=== PATIENT | male | born 1940 | race Caucasian/White ===

== ENCOUNTER 2022-08-30 19:27 | Inpatient (IN) | payer MEDICARE, BC, SELFPAY ==
[2022-08-30 19:42] VITALS: BP 105/59; PULSE 77; RESP 16; TEMP 36.8; O2SAT 97
--- NOTE | 2022-08-30 20:22 | NURSING ---
notified patient admit, clarified Vanco route and Ceftriaxone frequency due to not stated on discharge orders. Orders entered.
--- NOTE | 2022-08-30 20:32 | PCM.HP.STD ---
HPI - General General Date of Admission: 08/30/22 Date of Service: 08/31/22 Chief Complaint: Here for rehabilitation, intravenous antibiotics. HPI Narrative CHANA WARE, is a 82 Male who presents with followin08/21/2022 Patient is a 82 year old male with history of diabetes, hypertension, depression, hyperlipidemia, history of colonic polyps who presents to [facility] emergency department after appointment with pain management for injections for chronic back pain. Prior to this MRI was obtained and resulted with concern for L3-L4 discitis, osteomyelitis, and fluid collection concerning for possible abscess. Patient was also noted some weakness in his right lower extremity especially with extension for the last 2 days. Patient has been hemodynamically stable. Labs showed relatively unremarkable CBCD, and INR 1.4, Blood glucose 222, creatinine 1.47, Lactic acid 2.9 which trended down to 1.7, and C-reactive protein of 10.62, UA showed 1+ bacteria large leukocyte esterase but only 5-20 white blood cells. There were no epithelial cells on that. Influenza and COVID were negative. He was given Vancomycin and Cefepime. Transfer to [facility] [place], [place] under medicine with Dr. Plunkett on consult. 08/22/2022 Admit to [facility] [place], [place]. Blood cultures sent, continue Vancomycin, Cefepime IV. Anticipate need for fdc IV antibiotics, consult Infectious Disease. Consult Neurosurgery, Pain control. Zofran for nausea, gentle IV fluids. 08/22/2022 Neurosurgery saw patient, surgery recommended for lumbar epidural abscess, lumbar osteomyelitis, lumbar spinal stenosis. 08/23/2022 Neurosurgery performed L2-5 decompression and evacuation of epidural abscess. Infectious Disease recommended stopping Cefepime, and switch to IV Rocephin and Vancomycin for L3-4 verebral osteomyelitis, epidural, psoas abscess. Anticipate 6 weeks IV antibiotics, order PICC line. 08/24/2022 blood cultures no growth, OR cultures no growth, gram stain negative. TTE pending. No antibiotics for asymptomatic bacteruria. Continue Vancomycin, Ceftriaxone. 08/31/2022 Admit to TCU with debility, here for rehabilitation, strengthening, intravenous antibiotics, prior to discharge home alone. [facility] Medical History Abscess in epidural space of lumbar spine Coronary artery disease Depression Diabetes mellitus Hypertension Lumbar discitis Osteomyelitis of lumbar spine Allergy/AdvReac Type Severity Reaction Status Date / Time No Known Allergies Allergy Verified 08/30/22 20:40 Surgical History (Updated 08/30/22 @ 20:[address] Maurice Lepe MD) Status post epidural steroid injection Social History (Updated 08/30/22 @ 20:[address] Maurice Lepe MD) household members: none Smoking Status: Never smoker alcohol intake: never substance use type: does not use ROS Constitutional Constitutional: Denies chills, fever(s) or weight gain ENT HEENT: Denies headache(s), nasal congestion or nasal discharge Cardiovascular Cardiovascular: Denies chest pain or palpitations Respiratory/Chest Respiratory/Chest: Denies cough, excessive phlegm production or shortness of breath with exertion Gastrointestinal Gastrointestinal: Denies abdominal pain, nausea or vomiting Genitourinary Genitourinary: Denies dysuria Musculoskeletal Musculoskeletal: Denies joint pain or joint swelling Integumentary Integumentary: Denies rash or wounds Neurologic Neurologic: Denies focal weakness, numbness or tingling Psychiatric Psychiatric: Denies anxiety, auditory hallucinations, depression, homicidal ideation or suicidal ideation Physical Exam Const alert General Appearance: cooperative HEENT normocephalic Eyes PERRL and EOMs intact bilaterally Neck supple, no JVD and no carotid bruits Resp normal respiratory effort, normal air movement and clear to auscultation bilaterally Cardio regular rate and regular rhythm GI normal to inspection, nondistended, normoactive bowel sounds, non-tender and non-distended Extremity normal capillary refill Extremity Narrative: Left upper extremity PICC line. General Extremity: Negative for edema Skin no rashes or lesions noted General Skin Exam: no breakdown Psych affect normal Appearance: appropriate Results Lab / Micro Data Result Diagrams: 08/31/22 03:55 08/31/22 03:55 Assessment & Plan Assessment/Plan (1) Debility: (2) Lumbar discitis: (3) Osteomyelitis of lumbar spine: (4) Psoas abscess: (5) Abscess in epidural space of lumbar spine: (6) Diabetes mellitus: (7) Hypertension: (8) Coronary artery disease: (9) Depression: PLAN: Plan 82 year old male with below past medical history hospitalized for lumbar discitis, lumbar osteomyelitis, lumbar epidural abscess, psoas abscess, underwent L2-5 decompression, evacuation of epidural abscess 08/22/2022, admitted to TCU with debility, here for rehabilitation, strengthening, prior to discharge home alone. Debility - PT/OT. Pain - Tylenol 1000mg q6h prn pain (1-3), Tramadol 50mg q6h prn pain (4-5), Oxycodone 5mg q4h prn pain (6-10), Lidoderm patch 1 patch topical daily. Bowel - Miralax 17gm daily, senna/colace 2 tablets bid, Dulcolax 10mg pr x 1 prn, MOM 30ml po x 1 prn. Adult immunization - Administer pneumonia vacccine, covid19 vaccine, flu vaccine as appropriate. DVT prophylaxis - Xarelto 10mg daily x 30 days. Lumbar discitis/osteomyelitis/epidural abscess/psoas abscess status post debridment - Ceftriaxone 2gm iv q24h, Vancomycin 1500mg iv q24h, consult Dr. Meek to follow. Diabetes Mellitus II - Metformin 1000mg bid, Glimepiride 4mg daily. Hypertension - Propranolol 20mg bid, Lisinopril 5mg daily. Hyperlipidemia - Atorvastatin 20mg qhs. BPH - Tamsulosin 0.8mg daily.
[2022-08-30 21:00] VITALS: BMI 24.3
--- NOTE | 2022-08-30 21:10 | NURSING ---
Patient confused, alert to self, unable to state correct location, patient states using white board to recall month/year. Unable to state correct time. Shwetha bermudez bedside, patient states she needs to answer my questions. Discussed code status, full code confirmed at this time with patient and spouse. Patient and spouse unable to recall vaccination history. Patient spouse requests patient PCP be contacted for vaccine history.
[2022-08-30 21:30] LABS: Bedside Glucose 103 mg/dL (74-106)
[2022-08-30 22:00] VITALS: PULSE 81; RESP 16; O2SAT 98
--- NOTE | 2022-08-30 22:00 | NURSING ---
Addendum entered by Shiraz Patterson 08/31/22 01:31: baseline careplan provided to patient Original Note: No wound vac in place to lumbar spine as wound order stated in discharge orders, lumbar spine MAID CLE[employer]ING COOKING with 23 zuleika intact, one suture to right mid back, redness observed to both sites, no edema, no drainage, no heat.
[2022-08-30] MEDS: Atorvastatin Calcium 20 MG Tablet PO (22:09)
[2022-08-31 04:08] LABS: Absolute Lymphocyte Count 2.06 X10^3/uL (0.83-4.51); Absolute Neutrophil Count 4.6 X10^3/uL (2.0-7.7); Basophil# 0.03 X10^3/uL; Basophil% 0.4 % (0-1); Eosinophil# 0.32 X10^3/uL; Hematocrit 25.9 % (40-54); Hemoglobin 8.3 g/dL (13.0-16.5); Lymphocyte # 2.06 X10^3/ul (0.83-4.51); Lymphocyte % 25.9 % (19-41); Mean Corpuscular Hgb 28.8 pg (27.0-32.0); Mean Corpuscular Volume 89.9 fL (80-94); Mean Platelet Vol. 8.9 fl (6.2-12.0); Monocyte# 0.83 X10^3/uL; Monocyte% 10.4 % (0-10); NRBC Flagged by Analyzer 0 % (0-5); Neutrophil # 4.56 X10^3/uL (2.7-7.7); Neutrophil % 57.4 % (47-70); Platelet Count 325 K/mm3 (150-450); RBC Distribution Width SD 42.8 fl (35.1-43.9); Red Blood Count 2.88 M/mm3 (4.6-6.2)
[2022-08-31 04:21] LABS: Anion Gap 10 (5-15); BUN 23 mg/dL (7-18); BUN/Creat Ratio 21.5 RATIO (10-20); Calcium,Total 8.5 mg/dL (8.5-10.1); Chloride 101 mmol/L (98-107); Creatinine, Serum 1.07 mg/dL (0.70-1.30); EST Glomerular Filtration Rate 71 mL/min (>60); Est Glom Filt Rate - Afr Amer 85 mL/min (>60); Estimated Creatinine Clearance 51.48 ml/min; Glucose 147 mg/dL (74-106); Potassium 3.7 mmol/L (3.5-5.1); Sodium Level 136 mmol/L (136-145)
[2022-08-31 04:22] LABS: Vancomycin, Random Level 17.1 ug/mL (0.0-15.0)
--- NOTE | 2022-08-31 04:56 | NURSING ---
Contacted pharmacist (Tonio) regarding vanc trough, per Tonio ok to admin Vanco as ordered, to be sent to floor
--- NOTE | 2022-08-31 05:04 | PCM.RX.CS ---
Consult Pharmacy has been consulted to manage selected antiobiotic: Vancomycin Type of Consult: New start Suspected Infection: Osteomyelitis Prior Doses of Antibiotics Received/Current Regimen: Medications Vancomycin HCl 1,500 mg/ (Sodium Chloride) 530 mls @ 250 mls/hr IV Q24H RANDELL Labs: Sodium 136 mmol/L (136-145) 08/31/22 03:55 Potassium 3.7 mmol/L (3.5-5.1) 08/31/22 03:55 Chloride 101 mmol/L (98-107) 08/31/22 03:55 Carbon Dioxide 25.0 mmol/L (21.0-32.0) 08/31/22 03:55 Anion Gap 10 (5-15) 08/31/22 03:55 BUN 23 mg/dL (7-18) H 08/31/22 03:55 Creatinine 1.07 mg/dL (0.70-1.30) 08/31/22 03:55 Est GFR (MDRD) Af Amer 85 mL/min (>60) 08/31/22 03:55 Est GFR (MDRD) Non-Af 71 mL/min (>60) 08/31/22 03:55 BUN/Creatinine Ratio 21.5 RATIO (10-20) H 08/31/22 03:55 Glucose 147 mg/dL (74-106) H 08/31/22 03:55 Random Vancomycin 17.1 ug/mL (0.0-15.0) H 08/31/22 03:55 Weight used for dosin.4 kg Estimated Creatinine Clearance: 51 Goal Trough: 15-20 mcg/mL Pharmacy Plan for Drug Dosing: Pt came from other facility having been on vancomycin IV 1500mg q24h. The last dose there was 08/30/22 @0400. Per our policy, a random level was drawn 08/31/22 @0355. This level was 17.1. Per dosing calculator, continuing a dose of 1500mg q24h will give an estimated trough of 17.0. This will be started, and a trough will be drawn in two days. Pharmacy Service will continue to monitor and adjust dosing as required. Follow-Up Labs: Trough Vancomycin Labs to be done on [date and time ordered]: 09/02/22 @0500
[2022-08-31] MEDS: 0.9% Saline Lock 10 ML Syringe IV (06:10)
[2022-08-31] MEDS: Propranolol 10 MG Tablet 20 MG PO ×2 (06:31→17:56)
[2022-08-31] MEDS: Polyethylene Glycol 3350 17 GM PACKET PO (06:31)
[2022-08-31] MEDS: Senna/Docusate Sodium 1 Tablet 2 TABLET PO ×2 (06:32→17:56)
[2022-08-31 06:41] LABS: Bedside Glucose 151 mg/dL (74-106)
--- NOTE | 2022-08-31 06:42 | NURSING ---
Patient more alert this morning, attempted sarmiento removal per discharge order, patient declined despite education stating I just have so much trouble without it, I want to keep it in. Written communication left for Dr. Lepe regarding patient refusal.
[2022-08-31] MEDS: metFORMIN HCl 1,000 MG Tablet 1000 MG PO ×2 (07:50→17:55)
[2022-08-31] MEDS: Lisinopril 5 MG Tablet PO (07:50)
[2022-08-31] MEDS: Glimepiride 4 MG Tablet PO (07:50)
[2022-08-31] MEDS: Lidocaine 5% Patch 1 PATCH TOPICAL (07:51)
--- NOTE | 2022-08-31 11:06 | NURSING ---
J2Ee Engineer Note; Activity Asset: Leslie Gunderson is independent in his choice of Daily activities. He prefers to be called Isaias and he is not interested in activities at this time. Isaias stated he is fine w/watching TV and resting when not in therapy, he is just eager to get back home. Family will come visit daily and bring him stuff if he wants it. Staff will respect his right to say No and I will continue to stop by and give him the [employer].
[2022-08-31 11:51] LABS: Bedside Glucose 315 mg/dL (74-106)
[2022-08-31] MEDS: Tuberculin,Purif.prot.deriv. 50 TU/ML Vial 0.1 ML ID (11:51)
--- NOTE | 2022-08-31 12:24 | NURSING ---
call placed to Dr Torres's office for consultation. Office was closed today, left VM, awaiting to hear back on SaturdaySep 03
--- NOTE | 2022-08-31 14:21 | CON.PCM.ID_ITS ---
Assessment & Plan Assessment/Plan (1) Abscess in epidural space of lumbar spine: (2) Osteomyelitis of lumbar spine: PLAN: Reviewed records from [facility]. Bcx and surg cx neg. Reportedly 16S rRNA pcr test was sent. Will request those results. Cont vanc/ceftriaxone for empiric course with 6 weeks treatment, planned stop date 10/04/22 from date of surgery. Will follow, thank you (3) Lumbar discitis: HPI Consult Data Date of Consult: 08/31/22 HPI Narrative Reason for Consultation: osteo HPI Narrative: CHANA WARE, is a 82 M who presented 08/21/22 to [facility] with several weeks worsened lower back pain, weakness in RLE, fever, chills, fatigue. MRI showed L3-4 discitis/osteo/epidural abscess. Transferred to [facility] [place], taken to OR 08/22/22 for laminectomy. Bcx and surg cx neg. Seen by Dr. Heaton with ID. Discharged to TCU on vanc/ceftriaxone via picc for planned 6 week course. Feeling ok, no further fever, pain in back stable. No n/v/d. Full ROS performed and neg except as noted above. [facility] Medical History Abscess in epidural space of lumbar spine Coronary artery disease Depression Diabetes mellitus Hypertension Lumbar discitis Osteomyelitis of lumbar spine Allergy/AdvReac Type Severity Reaction Status Date / Time No Known Allergies Allergy Verified 08/30/22 20:40 Surgical History (Updated 08/30/22 @ 20:[address] Maurice Lepe MD) Status post epidural steroid injection Social History (Updated 08/30/22 @ 20:[address] Maurice Lepe MD) household members: none Smoking Status: Never smoker alcohol intake: never substance use type: does not use Physical Exam Const alert and no apparent distress General Appearance: cooperative HEENT normocephalic and head/scalp atraumatic Eyes PERRL and EOMs intact bilaterally Neck supple and No nodes Resp normal air movement and clear to auscultation bilaterally Cardio regular rate and regular rhythm GI soft to palpation, non-tender and non-distended Extremity General Extremity: Negative for edema Skin no rashes or lesions noted Skin Narrative: lumbar incision healing well, no swelling or drainage Neuro CN's II-XII intact bilaterally Lab / Micro Data Attestation: I reviewed the patient's lab results. Result Diagrams: 08/31/22 03:55 08/31/22 03:55 Labs: Laboratory Results - last 24 hr 08/30/22 20:55: COVID-19 (MAGALYS) Not Detected 08/30/22 21:13: POC Glucose 103 08/31/22 03:55: WBC 8.0, RBC 2.88 L, Hgb 8.3 L, Hct 25.9 L, MCV 89.9, MCH 28.8, MCHC 32.0, RDW Std Deviation 42.8, RDW Coeff of Eliecer 13.0, Plt Count 325, MPV 8.9, Immature Gran % (Auto) 1.900 H, Neut % (Auto) 57.4, Lymph % (Auto) 25.9, [place] % (Auto) 10.4 H, Eos % (Auto) 4.0, Baso % (Auto) 0.4, Absolute Neuts (auto) 4.6, Absolute Lymphs (auto) 2.06, Nucleated RBC % 0 08/31/22 03:55: Sodium 136, Potassium 3.7, Chloride 101, Carbon Dioxide 25.0, Anion Gap 10, BUN 23 H, Creatinine 1.07, Estim Creat Clear Calc 51.48, Est GFR (MDRD) Af Amer 85, Est GFR (MDRD) Non-Af 71, BUN/Creatinine Ratio 21.5 H, Glucose 147 H, Calcium 8.5 08/31/22 03:55: Random Vancomycin 17.1 H 08/31/22 06:13: POC Glucose 151 H 08/31/22 11:29: POC Glucose 315 H
[2022-08-31 15:13] VITALS: BP 141/67; PULSE 82; RESP 18; TEMP 36.3; O2SAT 98
--- NOTE | 2022-08-31 16:41 | CASEMGMT ---
Social Work Met with patient to complete initial assessment. Introduced self and role. Pt laying in bed and pleasant, however, with each assessment question, pt would say my would know that, you can ask her. Pt had no contacts listed but would recall 's phone number by memory. Updated in chart. Pt could not express wishes for code status. SW intent to contact with assessment questions. Will continue to follow. Chelsy Gardner ,ELECTRICAL CAD TECHNICIAN [employer]
[2022-08-31 17:16] LABS: Bedside Glucose 270 mg/dL (74-106)
[2022-08-31] MEDS: Glucerna Shake 120 ML LIQUID PO ×2 (17:39→22:09)
[2022-08-31] MEDS: Rivaroxaban 10 MG Tablet PO (17:39)
[2022-08-31] MEDS: Tamsulosin HCl 0.4 MG Capsule 0.8 MG PO (17:55)
[2022-08-31] MEDS: traMADol 50 MG Tablet PO (18:08)
[2022-08-31 21:56] LABS: Bedside Glucose 290 mg/dL (74-106)
[2022-08-31] MEDS: Atorvastatin Calcium 20 MG Tablet PO (22:11)
[2022-08-31 23:50] VITALS: PULSE 80; RESP 16; O2SAT 96
[2022-09-01] MEDS: Propranolol 10 MG Tablet 20 MG PO ×2 (05:35→16:24)
[2022-09-01] MEDS: Glucerna Shake 120 ML LIQUID PO ×4 (05:35→20:56)
[2022-09-01] MEDS: Polyethylene Glycol 3350 17 GM PACKET PO (05:36)
[2022-09-01] MEDS: Senna/Docusate Sodium 1 Tablet 2 TABLET PO ×2 (05:36→16:25)
[2022-09-01 06:31] LABS: Bedside Glucose 170 mg/dL (74-106)
[2022-09-01] MEDS: Acetaminophen 500 MG Tablet 1000 MG PO ×2 (07:47→16:22)
[2022-09-01] MEDS: metFORMIN HCl 1,000 MG Tablet 1000 MG PO ×2 (07:47→16:23)
[2022-09-01] MEDS: Lisinopril 5 MG Tablet PO (07:47)
[2022-09-01] MEDS: Glimepiride 4 MG Tablet PO (07:47)
[2022-09-01] MEDS: oxyCODONE 5 MG Tablet PO ×3 (07:48→16:23)
[2022-09-01] MEDS: Lidocaine 5% Patch 1 PATCH TOPICAL (07:48)
[2022-09-01 07:55] VITALS: BP 148/55; PULSE 66
--- NOTE | 2022-09-01 08:00 | NURSING ---
assisted pt to BSC then to bed and noted sarmiento catheter with tea colored urine, which was not that way on admission . will continue to monitor.
[2022-09-01] MEDS: 0.9% Saline Lock 10 ML Syringe IV (09:42)
[2022-09-01 09:51] VITALS: RESP 16; O2SAT 94
--- NOTE | 2022-09-01 10:30 | NURSING ---
dr de la cruz updated on blood sugars, no new orders at this time, continue with metformin and amaryl as ordered
[2022-09-01 12:25] LABS: Bedside Glucose 171 mg/dL (74-106)
[2022-09-01] MEDS: Rivaroxaban 10 MG Tablet PO (16:23)
[2022-09-01] MEDS: Tamsulosin HCl 0.4 MG Capsule 0.8 MG PO (16:24)
[2022-09-01 16:27] VITALS: BP 110/54; PULSE 77; RESP 16; TEMP 36.9; O2SAT 95
[2022-09-01 17:10] LABS: Bedside Glucose 272 mg/dL (74-106)
[2022-09-01] MEDS: Atorvastatin Calcium 20 MG Tablet PO (20:57)
[2022-09-01 22:30] LABS: Bedside Glucose 227 mg/dL (74-106)
[2022-09-02] MEDS: Glucerna Shake 120 ML LIQUID PO (05:18)
[2022-09-02] MEDS: Polyethylene Glycol 3350 17 GM PACKET PO (05:19)
[2022-09-02] MEDS: Senna/Docusate Sodium 1 Tablet 2 TABLET PO (05:20)
[2022-09-02] MEDS: Propranolol 10 MG Tablet 20 MG PO (05:21)
[2022-09-02] MEDS: Acetaminophen 500 MG Tablet 1000 MG PO (05:24)
[2022-09-02 05:26] VITALS: BP 103/47; PULSE 71
[2022-09-02 05:54] LABS: Vancomycin, Trough Level 20.4 ug/mL (5.0-15.0)
--- NOTE | 2022-09-02 06:04 | PCM.RX.CS ---
Consult Pharmacy has been consulted to manage selected antiobiotic: Vancomycin Type of Consult: Follow-up Suspected Infection: Osteomyelitis Prior Doses of Antibiotics Received/Current Regimen: Medications Vancomycin HCl 1,250 mg/ (Sodium Chloride) 275 mls @ 167 mls/hr IV Q24H RANDELL Discontinued Medications Vancomycin HCl 1,500 mg/ (Sodium Chloride) 530 mls @ 250 mls/hr IV Q24H RANDELL Last Admin: 09/01/22 08:03 Dose: Infused Labs: Sodium 136 mmol/L (136-145) 08/31/22 03:55 Potassium 3.7 mmol/L (3.5-5.1) 08/31/22 03:55 Chloride 101 mmol/L (98-107) 08/31/22 03:55 Carbon Dioxide 25.0 mmol/L (21.0-32.0) 08/31/22 03:55 Anion Gap 10 (5-15) 08/31/22 03:55 BUN 23 mg/dL (7-18) H 08/31/22 03:55 Creatinine 1.07 mg/dL (0.70-1.30) 08/31/22 03:55 Est GFR (MDRD) Af Amer 85 mL/min (>60) 08/31/22 03:55 Est GFR (MDRD) Non-Af 71 mL/min (>60) 08/31/22 03:55 BUN/Creatinine Ratio 21.5 RATIO (10-20) H 08/31/22 03:55 Glucose 147 mg/dL (74-106) H 08/31/22 03:55 Vancomycin Trough 20.4 ug/mL (5.0-15.0) H 09/02/22 05:00 Random Vancomycin 17.1 ug/mL (0.0-15.0) H 08/31/22 03:55 Microbiology: Microbiology 09/01/22 08:00 Nasal Secretion SARS-CoV-2 Antigen (Rapid) - Final Weight used for dosin.4 kg Estimated Creatinine Clearance: 51 Goal Trough: 15-20 mcg/mL Pharmacy Plan for Drug Dosing: Vancomycin trough level, drawn 23.5 hours post-dose, was 20.4 - slightly above the target range of 15-20. Will decrease the dose to 1250mg q24h, and re-draw a trough prior to third dose of new regimen. Pharmacy Service will continue to monitor and adjust dosing as required. Follow-Up Labs: Trough Vancomycin Labs to be done on [date and time ordered]: 09/04/22 @2999
--- NOTE | 2022-09-02 06:30 | NURSING ---
pt heard moaning, yelling 's name. pt found shivering and could not get warm. temp 100.3 temporal, unable to get oral temp d/t shivering. had tylenol approx 0530 this AM. pt had coca cola colored urine in sarmiento bag during night but more yellow this AM. [address] de la cruz updated, order to send pt to ER to be evaluated. BP 103/47 HR 71.
[2022-09-02] MEDS: oxyCODONE 5 MG Tablet PO (06:38)
[2022-09-02 06:41] LABS: Bedside Glucose 133 mg/dL (74-106)
[2022-09-02 06:54] VITALS: TEMP 37.9
--- NOTE | 2022-09-02 07:11 | NURSING ---
pt off unit at this time via bed
--- NOTE | 2022-09-02 07:11 | NURSING ---
notified regarding transfer to ER
--- NOTE | 2022-09-02 16:47 | PCM.DC.SUM ---
Providers Date of Admission: 08/30/22 Consultations 08/30/22 21:05 Consult: Infectious Disease Routine Consulting Provider: Michele Meek Reason for Consult: Lumbar discitis/osteomyelitis/epidural abscess/psoas abscess s/p surgery EMERGENT Consult: No MD Notified: Yes Date Notified: 08/31/22 Time Notified: 12:43 Method of Notification: Verbal Reason For Visit: OSTEOMYELITIS OF SPINE Diagnosis Discharge Diagnosis (1) Abscess in epidural space of lumbar spine: Status: Acute Code(s): G06.1 - Intraspinal abscess and granuloma (2) Osteomyelitis of lumbar spine: Status: Acute Code(s): M46.26 - Osteomyelitis of vertebra, lumbar region (3) Lumbar discitis: Status: Acute Code(s): M46.46 - Discitis, unspecified, lumbar region (4) Diabetes mellitus: Status: Acute Code(s): E11.9 - Type 2 diabetes mellitus without complications (5) Hypertension: Status: Chronic Code(s): I10 - Essential (primary) hypertension (6) Coronary artery disease: Status: Acute Code(s): I25.10 - Atherosclerotic heart disease of [place] coronary artery without angina pectoris (7) Depression: Status: Acute Code(s): F32.A - Depression, unspecified (8) Psoas abscess: Status: Acute Code(s): K68.12 - Psoas muscle abscess (9) Debility: Status: Acute Code(s): R53.81 - Other malaise Plan 82 year old male with below past medical history hospitalized for lumbar discitis, lumbar osteomyelitis, lumbar epidural abscess, psoas abscess, underwent L2-5 decompression, evacuation of epidural abscess 08/22/2022, admitted to TCU with debility, here for rehabilitation, strengthening, prior to discharge home alone. Debility - PT/OT. Pain - Tylenol 1000mg q6h prn pain (1-3), Tramadol 50mg q6h prn pain (4-5), Oxycodone 5mg q4h prn pain (6-10), Lidoderm patch 1 patch topical daily. Bowel - Miralax 17gm daily, senna/colace 2 tablets bid, Dulcolax 10mg pr x 1 prn, MOM 30ml po x 1 prn. Adult immunization - Administer pneumonia vacccine, covid19 vaccine, flu vaccine as appropriate. DVT prophylaxis - Xarelto 10mg daily x 30 days. Lumbar discitis/osteomyelitis/epidural abscess/psoas abscess status post debridment - Ceftriaxone 2gm iv q24h, Vancomycin 1500mg iv q24h, consult Dr. Meek to follow. Diabetes Mellitus II - Metformin 1000mg bid, Glimepiride 4mg daily. Hypertension - Propranolol 20mg bid, Lisinopril 5mg daily. Hyperlipidemia - Atorvastatin 20mg qhs. BPH - Tamsulosin 0.8mg daily. Medications at Discharge Home Medications acetaminophen 500 mg tablet 1,000 mg PO Q6H PRN PAIN SCORE 1-3 09/02/22 atorvastatin 20 mg tablet 20 mg PO QHS CHOLESTEROL 09/02/22 ceftriaxone 2 gram intravenous solution 2 g IV Q24H INFECTION 09/02/22 glimepiride 4 mg tablet 4 mg PO BREAKFAST DM 09/02/22 lidocaine 5 % topical patch 1 patch topical DAILY PAIN 09/02/22 lisinopril 5 mg tablet 5 mg PO DAILY BP 09/02/22 metformin 500 mg tablet 1,000 mg PO BIDCM DM 09/02/22 nut.tx.gluc.intol,lac-free,soy (Glucerna oral liquid) 120 ml PO 4X/DAY SUPPLEMENT 09/02/22 oxycodone 5 mg tablet 5 mg PO Q4H PRN PAIN SCORE 6-10 09/02/22 polyethylene glycol 3350 17 gram/dose oral powder 17 g PO DAILY CONSTIPATION 09/02/22 propranolol 20 mg tablet 20 mg PO BID HEART 09/02/22 rivaroxaban 10 mg tablet (Xarelto) 10 mg PO DINNER 09/02/22 sennosides 8.6 mg-docusate sodium 50 mg tablet 2 tab PO BID CONSTIPATION 09/02/22 tamsulosin 0.4 mg capsule 0.8 mg PO DAILY PROSTATE 09/02/22 tramadol 50 mg tablet 50 mg PO Q6H PRN Pain (Scale Score 4-5) 09/02/22 Hospital Course Operations - (See below.) Procedures None Summary of Care Provided Minutes Spent on Discharge: 30 Hospital Course: 82 year old male with below past medical history hospitalized for lumbar discitis, lumbar osteomyelitis, lumbar epidural abscess, psoas abscess, underwent L2-5 decompression, evacuation of epidural abscess 08/22/2022, admitted to TCU with debility, here for rehabilitation, strengthening, prior to discharge home alone. 09/02/2022 Resident febrile, chills, hematuria despite being on 2 intravenous antibiotics. Discharge to [facility] Emergency Department 09/02/2022 for evaluation, admission to hospital. 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 Recommendation Dietitian Recommendations/Changes Will continue CHO Control diet Will order 4 oz glucerna shake 4x/day w/ medpass Rec consider appetite stimulant if po intake fails and / or continued wt loss Weight / BMI Weight Weight: 70.42 kg Body Mass Index (BMI) 24.3 ABG / Lab / Microbiology Data Result Diagrams: 08/31/22 03:55 08/31/22 03:55 Laboratory: Laboratory Results - last 24 hr 09/01/22 16:19: POC Glucose 272 H 09/01/22 22:07: POC Glucose 227 H 09/02/22 05:00: Vancomycin Trough 20.4 H 09/02/22 06:10: POC Glucose 133 H Microbiology: Microbiology 09/01/22 08:00 Nasal Secretion SARS-CoV-2 Antigen (Rapid) - Final D/C Instructions Discharge Diet: No restrictions Discharge Activity: Return to Normal Activity Weight Bearing Status: Weight bearing as tolerated Call your doctor if you observe: Fever of 101 or Higher, Inability to urinate, Inability to have a bowel movement, Shortness of breath, Dizziness, Fainting spells, Swelling in the ankles, Chest pain and Uncontrolled pain Additional Instructions: Discharge to [facility] Emergency Department 09/02/2022 for evaluation, admission to hospital. Please Follow Up With: maureen foster neurosurgery Meaningful Use Info Meaningful Use Diagnoses (Choose all that apply): None applicable Discharge Plan Admission Admit Date/Time: 08/30/22 19:27 Primary Reason for Your Visit: Debility. Attending Provider: Maurice Lepe Chi Consulting Providers: Michele Meek Instructions Additional Instructions / Restrictions: Discharge to [facility] Emergency Department 09/02/2022 for evaluation, admission to hospital. Discharge Orders/Prescriptions Prescriptions: No Action metformin 500 mg tablet 1,000 mg PO BIDCM Label Comments: take 2 tablets by mouth twice a day atorvastatin 20 mg Tablet 20 mg PO QHS ceftriaxone 2 gram Recon Soln 2 g IV Q24H sennosides-docusate sodium 8.6-50 mg Tablet 2 tab PO BID tramadol 50 mg tablet 50 mg PO Q6H PRN (Reason: Pain (Scale Score 4-5)) Label Comments: take 1 tablet by mouth every 6 hours acetaminophen 500 mg Tablet 1,000 mg PO Q6H PRN (Reason: PAIN SCORE 1-3) tamsulosin 0.4 mg capsule 0.8 mg PO DAILY Label Comments: take 2 capsules by mouth once daily glimepiride 4 mg tablet 4 mg PO BREAKFAST lidocaine 5 % adhesive patch,medicated 1 patch topical DAILY Label Comments: apply 1 patch TO THE AFFECTED AREA DAILY. LEAVE ON FOR 12 HOURS AND THEN OFF FOR 12 HOURS. polyethylene glycol 3350 17 gram/dose Powder 17 g PO DAILY propranolol 20 mg tablet 20 mg PO BID oxycodone 5 mg tablet 5 mg PO Q4H PRN (Reason: PAIN SCORE 6-10) Glucerna Liquid 120 ml PO 4X/DAY Xarelto 10 mg Tablet 10 mg PO DINNER lisinopril 5 mg tablet 5 mg PO DAILY Disposition Disposition (needs filled in before D/C Order can be placed): [facility]
--- NOTE | 2022-09-11 14:13 | MDS.RN ---
Information for the mds was obtained from review of the clinical record, interview of resident, staff, and direct observation of resident's care.
== END 2022-09-02 07:00 | disposition short-term general hospital (02) | DRG 559 ==
PROVIDERS: Admitting Provider Family Medicine Geriatric Medicine; Visit Provider Family Medicine Geriatric Medicine
DX: Z47.89 Encounter for other orthopedic aftercare (principal); G06.1 Intraspinal abscess and granuloma; K68.12 Psoas muscle abscess; M46.26 Osteomyelitis of vertebra, lumbar region; E11.9 Type 2 diabetes mellitus without complications; I10 Essential (primary) hypertension; M46.46 Discitis, unspecified, lumbar region; I25.10 Atherosclerotic heart disease of native coronary artery without angina pectoris; N40.0 Benign prostatic hyperplasia without lower urinary tract symptoms; Z79.899 Other long term (current) drug therapy
CPT/HCPCS: 36415; 80048; 80202; 82962; 85025; 87426; 87635; 87811; 92507; 92523; 97110; 97116; 97162; 97166; 97530; 97535; 97802; J7040; J7050; 90686; A4216; J0696; U0003; U0005

== ENCOUNTER 2022-09-02 07:16 | Emergency (ER) | payer MEDICARE, BC, SELFPAY ==
[2022-09-02] VITALS (9 sets, daily range): BP systolic 86–136; BP diastolic 39–75; PULSE 72–109; RESP 16–20; TEMP 36.2–38.1; O2SAT 87–96; BMI 26.5
--- NOTE | 2022-09-02 07:34 | EX.ED.DYSGE1 ---
HPI History of Present Illness Chief Complaint: Fever Detail of Chief Complaint: Fever that was noted this morning Informant: patient Narrative Narrative: Patient presents to the emergency department from the transitional care unit for a fever. Patient somewhat of a poor historian. He does state that he had chills this morning and could not get warm. Patient tells me that he thinks about 2 weeks ago he had surgery on his back for a osteomyelitis or epidural abscess. He really could not tell me where this was done. Evaluating the medical record there is a cover sheet from [facility] but no detailed information. Patient has a consultation from infectious disease Dr. Meek which does state that patient currently on vancomycin and ceftriaxone. Patient has a PICC line. Patient also was noted to have some blood in his urinary catheter today. Patient denies cough. He denies vomiting or diarrhea. He denies back pain. He denies weakness in extremities. [facility] Medical History Abscess in epidural space of lumbar spine Coronary artery disease Depression Diabetes mellitus Hypertension Lumbar discitis Osteomyelitis of lumbar spine Allergy/AdvReac Type Severity Reaction Status Date / Time No Known Allergies Allergy Verified 09/02/22 07:16 Surgical History (Updated 08/30/22 @ 20:[address] Maurice Lepe MD) Status post epidural steroid injection Social History (Updated 08/30/22 @ 20:[address] Maurice Lepe MD) household members: none Smoking Status: Never smoker alcohol intake: never substance use type: does not use ROS ROS ED Review of Systems ROS Unobtainable: other Constitutional Constitutional ED: Reports chills, fever(s) and lethargy; Denies sweats or weight loss Eyes Eyes: Denies blurry vision, change in vision or diplopia ENT ENT ED: Denies rhinorrhea or sore throat Cardiovascular Cardiovascular: Denies chest pain, orthopnea or racing heartbeat Respiratory/Chest Respiratory/Chest: Denies cough, dyspnea, dyspnea on exertion, orthopnea or sputum Gastrointestinal Gastrointestinal: Denies abdominal pain, diarrhea, nausea or vomiting Genitourinary Genitourinary ED: Denies dysuria, hematuria or urinary frequency Musculoskeletal Musculoskeletal: Denies arthralgias, back pain, myalgias or neck pain Integumentary Denies abscess, Abrasions or rash Neurologic Neurologic: Denies headache(s) or weakness Psychiatric Psychiatric: Denies anxiety, depression or suicidal thoughts Endocrine Endocrinology: Denies polydipsia, polyphagia or polyuria Hematologic/Lymphatic Hematologic/Lymphatic: Denies easy bleeding, easy bruising or lymphadenopathy Allergic/Immunologic Allergic/Immunologic ED: Denies mouth swelling, tongue swelling or urticaria EXAM Physical Exam Const Vital Signs: 09/02/22 07:17 09/02/22 07:23 09/02/22 07:23 Temperature 100.6 F H Temperature Source Temporal Pulse Rate 109 H Respiratory Rate 18 18 Blood Pressure 102/74 Blood Pressure Mean 83 Pulse Ox 93 87 94 Oxygen Delivery Method Room Air Room Air Nasal Cannula Oxygen Flow Rate (L/min) 2 Positive well nourished and well developed General Appearance ED: well developed and NAD HEENT Reports TM's clear and moist mucous membranes normocephalic and atraumatic; Negative for trauma or tenderness Tympanic Membrane ED: Yes TM's clear Eyes PERRL and EOMs intact bilaterally General Eye ED: Negative for pale conjunctiva or scleral icterus Neck no lymphadenopathy, supple and no JVD General: Negative for tenderness Chest Wall inspection of chest normal and palpation of chest normal Chest: Negative for tenderness Resp normal respiratory effort and clear to auscultation bilaterally Effort and Inspection: Negative for respiratory distress or pain with movement Auscultation: Negative for rhonchi, wheezes or diminished lung sounds Cardio regular rate, regular rhythm, S1 normal heart sound, S2 normal heart sound and no murmurs Peripheral Pulses: pulses 2+ throughout GI normal to inspection, nondistended, normoactive bowel sounds, soft to palpation, non-tender, non-distended and no masses Back/Spine no CVA tenderness and no thoracic nor lumbar tenderness Back/Spine Narrative: Evaluation of his back does reveal recent surgical scar that appears to be healing normally. There is no erythema or warmth. No fluctuance noted. No real significant tenderness on exam. Extremity normal to inspection General Extremety ED: Negative for edema General Extremity: Negative for edema Neuro oriented x3, CN's II-XII intact bilaterally, no sensory deficits noted and gait normal Sensorium / Orientation: awake, alert, oriented to person, oriented to place and oriented to time Motor Exam: strength 5/5 throughout and strength abnormal Psych mental status grossly normal Skin no rashes or lesions noted and no wounds Discharge Plan Triage Chief Complaint: Fever ED Provider: Juan Carlos Dawkins
--- NOTE | 2022-09-02 07:54 | RAD_ITS ---
STUDY: X-RAY CHEST REASON FOR EXAM: Male, 82 years old. fever RECENT SPINAL SURGERY FOR OSTEOMYELITIS, PICC LINE IN LEFT UPPER ARM. STARTED WITH FEVER AND BLOOD INTO CATHETER TECHNIQUE: Single AP portable view of the chest. COMPARISON: None. FINDINGS: The lungs are clear and expanded. There is no demonstrated pleural abnormality. Normal size heart. Normal mediastinum and ciarra. Normal visualized pulmonary arteries. There is atherosclerotic calcification of the aortic arch with tortuosity. There are diffuse degenerative changes of the visualized thoracic spine. There is degenerative osteoarthritis of the bilateral shoulders. There is no demonstrated abnormality of the visualized soft tissue structures of the upper abdomen. RAD/Chest 1 View (Portable) IMPRESSION: Degenerative changes, as described above. No demonstrated acute cardiopulmonary process. Electronically Signed: Carter Vaughn MD at 8:14 EST ,
[2022-09-02 08:14] LABS: Hematocrit 25.6 % (40-54); Hemoglobin 8.4 g/dL (13.0-16.5); Mean Corp Hgb Conc 32.8 g/dL (32-36); Mean Corpuscular Hgb 29.7 pg (27.0-32.0); Mean Corpuscular Volume 90.5 fL (80-94); Mean Platelet Vol. 8.9 fl (6.2-12.0); POSITIVE COUNT YES; POSITIVE MORPHOLOGY YES; Platelet Count 342 K/mm3 (150-450); RBC Distribution Width CV 13.1 % (11.6-14.6); RBC Distribution Width SD 42.8 fl (35.1-43.9); Red Blood Count 2.83 M/mm3 (4.6-6.2); White Blood Count 7.2 K/mm3 (4.4-11.0)
[2022-09-02 08:15] LABS: Differential Indicated MANUAL DIFF
[2022-09-02] MEDS: 0.9% Normal Saline 1,000 ML 150 ML IV (08:21)
[2022-09-02 08:29] LABS: Anion Gap 9 (5-15); BUN 18 mg/dL (7-18); BUN/Creat Ratio 14.3 RATIO (10-20); Calcium,Total 8.3 mg/dL (8.5-10.1); Chloride 103 mmol/L (98-107); Creatinine, Serum 1.26 mg/dL (0.70-1.30); EST Glomerular Filtration Rate 58 mL/min (>60); Est Glom Filt Rate - Afr Amer 71 mL/min (>60); Estimated Creatinine Clearance 45.24 ml/min; Glucose 133 mg/dL (74-106); Potassium 4.4 mmol/L (3.5-5.1); Sodium Level 137 mmol/L (136-145)
[2022-09-02 09:02] LABS: Eosinophil 6 % (0-5); Lymphocyte 20 % (19-41); Metamyelocyte 2 % (0-1); Monocyte 1 % (0-10); Myelocyte 4 % (0-0); Neutrophil-Band 13 % (0-5); Neutrophil-Segmented 54 % (47-70); Total Cells Counted 100 (MANUAL DIFF)
[2022-09-02 09:03] LABS: Anisocytosis 2+; Hypochromasia 1+; Polychromasia 1+
[2022-09-02 09:05] LABS: Absolute Neutrophil Count 4.8 X10^3/uL (2.0-7.7); Promyelocyte 4 % (0-0)
[2022-09-02] MEDS: Acetaminophen 500 MG Tablet 650 MG PO (09:44)
[2022-09-02 10:09] LABS: Bacteria 0 SEEN /hpf (None Seen); Mucous, Urine 0 SEEN /hpf (<or=2+); Squamous Epithelial Cells - UA 0 SEEN /hpf (0-5)
[2022-09-02 10:18] LABS: Color, Urine Amber (Yellow); Glucose, Dipstick Normal (Normal); Ketone-Dipstick 5 mg/dl (Negative); Leukocyte Esterase-Dipstick 25 /ul (Negative); Nitrite-Dipstick Negative (Negative); Occult Blood-Urine 250 /ul (Negative); Protein-Dipstick 100 mg/dl (Negative); Urine Bilirubin Dipstick Negative (Negative); Urine Clarity Cloudy (Clear); Urine Urobilinogen Normal (Normal)
[2022-09-02 10:23] LABS: Red Blood Cells-Urine > 100 SEEN /hpf (0-5); White Blood Cells 0-5 SEEN /hpf (0-5)
[2022-09-02] MEDS: 0.9% Normal Saline 1,000 ML 999 ML IV (11:20)
[2022-09-02 12:05] LABS: Reflex Lactate? Y
[2022-09-02] MEDS: fentaNYL 100 MCG/2 ML Ampul 50 MCG IV (12:26)
--- NOTE | 2022-09-02 12:45 | MRI_ITS ---
STUDY: MRI LUMBAR SPINE WITH AND WITHOUT CONTRAST REASON FOR EXAM: Male, 82 years old. FEVER ONSET TODAY. PATIENT HAD SURGERY FOR INFECTION WITHIN LAST 1-2 WEEKS PER FAMILY AT [facility]. UNABLE TO OBTAIN PREVIOUS MRI DUE TO FILM LIBRARY CLOSED ON WEEKEND. NO PREVIOUS IMAGING AVAILABLE AT [facility] TECHNIQUE: Standardized fat and water weighted pulse sequences were obtained in the sagittal and axial planes. IV 16mL CLARISCAN was administered for the contrast portion of the examination. COMPARISON: None FINDINGS: Sequela of acute/subacute osteomyelitis discitis is seen at the L3-L4 level were there is a cortical erosion on both sides of the disc space, liquefied intervertebral discs, and diffuse and significant enhancement of both the L3 and L4 vertebral bodies on the postcontrast study and some of the infected extruded disc material is present at the midline and left paracentral region. The extruded infected disc material measures 1.56 cm in the craniocaudal dimension and contributes to left lateral recess stenosis with nerve root compression. There are severe central canal stenosis at the L3-L4 level due to the extruded disc material as well as mass effect from the facet joints and edematous swollen tissue in the posterior decompressive defect. Edema and enhancement is also seen in the L4-L5 pedicles but without cortical erosion. Moderate intramuscular edema is present in the left psoas muscle at the L3-L4 level without a visualized intramuscular abscess. There is straightening of the normal lumbar lordosis. There is no substantial scoliosis. Normal conus medullaris that terminates at the T12-L1 level. L4-5: Severe disc space narrowing with diffuse disc bulging. Anterolisthesis of L4 and L5 of 2 to 3 mm. Chronic right-sided pars interarticularis defect. Severe central canal stenosis due to significant facet joint hypertrophy and edematous swollen tissue in the posterior decompressive defect. Moderate to severe bilateral foraminal stenosis with nerve root compression. L5-S1: Normal endplates. Diffuse disc desiccation with mild posterior disc space narrowing and a small annular tear of the disc. Small Schmorl''s node. Mild central canal stenosis. Moderate right foraminal stenosis with nerve root compression. Mild right foraminal stenosis. Mild to moderate facet joint hypertrophy. Normal visualized sacral ala. There is moderate paraspinal muscular atrophy. MRI/Spine Lumbar W/WO Contrast IMPRESSION: L3-L4 vertebral osteomyelitis and discitis 1. Sequela of acute/subacute osteomyelitis discitis is seen at the L3-L4 level were there is a cortical erosion on both sides of the disc space, liquefied intervertebral discs, and diffuse and significant enhancement of both the L3 and L4 vertebral bodies on the postcontrast study and some of the infected extruded disc material is present at the midline and left paracentral region. The extruded infected disc material measures 1.56 cm in the craniocaudal dimension and contributes to left lateral recess stenosis with nerve root compression. 2. Severe central canal stenosis at L3-L4 and L4-L5 3. Moderate intramuscular edema is present in the left psoas muscle at the L3-L4 level without a visualized intramuscular abscess. Electronically Signed: Carter Vaughn MD at 14:16 EST ,
[2022-09-02 14:35] LABS: Lactic Acid 1.2 mmol/L (0.4-1.9)
[2022-09-04 09:30] LABS: Pathologist Review Reviewed
== END 2022-09-02 18:58 | disposition short-term general hospital (02) ==
PROVIDERS: Emergency Provider Emergency Medicine; Visit Provider Emergency Medicine
DX: R50.9 Fever, unspecified (principal); E11.9 Type 2 diabetes mellitus without complications; I10 Essential (primary) hypertension; I25.10 Atherosclerotic heart disease of native coronary artery without angina pectoris; Z79.84 Long term (current) use of oral hypoglycemic drugs; Z79.01 Long term (current) use of anticoagulants; Z79.899 Other long term (current) drug therapy
CPT/HCPCS: 71045; 72158; 80048; 81001; 83605; 85025; 87040; 87086; 87428; 96374; 99285; A9575; J7030; A4216

== ENCOUNTER 2022-09-03 21:35 | Inpatient (IN) | payer MEDICARE, BC, SELFPAY ==
[2022-09-03 22:28] VITALS: PULSE 88; RESP 18; O2SAT 97
[2022-09-03 23:02] VITALS: BMI 23.6
[2022-09-03 23:35] VITALS: BP 147/99; PULSE 88; RESP 18; TEMP 37.5; O2SAT 97
[2022-09-03] MEDS: Acetaminophen 500 MG Tablet 1000 MG PO (23:47)
[2022-09-03] MEDS: oxyCODONE 5 MG Tablet PO (23:48)
[2022-09-04] MEDS: 0.9% Saline Lock 10 ML Syringe IV ×2 (01:18→09:39)
[2022-09-04] MEDS: Lidocaine 5% Patch 1 PATCH TOPICAL (05:02)
[2022-09-04] MEDS: Tamsulosin HCl 0.4 MG Capsule 0.8 MG PO (05:02)
[2022-09-04] MEDS: Propranolol 10 MG Tablet 20 MG PO ×2 (05:02→17:15)
[2022-09-04] MEDS: Lisinopril 5 MG Tablet PO (05:02)
[2022-09-04 05:47] LABS: Absolute Lymphocyte Count 1.29 X10^3/uL (0.83-4.51); Absolute Neutrophil Count 4.3 X10^3/uL (2.0-7.7); Basophil# 0.03 X10^3/uL; Basophil% 0.5 % (0-1); Eosinophil# 0.18 X10^3/uL; Eosinophils% 2.7 % (0-5); Hematocrit 26.3 % (40-54); Hemoglobin 8.3 g/dL (13.0-16.5); Lymphocyte # 1.29 X10^3/ul (0.83-4.51); Lymphocyte % 19.7 % (19-41); Mean Corp Hgb Conc 31.6 g/dL (32-36); Mean Corpuscular Hgb 28.4 pg (27.0-32.0); Mean Corpuscular Volume 90.1 fL (80-94); Mean Platelet Vol. 8.9 fl (6.2-12.0); Monocyte# 0.69 X10^3/uL; Monocyte% 10.5 % (0-10); NRBC Flagged by Analyzer 0 % (0-5); Neutrophil # 4.26 X10^3/uL (2.7-7.7); Neutrophil % 65.1 % (47-70); Platelet Count 307 K/mm3 (150-450); RBC Distribution Width SD 42.7 fl (35.1-43.9); Red Blood Count 2.92 M/mm3 (4.6-6.2); White Blood Count 6.6 K/mm3 (4.4-11.0)
[2022-09-04 06:34] LABS: Vancomycin, Random Level 15.3 ug/mL (0.0-15.0)
[2022-09-04 06:36] LABS: Anion Gap 8 (5-15); BUN 13 mg/dL (7-18); BUN/Creat Ratio 11.3 RATIO (10-20); Calcium,Total 8.2 mg/dL (8.5-10.1); Chloride 100 mmol/L (98-107); Creatinine, Serum 1.15 mg/dL (0.70-1.30); EST Glomerular Filtration Rate 65 mL/min (>60); Est Glom Filt Rate - Afr Amer 79 mL/min (>60); Glucose 206 mg/dL (74-106); Potassium 4.1 mmol/L (3.5-5.1); Sodium Level 135 mmol/L (136-145)
--- NOTE | 2022-09-04 07:51 | HP.PCM_ITS ---
HPI - General General Date of Admission: 09/03/22 Date of Service: 09/04/22 Chief Complaint: Here for rehabilitation, intravenous antibiotics. 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 09/02/2022 Presented to [facility] Emergency Department with fever, chills. 09/02/2022 MRI lumbar spine showed infected disc material causing left lateral recess stenosis with nerve root compression. 09/03/2022 Admit to [facility]. Concern for progression of lumbar infection. Neurosurgery recommended no surgery at this time. Continue medical management. ID recommends continuing IV Rocephin, IV Vancomycin x 6 weeks with stop date 10/04/2022. Blood cultures negative to date, epidural abscess surgical culture no growth. 09/03/2022 Admit to TCU with debility, here for rehabilitation, terminal makeup operator intravenous antibiotics, prior to discharge home. [facility] Medical History Abscess in epidural space of lumbar spine Coronary artery disease Depression Diabetes mellitus Hypertension Lumbar discitis Osteomyelitis of lumbar spine Home Medications acetaminophen 500 mg tablet 1,000 mg PO Q6H PRN PAIN SCORE 1-3 09/02/22 [History Last Taken 09/02/22 05:24] atorvastatin 20 mg tablet 20 mg PO QHS CHOLESTEROL 09/02/22 [History Last Taken 09/01/22 20:57] ceftriaxone 2 gram intravenous solution 2 g IV Q24H INFECTION 09/02/22 [History Last Taken 09/02/22 10:42] glimepiride 4 mg tablet 4 mg PO BREAKFAST DM 09/02/22 [History Last Taken 09/02/22 07:47] lidocaine 5 % topical patch 1 patch topical DAILY PAIN 09/02/22 [History Last Taken 09/02/22 07:48] lisinopril 5 mg tablet 5 mg PO DAILY BP 09/02/22 [History Last Taken 09/02/22 07:47] metformin 500 mg tablet 1,000 mg PO BIDCM DM 09/02/22 [History Last Taken 09/01/22 16:23] nut.tx.gluc.intol,lac-free,soy (Glucerna oral liquid) 120 ml PO 4X/DAY SUPPLEMENT 09/02/22 [History Last Taken 09/02/22 05:18] oxycodone 5 mg tablet 5 mg PO Q6H PRN PRN PAIN SCORE 6-10 09/02/22 [History Last Taken 09/02/22 06:38] polyethylene glycol 3350 17 gram/dose oral powder 17 g PO DAILY CONSTIPATION 09/02/22 [History Last Taken 09/02/22 05:19] propranolol 20 mg tablet 20 mg PO BID HEART 09/02/22 [History Last Taken 09/02/22 05:21] rivaroxaban 10 mg tablet (Xarelto) 10 mg PO DINNER DVT Prophylaxis 09/02/22 [History Last Taken 09/01/22 16:23] sennosides 8.6 mg-docusate sodium 50 mg tablet 2 tab PO DAILY CONSTIPATION 09/02/22 [History Last Taken 09/02/22 05:20] tamsulosin 0.4 mg capsule 0.8 mg PO DAILY PROSTATE 09/02/22 [History Last Taken 09/01/22 16:24] tramadol 50 mg tablet 50 mg PO Q6H PRN Pain (Scale Score 4-5) 09/02/22 [History Last Taken 08/31/22 18:08] Allergy/AdvReac Type Severity Reaction Status Date / Time No Known Allergies Allergy Verified 09/02/22 07:16 Surgical History Status post epidural steroid injection Social History household members: none Smoking Status: Never smoker alcohol intake: never substance use type: does not use ROS Constitutional Constitutional: Denies chills, fever(s) or weight gain ENT HEENT: Denies headache(s), nasal congestion or nasal discharge Cardiovascular Cardiovascular: Denies chest pain or palpitations Respiratory/Chest Respiratory/Chest: Denies cough, excessive phlegm production or shortness of breath with exertion Gastrointestinal Gastrointestinal: Denies abdominal pain, nausea or vomiting Genitourinary Genitourinary: Denies dysuria Musculoskeletal Musculoskeletal: Denies joint pain or joint swelling Integumentary Integumentary: Denies rash or wounds Neurologic Neurologic: Denies focal weakness, numbness or tingling Psychiatric Psychiatric: Denies anxiety, auditory hallucinations, depression, homicidal ideation or suicidal ideation Vital Signs Vital Signs Vital Signs: 09/03/22 23:35 09/03/22 22:28 Temperature 99.5 F H Temperature Source Temporal Pulse Rate 88 88 Pulse Rhythm Regular Pulse Strength Normal (2+) Respiratory Rate 18 18 Respiratory Effort Normal Non-Labored Respiratory Depth Normal Respiratory Pattern Normal Blood Pressure 147/99 H Blood Pressure Mean 115 Blood Pressure Source Monitor Blood Pressure Position Right Lateral Blood Pressure Location Right Arm Pulse Ox 97 97 Oxygen Delivery Method Room Air Room Air Weight Weight: 70.488 kg Body Mass Index (BMI) 23.6 Physical Exam Const alert General Appearance: cooperative HEENT normocephalic Eyes PERRL and EOMs intact bilaterally Neck supple, no JVD and no carotid bruits Resp normal respiratory effort, normal air movement and clear to auscultation bilaterally Cardio regular rate and regular rhythm GI normal to inspection, nondistended, normoactive bowel sounds, non-tender and non-distended Bladder / Kidney Exam: catheter in place urethral Extremity normal capillary refill General Extremity: Negative for edema Skin no rashes or lesions noted General Skin Exam: no breakdown Psych affect normal Appearance: appropriate Results Lab / Micro Data Result Diagrams: 09/04/22 05:13 09/04/22 05:13 Labs: Laboratory Results - last 24 hr 09/04/22 05:13: WBC 6.6, RBC 2.92 L, Hgb 8.3 L, Hct 26.3 L, MCV 90.1, MCH 28.4, MCHC 31.6 L, RDW Std Deviation 42.7, RDW Coeff of Eliecer 13.0, Plt Count 307, MPV 8.9, Immature Gran % (Auto) 1.500 H, Neut % (Auto) 65.1, Lymph % (Auto) 19.7, [place] % (Auto) 10.5 H, Eos % (Auto) 2.7, Baso % (Auto) 0.5, Absolute Neuts (auto) 4.3, Absolute Lymphs (auto) 1.29, Nucleated RBC % 0 09/04/22 05:13: Sodium 135 L, Potassium 4.1, Chloride 100, Carbon Dioxide 27.0, Anion Gap 8, BUN 13, Creatinine 1.15, Est GFR (MDRD) Af Amer 79, Est GFR (MDRD) Non-Af 65, BUN/Creatinine Ratio 11.3, Glucose 206 H, Calcium 8.2 L 09/04/22 05:13: Random Vancomycin 15.3 H Micro: Microbiology 09/03/22 23:30 Nasal Secretion SARS-CoV-2 Antigen (Rapid) - Final Assessment & Plan Assessment/Plan (1) Debility: (2) Lumbar discitis: (3) Osteomyelitis of lumbar spine: (4) Abscess in epidural space of lumbar spine: (5) Psoas abscess: (6) Depression: (7) Coronary artery disease: (8) Hypertension: (9) Diabetes mellitus: PLAN: Plan 82 year old male with past medical history significant for lumbar infection, hospitalized for fever, chills, surgery not recommended, admitted to TCU with debility, here for rehabilitation, strengthening, intravenous antibiotics, prior to discharge home. * Debility - PT/OT. * Pain - Tylenol 1000mg q6h prn pain (1-5), Oxycodone 5mg q6h prn pain (6- 10), Lidoderm patch 1 patch topical daily. * Bowel - Miralax 17gm daily, senna/colace 2 tablets bid, Dulcolax 10mg pr x 1 prn, MOM 30ml po x 1 prn. * Adult immunization - Administer pneumonia vacccine, covid19 vaccine, flu vaccine as appropriate. * DVT prophylaxis - Xarelto 10mg daily thru 09/27/2022. * Lumbar discitis/osteomyelitis/epidural abscess/psoas abscess status post debridment - Ceftriaxone 2gm iv q24h, Vancomycin 1500mg iv q24h, consult Dr. Meek to follow. * Diabetes Mellitus II - Metformin 1000mg bid, Glimepiride 4mg daily. * Hypertension - Propranolol 20mg bid, Lisinopril 5mg daily. * Hyperlipidemia - Atorvastatin 20mg qhs. * BPH - Tamsulosin 0.8mg daily, indwelling sarmiento catheter, consult Dr. Torres.
[2022-09-04] MEDS: Glimepiride 4 MG Tablet PO (08:19)
[2022-09-04] MEDS: metFORMIN HCl 1,000 MG Tablet 1000 MG PO ×2 (08:19→17:14)
[2022-09-04] MEDS: FLU VACC QS2022-23(6MOS UP)/PF 60 MCG/0.5 ML SYRINGE IM (09:38)
--- NOTE | 2022-09-04 09:56 | PHA.PHARE_ITS ---
Consult Pharmacy has been consulted to manage selected antiobiotic: Vancomycin Type of Consult: Follow-up Suspected Infection: Osteomyelitis Prior Doses of Antibiotics Received/Current Regimen: the patient was on vanc 1250mg IV q24h a couple days ago here before being tr ansferred to another facility where he was given a dose of 1000mg x1 Labs: Sodium 135 mmol/L (136-145) L 09/04/22 05:13 Potassium 4.1 mmol/L (3.5-5.1) 09/04/22 05:13 Chloride 100 mmol/L (98-107) 09/04/22 05:13 Carbon Dioxide 27.0 mmol/L (21.0-32.0) 09/04/22 05:13 Anion Gap 8 (5-15) 09/04/22 05:13 BUN 13 mg/dL (7-18) 09/04/22 05:13 Creatinine 1.15 mg/dL (0.70-1.30) 09/04/22 05:13 Est GFR (MDRD) Af Amer 79 mL/min (>60) 09/04/22 05:13 Est GFR (MDRD) Non-Af 65 mL/min (>60) 09/04/22 05:13 BUN/Creatinine Ratio 11.3 RATIO (10-20) 09/04/22 05:13 Glucose 206 mg/dL (74-106) H 09/04/22 05:13 Random Vancomycin 15.3 ug/mL (0.0-15.0) H 09/04/22 05:13 Microbiology: Microbiology 09/03/22 23:30 Nasal Secretion SARS-CoV-2 Antigen (Rapid) - Final Weight used for dosin.5 kg Estimated Creatinine Clearance: 49.6ml/min Goal Trough: 15-20 mcg/mL Pharmacy Plan for Drug Dosing: Since the patient was transferred to another facility and given a dose of 1000mg x1 yesterday at 01:00, upon readmission to [facility] last night, pharmacy ordered a random vanc level to be drawn early this morning to check the current level. That random level drawn at 05:13 today (approx 28 hours after the one-time 1000mg dose at the other facility) was 15.3. Since it is in the goal range, will restart the patient on 1250mg IV q24h which was the dose he was on a couple days ago here. Will check another trough level in 2 days. Pharmacy Service will continue to monitor and adjust dosing as required. Follow-Up Labs: Trough Vancomycin Labs to be done on [date and time ordered]: 09/06/22 09:30
--- NOTE | 2022-09-04 10:27 | PN.ID_ITS ---
Physical Exam Narrative Feeling ok, denies fever. Back in TCU. No cough or SOB, no abd pain, no n/v/d. Bello in place. Const alert and no apparent distress General Appearance: cooperative Resp normal air movement and clear to auscultation bilaterally Cardio regular rate and regular rhythm GI soft to palpation, non-tender and non-distended Skin no rashes or lesions noted Skin Narrative: spine incision healing ID ID: Route of nutrition/ use of supplements: [] Nutritional Intake: [] IV Site: [] Bello Catheter: [] Assessment & Plan Assessment/Plan (1) Osteomyelitis of lumbar spine: PLAN: Reviewed records from [facility].? Bcx and surg cx neg.? Reportedly 16S rRNA pcr test was sent.? Requested those results.? Cont vanc/ceftriaxone for empiric course with 6 weeks treatment, planned stop date 10/04/22 from date of surgery. Had some new fever, now resolved. Repeat cxs neg so far, MRI was repeated. Will follow
--- NOTE | 2022-09-04 10:42 | PHA.CONS_ITS ---
TCU RX Drug Regimen Review Subjective: TCU Admission. 82 YOM admitted to TCU 08/30 for lumbar discitis/osteomyelitis/epidural abscess/psoas abscess status post debridement for [facility] intravenous antibiotics. Then went to ER 09/02 for fever/chills, hospitalized at [facility] [place] for the same. Medical management recommended. Admitted back to TCU with debility for strengthening, rehabilitation and IV antibiotics. Objective: Allergies No Known Allergies Allergy (Verified 09/02/22 07:16) Current Medications Generic Name Dose Route Start Last Admin Trade Name Freq PRN Reason Stop Dose Admin Acetaminophen 1,000 mg 09/03/22 22:37 09/03/22 23:47 Acetaminophen 500 Mg Tablet PO 1,000 mg Q6H PRN PRN Administration PAIN SCORE 1-5 Atorvastatin Calcium 20 mg 09/04/22 22:00 Atorvastatin Calcium 20 Mg Tablet PO QHS RANDELL Bisacodyl 10 mg 09/04/22 08:05 Bisacodyl 10 Mg Suppository RC X1 PRN Constipation Glimepiride 4 mg 09/04/22 08:00 09/04/22 08:19 Glimepiride 4 Mg Tablet PO 4 mg BREAKFAST RANDELL Administration Heparin Sodium (Beef Lung) 50 units 09/03/22 22:54 Heparin Pf Lock 10 Units/Ml 50 Units/5 Ml Syringe IV UD PRN PICC Line Heparin Flush Vancomycin IV-PHARMACY TO DOSE 500 mls @ 250 mls/hr 09/04/22 06:00 1,500 each/ Sodium Chloride IV PRN PRN pharmacy to dose Protocol Sodium Chloride 250 mls @ 15 mls/hr 09/03/22 22:56 09/04/22 01:08 IV 15 mls/hr .[id number] PRN Administration Saline Flush Sodium Chloride 250 mls @ 15 mls/hr 09/03/22 22:56 IV .[id number] PRN Additional IVPB Infusion Ceftriaxone Sodium 2 gm/ 50 mls @ 100 mls/hr 09/03/22 23:40 09/04/22 01:54 Sodium Chloride IV Infused 2200 RANDELL Infusion Vancomycin HCl 1,250 mg/ 275 mls @ 167 mls/hr 09/04/22 10:00 09/04/22 09:39 Sodium Chloride IV 167 mls/hr Q24H RANDELL Administration Lidocaine 1 patch 09/04/22 06:00 09/04/22 05:02 Lidocaine 5% Patch TOPICAL 1 patch DAILY RANDELL Administration Protocol Lisinopril 5 mg 09/04/22 06:00 09/04/22 05:02 Lisinopril 5 Mg Tablet PO 5 mg DAILY RANDELL Administration Magnesium Hydroxide 30 ml 09/04/22 08:05 Magnesium Hydroxide 30 Ml Udc PO X1 PRN Constipation Metformin HCl 1,000 mg 09/04/22 08:00 09/04/22 08:19 Metformin Hcl 1,000 Mg Tablet PO 1,000 mg BIDCM RANDELL Administration Oxycodone HCl 5 mg 09/03/22 22:37 09/03/22 23:48 Oxycodone 5 Mg Tablet PO 5 mg Q6H PRN PRN Administration PAIN SCORE 6-10 Polyethylene Glycol 17 gm 09/04/22 08:15 09/04/22 09:08 Polyethylene Glycol 3350 17 Gm Packet PO Not Given DAILY RANDELL Propranolol HCl 20 mg 09/04/22 06:00 09/04/22 05:02 Propranolol 10 Mg Tablet PO 20 mg BID RANDELL Administration Rivaroxaban 10 mg 09/04/22 17:00 Rivaroxaban 10 Mg Tablet PO 09/26/22 23:59 DINNER RANDELL Senna/Docusate Sodium 2 tablet 09/04/22 18:00 Senna/Docusate Sodium 1 Tablet PO BID RANDELL Sodium Chloride 10 - 40 ml 09/03/22 22:54 09/04/22 09:39 0.9% Saline Lock 10 Ml Syringe IV 10 ml UD PRN Administration Open End PICC Flush Sodium Chloride 10 - 40 ml 09/03/22 22:54 0.9 % Nacl (Sterile) Posiflush 10 Ml IV UD PRN Port access or dressing change Tamsulosin HCl 0.8 mg 09/04/22 06:00 09/04/22 05:02 Tamsulosin Hcl 0.4 Mg Capsule PO 0.8 mg DAILY RANDELL Administration Tuberculin PPD 0.1 ml 09/04/22 10:00 Tuberculin,Purif.Prot.Deriv. 50 Tu/Ml Vial ID 09/04/22 10:01 X1 ONE Tuberculin PPD 0.1 ml 09/11/22 10:00 Tuberculin,Purif.Prot.Deriv. 50 Tu/Ml Vial ID 09/11/22 10:01 X1 ONE Problem List (Last Reviewed 02/21/23 @ 07:[address] Maurice Lepe MD) Debility (Acute) Psoas abscess (Acute) Depression (Acute) Coronary artery disease (Acute) Hypertension (Chronic) Diabetes mellitus (Acute) Abscess in epidural space of lumbar spine (Acute) Osteomyelitis of lumbar spine (Acute) Lumbar discitis (Acute) Vital Signs Temp Pulse Resp BP Pulse Ox O2 Del Method 99.5 F H 88 18 147/99 H 97 Room Air 09/03/22 23:35 09/03/22 23:35 09/03/22 23:35 09/03/22 23:35 09/03/22 23:35 09/03/22 23:35 Oxygen Delivery Method Room Air Weight: 70.488 kg Body Mass Index (BMI) 23.6 Sodium 135 mmol/L (136-145) L 09/04/22 05:13 Potassium 4.1 mmol/L (3.5-5.1) 09/04/22 05:13 Chloride 100 mmol/L (98-107) 09/04/22 05:13 Carbon Dioxide 27.0 mmol/L (21.0-32.0) 09/04/22 05:13 Anion Gap 8 (5-15) 09/04/22 05:13 BUN 13 mg/dL (7-18) 09/04/22 05:13 Creatinine 1.15 mg/dL (0.70-1.30) 09/04/22 05:13 Est GFR (MDRD) Af Amer 79 mL/min (>60) 09/04/22 05:13 Est GFR (MDRD) Non-Af 65 mL/min (>60) 09/04/22 05:13 BUN/Creatinine Ratio 11.3 RATIO (10-20) 09/04/22 05:13 Glucose 206 mg/dL (74-106) H 09/04/22 05:13 Random Vancomycin 15.3 ug/mL (0.0-15.0) H 09/04/22 05:13 Assessment/Plan: 1. Pain: acetaminophen 1000mg PO Q6H PRN pain 1-5, oxycodone 5mg PO Q6H PRN pain 6-10 and lidocaine 5% patch 1 patch topical daily. Resident has had 1 dose of acetaminophen for pain of 9 in the back and 1 dose of oxycodone for a pain of 7 in the back. Please continue to monitor for increased pain, PRN usage, constipation, respiratory depression and rash. 2. Bowel: Miralax 17gm PO daily, senna/docusate 2T PO BID, bisacodyl 10mg RC x1 PRN constipation and MOM 30mL PO x1 PRN constipation. No documented bowel movements. Please continue to monitor for constipation and PRN usage. 3. DVT prophylaxis: rivaroxaban 10mg PO dinner thru 09/27/22. Please continue to monitor for S/S of bleeding/DVT and hemoglobin (last 8.3g/dL). 4. Osteomyelitis of lumbar spine: ceftriaxone 2gm IV daily and vancomycin pharmacy to dose. ID consulted. Please consider adding a stop date of 10/04/22 per ID note. Thanks. Please continue to monitor for S/S of infection and diarrhea. Pharmacy will monitor renal function and vancomycin troughs. 5. Diabetes Mellitus II: metformin 1000mg PO BIDCM and glimepiride 4mg PO breakfast. Please consider ordering a hemoglobin A1c (no level in chart) if clinically appropriate. Thanks. Please continue to monitor renal function (GFR 65mL/min), diarrhea, S/S of hypoglycemia (BEERs criteria for glimepiride due to high risk of prolonged hypoglycemia) and glucose (last 133mg/dL). 6. Hypertension: propranolol 20mg PO BID and lisinopril 5mg PO daily. Please continue to monitor BP (last 147/99), HR (last 88), renal function, cough and potassium (last 4.1mmol/L). 7. Hyperlipidemia: atorvastatin 20mg PO QHS. Please consider ordering a lipid panel and LFTs if clinically appropriate as this resident does not have either in the chart. Thanks. Please continue to monitor for muscle pain. 8. BPH: tamsulosin 0.8mg PO 1730. Please continue to monitor for S/S of BPH and hypotension. Assessment/Plan for indications treated with psychotropic medications: None Medical chart and medication regimen reviewed. The following medication irregularities or issues were identified: *1. Metformin 1000mg PO BIDCM and glimepiride 4mg PO breakfast. Please consider ordering a hemoglobin A1c (no level in chart) if clinically appropriate. Thanks. *2. Atorvastatin 20mg PO QHS. Please consider ordering a lipid panel and LFTs if clinically appropriate as this resident does not have either in the chart. Thanks. Date of Note:: 09/04/22
--- NOTE | 2022-09-04 10:56 | NURSING ---
Attempted to reach Dr. Torres regarding consult. Unable to get a hold of office
[2022-09-04 11:16] LABS: Bedside Glucose 257 mg/dL (74-106)
[2022-09-04 13:10] LABS: Bedside Glucose 221 mg/dL (74-106)
--- NOTE | 2022-09-04 14:50 | CON.PCM.UR_ITS ---
Assessment & Plan Assessment/Plan (1) Incomplete emptying of bladder due to benign prostatic hyperplasia: PLAN: 82-year-old male who had surgery for osteomyelitis of the back spine, also history of BPH with obstruction incomplete bladder emptying. I think we can remove the catheter. Continue with Flomax 0. 8 mg daily. And we can have the nurses catheterize the patient once a day for a postvoid residual or as necessary. Also please teach the patient how to do self-catheterization, he claims that he was doing this at home. He can follow-up as an outpatient. HPI Consult Data Date of Consult: 09/04/22 HPI Narrative Reason for Consultation: Urinary retention incomplete bladder emptying HPI Narrative: CHANA WARE, is a 82 M who presents to [facility]'s rehab unit after he was in [place] for what appears to be an infection along the spine or back he had to have an for surgical procedure for this. 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 [facility] Medical History Abscess in epidural space of lumbar spine Coronary artery disease Depression Diabetes mellitus Hypertension Lumbar discitis Osteomyelitis of lumbar spine Home Medications acetaminophen 500 mg tablet 1,000 mg PO Q6H PRN PAIN SCORE 1-3 09/02/22 [History Last Taken 09/02/22 05:24] atorvastatin 20 mg tablet 20 mg PO QHS CHOLESTEROL 09/02/22 [History Last Taken 09/01/22 20:57] ceftriaxone 2 gram intravenous solution 2 g IV Q24H INFECTION 09/02/22 [History Last Taken 09/02/22 10:42] glimepiride 4 mg tablet 4 mg PO BREAKFAST DM 09/02/22 [History Last Taken 09/02/22 07:47] lidocaine 5 % topical patch 1 patch topical DAILY PAIN 09/02/22 [History Last Taken 09/02/22 07:48] lisinopril 5 mg tablet 5 mg PO DAILY BP 09/02/22 [History Last Taken 09/02/22 07:47] metformin 500 mg tablet 1,000 mg PO BIDCM DM 09/02/22 [History Last Taken 09/01/22 16:23] nut.tx.gluc.intol,lac-free,soy (Glucerna oral liquid) 120 ml PO 4X/DAY SUPPLEMENT 09/02/22 [History Last Taken 09/02/22 05:18] oxycodone 5 mg tablet 5 mg PO Q6H PRN PRN PAIN SCORE 6-10 09/02/22 [History Last Taken 09/02/22 06:38] polyethylene glycol 3350 17 gram/dose oral powder 17 g PO DAILY CONSTIPATION 09/02/22 [History Last Taken 09/02/22 05:19] propranolol 20 mg tablet 20 mg PO BID HEART 09/02/22 [History Last Taken 09/02/22 05:21] rivaroxaban 10 mg tablet (Xarelto) 10 mg PO DINNER DVT Prophylaxis 09/02/22 [History Last Taken 09/01/22 16:23] sennosides 8.6 mg-docusate sodium 50 mg tablet 2 tab PO DAILY CONSTIPATION 09/02/22 [History Last Taken 09/02/22 05:20] tamsulosin 0.4 mg capsule 0.8 mg PO DAILY PROSTATE 09/02/22 [History Last Taken 09/01/22 16:24] tramadol 50 mg tablet 50 mg PO Q6H PRN Pain (Scale Score 4-5) 09/02/22 [History Last Taken 08/31/22 18:08] Allergy/AdvReac Type Severity Reaction Status Date / Time No Known Allergies Allergy Verified 09/02/22 07:16 Surgical History Status post epidural steroid injection Social History household members: none Smoking Status: Never smoker alcohol intake: never substance use type: does not use ROS Constitutional Constitutional: Denies chills, fever(s) or malaise Eyes Eyes: Denies blurry vision or change in vision ENT HEENT: Reports none Cardiovascular Cardiovascular: Denies chest pain or palpitations Respiratory/Chest Respiratory/Chest: Denies cough or shortness of breath with exertion Gastrointestinal Gastrointestinal: Denies abdominal pain, constipation or diarrhea Musculoskeletal Musculoskeletal: Denies back pain, joint stiffness or joint swelling Integumentary Integumentary: Denies dry skin, jaundice, lesions or rash Neurologic Neurologic: Denies confusion, syncope or weakness Psychiatric Psychiatric: Reports none; Denies anxiety or depression Endocrine Endocrinology: Denies excessive sweating, fatigue or flushing Hematologic/Lymphatic Hematologic/Lymphatic: Denies anemia, easy bleeding or easy bruising Lab / Micro Data Result Diagrams: 09/04/22 05:13 09/04/22 05:13 Labs: Laboratory Results - last 24 hr 09/04/22 05:13: WBC 6.6, RBC 2.92 L, Hgb 8.3 L, Hct 26.3 L, MCV 90.1, MCH 28.4, MCHC 31.6 L, RDW Std Deviation 42.7, RDW Coeff of Eliecer 13.0, Plt Count 307, MPV 8.9, Immature Gran % (Auto) 1.500 H, Neut % (Auto) 65.1, Lymph % (Auto) 19.7, Beaver % (Auto) 10.5 H, Eos % (Auto) 2.7, Baso % (Auto) 0.5, Absolute Neuts (auto) 4.3, Absolute Lymphs (auto) 1.29, Nucleated RBC % 0 09/04/22 05:13: Sodium 135 L, Potassium 4.1, Chloride 100, Carbon Dioxide 27.0, Anion Gap 8, BUN 13, Creatinine 1.15, Est GFR (MDRD) Af Amer 79, Est GFR (MDRD) Non-Af 65, BUN/Creatinine Ratio 11.3, Glucose 206 H, Calcium 8.2 L 09/04/22 05:13: Random Vancomycin 15.3 H 09/04/22 06:30: POC Glucose 221 H 09/04/22 10:41: POC Glucose 257 H Micro: Microbiology 09/03/22 23:30 Nasal Secretion SARS-CoV-2 Antigen (Rapid) - Final
--- NOTE | 2022-09-04 15:16 | CASEMGMT ---
Social Work present in room. SW spoke with . explained cognition is not baseline. Prior to June, when all this started, pt was managing meds, finances, driving, fully independent with all tasks. However, since then, has taken over IADLs and assisted pt physically as well. states she was just managing. reports the confusion is normal when pt gets infections and does resolve, plus pt has changed environments several times in a short period. SW agreed. stated pt does not have advanced directives and would like to complete them. SW educated pt cannot complete at this time d/t cognition, but if it clears, SW can complete. provided updated contacts and PCP. SW entered in [employer]. SW explained Medicare benefit and inquired about secondary insurance. stated pt does have [employer] as secondary and provided card. SW copied and tubed to registration to verify. SW educated to contact [employer] to inquire about copay coverage, if not copays will be OOP. Explained pt has IV ATB through 10/05 and the goal is pt would remain in TCU until end of IVS, which would be into pt's copay days. expressed understanding. SW to continue to follow. Chelsy Gardner, CARPENTER LABOR SUPERVISOR ASSISTANT PROFESSOR OF ECONOMICS
[2022-09-04 16:00] VITALS: BP 142/50; PULSE 92; RESP 18; TEMP 37.3; O2SAT 95
[2022-09-04 16:50] LABS: Bedside Glucose 257 mg/dL (74-106)
[2022-09-04 17:13] VITALS: BP 157/75; PULSE 95
[2022-09-04] MEDS: oxyCODONE 5 MG Tablet PO (17:14)
[2022-09-04] MEDS: Rivaroxaban 10 MG Tablet PO (17:14)
[2022-09-04] MEDS: Senna/Docusate Sodium 1 Tablet 2 TABLET PO (17:15)
--- NOTE | 2022-09-04 17:26 | NURSING ---
Bello removed per order from Dr Torres, pt tolerated fine.
[2022-09-04 22:00] LABS: Bedside Glucose 180 mg/dL (74-106)
[2022-09-04] MEDS: Acetaminophen 500 MG Tablet 1000 MG PO (22:05)
[2022-09-04] MEDS: Atorvastatin Calcium 20 MG Tablet PO (22:06)
[2022-09-04 22:12] VITALS: RESP 18
[2022-09-04 22:28] VITALS: BMI 23.5
--- NOTE | 2022-09-05 00:27 | NURSING ---
Patient straight cath'd at HS per orders. Patient very painful when attempting to lie on back. Was able to straight cath for 300mL output. Urine was clear, but dark red. Will continue to monitor.
[2022-09-05] MEDS: Lidocaine 5% Patch 1 PATCH TOPICAL (05:47)
[2022-09-05] MEDS: Senna/Docusate Sodium 1 Tablet 2 TABLET PO ×2 (05:47→17:19)
[2022-09-05] MEDS: Propranolol 10 MG Tablet 20 MG PO ×2 (05:47→17:19)
[2022-09-05] MEDS: Tamsulosin HCl 0.4 MG Capsule 0.8 MG PO (05:47)
[2022-09-05] MEDS: Lisinopril 5 MG Tablet PO (05:49)
[2022-09-05] MEDS: 0.9% Saline Lock 10 ML Syringe IV ×3 (06:06→21:59)
[2022-09-05 06:46] LABS: Bedside Glucose 126 mg/dL (74-106)
[2022-09-05] MEDS: metFORMIN HCl 1,000 MG Tablet 1000 MG PO ×2 (08:51→17:18)
[2022-09-05] MEDS: Glimepiride 4 MG Tablet PO (08:51)
[2022-09-05 10:53] VITALS: PULSE 64; RESP 17; O2SAT 95
[2022-09-05 11:45] LABS: Bedside Glucose 211 mg/dL (74-106)
[2022-09-05] MEDS: Glucerna Shake 120 ML LIQUID PO ×3 (12:05→21:05)
[2022-09-05] MEDS: oxyCODONE 5 MG Tablet PO ×2 (13:08→23:45)
--- NOTE | 2022-09-05 13:51 | NURSING ---
Code And Test Clerk Note; Activity Asset: Leslie Gunderson prefers to be called Isaias. Isaias is independent in his choice of daily activities and prefers to stay in his room When not in therapy. Family is aware of his wishes. He will talk w/family on the phone and they visit through the week. Isaias watches TV and reads independently.
--- NOTE | 2022-09-05 14:50 | NURSING ---
dr floyd notified of night court magistrate concern regarding st cathing with pain and hematuria. only wants pt st yoselyn once a day. bladder scanned for 315cc. will continue to monitor.
[2022-09-05 16:00] VITALS: BP 120/72; PULSE 63; RESP 17; TEMP 37.3
[2022-09-05 17:10] LABS: Bedside Glucose 192 mg/dL (74-106)
[2022-09-05] MEDS: Acetaminophen 500 MG Tablet 1000 MG PO (17:18)
--- NOTE | 2022-09-05 17:22 | NURSING ---
attempted to get a hold of back surgeon and no answer or machine. to get back to me regarding DR name and phone number. dr de la cruz gave order to DC zuleika and [address] de la cruz assessed area as well. pt did use toilet, voided and BM. noted to have bright red blood. 23 zuleika removed and one suture. pt resting in bed on his left side, call light in reach. pt and his do not want pt to see surgeon at until he is feeling better, feels that the ride is too much for pt.
--- NOTE | 2022-09-05 17:52 | NURSING ---
returned call & stated it was Dr Boucher at [facility]. will attempt to call him for f/u appt when pt is feeling better.
[2022-09-05] MEDS: Atorvastatin Calcium 20 MG Tablet PO (21:05)
[2022-09-05] MEDS: Mirtazapine 15 MG Tablet 7.5 MG PO (21:05)
[2022-09-05 22:41] LABS: Bedside Glucose 219 mg/dL (74-106)
--- NOTE | 2022-09-05 23:50 | NURSING ---
Addendum entered by Donna Dobbs 09/06/22 01:45: Hematuria noted. Original Note: After bladder scans pt was straight cath. and had 700mL residual. Pt tolerated well.
[2022-09-06] MEDS: Tamsulosin HCl 0.4 MG Capsule 0.8 MG PO (05:23)
[2022-09-06] MEDS: Lidocaine 5% Patch 1 PATCH TOPICAL (05:24)
[2022-09-06 05:25] VITALS: BP 125/60; PULSE 88
[2022-09-06] MEDS: Glucerna Shake 120 ML LIQUID PO ×3 (05:25→17:25)
[2022-09-06] MEDS: Propranolol 10 MG Tablet 20 MG PO ×2 (05:26→17:59)
[2022-09-06] MEDS: Lisinopril 5 MG Tablet PO (05:26)
[2022-09-06] MEDS: oxyCODONE 5 MG Tablet PO ×3 (06:07→21:40)
[2022-09-06 06:56] LABS: Bedside Glucose 110 mg/dL (74-106)
[2022-09-06] MEDS: metFORMIN HCl 1,000 MG Tablet 1000 MG PO ×2 (08:06→17:59)
[2022-09-06] MEDS: Glimepiride 4 MG Tablet PO (08:06)
[2022-09-06 11:14] LABS: Vancomycin, Trough Level 14.7 ug/mL (5.0-15.0)
[2022-09-06 11:16] LABS: Bedside Glucose 132 mg/dL (74-106)
--- NOTE | 2022-09-06 11:46 | PCM.RX.CS ---
Consult Pharmacy has been consulted to manage selected antiobiotic: Vancomycin Type of Consult: Follow-up Labs: Sodium 135 mmol/L (136-145) L 09/04/22 05:13 Potassium 4.1 mmol/L (3.5-5.1) 09/04/22 05:13 Chloride 100 mmol/L (98-107) 09/04/22 05:13 Carbon Dioxide 27.0 mmol/L (21.0-32.0) 09/04/22 05:13 Anion Gap 8 (5-15) 09/04/22 05:13 BUN 13 mg/dL (7-18) 09/04/22 05:13 Creatinine 1.15 mg/dL (0.70-1.30) 09/04/22 05:13 Est GFR (MDRD) Af Amer 79 mL/min (>60) 09/04/22 05:13 Est GFR (MDRD) Non-Af 65 mL/min (>60) 09/04/22 05:13 BUN/Creatinine Ratio 11.3 RATIO (10-20) 09/04/22 05:13 Glucose 206 mg/dL (74-106) H 09/04/22 05:13 Vancomycin Trough 14.7 ug/mL (5.0-15.0) 09/06/22 10:12 Random Vancomycin 15.3 ug/mL (0.0-15.0) H 09/04/22 05:13 Microbiology: Microbiology 09/05/22 06:03 Nasal Secretion SARS-CoV-2 Antigen (Rapid) - Final 09/03/22 23:30 Nasal Secretion SARS-CoV-2 Antigen (Rapid) - Final Goal Trough: 15-20 mcg/mL Pharmacy Plan for Drug Dosing: VANCOMYCIN LEVEL RECEIVED Current Vancomycin Dose: 1250MG IV Q24hr Number of Doses Received: several Vancomycin Level: 14.7 Hours Since Last Dose: 23.75hr Renal Function: 1.15 Renal Function Trend: stable Lab/Micro: no new results Vancomycin Plan/Comments: Patient had trough drawn which resulted in a value of 14.7 (Goal 15-20). Patient is just slightly under therapeutic goal. Will continue current dose and recheck a trough in 2 days. It appears patient is stable, so will leave dose alone for now. If subtherapeutic again, consider increasing dose. Of note; patient was supratherapeutic on 1500mg IV Q24 previously, so will continue to monitor closely. Pending Level: 09/08/22 @0930 Pharmacy Service will continue to monitor and adjust dosing as required.
--- NOTE | 2022-09-06 12:19 | NURSING ---
Dr. Plunkett's office was called to see if we can reschedule appt for after Discharge to TCU. Per Dr. Plunkett we can reschedule for after Discharge from TCU as long as incision is healing and no redness. Received order to remove Sutures/Paulino on 09/13/22.
[2022-09-06 15:20] VITALS: BP 156/61; PULSE 80; RESP 16; TEMP 37.2; O2SAT 96
[2022-09-06 17:41] LABS: Bedside Glucose 68 mg/dL (74-106)
[2022-09-06] MEDS: Senna/Docusate Sodium 1 Tablet 2 TABLET PO (17:59)
[2022-09-06] MEDS: Atorvastatin Calcium 20 MG Tablet PO (21:35)
[2022-09-06] MEDS: Mirtazapine 15 MG Tablet 7.5 MG PO (21:35)
[2022-09-06] MEDS: 0.9% Saline Lock 10 ML Syringe IV (21:40)
[2022-09-06 21:45] LABS: Bedside Glucose 121 mg/dL (74-106)
[2022-09-06 21:49] VITALS: PULSE 83; RESP 14; O2SAT 93
[2022-09-07] MEDS: Senna/Docusate Sodium 1 Tablet 2 TABLET PO ×2 (06:21→17:37)
[2022-09-07] MEDS: Lisinopril 5 MG Tablet PO (06:21)
[2022-09-07] MEDS: Polyethylene Glycol 3350 17 GM PACKET PO (06:21)
[2022-09-07] MEDS: Tamsulosin HCl 0.4 MG Capsule 0.8 MG PO (06:21)
[2022-09-07] MEDS: Lidocaine 5% Patch 1 PATCH TOPICAL (06:21)
[2022-09-07] MEDS: Propranolol 10 MG Tablet 20 MG PO ×2 (06:21→17:37)
[2022-09-07] MEDS: Menthol/Lanolin/Calamine/Znox 113 GM Tube 1 APPLIC TOPICAL ×2 (06:22→17:40)
[2022-09-07 06:24] VITALS: BP 137/68; PULSE 84
[2022-09-07 06:51] LABS: Bedside Glucose 68 mg/dL (74-106)
[2022-09-07] MEDS: oxyCODONE 5 MG Tablet PO ×2 (06:56→12:10)
--- NOTE | 2022-09-07 06:57 | NURSING ---
After bladder scans pt was straight cath. 780mL output. Pt tolerated well.
[2022-09-07 08:17] VITALS: PULSE 82; RESP 16; O2SAT 97
[2022-09-07] MEDS: metFORMIN HCl 500 MG Tablet PO ×2 (08:45→17:37)
[2022-09-07] MEDS: Glimepiride 2 MG Tablet PO (08:45)
[2022-09-07] MEDS: 0.9% Saline Lock 10 ML Syringe IV (08:46)
[2022-09-07] MEDS: Tuberculin,Purif.prot.deriv. 50 TU/ML Vial 0.1 ML ID (09:20)
--- NOTE | 2022-09-07 11:47 | NURSING ---
spoke with dr floyd regarding reinserting sarmiento d/t high residuals and painful with st cathing. pt unable to st cath self at this time.
[2022-09-07] MEDS: Glucerna Shake 120 ML LIQUID PO ×3 (12:10→21:38)
--- NOTE | 2022-09-07 12:28 | CASEMGMT ---
Social Work BIMS (09/26) and PHQ-9 (03/10 - but there are 'no responses') completed for MDS assessment. Pt was very drowsy during assessment. Verbal cues to reorient to question. Pt's positive responses relate to sleeping difficulties. Staff assessment completed. Chelsy Gardner, PROJECT ESTIMATOR NANNY/HOUSEHOLD MANAGER
--- NOTE | 2022-09-07 13:12 | NURSING ---
inserted sarmiento per Dr everett jones. 16 greek sarmiento, 10cc balloon. tolerated well. tea colored urine on return.
[2022-09-07 15:01] VITALS: BP 144/72; PULSE 76; RESP 18; TEMP 36.7; O2SAT 96
[2022-09-07 17:41] VITALS: BP 126/57; PULSE 93
[2022-09-07] MEDS: Mirtazapine 15 MG Tablet 7.5 MG PO (21:39)
[2022-09-07] MEDS: Atorvastatin Calcium 20 MG Tablet PO (21:39)
[2022-09-08 06:36] LABS: Bedside Glucose 183 mg/dL (74-106)
[2022-09-08] MEDS: Tamsulosin HCl 0.4 MG Capsule 0.8 MG PO (06:43)
[2022-09-08] MEDS: Senna/Docusate Sodium 1 Tablet 2 TABLET PO ×2 (06:44→17:39)
[2022-09-08] MEDS: Propranolol 10 MG Tablet 20 MG PO ×2 (06:44→17:39)
[2022-09-08] MEDS: Menthol/Lanolin/Calamine/Znox 113 GM Tube 1 APPLIC TOPICAL ×2 (06:44→17:41)
[2022-09-08] MEDS: Lisinopril 5 MG Tablet PO (06:44)
[2022-09-08] MEDS: Polyethylene Glycol 3350 17 GM PACKET PO (06:44)
[2022-09-08] MEDS: Glimepiride 2 MG Tablet PO (09:05)
[2022-09-08] MEDS: metFORMIN HCl 500 MG Tablet PO ×2 (09:05→17:39)
[2022-09-08] MEDS: Lidocaine 5% Patch 1 PATCH TOPICAL (09:05)
[2022-09-08] MEDS: Acetaminophen 500 MG Tablet 1000 MG PO (09:11)
[2022-09-08] MEDS: 0.9% Saline Lock 10 ML Syringe IV (10:00)
[2022-09-08 10:45] LABS: Vancomycin, Trough Level 14.7 ug/mL (5.0-15.0)
--- NOTE | 2022-09-08 11:02 | PCM.RX.CS ---
Consult Pharmacy has been consulted to manage selected antiobiotic: Vancomycin Type of Consult: Follow-up Suspected Infection: Osteomyelitis Labs: Sodium 135 mmol/L (136-145) L 09/04/22 05:13 Potassium 4.1 mmol/L (3.5-5.1) 09/04/22 05:13 Chloride 100 mmol/L (98-107) 09/04/22 05:13 Carbon Dioxide 27.0 mmol/L (21.0-32.0) 09/04/22 05:13 Anion Gap 8 (5-15) 09/04/22 05:13 BUN 13 mg/dL (7-18) 09/04/22 05:13 Creatinine 1.15 mg/dL (0.70-1.30) 09/04/22 05:13 Est GFR (MDRD) Af Amer 79 mL/min (>60) 09/04/22 05:13 Est GFR (MDRD) Non-Af 65 mL/min (>60) 09/04/22 05:13 BUN/Creatinine Ratio 11.3 RATIO (10-20) 09/04/22 05:13 Glucose 206 mg/dL (74-106) H 09/04/22 05:13 Vancomycin Trough 14.7 ug/mL (5.0-15.0) 09/08/22 09:53 Random Vancomycin 15.3 ug/mL (0.0-15.0) H 09/04/22 05:13 Microbiology: Microbiology 09/07/22 05:00 Nasal Secretion SARS-CoV-2 Antigen (Rapid) - Final 09/05/22 06:03 Nasal Secretion SARS-CoV-2 Antigen (Rapid) - Final 09/03/22 23:30 Nasal Secretion SARS-CoV-2 Antigen (Rapid) - Final Goal Trough: 15-20 mcg/mL Pharmacy Plan for Drug Dosing: VANCOMYCIN LEVEL RECEIVED Current Vancomycin Dose: 1250mg q24h (at 10am) Number of Doses Received: x4 of current dose Vancomycin Level: 14.7 Hours Since Last Dose: 25 Renal Function: SrCr 1.15 Renal Function Trend: stable Lab/Micro: Vancomycin Plan/Comments: resulted trough of 14.7 at a 25 hour level is within the ordered goal trough range of 15-20. recommend continuing current dose of 1250mg q24h and checking another level prior to the 4th dose Pending Level: 09/11/22 at 0930 Pharmacy Service will continue to monitor and adjust dosing as required. Follow-Up Labs: Trough Vancomycin - 09/11/22 @ 0930
[2022-09-08] MEDS: Glucerna Shake 120 ML LIQUID PO ×3 (12:05→21:42)
[2022-09-08] MEDS: oxyCODONE 5 MG Tablet PO (12:07)
[2022-09-08 16:00] VITALS: BP 109/65; PULSE 73; RESP 16; TEMP 36.8; O2SAT 95
[2022-09-08] MEDS: Atorvastatin Calcium 20 MG Tablet PO (21:47)
[2022-09-08] MEDS: Mirtazapine 15 MG Tablet 7.5 MG PO (21:47)
[2022-09-09 06:00] VITALS: BP 121/54; PULSE 70
[2022-09-09] MEDS: Menthol/Lanolin/Calamine/Znox 113 GM Tube 1 APPLIC TOPICAL ×2 (06:33→18:06)
[2022-09-09] MEDS: Polyethylene Glycol 3350 17 GM PACKET PO (06:34)
[2022-09-09] MEDS: Senna/Docusate Sodium 1 Tablet 2 TABLET PO ×2 (06:34→18:09)
[2022-09-09] MEDS: Propranolol 10 MG Tablet 20 MG PO ×2 (06:35→18:05)
[2022-09-09] MEDS: Lisinopril 5 MG Tablet PO (06:35)
[2022-09-09] MEDS: Lidocaine 5% Patch 1 PATCH TOPICAL (06:37)
[2022-09-09 06:41] LABS: Bedside Glucose 122 mg/dL (74-106)
[2022-09-09] MEDS: Glimepiride 2 MG Tablet PO (08:11)
[2022-09-09] MEDS: metFORMIN HCl 500 MG Tablet PO ×2 (08:11→18:05)
[2022-09-09] MEDS: 0.9% Saline Lock 10 ML Syringe IV ×2 (09:57→11:56)
[2022-09-09 15:31] VITALS: BP 154/72; PULSE 89; RESP 16; TEMP 36.8; O2SAT 96
[2022-09-09] MEDS: Tamsulosin HCl 0.4 MG Capsule 0.8 MG PO (18:05)
[2022-09-09] MEDS: Glucerna Shake 120 ML LIQUID PO (18:08)
[2022-09-09] MEDS: Acetaminophen 500 MG Tablet 1000 MG PO (18:14)
[2022-09-09] MEDS: Atorvastatin Calcium 20 MG Tablet PO (22:28)
[2022-09-09] MEDS: Mirtazapine 15 MG Tablet 7.5 MG PO (22:28)
[2022-09-10 05:15] VITALS: BP 155/58; PULSE 75
[2022-09-10] MEDS: Lidocaine 5% Patch 1 PATCH TOPICAL (05:16)
[2022-09-10] MEDS: Polyethylene Glycol 3350 17 GM PACKET PO (05:17)
[2022-09-10] MEDS: Senna/Docusate Sodium 1 Tablet 2 TABLET PO ×2 (05:17→17:49)
[2022-09-10] MEDS: Propranolol 10 MG Tablet 20 MG PO ×2 (05:19→17:49)
[2022-09-10] MEDS: Lisinopril 5 MG Tablet PO (05:19)
[2022-09-10] MEDS: Menthol/Lanolin/Calamine/Znox 113 GM Tube 1 APPLIC TOPICAL ×2 (05:20→17:49)
[2022-09-10 07:00] LABS: Bedside Glucose 89 mg/dL (74-106)
[2022-09-10] MEDS: oxyCODONE 5 MG Tablet PO (08:02)
[2022-09-10] MEDS: metFORMIN HCl 500 MG Tablet PO ×2 (08:02→17:49)
[2022-09-10] MEDS: Glimepiride 2 MG Tablet PO (08:02)
--- NOTE | 2022-09-10 09:16 | NURSING ---
Teen Counselor Note; MDS for 09/10/2022 Complete
[2022-09-10] MEDS: Baclofen 10 MG Tablet 5 MG PO (09:50)
[2022-09-10] MEDS: 0.9% Saline Lock 10 ML Syringe IV ×2 (09:51→23:40)
--- NOTE | 2022-09-10 13:18 | NURSING ---
dr quigley notified d/t requesting if they know source of infection and he stated no will update .
[2022-09-10] MEDS: Glucerna Shake 120 ML LIQUID PO ×3 (13:20→21:58)
[2022-09-10 15:07] VITALS: BP 109/70; PULSE 88; RESP 14; TEMP 36.2; O2SAT 97
[2022-09-10] MEDS: Acetaminophen 500 MG Tablet 1000 MG PO (17:47)
[2022-09-10] MEDS: Tamsulosin HCl 0.4 MG Capsule 0.8 MG PO (17:49)
[2022-09-10 20:00] VITALS: PULSE 81; RESP 16
[2022-09-10] MEDS: Mirtazapine 15 MG Tablet 7.5 MG PO (21:58)
[2022-09-10] MEDS: Atorvastatin Calcium 20 MG Tablet PO (21:58)
[2022-09-11] MEDS: Lidocaine 5% Patch 1 PATCH TOPICAL (05:34)
[2022-09-11] MEDS: Polyethylene Glycol 3350 17 GM PACKET PO (05:34)
[2022-09-11] MEDS: Glucerna Shake 120 ML LIQUID PO ×4 (05:34→21:38)
[2022-09-11] MEDS: Lisinopril 5 MG Tablet PO (05:35)
[2022-09-11] MEDS: Acetaminophen 500 MG Tablet 1000 MG PO ×3 (05:35→21:47)
[2022-09-11] MEDS: Propranolol 10 MG Tablet 20 MG PO ×2 (05:35→17:27)
[2022-09-11] MEDS: Senna/Docusate Sodium 1 Tablet 2 TABLET PO ×2 (05:35→17:26)
[2022-09-11] MEDS: Menthol/Lanolin/Calamine/Znox 113 GM Tube 1 APPLIC TOPICAL ×2 (05:40→17:28)
[2022-09-11 05:45] VITALS: BP 129/72; PULSE 76; RESP 16
[2022-09-11 06:41] LABS: Bedside Glucose 133 mg/dL (74-106)
[2022-09-11] MEDS: Glimepiride 2 MG Tablet PO (08:16)
[2022-09-11] MEDS: metFORMIN HCl 500 MG Tablet PO ×2 (08:16→17:28)
[2022-09-11 09:38] LABS: Absolute Lymphocyte Count 1.46 X10^3/uL (0.83-4.51); Absolute Neutrophil Count 2.7 X10^3/uL (2.0-7.7); Basophil# 0.06 X10^3/uL; Basophil% 1.2 % (0-1); Eosinophil# 0.28 X10^3/uL; Eosinophils% 5.4 % (0-5); Hemoglobin 8.3 g/dL (13.0-16.5); Lymphocyte # 1.46 X10^3/ul (0.83-4.51); Lymphocyte % 28.3 % (19-41); Mean Corp Hgb Conc 31.9 g/dL (32-36); Mean Corpuscular Hgb 28.6 pg (27.0-32.0); Mean Corpuscular Volume 89.7 fL (80-94); Mean Platelet Vol. 8.7 fl (6.2-12.0); Monocyte# 0.67 X10^3/uL; NRBC Flagged by Analyzer 0 % (0-5); Neutrophil # 2.67 X10^3/uL (2.7-7.7); Neutrophil % 51.7 % (47-70); Platelet Count 315 K/mm3 (150-450); RBC Distribution Width CV 13.7 % (11.6-14.6); RBC Distribution Width SD 44.8 fl (35.1-43.9); White Blood Count 5.2 K/mm3 (4.4-11.0)
[2022-09-11 10:11] LABS: Anion Gap 8 (5-15); BUN 16 mg/dL (7-18); BUN/Creat Ratio 11.6 RATIO (10-20); Calcium,Total 8.7 mg/dL (8.5-10.1); Chloride 104 mmol/L (98-107); Creatinine, Serum 1.38 mg/dL (0.70-1.30); EST Glomerular Filtration Rate 53 mL/min (>60); Est Glom Filt Rate - Afr Amer 64 mL/min (>60); Glucose 190 mg/dL (74-106); Potassium 4.6 mmol/L (3.5-5.1); Sodium Level 138 mmol/L (136-145)
[2022-09-11 10:16] LABS: Vancomycin, Trough Level 16.8 ug/mL (5.0-15.0)
--- NOTE | 2022-09-11 10:22 | PCM.RX.CS ---
Consult Pharmacy has been consulted to manage selected antiobiotic: Vancomycin Type of Consult: Follow-up Prior Doses of Antibiotics Received/Current Regimen: Medications Vancomycin HCl 1,250 mg/ (Sodium Chloride) 275 mls @ 167 mls/hr IV Q24H RANDELL Last Admin: 09/10/22 12:18 Dose: Infused Labs: Sodium 138 mmol/L (136-145) 09/11/22 09:25 Potassium 4.6 mmol/L (3.5-5.1) 09/11/22 09:25 Chloride 104 mmol/L (98-107) 09/11/22 09:25 Carbon Dioxide 26.0 mmol/L (21.0-32.0) 09/11/22 09:25 Anion Gap 8 (5-15) 09/11/22 09:25 BUN 16 mg/dL (7-18) 09/11/22 09:25 Creatinine 1.38 mg/dL (0.70-1.30) H 09/11/22 09:25 Est GFR (MDRD) Af Amer 64 mL/min (>60) 09/11/22 09:25 Est GFR (MDRD) Non-Af 53 mL/min (>60) L 09/11/22 09:25 BUN/Creatinine Ratio 11.6 RATIO (10-20) 09/11/22 09:25 Glucose 190 mg/dL (74-106) H 09/11/22 09:25 Vancomycin Trough 16.8 ug/mL (5.0-15.0) H 09/11/22 09:25 Random Vancomycin 15.3 ug/mL (0.0-15.0) H 09/04/22 05:13 Microbiology: Microbiology 09/07/22 05:00 Nasal Secretion SARS-CoV-2 Antigen (Rapid) - Final 09/05/22 06:03 Nasal Secretion SARS-CoV-2 Antigen (Rapid) - Final 09/03/22 23:30 Nasal Secretion SARS-CoV-2 Antigen (Rapid) - Final Weight used for dosin kg Estimated Creatinine Clearance: 41 mL/min Goal Trough: 15-20 mcg/mL Pharmacy Plan for Drug Dosing: Vancomycin trough in range, continue current regimen and re-check in a week. Planned stop date 10/04. Pharmacy Service will continue to monitor and adjust dosing as required. Follow-Up Labs: Trough Vancomycin - 09/18 @ 0930
[2022-09-11] MEDS: oxyCODONE 5 MG Tablet PO (11:29)
[2022-09-11 15:48] VITALS: BP 166/59; PULSE 81; RESP 18; TEMP 36.6; O2SAT 97
[2022-09-11] MEDS: Tamsulosin HCl 0.4 MG Capsule 0.8 MG PO (17:26)
[2022-09-11] MEDS: 0.9% Saline Lock 10 ML Syringe IV (21:38)
[2022-09-11] MEDS: Atorvastatin Calcium 20 MG Tablet PO (21:47)
[2022-09-11] MEDS: Mirtazapine 15 MG Tablet 7.5 MG PO (21:47)
[2022-09-12] MEDS: Glucerna Shake 120 ML LIQUID PO ×3 (06:06→18:25)
[2022-09-12] MEDS: Senna/Docusate Sodium 1 Tablet 2 TABLET PO ×2 (06:07→18:27)
[2022-09-12] MEDS: Propranolol 10 MG Tablet 20 MG PO ×2 (06:07→18:27)
[2022-09-12] MEDS: Lisinopril 5 MG Tablet PO (06:07)
[2022-09-12] MEDS: Acetaminophen 500 MG Tablet 1000 MG PO ×3 (06:08→21:05)
[2022-09-12] MEDS: Menthol/Lanolin/Calamine/Znox 113 GM Tube 1 APPLIC TOPICAL ×2 (06:08→18:26)
[2022-09-12] MEDS: Lidocaine 5% Patch 1 PATCH TOPICAL (06:09)
[2022-09-12] MEDS: Polyethylene Glycol 3350 17 GM PACKET PO (06:11)
[2022-09-12 06:13] VITALS: BP 143/68; PULSE 81; RESP 16
[2022-09-12 06:31] LABS: Bedside Glucose 85 mg/dL (74-106)
[2022-09-12] MEDS: metFORMIN HCl 500 MG Tablet PO ×2 (08:14→18:25)
[2022-09-12] MEDS: 0.9% Saline Lock 10 ML Syringe IV (10:35)
[2022-09-12] MEDS: traMADol 50 MG Tablet PO ×2 (11:51→18:27)
--- NOTE | 2022-09-12 13:04 | CASEMGMT ---
Social Work IDT met with patient and for care plan meeting. Discussed patient's progress in PT/OT/ST/SN. Educated to Medicare benefit. Encouraged to contact secondary insurance to ensure copay coverage. Pt has IV ATB through 10/04. IDT estimating DC 10/05. Currently, IDT recommending 04/02 care at home. Offered for therapy training to ensure can assist pt at home. Offered resources for nonskilled W[employer] NETWORK SYSTEMS ADMINISTRATOR, [facility], [place], [place] or SNF. stated I'm hoping for a full recovery. SW agreed and confirmed that is the Team's goal as well. However, encouraged for plan B if pt does not return to PLOF. expressed understanding and will contact this worker with questions. SW to continue to follow. PATRICE PradoW
[2022-09-12 15:06] VITALS: BP 141/54; PULSE 87; RESP 14; TEMP 35.8; O2SAT 95
[2022-09-12] MEDS: Tamsulosin HCl 0.4 MG Capsule 0.8 MG PO (18:26)
[2022-09-12] MEDS: Atorvastatin Calcium 20 MG Tablet PO (21:04)
[2022-09-12] MEDS: Mirtazapine 15 MG Tablet 7.5 MG PO (21:05)
[2022-09-12 21:14] VITALS: PULSE 78; RESP 14; O2SAT 94
[2022-09-13 06:27] VITALS: BP 138/60; PULSE 79
[2022-09-13] MEDS: Lidocaine 5% Patch 1 PATCH TOPICAL (06:28)
[2022-09-13] MEDS: Lisinopril 5 MG Tablet PO (06:29)
[2022-09-13] MEDS: Polyethylene Glycol 3350 17 GM PACKET PO (06:29)
[2022-09-13] MEDS: Acetaminophen 500 MG Tablet 1000 MG PO ×3 (06:29→21:11)
[2022-09-13] MEDS: Senna/Docusate Sodium 1 Tablet 2 TABLET PO ×2 (06:29→18:31)
[2022-09-13] MEDS: Propranolol 10 MG Tablet 20 MG PO ×2 (06:29→18:31)
[2022-09-13] MEDS: Menthol/Lanolin/Calamine/Znox 113 GM Tube 1 APPLIC TOPICAL (06:29)
[2022-09-13 06:31] LABS: Bedside Glucose 116 mg/dL (74-106)
[2022-09-13] MEDS: traMADol 50 MG Tablet PO ×2 (06:32→12:32)
[2022-09-13] MEDS: Baclofen 10 MG Tablet 5 MG PO ×2 (06:32→14:29)
[2022-09-13] MEDS: Glucerna Shake 120 ML LIQUID PO ×2 (06:36→20:58)
[2022-09-13] MEDS: metFORMIN HCl 500 MG Tablet PO ×2 (09:05→18:31)
[2022-09-13] MEDS: oxyCODONE 5 MG Tablet PO ×2 (09:10→15:36)
[2022-09-13] MEDS: 0.9% Saline Lock 10 ML Syringe IV ×3 (09:53→21:01)
[2022-09-13 10:00] VITALS: PULSE 74; RESP 16; O2SAT 95
[2022-09-13 15:10] VITALS: BP 144/62; PULSE 83; RESP 14; TEMP 36.8; O2SAT 96
[2022-09-13] MEDS: Tamsulosin HCl 0.4 MG Capsule 0.8 MG PO (18:31)
[2022-09-13] MEDS: Gabapentin 100 MG Capsule PO (18:34)
[2022-09-13] MEDS: oxyCODONE 5 MG Tablet 10 MG PO (20:56)
[2022-09-13] MEDS: Mirtazapine 15 MG Tablet 7.5 MG PO (21:10)
[2022-09-13] MEDS: Atorvastatin Calcium 20 MG Tablet PO (21:10)
[2022-09-13] MEDS: traMADol 50 MG Tablet 100 MG PO (23:14)
[2022-09-14] MEDS: oxyCODONE 5 MG Tablet 10 MG PO ×2 (03:30→10:41)
[2022-09-14] MEDS: Glucerna Shake 120 ML LIQUID PO (05:54)
[2022-09-14] MEDS: Menthol/Lanolin/Calamine/Znox 113 GM Tube 1 APPLIC TOPICAL (05:55)
[2022-09-14] MEDS: Polyethylene Glycol 3350 17 GM PACKET PO (05:57)
[2022-09-14] MEDS: Acetaminophen 500 MG Tablet 1000 MG PO (05:57)
[2022-09-14] MEDS: Lidocaine 5% Patch 1 PATCH TOPICAL (05:57)
[2022-09-14] MEDS: Propranolol 10 MG Tablet 20 MG PO (05:59)
[2022-09-14] MEDS: Senna/Docusate Sodium 1 Tablet 2 TABLET PO (05:59)
[2022-09-14] MEDS: Lisinopril 5 MG Tablet PO (05:59)
[2022-09-14 06:19] VITALS: BP 108/50; PULSE 101; RESP 16; TEMP 37.3
[2022-09-14 06:21] LABS: Bedside Glucose 152 mg/dL (74-106)
--- NOTE | 2022-09-14 06:53 | NURSING ---
Red raised rash observed to upper body, c/o itch. Significant pain continues at times, MRI pending for today. Written communication left for Dr. Lepe.
[2022-09-14] MEDS: Gabapentin 100 MG Capsule PO ×2 (09:03→12:57)
[2022-09-14] MEDS: Baclofen 10 MG Tablet 5 MG PO (09:03)
[2022-09-14] MEDS: metFORMIN HCl 500 MG Tablet PO (09:34)
[2022-09-14] MEDS: 0.9% Saline Lock 10 ML Syringe IV (10:23)
[2022-09-14] MEDS: Hydrocortisone 2.5% Crm 1 APPLIC TOPICAL (10:25)
--- NOTE | 2022-09-14 11:03 | NURSING ---
Called PCP office, they only had one pneumo vaccine on file and couldn't tell which one, only the date it was given. Per resident hasn't had any other doses and if he did they would have been at his PCP office. Update left for Dr Lepe to decide if he wants to order dose.
--- NOTE | 2022-09-14 11:40 | MDS.RN ---
Information for the mds was obtained from review of the clinical record, interview of resident, staff, and direct observation of resident's care.
--- NOTE | 2022-09-14 13:08 | DS.PCM_ITS ---
Providers Date of Admission: 09/03/22 Primary Care Physician: Dr. Jorge Pepper MD Consultations 09/04/22 08:05 Consult: Infectious Disease Routine Consulting Provider: Michele eMek Reason for Consult: Lumbar discitis/osteomyelitis/epidural abscess/psoas abscess s/p debridemen EMERGENT Consult: No Notified: Yes Date Notified: 09/04/22 Time Notified: 08:06 Method of Notification: Text Consult: Urology Routine Consulting Provider: James Torres Reason for Consult: BPH, urinary retention, indwelling sarmiento. EMERGENT Consult: No Notified: Yes Date Notified: 09/04/22 Time Notified: 08:06 Method of Notification: Answering Service Reason For Visit: OSTEOMYELITIS Diagnosis Discharge Diagnosis (1) Incomplete emptying of bladder due to benign prostatic hyperplasia: Status: Acute Code(s): N40.1 - Benign prostatic hyperplasia with lower urinary tract symptoms; R33.9 - Retention of urine, unspecified (2) Osteomyelitis of lumbar spine: Status: Acute Code(s): M46.26 - Osteomyelitis of vertebra, lumbar region Plan 82 year old male with past medical history significant for lumbar infection, hospitalized for fever, chills, surgery not recommended, admitted to TCU with debility, here for rehabilitation, strengthening, intravenous antibiotics, prior to discharge home. * Debility - PT/OT. * Pain - Tylenol 1000mg q6h prn pain (1-5), Oxycodone 5mg q6h prn pain (6- 10), Lidoderm patch 1 patch topical daily. * Bowel - Miralax 17gm daily, senna/colace 2 tablets bid, Dulcolax 10mg pr x 1 prn, MOM 30ml po x 1 prn. * Adult immunization - Administer pneumonia vacccine, covid19 vaccine, flu vaccine as appropriate. * DVT prophylaxis - Xarelto 10mg daily thru 09/27/2022. * Lumbar discitis/osteomyelitis/epidural abscess/psoas abscess status post debridment - Ceftriaxone 2gm iv q24h, Vancomycin 1500mg iv q24h, consult Dr. Meek to follow. * Diabetes Mellitus II - Metformin 1000mg bid, Glimepiride 4mg daily. * Hypertension - Propranolol 20mg bid, Lisinopril 5mg daily. * Hyperlipidemia - Atorvastatin 20mg qhs. * BPH - Tamsulosin 0.8mg daily, indwelling sarmiento catheter, consult Dr. Torres. Medications at Discharge Home Medications acetaminophen 500 mg tablet 1,000 mg PO Q6H PRN PAIN SCORE 1-3 09/02/22 atorvastatin 20 mg tablet 20 mg PO QHS CHOLESTEROL 09/02/22 ceftriaxone 2 gram intravenous solution 2 g IV Q24H INFECTION 09/02/22 glimepiride 4 mg tablet 4 mg PO BREAKFAST DM 09/02/22 lidocaine 5 % topical patch 1 patch topical DAILY PAIN 09/02/22 lisinopril 5 mg tablet 5 mg PO DAILY BP 09/02/22 metformin 500 mg tablet 1,000 mg PO BIDCM DM 09/02/22 nut.tx.gluc.intol,lac-free,soy (Glucerna oral liquid) 120 ml PO 4X/DAY SUPPLEMENT 09/02/22 oxycodone 5 mg tablet 5 mg PO Q6H PRN PRN PAIN SCORE 6-10 09/02/22 polyethylene glycol 3350 17 gram/dose oral powder 17 g PO DAILY CONSTIPATION 09/02/22 propranolol 20 mg tablet 20 mg PO BID HEART 09/02/22 rivaroxaban 10 mg tablet (Xarelto) 10 mg PO DINNER DVT Prophylaxis 09/02/22 sennosides 8.6 mg-docusate sodium 50 mg tablet 2 tab PO DAILY CONSTIPATION 09/02/22 tamsulosin 0.4 mg capsule 0.8 mg PO DAILY PROSTATE 09/02/22 tramadol 50 mg tablet 50 mg PO Q6H PRN Pain (Scale Score 4-5) 09/02/22 Hospital Course Operations None Procedures None Summary of Care Provided Minutes Spent on Discharge: 35 Hospital Course: 82 year old male with past medical history significant for lumbar infection, hospitalized for fever, chills, surgery not recommended, admitted to TCU with debility, here for rehabilitation, strengthening, intravenous antibiotics, prior to discharge home. Resident had lumbar discitis, osteomyelitis, epidural abscess status post surgical debridement, on retirement intravenous antibiotics. 09/13/2022 Resident confused, intractable low back pain. 09/14/2022 MRI LS spine showed worsening infection. I spoke with resident Shwetha, offered her hospitalization versus hospice. She chose hospitalization, I told Shwetha that despite intervention, resident will soon. Discharge to [facility] Emergency Department 09/14/2022 for evaluation, transfer, admission to hospital. Of note, resident had been sent back to [facility] 09/02/2022, and neurosurgeon opted for no surgical intervention. Physical Exam Const alert General Appearance: cooperative HEENT normocephalic Eyes PERRL and EOMs intact bilaterally Neck supple, no JVD and no carotid bruits Resp normal respiratory effort, normal air movement and clear to auscultation bilaterally Cardio regular rate and regular rhythm GI normal to inspection, nondistended, normoactive bowel sounds, non-tender and n on-distended Extremity normal capillary refill General Extremity: Negative for edema Skin no rashes or lesions noted General Skin Exam: no breakdown Psych affect normal Appearance: appropriate Medical Records Data Medical Nutrition Assessment Dietitian: Malnutrition Criteria Met Start: 09/05/22 15:46 Freq: Status: Active Protocol: Document 09/12/22 14:48 SLA (Rec: 09/12/22 14:48 SLA [id number]) Nutrition Malnutrition Evidence of Malnutrition Exists Yes Malnutrition (severe): Acute Illness/Injury Evidenced By Suboptimal Energy Intake ( Severe),Weight Loss (Severe) Clinical Problem Acute Disease or Injury Related Malnutrition Etiology related to inadequate energy intake and increased pain Signs/Symptoms as evidenced by meeting <75% of estimated nutritional needs and 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 Weight / BMI Weight Weight: 70.108 kg Body Mass Index (BMI) 23.5 ABG / Lab / Microbiology Data Result Diagrams: 09/11/22 09:25 09/11/22 09:25 Laboratory: Laboratory Results - last 24 hr 09/14/22 06:00: POC Glucose 152 H Microbiology: Microbiology 09/07/22 05:00 Nasal Secretion SARS-CoV-2 Antigen (Rapid) - Final 09/05/22 06:03 Nasal Secretion SARS-CoV-2 Antigen (Rapid) - Final 09/03/22 23:30 Nasal Secretion SARS-CoV-2 Antigen (Rapid) - Final D/C Instructions Discharge Diet: No restrictions Discharge Activity: Return to Normal Activity, May Shower and Use Walker Weight Bearing Status: Weight bearing as tolerated Call your doctor if you observe: Fever of 101 or Higher, Inability to urinate, Inability to have a bowel movement, Shortness of breath, Dizziness, Fainting spells, Swelling in the ankles, Chest pain and Uncontrolled pain Additional Instructions: Discharge to [facility] Emergency Department 09/14/2022 for evaluation, transfer, admission to hospital. Please Follow Up With: Derick Mata/[facility] Meaningful Use Info Meaningful Use Diagnoses (Choose all that apply): None applicable Discharge Plan Admission Admit Date/Time: 09/03/22 21:35 Primary Reason for Your Visit: Debility. Attending Provider: Maurice Lepe Chi Primary Care Provider: Jorge Pepper Consulting Providers: Michele Meek ; James Torres Instructions Additional Instructions / Restrictions: Discharge to [facility] Emergency Department 09/14/2022 for evaluation, transfer, admission to hospital. Discharge Orders/Prescriptions Prescriptions: No Action metformin 500 mg tablet 1,000 mg PO BIDCM Label Comments: take 2 tablets by mouth twice a day atorvastatin 20 mg Tablet 20 mg PO QHS ceftriaxone 2 gram Recon Soln 2 g IV Q24H sennosides-docusate sodium 8.6-50 mg Tablet 2 tab PO DAILY tramadol 50 mg tablet 50 mg PO Q6H PRN (Reason: Pain (Scale Score 4-5)) Label Comments: take 1 tablet by mouth every 6 hours acetaminophen 500 mg Tablet 1,000 mg PO Q6H PRN (Reason: PAIN SCORE 1-3) tamsulosin 0.4 mg capsule 0.8 mg PO DAILY Label Comments: take 2 capsules by mouth once daily glimepiride 4 mg tablet 4 mg PO BREAKFAST lidocaine 5 % adhesive patch,medicated 1 patch topical DAILY Label Comments: apply 1 patch TO THE AFFECTED AREA DAILY. LEAVE ON FOR 12 HOURS AND THEN OFF FOR 12 HOURS. polyethylene glycol 3350 17 gram/dose Powder 17 g PO DAILY propranolol 20 mg tablet 20 mg PO BID oxycodone 5 mg tablet 5 mg PO Q6H PRN PRN (Reason: PAIN SCORE 6-10) Glucerna Liquid 120 ml PO 4X/DAY Xarelto 10 mg Tablet 10 mg PO DINNER lisinopril 5 mg tablet 5 mg PO DAILY Referrals / Follow Up: Jorge Pepper MD [Primary Care Provider] - Disposition Disposition (needs filled in before D/C Order can be placed): [facility]
--- NOTE | 2022-09-14 13:22 | NURSING ---
pt sent to ER d\t results of MRI, confusion, increased pain. Dr Lepe updated by phone, will meet pt in the ER
== END 2022-09-14 13:05 | disposition short-term general hospital (02) | DRG 94 ==
PROVIDERS: Admitting Provider Family Medicine Geriatric Medicine; PCP Internal Medicine; Visit Provider Family Medicine Geriatric Medicine
DX: G06.1 Intraspinal abscess and granuloma (principal); K68.12 Psoas muscle abscess; M46.26 Osteomyelitis of vertebra, lumbar region; E11.69 Type 2 diabetes mellitus with other specified complication; I25.10 Atherosclerotic heart disease of native coronary artery without angina pectoris; I10 Essential (primary) hypertension; M46.46 Discitis, unspecified, lumbar region; Z79.84 Long term (current) use of oral hypoglycemic drugs; Z79.01 Long term (current) use of anticoagulants; Z79.899 Other long term (current) drug therapy; N40.1 Benign prostatic hyperplasia with lower urinary tract symptoms; R33.8 Other retention of urine; Z23 Encounter for immunization; Z47.89 Encounter for other orthopedic aftercare
CPT/HCPCS: 36415; 80048; 80202; 82962; 85025; 87426; 87635; 87811; 92507; 92523; 97110; 97116; 97162; 97166; 97530; 97535; 97802; G0008; J7040; J7050; 90686; A4216; J0696; U0003; U0005

== ENCOUNTER 2022-09-14 13:15 | Inpatient (IN) | payer MEDICARE, BC, SELFPAY ==
[2022-09-14] VITALS (9 sets, daily range): BP systolic 105–145; BP diastolic 59–98; PULSE 96–115; RESP 17–20; TEMP 36.8–37.6; O2SAT 92–97; BMI 24.6; BMI 24.0
--- NOTE | 2022-09-14 14:08 | EKG12_ITS ---
Test Reason : GENERAL Blood Pressure : / mmHG Vent. Rate : 098 BPM Atrial Rate : 098 BPM P-R Int : 168 ms QRS Dur : 070 ms QT Int : 336 ms P-R-T Axes : 054 001 038 degrees QTc Int : 428 ms Normal sinus rhythm Low voltage QRS (Limb Leads) Confirmed by SHON MACEDO, DANY ([id number]), news assignment editor MALA BERMEO ([id number]) on 09/17/2022 1:50:36 PM Referred By: Confirmed By:DANY MENENDEZ MD
--- NOTE | 2022-09-14 14:11 | ED.VIS.BACK ---
HPI History of Present Illness Chief Complaint: Back Informant: spouse/S.O. Onset/Context/Timing Timing: Continuous Location: Lumbar Worsened by: improves with Movement Relieved by: Remaining Still Associated Symptoms Associated Symptoms: Tingling Narrative Narrative: Is with back pain that became worse today. Patient had an MRI done today which shows that the discitis and osteomyelitis in his back has gotten worse. Patient is in the TCU for the osteomyelitis in his back. Patient is receiving IV vancomycin. Patient had surgery on 08/22/2022 at [facility] in the [facility]. On 08/30/2022, the patient was discharged to the transitional care unit here. On 09/02/2022, the patient was transferred back to [facility]. On 09/03/2022, patient was transferred back to the TCU here. Family states patient has some intermittent tingling in his left leg. Family states patient has low-grade fever. Patient is currently having some confusion but does not know where he has had or what day it is. PFSH PFSH Medical History Abscess in epidural space of lumbar spine Coronary artery disease Depression Diabetes mellitus Hypertension Lumbar discitis Osteomyelitis of lumbar spine Home Medications acetaminophen 500 mg tablet 1,000 mg PO Q8H PRN PAIN SCORE 1-3 09/02/22 [History Last Taken 09/14/22 05:57] atorvastatin 20 mg tablet 20 mg PO QHS CHOLESTEROL 09/02/22 [History Last Taken 09/13/22 21:10] ceftriaxone 2 gram intravenous solution 2 g IV Q24H INFECTION 09/02/22 [History Last Taken 09/13/22 21:35] glimepiride 4 mg tablet 4 mg PO BREAKFAST DM 09/02/22 [History Last Taken 09/02/22 07:47] lidocaine 5 % topical patch 1 patch topical DAILY PAIN 09/02/22 [History Last Taken 09/14/22 05:57] lisinopril 5 mg tablet 5 mg PO DAILY BP 09/02/22 [History Last Taken 09/14/22 05:59] metformin 500 mg tablet 500 mg PO BIDCM DM 09/02/22 [History Last Taken 09/14/22 09:34] nut.tx.gluc.intol,lac-free,soy (Glucerna oral liquid) 120 ml PO 4X/DAY SUPPLEMENT 09/02/22 [History Last Taken 09/14/22 05:54] oxycodone 5 mg tablet 10 mg PO Q4H PRN PRN PAIN SCORE 6-10 09/02/22 [History Last Taken 09/14/22 10:41] polyethylene glycol 3350 17 gram/dose oral powder 17 g PO DAILY CONSTIPATION 09/02/22 [History Last Taken 09/14/22 05:57] propranolol 20 mg tablet 20 mg PO BID HEART 09/02/22 [History Last Taken 09/14/22 05:59] rivaroxaban 10 mg tablet (Xarelto) 10 mg PO DINNER DVT Prophylaxis 09/02/22 [History Last Taken 09/01/22 16:23] sennosides 8.6 mg-docusate sodium 50 mg tablet 2 tab PO DAILY CONSTIPATION 09/02/22 [History Last Taken 09/14/22 05:59] tamsulosin 0.4 mg capsule 0.8 mg PO DAILY@1730 PROSTATE 09/02/22 [History Last Taken 09/13/22 18:31] tramadol 50 mg tablet 100 mg PO Q6H PRN Pain (Scale Score 4-5) 09/02/22 [History Last Taken 09/13/22 23:14] baclofen 5 mg tablet 5 mg PO TID PRN MUSCLE SPASMS 09/14/22 [History Last Taken 09/14/22 09:03] gabapentin 100 mg capsule 100 mg PO TID NERVE PAIN 09/14/22 [History Last Taken 09/14/22 12:57] hydrocortisone 2.5 % topical cream 1 applic topical TID PRN Rash 09/14/22 [History Last Taken 09/14/22 10:25] menthol 0.44 %-zinc oxide 20.6 % topical ointment (Calmoseptine) 1 applic topical BID@0600,1800 09/14/22 [History Last Taken 09/14/22 05:55] mirtazapine 15 mg tablet (Remeron) 7.5 mg PO DAILY ANTIDEPRESSANTS 09/14/22 [History Last Taken 09/13/22 21:10] Allergy/AdvReac Type Severity Reaction Status Date / Time No Known Allergies Allergy Verified 09/02/22 07:16 Family History Other Arthritis Congestive heart failure Diabetes Surgical History Status post epidural steroid injection Social History household members: none Smoking Status: Never smoker alcohol intake: never substance use type: does not use ROS ROS ED Review of Systems ROS Unobtainable: due to mental status EXAM Physical Exam Const Vital Signs: 09/14/22 13:16 09/14/22 13:45 09/14/22 15:00 Temperature 99.5 F H 99.5 F H 99.4 F H Temperature Source Oral Temporal Temporal Pulse Rate 105 H 96 105 H Respiratory Rate 18 20 H 18 Blood Pressure 145/98 H 125/59 H 131/70 H Blood Pressure Mean 113 81 90 Pulse Ox 97 92 93 Oxygen Delivery Method Room Air Room Air Room Air 09/14/22 16:12 09/14/22 17:10 09/14/22 18:51 Temperature 99.6 F H 99.2 F H 99.4 F H Temperature Source Temporal Oral Oral Pulse Rate 105 H 115 H 115 H Respiratory Rate 20 H 20 H 20 H Blood Pressure 123/62 H 105/87 H 138/65 H Blood Pressure Mean 82 93 89 Pulse Ox 96 95 95 Oxygen Delivery Method Room Air Room Air Room Air 09/14/22 19:59 Temperature 98.2 F Temperature Source Temporal Pulse Rate 102 H Respiratory Rate 17 Blood Pressure 107/69 Blood Pressure Mean 81 Pulse Ox 94 Oxygen Delivery Method Positive well nourished and well developed General Appearance ED: well developed and NAD HEENT Reports moist mucous membranes Neck supple and no JVD Resp normal respiratory effort and clear to auscultation bilaterally Cardio regular rate and regular rhythm GI soft to palpation and non-tender Back/Spine Back/Spine Narrative: There is a healing incision over the upper lumbar spine. There is no surrounding erythema. There is no discharge or drainage. There is some mild tenderness. Range of motion was limited in all motions of the spine secondary to pain. Lumbar Spine / Lower Back: ROM limited Neuro no sensory deficits noted Sensorium / Orientation: alert and confused Motor Exam: strength 5/5 throughout Skin Skin Narrative: There is an erythematous macular rash noted that is generalized. There are no vesicles or pustules. There is no discharge or drainage. There are no petechia noted. MDM MDM MDM Narrative Medical decision making narrative: Differential diagnosis includes osteomyelitis, discitis, sepsis, urinary tract infection, and electrolyte abnormality. EKG will be obtained to assess for cardiac dysrhythmia and cardiac ischemia. CBC will be obtained to assess for leukocytosis and anemia. Comprehensive metabolic profile will be obtained to assess for hepatic function, renal function, and electrolyte abnormality. PT with INR and PTT will be obtained to assess for coagulopathy. Urinalysis will be obtained to assess for urinary tract infection. Blood cultures will be obtained to assess for sepsis. History & Record Review Discussion w/independent historian: Significant other Additional record(s) reviewed:: Prior outpatient record and Prior labs Lab Data Attestation: I reviewed the patient's lab results. Lab results narrative: CBC was reviewed. There is a mild anemia with a hemoglobin of 8.7 and hematocrit 28.0. This is improved from previous result. Comprehensive metabolic profile was reviewed. Creatinine was 1.38 and BUN was 25. These were also consistent with prior results. PT with INR and PTT were reviewed. Pro time was 15.4 and INR was 1.3. PTT was normal at 30.6. Urinalysis was reviewed. Leukocyte esterase was 500 with 10-25 white blood cells. Serum ammonia level was reviewed and was normal at 29. Arterial blood gas was reviewed and shows a pH of 7.47, PCO2 of 32.7, PO2 of 71, and bicarb of 24.2. Oxygen saturation was 95.3% on room air. Labs: Laboratory Results - last 24 hr 09/14/22 09/14/22 09/14/22 14:20 14:20 14:20 WBC 8.0 RBC 3.06 L Hgb 8.7 L Hct 28.0 L MCV 91.5 MCH 28.4 MCHC 31.1 L RDW Std Deviation 46.2 H RDW Coeff of Eliecer 13.9 Plt Count 328 MPV 8.7 Immature Gran % (Auto) 0.800 Neut % (Auto) 75.4 H Lymph % (Auto) 9.4 L [place] % (Auto) 9.2 Eos % (Auto) 4.9 Baso % (Auto) 0.3 Absolute Neuts (auto) 6.0 Absolute Lymphs (auto) 0.75 L Nucleated RBC % 0 PT 15.4 H INR 1.3 APTT 30.6 Sodium 133 L Potassium 5.1 Chloride 99 Carbon Dioxide 26.0 Anion Gap 8 BUN 25 H Creatinine 1.38 H Estim Creat Clear Calc 41.30 Est GFR (MDRD) Af Amer 64 Est GFR (MDRD) Non-Af 53 L BUN/Creatinine Ratio 18.1 Glucose 307 H Calcium 8.3 L Total Bilirubin 0.90 AST 22 ALT 20 Alkaline Phosphatase 73 Ammonia Total Protein 6.2 L Albumin 2.3 L Globulin 3.9 Albumin/Globulin Ratio 0.6 L Urine Color Urine Clarity Urine pH Ur Specific [place] Urine Protein Urine Glucose (UA) Urine Ketones Urine Occult Blood Urine Nitrite Urine Bilirubin Urine Urobilinogen Ur Leukocyte Esterase Urine RBC Urine WBC Ur Squamous Epith Cells Urine Bacteria Urine Mucus Urine Yeast 09/14/22 09/14/22 15:25 18:45 WBC RBC Hgb Hct MCV MCH MCHC RDW Std Deviation RDW Coeff of Eliecer Plt Count MPV Immature Gran % (Auto) Neut % (Auto) Lymph % (Auto) [place] % (Auto) Eos % (Auto) Baso % (Auto) Absolute Neuts (auto) Absolute Lymphs (auto) Nucleated RBC % PT INR APTT Sodium Potassium Chloride Carbon Dioxide Anion Gap BUN Creatinine Estim Creat Clear Calc Est GFR (MDRD) Af Amer Est GFR (MDRD) Non-Af BUN/Creatinine Ratio Glucose Calcium Total Bilirubin AST ALT Alkaline Phosphatase Ammonia 29.0 Total Protein Albumin Globulin Albumin/Globulin Ratio Urine Color Yellow Urine Clarity Sl. Cloudy Urine pH 6.0 Ur Specific [place] 1.015 Urine Protein 30 H Urine Glucose (UA) 100 H Urine Ketones Negative Urine Occult Blood 150 H Urine Nitrite Negative Urine Bilirubin Negative Urine Urobilinogen Normal Ur Leukocyte Esterase 500 H Urine RBC 0-5 SEEN Urine WBC 10-25 SEEN Ur Squamous Epith Cells 0 SEEN Urine Bacteria 0 SEEN Urine Mucus 0 SEEN Urine Yeast 2+ ABG Data ABG results: ABG 09/14/22 18:31 Specimen Type ART Sample Site R Radial pH 7.48 H Bicarbonate Actual 24.2 Total CO2 25 Base Excess 1 O2 Saturation 95 ABG pCO2 32.7 L ABG pO2 71 L Dane Test Positive O2 Delivery Device Room Air Radiography Diagnostic Testing: Clinical Impression(s) from Imaging Studies Brain CT 09/14/22 18:15 IMPRESSION: No acute intracranial findings. Electronically Signed: Lj Espinoza MD at 19:36 EST , CT scan of the brain was obtained. There is no acute intracranial abnormality. This was interpreted by the radiologist and was also independently reviewed by myself. Outpatient MRI of the lumbar spine was reviewed. There is osteomyelitis and discitis with with infected disc material extending into the left paraspinal soft tissues and a persistent small ventral epidural abscess. This was interpreted by the radiologist. EKG Initial EKG: Attestation: I personally reviewed and interpreted this EKG as follows: Interpretation: Sinus Rhythm (98) and No Acute Injury Pattern Comments: EKG was obtained. On my independent interpretation, it showed a normal sinus rhythm with a rate of 98. ND interval, QRS interval, and QTc intervals were all normal. [place] was normal. There are no acute ST or T wave changes. Prior EKG tracings: not available for review Prior: No Prior Treatment and Re-Evaluation Narrative: I discussed the treatment options with the . She does not want to make him hospice at this time. I discussed the case with Dr. Barros from neurosurgery from [facility]. He states that the patient would not benefit from transfer to his facility since he would not do surgery until he has completed 6 weeks of IV antibiotics for this. Case was discussed with Dr. Decker, hospitalist here. She states that the patient is only requiring IV antibiotics he may be discharged back to the transitional care unit. She did recommend obtaining CT scan of the brain, ammonia level, and arterial blood gas to assess for the patient's confusion. These were ordered and were all within normal limits. The case was also discussed with Dr. Lepe. He states that the patient's confusion has been constant and this is not new. He states patient has been requiring increasing doses of opiates walking and is not any better on the IV antibiotics that he is on. Because of this he recommends admission to the hospital. He does not want to take the patient back to the TCU. He states that if the patient improves on the increasing doses of analgesics and is more awake alert and can tolerate physical therapy, he may go back to the transitional care unit at that time. Patient feels well Case was discussed with the overnight hospitalist, Dr. Diaz. He will admit the patient to the hospital. Family understands and is agreeable with the plan. All questions were answered. Critical Care Time Critical Care Time: Yes Critical care time (excluding procedures): 30-74 minutes (39), Including time spent:, Discussing w/Patient &/or Family/Supervisor [place], Discussing w/Consultants, Arranging Admission or Transfer and Performing Direct Patient Care at Bedside Discharge Plan Dx/Rx/DC Orders Clinical Impression: Lumbar discitis, Osteomyelitis of lumbar spine, Abscess in epidural space of lumbar spine, Debility Disposition Disposition: Acute Care Hospital [facility] Discharge Date/Time: 09/14/22 23:05
[2022-09-14 14:29] LABS: Absolute Lymphocyte Count 0.75 X10^3/uL (0.83-4.51); Basophil# 0.02 X10^3/uL; Basophil% 0.3 % (0-1); Eosinophil# 0.39 X10^3/uL; Eosinophils% 4.9 % (0-5); Hemoglobin 8.7 g/dL (13.0-16.5); Lymphocyte # 0.75 X10^3/ul (0.83-4.51); Lymphocyte % 9.4 % (19-41); Mean Corp Hgb Conc 31.1 g/dL (32-36); Mean Corpuscular Hgb 28.4 pg (27.0-32.0); Mean Corpuscular Volume 91.5 fL (80-94); Mean Platelet Vol. 8.7 fl (6.2-12.0); Monocyte# 0.73 X10^3/uL; Monocyte% 9.2 % (0-10); NRBC Flagged by Analyzer 0 % (0-5); Neutrophil # 6.02 X10^3/uL (2.7-7.7); Neutrophil % 75.4 % (47-70); Platelet Count 328 K/mm3 (150-450); RBC Distribution Width CV 13.9 % (11.6-14.6); RBC Distribution Width SD 46.2 fl (35.1-43.9); Red Blood Count 3.06 M/mm3 (4.6-6.2)
[2022-09-14 14:38] LABS: International Normalized Ratio 1.3; Prothrombin Time (Protime)PT. 15.4 SECONDS (11.7-14.9)
[2022-09-14 14:39] LABS: Partial Thromboplast Time 30.6 Seconds (24.1-36.2)
[2022-09-14 14:46] LABS: ALB/GLOB Ratio 0.6 RATIO (0.9-2.4); AST(SGOT) 22 U/L (15-37); Alanine Aminotransfer ALT/SGPT 20 U/L (16-61); Albumin, Serum 2.3 g/dL (3.2-5.0); Alkaline Phosphatase 73 U/L (45-117); Anion Gap 8 (5-15); BUN 25 mg/dL (7-18); BUN/Creat Ratio 18.1 RATIO (10-20); Calcium,Total 8.3 mg/dL (8.5-10.1); Chloride 99 mmol/L (98-107); Creatinine, Serum 1.38 mg/dL (0.70-1.30); EST Glomerular Filtration Rate 53 mL/min (>60); Est Glom Filt Rate - Afr Amer 64 mL/min (>60); Globulin 3.9 g/dL (2.2-4.2); Glucose 307 mg/dL (74-106); Potassium 5.1 mmol/L (3.5-5.1); Protein, Total 6.2 g/dL (6.4-8.2); Sodium Level 133 mmol/L (136-145)
[2022-09-14 15:30] LABS: Bacteria 0 SEEN /hpf (None Seen); Mucous, Urine 0 SEEN /hpf (<or=2+); Squamous Epithelial Cells - UA 0 SEEN /hpf (0-5)
[2022-09-14 15:35] LABS: Color, Urine Yellow (Yellow); Glucose, Dipstick 100 mg/dl (Normal); Ketone-Dipstick Negative (Negative); Leukocyte Esterase-Dipstick 500 /ul (Negative); Nitrite-Dipstick Negative (Negative); Occult Blood-Urine 150 /ul (Negative); Protein-Dipstick 30 mg/dl (Negative); Specific Gravity, Urine 1.015 (1.002-1.030); Urine Bilirubin Dipstick Negative (Negative); Urine Clarity Sl. Cloudy (Clear); Urine Urobilinogen Normal (Normal)
[2022-09-14 15:50] LABS: Red Blood Cells-Urine 0-5 SEEN /hpf (0-5); White Blood Cells 10-25 SEEN /hpf (0-5)
[2022-09-14 15:51] LABS: Yeast-Urine 2+ /hpf (None Seen)
[2022-09-14] MEDS: levoFLOXacin IV 750 MG/150 ML BAG 100 MG IV (16:15)
--- NOTE | 2022-09-14 18:15 | CT_ITS ---
INDICATION: Altered mental status EXAMINATION: CT Head or Brain W/O Contrast Injection TECHNIQUE: Multiple axial images were obtained of the head without intravenous contrast. A radiation dose optimization technique was used for this scan. IV Contrast dosage and agent: None. COMPARISON: None. FINDINGS: BRAIN PARENCHYMA: No intra- or extra-axial hemorrhage. No evidence of acute infarct. No intracranial mass or mass effect. No vasogenic edema. There is preservation of the [place]/white matter interface. Prominent basal ganglia and dentate nuclei calcifications. Parenchymal volume loss and small vessel ischemic disease changes, appropriate for age. Posterior fossa structures are unremarkable. CSF SPACES: No hydrocephalus. Basal cisterns are patent. Prominent dural based calcifications at the tentorium and falx cerebri. CALVARIUM, SKULL BASE, PARANASAL SINUSES AND MASTOID AIR CELLS: Clear. No discrete lytic or blastic abnormalities. Calvarium is intact. ORBITS: Bilateral cataract repair. No acute orbital abnormality. ASPECTS Score for Acute Strokes: 10 CT/Brain/Head without Contrast IMPRESSION: No acute intracranial findings. Electronically Signed: Lj Espinoza MD at 19:36 EST ,
[2022-09-14 18:35] LABS: Allen Test Positive; Base Excess 1 mmol/L (-2 to +2); Bicarbonate 24.2 mmol/L (22-26); Blood Gas Specimen Type ART; O2 Delivery Device Room Air; PO2 71 mmHG (75-100); SITE R Radial; SO2 95 % (95-99); Total Carbon Dioxide 25 mmol/L; pCO2 32.7 mmHg (35-45); pH 7.48 (7.35-7.45)
--- NOTE | 2022-09-14 19:57 | NURSING ---
patient is more agitated and rash is worse with itching and spread. Family is at bedside. Dr Kate is aware and does not feel further intervention is warranted. He let this nurse know we are not able to admit to the floor and the patient needs to go back to TCU. Mayra and Hina on TCU are aware but the patient was d/c from them so we are not sure what needs to happen for insurance to return to their care. Awaiting FIDE Santamaria to call back with information.
--- NOTE | 2022-09-14 21:01 | HP.PCM.HOS_ITS ---
HPI - General General Date of Admission: 09/14/22 Date of Service: 09/14/22 Chief Complaint: Worsening HPI Narrative CHANA WARE, is a 82 M with a significant history of Lumbar discitis and Lumbar osteomyelitis who was transferred to the emergency department from the [facility] (of [facility]) for worsening MRI. Of note patient had back surgery on August 22 2022 at [facility] (). After that he was transferred to the TCU. On September 02 2019 patient was transferred to the emergency department and then to [facility] again. On 03 September 2022 patient was transferred back to TCU. While at the transitional care units on 09/14/2022, patient's back pain worsened. Also she had lower extremity pain. Further, patient has been confused. MRI was ordered by Dr. Lepe. The MRI showed worsening discitis and osteomyelitis so patient was brought to the emergency department. ED doc discussed the case with [facility] neurosurgery. Per ED doc [facility] can only take patient back after 6 weeks of antibiotics. Case was discussed initially with hospitalist who recommended the patient could have antibiotics at the TCU. However, TCU physician felt that patient would be better served inpatient. [facility] Medical History Abscess in epidural space of lumbar spine Coronary artery disease Depression Diabetes mellitus Hypertension Lumbar discitis Osteomyelitis of lumbar spine Home Medications acetaminophen 500 mg tablet 1,000 mg PO Q8H PRN PAIN SCORE 1-3 09/02/22 [History Last Taken 09/14/22 05:57] atorvastatin 20 mg tablet 20 mg PO QHS CHOLESTEROL 09/02/22 [History Last Taken 09/13/22 21:10] ceftriaxone 2 gram intravenous solution 2 g IV Q24H INFECTION 09/02/22 [History Last Taken 09/13/22 21:35] glimepiride 4 mg tablet 4 mg PO BREAKFAST DM 09/02/22 [History Last Taken 09/02/22 07:47] lidocaine 5 % topical patch 1 patch topical DAILY PAIN 09/02/22 [History Last Taken 09/14/22 05:57] lisinopril 5 mg tablet 5 mg PO DAILY BP 09/02/22 [History Last Taken 09/14/22 05:59] metformin 500 mg tablet 500 mg PO BIDCM DM 09/02/22 [History Last Taken 09/14/22 09:34] nut.tx.gluc.intol,lac-free,soy (Glucerna oral liquid) 120 ml PO 4X/DAY SUPPLEMENT 09/02/22 [History Last Taken 09/14/22 05:54] oxycodone 5 mg tablet 10 mg PO Q4H PRN PRN PAIN SCORE 6-10 09/02/22 [History Last Taken 09/14/22 10:41] polyethylene glycol 3350 17 gram/dose oral powder 17 g PO DAILY CONSTIPATION 09/02/22 [History Last Taken 09/14/22 05:57] propranolol 20 mg tablet 20 mg PO BID HEART 09/02/22 [History Last Taken 09/14/22 05:59] rivaroxaban 10 mg tablet (Xarelto) 10 mg PO DINNER DVT Prophylaxis 09/02/22 [History Last Taken 09/01/22 16:23] sennosides 8.6 mg-docusate sodium 50 mg tablet 2 tab PO DAILY CONSTIPATION 09/02/22 [History Last Taken 09/14/22 05:59] tamsulosin 0.4 mg capsule 0.8 mg PO DAILY@1730 PROSTATE 09/02/22 [History Last Taken 09/13/22 18:31] tramadol 50 mg tablet 100 mg PO Q6H PRN Pain (Scale Score 4-5) 09/02/22 [History Last Taken 09/13/22 23:14] baclofen 5 mg tablet 5 mg PO TID PRN MUSCLE SPASMS 09/14/22 [History Last Taken 09/14/22 09:03] gabapentin 100 mg capsule 100 mg PO TID NERVE PAIN 09/14/22 [History Last Taken 09/14/22 12:57] hydrocortisone 2.5 % topical cream 1 applic topical TID PRN Rash 09/14/22 [History Last Taken 09/14/22 10:25] menthol 0.44 %-zinc oxide 20.6 % topical ointment (Calmoseptine) 1 applic topical BID@0600,1800 09/14/22 [History Last Taken 09/14/22 05:55] mirtazapine 15 mg tablet (Remeron) 7.5 mg PO DAILY ANTIDEPRESSANTS 09/14/22 [History Last Taken 09/13/22 21:10] Allergy/AdvReac Type Severity Reaction Status Date / Time No Known Allergies Allergy Verified 09/02/22 07:16 Family History Other Arthritis Congestive heart failure Diabetes Surgical History Status post epidural steroid injection Social History household members: none Smoking Status: Never smoker alcohol intake: never substance use type: does not use ROS Review of Systems ROS Unobtainable: other Details: Pertinent positives and pertinent negatives that could be provided by patient's family is as noted in HPI. All other systems were reviewed patient's family did not know or they were negative. Vital Signs Vital Signs Vital Signs: 09/14/22 13:16 09/14/22 13:45 09/14/22 15:00 Temperature 99.5 F H 99.5 F H 99.4 F H Temperature Source Oral Temporal Temporal Pulse Rate 105 H 96 105 H Respiratory Rate 18 20 H 18 Blood Pressure 145/98 H 125/59 H 131/70 H Blood Pressure Mean 113 81 90 Pulse Ox 97 92 93 Oxygen Delivery Method Room Air Room Air Room Air 09/14/22 16:12 09/14/22 17:10 09/14/22 18:51 Temperature 99.6 F H 99.2 F H 99.4 F H Temperature Source Temporal Oral Oral Pulse Rate 105 H 115 H 115 H Respiratory Rate 20 H 20 H 20 H Blood Pressure 123/62 H 105/87 H 138/65 H Blood Pressure Mean 82 93 89 Pulse Ox 96 95 95 Oxygen Delivery Method Room Air Room Air Room Air 09/14/22 19:59 Temperature 98.2 F Temperature Source Temporal Pulse Rate 102 H Respiratory Rate 17 Blood Pressure 107/69 Blood Pressure Mean 81 Pulse Ox 94 Oxygen Delivery Method Weight Weight: 73.5 kg Body Mass Index (BMI) 24.6 Physical Exam Narrative Physical exam: General: Well-nourished, well-developed. Head: Normocephalic, atraumatic, no tenderness Eyes: Vision is grossly intact. EOMI ENT, no trauma, moist mucous membranes, no rhinorrhea Neck: Nontender, No thyromegaly. CVS: Regular rate and rhythm. S1-S2 present. No murmur, gallop or rub. Respiratory : clear to auscultation bilaterally, chest wall nontender, no wheezing Abdomen: Soft, nontender, nondistended, normal bowel sounds, no masses : Deferred Back: Nontender, no CVA tenderness, no midline spinal tenderness, deformities, step-offs Extremities: Healed closely approximated incision at middle back. Skin: Urticarial rash on back. Erythema on face . Neuro: Alert,confused. Psychiatry: Normal mood. Normal affect. Not depressed. Not anxious. Results Lab / Micro Data Result Diagrams: 09/14/22 14:20 09/14/22 14:20 Labs: Laboratory Results - last 24 hr 09/14/22 14:20: WBC 8.0, RBC 3.06 L, Hgb 8.7 L, Hct 28.0 L, MCV 91.5, MCH 28.4, MCHC 31.1 L, RDW Std Deviation 46.2 H, RDW Coeff of Eliecer 13.9, Plt Count 328, MPV 8.7, Immature Gran % (Auto) 0.800, Neut % (Auto) 75.4 H, Lymph % (Auto) 9.4 L, [place] % (Auto) 9.2, Eos % (Auto) 4.9, Baso % (Auto) 0.3, Absolute Neuts (auto) 6.0, Absolute Lymphs (auto) 0.75 L, Nucleated RBC % 0 09/14/22 14:20: PT 15.4 H, INR 1.3, APTT 30.6 09/14/22 14:20: Sodium 133 L, Potassium 5.1, Chloride 99, Carbon Dioxide 26.0, Anion Gap 8, BUN 25 H, Creatinine 1.38 H, Estim Creat Clear Calc 41.30, Est GFR (MDRD) Af Amer 64, Est GFR (MDRD) Non-Af 53 L, BUN/Creatinine Ratio 18.1, Glucose 307 H, Calcium 8.3 L, Total Bilirubin 0.90, AST 22, ALT 20, Alkaline Phosphatase 73, Total Protein 6.2 L, Albumin 2.3 L, Globulin 3.9, Albumin/Globulin Ratio 0.6 L 09/14/22 15:25: Urine Color Yellow, Urine Clarity Sl. Cloudy, Urine pH 6.0, Ur Specific [place] 1.015, Urine Protein 30 H, Urine Glucose (UA) 100 H, Urine Ketones Negative, Urine Occult Blood 150 H, Urine Nitrite Negative, Urine Bilirubin Negative, Urine Urobilinogen Normal, Ur Leukocyte Esterase 500 H, Urine RBC 0-5 SEEN, Urine WBC 10-25 SEEN, Ur Squamous Epith Cells 0 SEEN, Urine Bacteria 0 SEEN, Urine Mucus 0 SEEN, Urine Yeast 2+ 09/14/22 18:45: Ammonia 29.0 Micro: Microbiology 09/14/22 17:40 Nasal Secretion SARS-CoV-2 Antigen (Rapid) - Final ABG Data ABG results: ABG 09/14/22 18:31 Specimen Type ART Sample Site R Radial pH 7.48 H Bicarbonate Actual 24.2 Total CO2 25 Base Excess 1 O2 Saturation 95 ABG pCO2 32.7 L ABG pO2 71 L Dane Test Positive O2 Delivery Device Room Air Radiology Impression Brain CT 09/14/22 18:15 IMPRESSION: No acute intracranial findings. Electronically Signed: Lj Espinoza MD at 19:36 EST , Assessment & Plan Assessment/Plan (1) Osteomyelitis of lumbar spine: (2) Lumbar discitis: PLAN: Plan Worsening lumbar discitis and osteomyelitis of lumbar spine. Impression of lumbar spine MRI by radiologist: Persistent L3-4 osteomyelitis- discitis with infected disc material now extending into the left paraspinal soft tissues and persistent small ventral epidural abscess resulting in severe spinal canal stenosis in combination with posterior postoperative change. A lumbar spine MRI was independently visualized and I agree with radiology interpretation. CBC showed normal white counts. We will continue the patient on vancomycin that patient was on before being transferred to the ED. Patient has been on vancomycin since he got admitted to the TCU on 30 August 2022. At the emergency department patient developed red man syndrome to vancomycin. Zosyn added to regimen. Stop ceftriaxone. Pain regimen continued Cystitis Patient with abnormal urinalysis. Received Levaquin IV at the emergency department. Zosyn as above. Follow urine culture ordered at the emergency dep artment. Diabetes mellitus with neuropathy and nephropathy. Metformin held. Glimepiride continued. Basal insulin continued. Accu-Chek with correction scale insulin ordered. Gabapentin continued. CKD stage IIIa Stable Trends BMP. DVT prophylaxis: Xarelto continued Charges/Coding Visit Charges Inpatient E&M: 05056 Init Hosp L3
--- NOTE | 2022-09-14 21:44 | ED.RN ---
PTS STOPPED THIS RN IN THE HALLWAY. SHE STATES SHE IS WORRIED SHE DID NOT TELL THE HOSPITALIST ENOUGH ABOUT THE PT'S BACK INFECTION. THIS RN ASKED DR. MCADAMS IF THE HOSPITALIST AND HIMSELF WERE AWARE OF BACK INFECTION AND ASKED IF THEY NEEDED ANY OTHER INFORMATION FROM THE PT/ PT FAMILY. DR. MCADAMS STATES HE IS AWARE OF OSTEOMYLITIS AND THAT THE HOSPITALIST IS ALSO AWARE (DR. ORTIZ) DENIES NEEDING ADDITIONAL INFORMATION AT THIS TIME. THIS RN TOLD PT THAT DOCTORS ARE AWARE. PT STATES SHE FEELS BETTER ABOUT SITUATION.
--- NOTE | 2022-09-14 23:11 | PCM.RX.CS ---
Consult Pharmacy has been consulted to manage selected antiobiotic: Vancomycin Type of Consult: Follow-up Suspected Infection: Osteomyelitis Prior Doses of Antibiotics Received/Current Regimen: Medications Vancomycin HCl 1,250 mg/ (Sodium Chloride) 275 mls @ 167 mls/hr IV Q24H RANDELL Labs: Sodium 133 mmol/L (136-145) L 09/14/22 14:20 Potassium 5.1 mmol/L (3.5-5.1) 09/14/22 14:20 Chloride 99 mmol/L (98-107) 09/14/22 14:20 Carbon Dioxide 26.0 mmol/L (21.0-32.0) 09/14/22 14:20 Anion Gap 8 (5-15) 09/14/22 14:20 BUN 25 mg/dL (7-18) H 09/14/22 14:20 Creatinine 1.38 mg/dL (0.70-1.30) H 09/14/22 14:20 Est GFR (MDRD) Af Amer 64 mL/min (>60) 09/14/22 14:20 Est GFR (MDRD) Non-Af 53 mL/min (>60) L 09/14/22 14:20 BUN/Creatinine Ratio 18.1 RATIO (10-20) 09/14/22 14:20 Glucose 307 mg/dL (74-106) H 09/14/22 14:20 Microbiology: Microbiology 09/14/22 17:40 Nasal Secretion SARS-CoV-2 Antigen (Rapid) - Final Weight used for dosin.5 kg Estimated Creatinine Clearance: 41 Goal Trough: 15-20 mcg/mL Pharmacy Plan for Drug Dosing: Patient has been readmitted to [facility]. The previous vancomycin therapy will be continued, since no doses were missed. 1250mg q24h will be continued, and a trough drawn 09/18/22. Pharmacy Service will continue to monitor and adjust dosing as required. Follow-Up Labs: Trough Vancomycin Labs to be done on [date and time ordered]: 09/18/22 @7625
[2022-09-14] MEDS: Mirtazapine 15 MG Tablet 7.5 MG PO (23:42)
[2022-09-14] MEDS: Atorvastatin Calcium 20 MG Tablet PO (23:43)
[2022-09-14] MEDS: Gabapentin 100 MG Capsule PO (23:43)
[2022-09-14] MEDS: Insulin Lispro 100 UNIT/ML INSULN.PEN SC (23:58)
[2022-09-15] VITALS: BP 99/46; PULSE 77; RESP 18; TEMP 37.5; O2SAT 96
[2022-09-15] MEDS: Acetaminophen 500 MG Tablet 1000 MG PO ×3 (00:04→23:24)
[2022-09-15 00:26] LABS: Bedside Glucose 164 mg/dL (74-106)
[2022-09-15] MEDS: MELATONIN 3 MG TABLET PO (02:33)
[2022-09-15] MEDS: Menthol/Lanolin/Calamine/Znox 113 GM Tube 1 APPLIC TOPICAL (05:00)
[2022-09-15] MEDS: Gabapentin 100 MG Capsule PO ×3 (05:00→23:04)
[2022-09-15 05:28] VITALS: BP 113/56; PULSE 87; RESP 18; TEMP 36.4; O2SAT 99
[2022-09-15 06:40] LABS: Bedside Glucose 147 mg/dL (74-106)
[2022-09-15 07:12] LABS: Absolute Lymphocyte Count 0.83 X10^3/uL (0.83-4.51); Absolute Neutrophil Count 6.9 X10^3/uL (2.0-7.7); Basophil# 0.01 X10^3/uL; Basophil% 0.1 % (0-1); Eosinophil# 0.52 X10^3/uL; Eosinophils% 5.8 % (0-5); Hematocrit 26.5 % (40-54); Hemoglobin 8.5 g/dL (13.0-16.5); Lymphocyte # 0.83 X10^3/ul (0.83-4.51); Lymphocyte % 9.3 % (19-41); Mean Corp Hgb Conc 32.1 g/dL (32-36); Mean Corpuscular Hgb 28.3 pg (27.0-32.0); Mean Corpuscular Volume 88.3 fL (80-94); Mean Platelet Vol. 8.8 fl (6.2-12.0); Monocyte# 0.65 X10^3/uL; Monocyte% 7.3 % (0-10); NRBC Flagged by Analyzer 0 % (0-5); Neutrophil # 6.85 X10^3/uL (2.7-7.7); Neutrophil % 76.6 % (47-70); Platelet Count 317 K/mm3 (150-450); RBC Distribution Width CV 14.2 % (11.6-14.6); RBC Distribution Width SD 45.1 fl (35.1-43.9); White Blood Count 8.9 K/mm3 (4.4-11.0)
[2022-09-15 07:45] LABS: Anion Gap 7 (5-15); BUN 28 mg/dL (7-18); BUN/Creat Ratio 17.7 RATIO (10-20); Calcium,Total 8.1 mg/dL (8.5-10.1); Chloride 102 mmol/L (98-107); Creatinine, Serum 1.58 mg/dL (0.70-1.30); EST Glomerular Filtration Rate 45 mL/min (>60); Est Glom Filt Rate - Afr Amer 54 mL/min (>60); Estimated Creatinine Clearance 36.08 ml/min; Glucose 176 mg/dL (74-106); Potassium 4.4 mmol/L (3.5-5.1); Sodium Level 135 mmol/L (136-145)
[2022-09-15] MEDS: Glimepiride 4 MG Tablet PO (08:06)
[2022-09-15] MEDS: Lisinopril 5 MG Tablet PO (08:11)
[2022-09-15] MEDS: Lidocaine 5% Patch 1 PATCH TOPICAL (08:11)
[2022-09-15] MEDS: Propranolol 10 MG Tablet 20 MG PO ×2 (08:11→23:01)
[2022-09-15] MEDS: Polyethylene Glycol 3350 17 GM PACKET PO (08:11)
[2022-09-15] MEDS: Senna/Docusate Sodium 1 Tablet 2 TABLET PO (08:12)
[2022-09-15 08:16] VITALS: BP 112/55; PULSE 93; RESP 18; TEMP 36.8; O2SAT 100
[2022-09-15] MEDS: Insulin Lispro 100 UNIT/ML INSULN.PEN SC ×3 (11:58→23:37)
[2022-09-15 12:20] LABS: Bedside Glucose 312 mg/dL (74-106)
[2022-09-15] MEDS: Baclofen 10 MG Tablet 5 MG PO (14:21)
[2022-09-15] MEDS: oxyCODONE 5 MG Tablet 10 MG PO (14:21)
[2022-09-15 14:23] VITALS: BP 121/67; PULSE 100; RESP 18; TEMP 37.5; O2SAT 98
--- NOTE | 2022-09-15 15:12 | PN.HOSP_ITS ---
Reason for Visit Reason for Visit: Diagnoses Osteomyelitis of vertebra, lumbar region (09/14/22) Discitis, unspecified, lumbar region (09/14/22) Subjective Subjective Patient was seen and examined today, he is a somewhat poor informant, he was in the TCU undergoing skilled care and was transferred to the emergency room for evaluation of worsening back pain, patient had been receiving IV vancomycin in the TCU. 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 Patient appears slightly confused today but is able to tell this examiner that he did have lumbar spine surgery. Objective Data Objective Data Vital Signs: Vital Signs Temp Pulse Resp BP Pulse Ox O2 Del Method 99.5 F H 100 18 121/67 H 98 Room Air 09/15/22 14:23 09/15/22 14:23 09/15/22 14:23 09/15/22 14:23 09/15/22 14:23 09/15/22 14:23 Oxygen Delivery Method Room Air Weight: 72 kg Body Mass Index (BMI) 24.0 Intake & Output: Intake and Output for Last 24 Hours 09/13/22 09/14/22 09/15/22 23:59 23:59 23:59 Intake Total 650 / 650 735.25 / 735.25 Output Total 925 / 925 Balance 650 / 25 -189.75 / -189.75 Medical Nutrition Assessment Dietitian: Malnutrition Criteria Met Start: 09/15/22 10:12 Freq: Status: Active Protocol: Document 09/15/22 10:13 FERNANDO (Rec: 09/15/22 10:13 FERNANDO [id number]) Nutrition Malnutrition Evidence of Malnutrition Exists Yes Malnutrition (severe): Acute Illness/Injury Evidenced By Suboptimal Energy Intake ( Severe),Weight Loss (Severe) Clinical Problem Acute Disease or Injury Related Malnutrition Etiology related to inadequate energy intake and increased pain Signs/Symptoms as evidenced by meeting <75% of estimated nutritional needs and 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 Lab / Micro Data Result Diagrams: 09/15/22 07:02 09/15/22 07:02 Labs: Laboratory Results - last 24 hr 09/14/22 15:25: Urine Color Yellow, Urine Clarity Sl. Cloudy, Urine pH 6.0, Ur Specific [place] 1.015, Urine Protein 30 H, Urine Glucose (UA) 100 H, Urine Ketones Negative, Urine Occult Blood 150 H, Urine Nitrite Negative, Urine Bilirubin Negative, Urine Urobilinogen Normal, Ur Leukocyte Esterase 500 H, Urine RBC 0-5 SEEN, Urine WBC 10-25 SEEN, Ur Squamous Epith Cells 0 SEEN, Urine Bacteria 0 SEEN, Urine Mucus 0 SEEN, Urine Yeast 2+ 09/14/22 18:45: Ammonia 29.0 09/14/22 23:51: POC Glucose 164 H 09/15/22 06:08: POC Glucose 147 H 09/15/22 07:02: WBC 8.9, RBC 3.00 L, Hgb 8.5 L, Hct 26.5 L, MCV 88.3, MCH 28.3, MCHC 32.1, RDW Std Deviation 45.1 H, RDW Coeff of Eliecer 14.2, Plt Count 317, MPV 8.8, Immature Gran % (Auto) 0.900, Neut % (Auto) 76.6 H, Lymph % (Auto) 9.3 L, [place] % (Auto) 7.3, Eos % (Auto) 5.8 H, Baso % (Auto) 0.1, Absolute Neuts (auto) 6.9, Absolute Lymphs (auto) 0.83, Nucleated RBC % 0 09/15/22 07:02: Sodium 135 L, Potassium 4.4, Chloride 102, Carbon Dioxide 26.0, Anion Gap 7, BUN 28 H, Creatinine 1.58 H, Estim Creat Clear Calc 36.08, Est GFR (MDRD) Af Amer 54 L, Est GFR (MDRD) Non-Af 45 L, BUN/Creatinine Ratio 17.7, Glucose 176 H, Calcium 8.1 L 09/15/22 11:57: POC Glucose 312 H Micro: Microbiology 09/14/22 17:40 Nasal Secretion SARS-CoV-2 Antigen (Rapid) - Final ABG Data ABG results: ABG 09/14/22 18:31 Specimen Type ART Sample Site R Radial pH 7.48 H Bicarbonate Actual 24.2 Total CO2 25 Base Excess 1 O2 Saturation 95 ABG pCO2 32.7 L ABG pO2 71 L Dane Test Positive O2 Delivery Device Room Air Radiography Diagnostic Testing: Radiology Impression Brain CT 09/14/22 18:15 IMPRESSION: No acute intracranial findings. Electronically Signed: Lj Espinoza MD at 19:36 EST , Physical Exam Const alert and no apparent distress Constitutional Narrative: Patient exhibits mild to moderate confusion General Appearance: cooperative, well kempt and well developed Orientation / Consciousness: awake, oriented to person and oriented to place HEENT normocephalic, head/scalp atraumatic and moist oral mucous membranes Eyes PERRL, EOMs intact bilaterally and conjunctivae normal Neck supple, no JVD, thyroid normal and no carotid bruits General: trachea midline Resp normal respiratory effort, no retractions, no use of accessory muscles and clear to auscultation bilaterally Auscultation: Negative for rales, rhonchi or wheezes Cardio regular rate, regular rhythm, S1 normal heart sound, S2 normal heart sound, no murmurs, no rub and no gallops GI normal to inspection, nondistended, normoactive bowel sounds, soft to palpation, non-tender and non-distended Extremity no clubbing, cyanosis or edema Neuro CN's II-XII intact bilaterally and no sensory deficits noted Sensorium / Orientation: awake, alert, oriented to person and oriented to place Speech: speech normal Psych Psych Narrative: Patient exhibits mild to moderate confusion Assessment & Plan Assessment/Plan (1) Lumbar discitis: PLAN: Plan 1. Worsening lumbar [id number]-rluzcuhy-nzroyta will remain on IV vancomycin, the hospital where the patient had the surgery stated to the emergency room physician that no more surgery would be done on the patient until he completed several weeks of antibiotics. PT and OT will continue to see the patient. I spoke informally with infectious diseases by phone today, they advised adding meropenem and stopping the Zosyn and leaving the patient on vancomycin. Meropenem 1 g every 12 hours was recommended by infectious diseases #2 Pyuria-I do not feel the patient has a urinary tract infection at this time #3 encephalopathy-according to the notes in TCU, this appears to be ongoing, it may be due to the patient's generalized medical condition, he is alert and responds appropriately to some simple questions. Monitor for any change in mentation #4 type 2 diabetes-continue to monitor blood sugars, sliding scale insulin will use as needed #5 hyperlipidemia-patient is on atorvastatin #6 essential hypertension-patient will remain on his present medications #7 BPH-patient is on Flomax Total clinical time spent by myself addressing the patient's medical issues, reviewing all of the data, and collaborating with the patient's care team: 50 minutes Charges/Coding Visit Charges Inpatient E&M: 06489 [facility] Hosp L3
[2022-09-15] MEDS: Tamsulosin HCl 0.4 MG Capsule 0.8 MG PO (16:42)
[2022-09-15] MEDS: Rivaroxaban 10 MG Tablet PO (16:42)
[2022-09-15 17:00] LABS: Bedside Glucose 219 mg/dL (74-106)
--- NOTE | 2022-09-15 18:16 | CASEMGMT ---
Social Work Note JAVIER met with patient and patient's . Patient was sleeping in bed and patient's is agreeable to speak to SW. SW inquired about patient's plan at discharge. Patient's explained the patient is from TCU but she was informed by Dr. Lepe that the patient would benefit from hospice services or transferring to alternative facility. Patient's reports they are not interested in Hospice services at this time due to previous negative experience. Patient's reports they prefer patient to return to TCU if able. SW to follow up with Dr. Lepe and Yanique, admissions staff, to discuss patient's ability to return. Patient's reports if they have to select another SNF she would like a list of facilities in [place] but was aware of [facility] and interested in their facility. SW provided emotional support, no other needs at this time. JAVIER contacted Yanique with admission's staff and inquired about patient's ability to return to TCU. Yanique states patients with Medicare insurance will have a bed hold and is able to return once medically ready. JAVIER contacted Dr. Lepe to inquire about patient's ability to return as patient's reports Dr. Lepe was advising alternative placement. Dr. Lepe reports Can return once stable, meaning confusion resolved, low back pain under control. JAVIER contacted patient's and informed her of the conversation with admissions staff and Dr. Lepe. Patient's voices understanding and reports TCU is first choice. JAVIER will follow up with family next week to continue to discuss discharge plan and provide SNF list if needed. Plan: TCU or alternative SNF, declined Hospice referral Hanh IBRAHIM, GIOVANY
[2022-09-15 22:50] VITALS: BP 124/47; PULSE 118; RESP 20; TEMP 39.7; O2SAT 92
[2022-09-15] MEDS: Mirtazapine 15 MG Tablet 7.5 MG PO (23:01)
[2022-09-15] MEDS: Atorvastatin Calcium 20 MG Tablet PO (23:02)
[2022-09-15] MEDS: DiphenhydrAMINE 25 MG Capsule PO (23:33)
[2022-09-16] VITALS (41 sets, daily range): BP systolic 67–178; BP diastolic 30–92; PULSE 63–109; RESP 12–24; TEMP 36.8–40.3; O2SAT 91–97
[2022-09-16 00:10] LABS: Bedside Glucose 199 mg/dL (74-106)
[2022-09-16] MEDS: Menthol/Lanolin/Calamine/Znox 113 GM Tube 1 APPLIC TOPICAL ×2 (04:16→18:10)
[2022-09-16 05:29] LABS: Absolute Lymphocyte Count 1.11 X10^3/uL (0.83-4.51); Basophil# 0.01 X10^3/uL; Basophil% 0.1 % (0-1); Eosinophil# 0.49 X10^3/uL; Eosinophils% 4.7 % (0-5); Hemoglobin 8.6 g/dL (13.0-16.5); Lymphocyte # 1.11 X10^3/ul (0.83-4.51); Lymphocyte % 10.7 % (19-41); Mean Corp Hgb Conc 31.9 g/dL (32-36); Mean Corpuscular Hgb 28.1 pg (27.0-32.0); Mean Corpuscular Volume 88.2 fL (80-94); Monocyte# 0.59 X10^3/uL; Monocyte% 5.7 % (0-10); NRBC Flagged by Analyzer 0 % (0-5); Neutrophil # 8.04 X10^3/uL (2.7-7.7); Neutrophil % 77.7 % (47-70); Platelet Count 326 K/mm3 (150-450); RBC Distribution Width CV 14.3 % (11.6-14.6); RBC Distribution Width SD 45.8 fl (35.1-43.9); Red Blood Count 3.06 M/mm3 (4.6-6.2); White Blood Count 10.4 K/mm3 (4.4-11.0)
[2022-09-16 05:45] LABS: Anion Gap 9 (5-15); BUN 39 mg/dL (7-18); BUN/Creat Ratio 15.4 RATIO (10-20); Calcium,Total 8.4 mg/dL (8.5-10.1); Chloride 101 mmol/L (98-107); Creatinine, Serum 2.53 mg/dL (0.70-1.30); EST Glomerular Filtration Rate 26 mL/min (>60); Est Glom Filt Rate - Afr Amer 32 mL/min (>60); Estimated Creatinine Clearance 22.53 ml/min; Glucose 172 mg/dL (74-106); Potassium 4.5 mmol/L (3.5-5.1); Sodium Level 135 mmol/L (136-145)
[2022-09-16] MEDS: Gabapentin 100 MG Capsule PO (05:58)
[2022-09-16] MEDS: 0.9% Saline Lock 10 ML Syringe IV (06:00)
[2022-09-16] MEDS: Insulin Lispro 100 UNIT/ML INSULN.PEN SC ×3 (06:11→18:10)
[2022-09-16] MEDS: traMADol 50 MG Tablet 100 MG PO (06:25)
[2022-09-16] MEDS: 0.9% Normal Saline 1,000 ML 100 ML IV ×2 (06:59→14:10)
[2022-09-16 07:20] LABS: Bedside Glucose 167 mg/dL (74-106)
[2022-09-16] MEDS: Acetaminophen 500 MG Tablet 1000 MG PO (07:23)
[2022-09-16] MEDS: Baclofen 10 MG Tablet 5 MG PO (07:39)
[2022-09-16] MEDS: DiphenhydrAMINE 25 MG Capsule PO (07:39)
[2022-09-16] MEDS: Propranolol 10 MG Tablet 20 MG PO (07:41)
[2022-09-16] MEDS: Polyethylene Glycol 3350 17 GM PACKET PO (07:41)
[2022-09-16] MEDS: Senna/Docusate Sodium 1 Tablet 2 TABLET PO (07:41)
[2022-09-16] MEDS: Glimepiride 4 MG Tablet PO (07:42)
[2022-09-16] MEDS: Lisinopril 5 MG Tablet PO (07:42)
--- NOTE | 2022-09-16 08:59 | PN.HOSP_ITS ---
Reason for Visit Reason for Visit: Diagnoses Osteomyelitis of vertebra, lumbar region (09/14/22) Discitis, unspecified, lumbar region (09/14/22) Subjective Subjective Patient was seen and examined today, he appears more confused today although he does follow some instructions. Patient's creatinine has worsened, his creatinine today is 2.53, BUN was 39. Glucose was 172 today, white blood cell count remains normal, patient's temp today was 101.1. I have decided to add blood cultures today. Patient will receive a fluid bolus and then saline at 100 cc/h. Objective Data Objective Data Vital Signs: Vital Signs Temp Pulse Resp BP Pulse Ox O2 Del Method 101.1 F H 107 H 20 H 110/49 L 97 Room Air 09/16/22 07:34 09/16/22 07:34 09/16/22 07:34 09/16/22 04:10 09/16/22 07:34 09/16/22 07:34 Oxygen Delivery Method Room Air Weight: 72 kg Body Mass Index (BMI) 24.0 Intake & Output: Intake and Output for Last 24 Hours 09/14/22 09/15/22 09/16/22 23:59 23:59 23:59 Intake Total 650 / 650 884.63 / 884.63 120 / 120 Output Total 1025 / 1025 150 / 150 Balance 650 / 25 -140.37 / -140.37 -30 / -30 Medical Nutrition Assessment Dietitian: Malnutrition Criteria Met Start: 09/15/22 10:12 Freq: Status: Active Protocol: Document 09/15/22 10:13 FERNANDO (Rec: 09/15/22 10:13 FERNANDO [id number]) Nutrition Malnutrition Evidence of Malnutrition Exists Yes Malnutrition (severe): Acute Illness/Injury Evidenced By Suboptimal Energy Intake ( Severe),Weight Loss (Severe) Clinical Problem Acute Disease or Injury Related Malnutrition Etiology related to inadequate energy intake and increased pain Signs/Symptoms as evidenced by meeting <75% of estimated nutritional needs and 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 Lab / Micro Data Result Diagrams: 09/16/22 04:38 09/16/22 04:38 Labs: Laboratory Results - last 24 hr 09/15/22 11:57: POC Glucose 312 H 09/15/22 16:33: POC Glucose 219 H 09/15/22 23:36: POC Glucose 199 H 09/16/22 04:38: WBC 10.4, RBC 3.06 L, Hgb 8.6 L, Hct 27.0 L, MCV 88.2, MCH 28.1, MCHC 31.9 L, RDW Std Deviation 45.8 H, RDW Coeff of Eliecer 14.3, Plt Count 326, MPV 9.0, Immature Gran % (Auto) 1.100 H, Neut % (Auto) 77.7 H, Lymph % (Auto) 10.7 L , [place] % (Auto) 5.7, Eos % (Auto) 4.7, Baso % (Auto) 0.1, Absolute Neuts (auto) 8.0 H, Absolute Lymphs (auto) 1.11, Nucleated RBC % 0 09/16/22 04:38: Sodium 135 L, Potassium 4.5, Chloride 101, Carbon Dioxide 25.0, Anion Gap 9, BUN 39 H, Creatinine 2.53 H, Estim Creat Clear Calc 22.53, Est GFR (MDRD) Af Amer 32 L, Est GFR (MDRD) Non-Af 26 L, BUN/Creatinine Ratio 15.4, Glucose 172 H, Calcium 8.4 L 09/16/22 06:04: POC Glucose 167 H Micro: Microbiology 09/14/22 14:55 Blood Culture (Wb) - Anticubital Right Blood Culture - Preliminary No growth in 48 hours. 09/14/22 14:20 Blood Culture (Wb) - Pic Blood Culture - Preliminary No growth in 48 hours. 09/14/22 17:40 Nasal Secretion SARS-CoV-2 Antigen (Rapid) - Final Physical Exam Const Constitutional Narrative: Patient is confused, he does respond to simple commands, he does not carry on a conversation General Appearance: cooperative, well kempt and well developed Orientation / Consciousness: confused and lethargic HEENT normocephalic and head/scalp atraumatic Mouth: dry mucous membranes Eyes PERRL, EOMs intact bilaterally and conjunctivae normal Neck supple, no JVD, thyroid normal and no carotid bruits General: trachea midline Resp normal respiratory effort, no retractions, no use of accessory muscles and clear to auscultation bilaterally Auscultation: Negative for rales, rhonchi or wheezes Cardio regular rate, regular rhythm, S1 normal heart sound, S2 normal heart sound, no murmurs, no rub and no gallops GI normal to inspection, nondistended, normoactive bowel sounds, soft to palpation, non-tender and non-distended Extremity no clubbing, cyanosis or edema Skin no rashes or lesions noted General Skin Exam: no breakdown Neuro CN's II-XII intact bilaterally and moves all extremities Neuro Narrative: Patient is lethargic and confused Psych Psych Narrative: Patient is lethargic and confused Assessment & Plan Assessment/Plan (1) Osteomyelitis of lumbar spine: (2) Lumbar discitis: PLAN: Plan 1. Worsening lumbar jbyvvkmfivaxx-ldwkedeo-xdxhmti will remain on IV vancomycin, the hospital where the patient had the surgery stated to the [facility] physician that no more surgery would be done on the patient until he completed several weeks of antibiotics. PT and OT will continue to see the patient. I spoke informally with infectious diseases by phone yesterday, Dr. Meek advised adding meropenem and stopping the Zosyn and leaving the patient on vancomycin. Meropenem 1 g every 12 hours was recommended by infectious diseases, this was added yesterday when his Zosyn was stopped. #2 Pyuria-I do not feel the patient has a urinary tract infection at this time #3 encephalopathy-according to the notes in TCU, this appears to be ongoing, it may be due to the patient's generalized medical condition, he is alert and responds appropriately to some simple questions. Monitor for any change in mentation, today the patient has DONALD and this may have exacerbated his confusion. #4 type 2 diabetes-continue to monitor blood sugars, sliding scale insulin will use as needed #5 hyperlipidemia-patient is on atorvastatin #6 essential hypertension-patient will remain on his present medications #7 BPH-patient is on Flomax #8 DONALD-patient will be given fluid administration, labs will be rechecked tomorrow Total clinical time spent by myself addressing the patient's medical issues, reviewing all of the data, and collaborating with the patient's care team: 50 minutes Charges/Coding Visit Charges Inpatient E&M: 01712 [facility] Hosp L3
[2022-09-16] MEDS: 0.9% Normal Saline 1,000 ML 999 ML IV ×2 (09:21→11:33)
--- NOTE | 2022-09-16 10:54 | PCM.RX.CS ---
Consult Pharmacy has been consulted to manage selected antiobiotic: Vancomycin Type of Consult: Follow-up Suspected Infection: Osteomyelitis Labs: Sodium 135 mmol/L (136-145) L 09/16/22 04:38 Potassium 4.5 mmol/L (3.5-5.1) 09/16/22 04:38 Chloride 101 mmol/L (98-107) 09/16/22 04:38 Carbon Dioxide 25.0 mmol/L (21.0-32.0) 09/16/22 04:38 Anion Gap 9 (5-15) 09/16/22 04:38 BUN 39 mg/dL (7-18) H 09/16/22 04:38 Creatinine 2.53 mg/dL (0.70-1.30) H 09/16/22 04:38 Est GFR (MDRD) Af Amer 32 mL/min (>60) L 09/16/22 04:38 Est GFR (MDRD) Non-Af 26 mL/min (>60) L 09/16/22 04:38 BUN/Creatinine Ratio 15.4 RATIO (10-20) 09/16/22 04:38 Glucose 172 mg/dL (74-106) H 09/16/22 04:38 Random Vancomycin 23.0 ug/mL (0.0-15.0) H 09/16/22 09:27 Microbiology: Microbiology 09/14/22 15:25 Urine Catheter - Catheter Urine Culture - Preliminary Gram positive organism 09/14/22 14:55 Blood Culture (Wb) - Anticubital Right Blood Culture - Preliminary No growth in 48 hours. 09/14/22 14:20 Blood Culture (Wb) - Pic Blood Culture - Preliminary No growth in 48 hours. 09/14/22 17:40 Nasal Secretion SARS-CoV-2 Antigen (Rapid) - Final Goal Trough: 15-20 mcg/mL Pharmacy Plan for Drug Dosing: VANCOMYCIN LEVEL RECEIVED Current Vancomycin Dose: 1250MG Q24 Number of Doses Received: MANY Vancomycin Level: 23 MG/DL Hours Since Last Dose: 24 Renal Function: SCR 2.53 MG/DL, CRCL 22.6 ML/MIN Renal Function Trend: WORSENED FROM 1.58 3/4 Lab/Micro: PENDING BLOOD CULTURES Vancomycin Plan/Comments: SCR WORSENED FROM 1.58 (3/) TO 2.53 TODAY (09/16). RANDOM LEVEL ORDERED FOR THIS MORNING DUE TO INCREASE IN SCR. RANDOM LEVEL SUPRATHERAPEUTIC AT 23 MG/DL (GOAL 15-20), VANCOMYCIN DOSE D/C'ED. WILL CONTINUE TO HOLD UNTIL LEVEL IS <20 MG/DL. WILL SCHEDULE A RANDOM LEVEL IN 12 HOURS. Pending Level: 09/16/22 @ 2130 Pharmacy Service will continue to monitor and adjust dosing as required.
[2022-09-16] MEDS: Lidocaine 5% Patch 1 PATCH TOPICAL (11:35)
--- NOTE | 2022-09-16 13:37 | NURSING ---
Marisol in ICU states awaiting another staff member and when that nurse arrives, she will call floor to get report.
--- NOTE | 2022-09-16 13:42 | RAD_ITS ---
STUDY: XR Chest 1 View 09/16/2022 2:36 PM REASON FOR EXAM: Male, 82 years old. CHEST PAIN respiratory failure COMPARISON: 09.02.22 TECHNIQUE: XR Chest 1 View FINDINGS: There is no demonstrated pleural abnormality. Elevated right humeral head with eburnation of the acromion suggest a chronic rotator cuff tear. Normal heart size. Normal mediastinum. Normal ciarra. Prominent appearing increased interstitial lung markings. Normal visualized pulmonary arteries. There is atherosclerotic calcification of the aortic arch with tortuosity. There are diffuse degenerative changes of the visualized thoracic spine. There is degenerative osteoarthritis of the bilateral shoulders. There is no demonstrated abnormality of the visualized soft tissue structures of the upper abdomen. RAD/Chest 1 View (Portable) IMPRESSION: There are no acute findings. Elevated right humeral head with eburnation of the acromion suggest a chronic rotator cuff tear. Electronically Signed: Emmett Keene MD at 15:10 EST ,
[2022-09-16 14:21] LABS: Bedside Glucose 213 mg/dL (74-106)
[2022-09-16] MEDS: DiphenhydrAMINE 50 MG/ML Syringe 25 MG IV ×2 (14:40→22:09)
[2022-09-16] MEDS: Morphine 4 MG/ML Syringe IV (14:41)
[2022-09-16] MEDS: Acetaminophen 650 MG Suppository RC (14:44)
--- NOTE | 2022-09-16 16:58 | PCM.HOSP.N ---
Hospitalist Note I was notified by nursing today that the patient's blood pressure had declined-I ordered two 1 L normal saline boluses without improvement of the patient's blood pressure, patient was placed on IV normal saline at 100 an hour and I came up to talk with the family. After much discussion with the family, they agreed to a DNR CC arrest status but requested that the patient be moved for institution of Levophed to try to elevate the patient's blood pressure which I agreed. I talked briefly with pulmonary medicine and they will see the patient tomorrow in consultation, I talked with infectious diseases who told me to discontinue the patient's vancomycin because the patient's renal function had deteriorated today. At the time of this dictation, patient has put out very little urine despite fluid boluses and IV fluids, outlook remains guarded due to the patient's multiple medical problems, he is not alert enough to take oral intake.
[2022-09-16 18:30] LABS: Bedside Glucose 159 mg/dL (74-106)
[2022-09-16] MEDS: Heparin Injection (Vial) 5,000 UNIT/ML VIAL 5000 UNIT SC (22:10)
[2022-09-17] VITALS (31 sets, daily range): BP systolic 94–182; BP diastolic 50–114; PULSE 75–119; RESP 12–26; TEMP 36.6–37.2; O2SAT 92–100; BMI 25.4
[2022-09-17] MEDS: Insulin Lispro 100 UNIT/ML INSULN.PEN SC ×5 (00:11→22:17)
[2022-09-17] MEDS: 0.9% Normal Saline 1,000 ML 100 ML IV (00:11)
[2022-09-17 00:41] LABS: Bedside Glucose 216 mg/dL (74-106)
[2022-09-17 01:07] LABS: Vancomycin, Random Level 17.4 ug/mL (0.0-15.0)
[2022-09-17] MEDS: Menthol/Lanolin/Calamine/Znox 113 GM Tube 1 APPLIC TOPICAL ×2 (05:05→17:01)
[2022-09-17] MEDS: 0.9% Saline Lock 10 ML Syringe IV (05:08)
[2022-09-17 05:09] LABS: Absolute Lymphocyte Count 0.96 X10^3/uL (0.83-4.51); Absolute Neutrophil Count 12.8 X10^3/uL (2.0-7.7); Basophil# 0.03 X10^3/uL; Basophil% 0.2 % (0-1); Eosinophil# 0.12 X10^3/uL; Eosinophils% 0.8 % (0-5); Hematocrit 28.9 % (40-54); Hemoglobin 8.8 g/dL (13.0-16.5); Lymphocyte # 0.96 X10^3/ul (0.83-4.51); Lymphocyte % 6.6 % (19-41); Mean Corp Hgb Conc 30.4 g/dL (32-36); Mean Corpuscular Hgb 27.9 pg (27.0-32.0); Mean Corpuscular Volume 91.7 fL (80-94); Mean Platelet Vol. 8.9 fl (6.2-12.0); Monocyte# 0.44 X10^3/uL; NRBC Flagged by Analyzer 0 % (0-5); Neutrophil # 12.76 X10^3/uL (2.7-7.7); Neutrophil % 87.5 % (47-70); Platelet Count 402 K/mm3 (150-450); RBC Distribution Width CV 14.5 % (11.6-14.6); RBC Distribution Width SD 48.7 fl (35.1-43.9); Red Blood Count 3.15 M/mm3 (4.6-6.2); White Blood Count 14.6 K/mm3 (4.4-11.0)
[2022-09-17 05:38] LABS: Anion Gap 13 (5-15); BUN 45 mg/dL (7-18); BUN/Creat Ratio 21.6 RATIO (10-20); Calcium,Total 7.8 mg/dL (8.5-10.1); Chloride 108 mmol/L (98-107); Creatinine, Serum 2.08 mg/dL (0.70-1.30); EST Glomerular Filtration Rate 33 mL/min (>60); Est Glom Filt Rate - Afr Amer 40 mL/min (>60); Glucose 235 mg/dL (74-106); Potassium 4.9 mmol/L (3.5-5.1); Sodium Level 140 mmol/L (136-145)
[2022-09-17 05:41] LABS: Bedside Glucose 225 mg/dL (74-106)
--- NOTE | 2022-09-17 06:21 | CON.PCM.CC_ITS ---
Assessment & Plan Assessment/Plan (1) Septic shock: PLAN: Plan RECOMMENDATIONS: 1. Continue antimicrobials per ID recommendations. 2. Continue vasopressor support to maintain a mean arterial pressure at or above 65 mmHg. 3. Continue gentle IV fluid hydration. 4. Speech therapy evaluation prior to advancement of diet. 5. Continue appropriate DVT prophylaxis. IMPRESSIONS: 1. Septic shock Clinical concern for worsening lumbar discitis/osteomyelitis versus urinary tract source of infection. Agree with continuing broad-spectrum antimicrobials per ID recommendations. Levophed will be continued to maintain a mean arterial pressure at or above 65 mmHg. Blood and urine cultures are pending. 2. DONALD on CKD Likely prerenal in etiology in the setting of #1. Creatinine is somewhat improved this morning. Plan to continue volume resuscitation and vasopressor support to maintain hemodynamic stability. Continue to monitor urine output. No current indication for renal replacement therapy. 3. History of diabetes mellitus/hypertension/hyperlipidemia/BPH Complicates care, management, recovery and prognosis. Continue home medications as indicated. TIME: 33 minutes of critical care time, independent of procedures, was spent addressing the patient's septic shock, acute on chronic kidney disease, review of all data and collaboration with the care team. HPI Consult Data Date of Consult: 09/18/22 HPI Narrative Reason for Consultation: Hypotension and renal failure HPI Narrative: The patient is an 82-year-old male, with a history as outlined below, who presented to the emergency department on September 15 from the TCU after the patient had an MRI completed on September 14 which demonstrated worsening lumbar osteomyelitis/discitis. Previously, the patient had been evaluated at [facility] and taken to the OR on August 22 for a laminectomy. The patient was discharged to the TCU on vancomycin and ceftriaxone through a PICC line with tentative plans for a 6-week antibiotic treatment course. According to documentation, the patient had been last evaluated by his surgeon at [facility] on September 02 and apparently they were opting for nonsurgical intervention. On presentation to the emergency department, the patient was noted to be febrile but was otherwise hemodynamically stable on room air. Initial laboratory evaluation revealed no evidence of a leukocytosis. Chemistry profile was notable for a sodium of 135 and creatinine of 1.58. Chest x-ray demonstrated no acute cardiopulmonary process. The patient was admitted to the hospital with antimicrobials under the discretion of infectious diseases. On November 16, the patient became more confused with worsening creatinine and fever. He received additional supplemental IV fluid secondary to hypotension. However, the patient's hypotension was refractory to IV fluid resuscitation. Ultimately, the patient was transferred to the medical intensive care unit, where he was placed on Levophed to maintain hemodynamic stability. [facility] Medical History Abscess in epidural space of lumbar spine Coronary artery disease Depression Diabetes mellitus Hypertension Lumbar discitis Osteomyelitis of lumbar spine Home Medications acetaminophen 500 mg tablet 1,000 mg PO Q8H PRN PAIN SCORE 1-3 09/02/22 [History Last Taken 09/14/22 05:57] atorvastatin 20 mg tablet 20 mg PO QHS CHOLESTEROL 09/02/22 [History Last Taken 09/13/22 21:10] ceftriaxone 2 gram intravenous solution 2 g IV Q24H INFECTION 09/02/22 [History Last Taken 09/13/22 21:35] glimepiride 4 mg tablet 4 mg PO BREAKFAST DM 09/02/22 [History Last Taken 09/02/22 07:47] lidocaine 5 % topical patch 1 patch topical DAILY PAIN 09/02/22 [History Last Taken 09/14/22 05:57] lisinopril 5 mg tablet 5 mg PO DAILY BP 09/02/22 [History Last Taken 09/14/22 05:59] metformin 500 mg tablet 500 mg PO BIDCM DM 09/02/22 [History Last Taken 09/14/22 09:34] nut.tx.gluc.intol,lac-free,soy (Glucerna oral liquid) 120 ml PO 4X/DAY SUPPLEMENT 09/02/22 [History Last Taken 09/14/22 05:54] oxycodone 5 mg tablet 10 mg PO Q4H PRN PRN PAIN SCORE 6-10 09/02/22 [History Last Taken 09/14/22 10:41] polyethylene glycol 3350 17 gram/dose oral powder 17 g PO DAILY CONSTIPATION 09/02/22 [History Last Taken 09/14/22 05:57] propranolol 20 mg tablet 20 mg PO BID HEART 09/02/22 [History Last Taken 09/14/22 05:59] rivaroxaban 10 mg tablet (Xarelto) 10 mg PO DINNER DVT Prophylaxis 09/02/22 [History Last Taken 09/01/22 16:23] sennosides 8.6 mg-docusate sodium 50 mg tablet 2 tab PO DAILY CONSTIPATION 09/02/22 [History Last Taken 09/14/22 05:59] tamsulosin 0.4 mg capsule 0.8 mg PO DAILY@1730 PROSTATE 09/02/22 [History Last Taken 09/13/22 18:31] tramadol 50 mg tablet 100 mg PO Q6H PRN Pain (Scale Score 4-5) 09/02/22 [History Last Taken 09/13/22 23:14] baclofen 5 mg tablet 5 mg PO TID PRN MUSCLE SPASMS 09/14/22 [History Last Taken 09/14/22 09:03] gabapentin 100 mg capsule 100 mg PO TID NERVE PAIN 09/14/22 [History Last Taken 09/14/22 12:57] hydrocortisone 2.5 % topical cream 1 applic topical TID PRN Rash 09/14/22 [History Last Taken 09/14/22 10:25] menthol 0.44 %-zinc oxide 20.6 % topical ointment (Calmoseptine) 1 applic topical BID@0600,1800 09/14/22 [History Last Taken 09/14/22 05:55] mirtazapine 15 mg tablet (Remeron) 7.5 mg PO DAILY ANTIDEPRESSANTS 09/14/22 [History Last Taken 09/13/22 21:10] Allergy/AdvReac Type Severity Reaction Status Date / Time vancomycin AdvReac Red Man Verified 09/17/22 09:17 Syndrome Family History Other Arthritis Congestive heart failure Diabetes Surgical History Status post epidural steroid injection Social History household members: none Smoking Status: Never smoker alcohol intake: never substance use type: does not use ROS ROS Narrative 10 systems were reviewed with pertinent positives as noted in the HPI above. Physical Exam Const alert and no apparent distress General Appearance: cooperative HEENT normocephalic and head/scalp atraumatic Eyes PERRL, EOMs intact bilaterally and conjunctivae normal Neck supple General: trachea midline Chest inspection of chest normal Resp normal respiratory effort Auscultation: Negative for rales, rhonchi or wheezes Cardio regular rate and regular rhythm GI normal to inspection, nondistended, normoactive bowel sounds Extremity no clubbing, cyanosis or edema Skin no rashes or lesions noted Neuro CN's II-XII intact bilaterally and no focal motor deficits Psych Mood & Affect: flat affect Medical Records Data Medical Nutrition Assessment Dietitian: Malnutrition Criteria Met Start: 09/15/22 10:12 Freq: Status: Active Protocol: Document 09/15/22 10:13 FERNANDO (Rec: 09/15/22 10:13 FERNANDO [id number]) Nutrition Malnutrition Evidence of Malnutrition Exists Yes Malnutrition (severe): Acute Illness/Injury Evidenced By Suboptimal Energy Intake ( Severe),Weight Loss (Severe) Clinical Problem Acute Disease or Injury Related Malnutrition Etiology related to inadequate energy intake and increased pain Signs/Symptoms as evidenced by meeting <75% of estimated nutritional needs and 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 Lab / Micro Data Result Diagrams: 09/18/22 03:18 09/18/22 03:18 Labs: Laboratory Results - last 24 hr 09/16/22 06:04: POC Glucose 167 H 09/16/22 09:27: Random Vancomycin 23.0 H 09/16/22 11:33: POC Glucose 213 H 09/16/22 18:08: POC Glucose 159 H 09/16/22 23:09: Random Vancomycin 17.4 H 09/17/22 00:09: POC Glucose 216 H 09/17/22 05:00: WBC 14.6 H, RBC 3.15 L, Hgb 8.8 L, Hct 28.9 L, MCV 91.7, MCH 27.9, MCHC 30.4 L, RDW Std Deviation 48.7 H, RDW Coeff of Eliecer 14.5, Plt Count 402, MPV 8.9, Immature Gran % (Auto) 1.900 H, Neut % (Auto) 87.5 H, Lymph % (Auto) 6.6 L, [place] % (Auto) 3.0, Eos % (Auto) 0.8, Baso % (Auto) 0.2, Absolute Neuts (auto) 12.8 H, Absolute Lymphs (auto) 0.96, Nucleated RBC % 0 09/17/22 05:00: Sodium 140, Potassium 4.9, Chloride 108 H, Carbon Dioxide 19.0 L , Anion Gap 13, BUN 45 H, Creatinine 2.08 H, Estim Creat Clear Calc 27.40, Est GFR (MDRD) Af Amer 40 L, Est GFR (MDRD) Non-Af 33 L, BUN/Creatinine Ratio 21.6 H , Glucose 235 H, Calcium 7.8 L 09/17/22 05:03: POC Glucose 225 H Micro: Microbiology 09/14/22 15:25 Urine Catheter - Catheter Urine Culture - Preliminary Gram positive organism 09/14/22 14:55 Blood Culture (Wb) - Anticubital Right Blood Culture - Preliminary No growth in 48 hours. 09/14/22 14:20 Blood Culture (Wb) - Pic Blood Culture - Preliminary No growth in 48 hours. Radiology Impression Chest X-Ray 09/16/22 13:42 IMPRESSION: There are no acute findings. Elevated right humeral head with eburnation of the acromion suggest a chronic rotator cuff tear. Electronically Signed: Emmett Keene MD at 15:10 EST Reading Location ID and State: [facility] / [place] , Service support , Charges/Coding Procedures Hospitalists Procedures: 14059 Critial Care 1st Hr
--- NOTE | 2022-09-17 07:49 | PCM.PN.HOSP ---
Reason for Visit Reason for Visit: Follow-up for septic shock most likely due to discitis/osteomyelitis on Levophed drip. Diagnoses Osteomyelitis of vertebra, lumbar region (09/14/22) Discitis, unspecified, lumbar region (09/14/22) Objective Data Objective Data Vital Signs: Vital Signs Temp Pulse Resp BP Pulse Ox O2 Del Method 98.5 F 75 16 94/50 L 97 Room Air 09/17/22 06:00 09/17/22 07:00 09/17/22 07:00 09/17/22 07:00 09/17/22 07:00 09/17/22 07:00 Oxygen Delivery Method Room Air Weight: 167 lb 15.876 oz Body Mass Index (BMI) 25.4 Intake & Output: Intake and Output for Last 24 Hours 09/15/22 09/16/22 09/17/22 23:59 23:59 23:59 Intake Total 884.63 / 884.63 3459.21 / 3463.91 1134.61 / 1134.61 Output Total 1025 / 1025 200 / 200 0 / 0 Balance -140.37 / -140.37 3259.21 / 3263.91 1134.61 / 1134.61 Medical Nutrition Assessment Dietitian: Malnutrition Criteria Met Start: 09/15/22 10:12 Freq: Status: Active Protocol: Document 09/15/22 10:13 FERNANDO (Rec: 09/15/22 10:13 FERNANDO [id number]) Nutrition Malnutrition Evidence of Malnutrition Exists Yes Malnutrition (severe): Acute Illness/Injury Evidenced By Suboptimal Energy Intake ( Severe),Weight Loss (Severe) Clinical Problem Acute Disease or Injury Related Malnutrition Etiology related to inadequate energy intake and increased pain Signs/Symptoms as evidenced by meeting <75% of estimated nutritional needs and 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 Lab / Micro Data Result Diagrams: 09/17/22 05:00 09/17/22 05:00 Labs: Laboratory Results - last 24 hr 09/16/22 09:27: Random Vancomycin 23.0 H 09/16/22 11:33: POC Glucose 213 H 09/16/22 18:08: POC Glucose 159 H 09/16/22 23:09: Random Vancomycin 17.4 H 09/17/22 00:09: POC Glucose 216 H 09/17/22 05:00: WBC 14.6 H, RBC 3.15 L, Hgb 8.8 L, Hct 28.9 L, MCV 91.7, MCH 27.9, MCHC 30.4 L, RDW Std Deviation 48.7 H, RDW Coeff of Eliecer 14.5, Plt Count 402, MPV 8.9, Immature Gran % (Auto) 1.900 H, Neut % (Auto) 87.5 H, Lymph % (Auto) 6.6 L, [place] % (Auto) 3.0, Eos % (Auto) 0.8, Baso % (Auto) 0.2, Absolute Neuts (auto) 12.8 H, Absolute Lymphs (auto) 0.96, Nucleated RBC % 0 09/17/22 05:00: Sodium 140, Potassium 4.9, Chloride 108 H, Carbon Dioxide 19.0 L, Anion Gap 13, BUN 45 H, Creatinine 2.08 H, Estim Creat Clear Calc 27.40, Est GFR (MDRD) Af Amer 40 L, Est GFR (MDRD) Non-Af 33 L, BUN/Creatinine Ratio 21.6 H, Glucose 235 H, Calcium 7.8 L 09/17/22 05:03: POC Glucose 225 H Micro: Microbiology 09/14/22 15:25 Urine Catheter - Catheter Urine Culture - Preliminary Gram positive organism 09/14/22 14:55 Blood Culture (Wb) - Anticubital Right Blood Culture - Preliminary No growth in 48 hours. 09/14/22 14:20 Blood Culture (Wb) - Pic Blood Culture - Preliminary No growth in 48 hours. 09/14/22 17:40 Nasal Secretion SARS-CoV-2 Antigen (Rapid) - Final Radiography Diagnostic Testing: Radiology Impression Chest X-Ray 09/16/22 13:42 IMPRESSION: There are no acute findings. Elevated right humeral head with eburnation of the acromion suggest a chronic rotator cuff tear. Electronically Signed: Emmett Keene MD at 15:10 EST Reading Location ID and State: [facility][note 3] / [place] , Service support , Physical Exam Narrative Seen and examined Patient denies any back pain. Patient could sit up from supine position. Physical exam General: Awake, intermittent confusion, disoriented to place and time. HEENT: Atraumatic, PERRLA, EOMI, Normocephalic Oral: Oral mucosa dry. No Gingival or Mucosal Lesions/ Ulcerations Neck: Supple, No JVD, Negative Carotid Bruits Lungs: Air entry diminished in bilateral lung bases. No crepitation/rhonchi Cardiovascular: Regular rate, Regular Rhythm, Normal S1, Normal S2, No murmurs Abdomen: Bowel Sounds Present, Soft, Non Tender, Non-Distended : No renal angle tenderness. No suprapubic tenderness. Extremities: No edema, Capillary Refill Less than 3 Seconds Skin: No rashes, No breakdown Musculoskeletal: No Tenderness to Palpation of Joints or Extremities, muscle strength 4+/5 at major joints of lower extremities. Spine: No acute tenderness present over lumbar paraspinal muscle/spinal process. Minimally invasive surgical scar Neurological: Cranial nerves II-XII grossly intact, DTR 2+/4, gross sensation equal and symmetrical in both lower extremity Psych/Mental Status: Flat affect Assessment & Plan Assessment/Plan (1) Osteomyelitis of lumbar spine: (2) Lumbar discitis: PLAN: Plan This is a 82-year-old gentleman with a history of lumbar discitis and lumbar osteomyelitis was admitted through ED from TCU for worsening MRI findings. Patient had lumbar spine surgery on August 22, 2022 at [facility]. On September 02, patient was transferred to ED and then to [facility] and then he came back on September 03. In TCU, patient back pain worsened on 09/14/2022 with radiation to lower extremity. MRI showed discitis and osteomyelitis therefore admitted and ED physician discussed with [facility] neurosurgeon said patient needs 6 weeks of antibiotics and after that fred and Rajiv will take it back. 1. Septic shock due to worsening lumbar osteomyelitis-discitis: The patient was admitted on the floor but on 09/16 he dropped blood pressure and sepsis protocol was started. Patient was further transferred to ICU for fluid unresponsive/resistant septic shock. Patient on IV Levophed drip. He has PICC line on left arm. On IV meropenem and vancomycin. 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 #2 Pyuria-patient has Bello catheter therefore patient cannot answer lower urinary tract questions. UTI less likely. #3 Acute delirium on possible early dementia: According to the notes in TCU, this appears to be ongoing for some time, it may be due to the patient's generalized medical condition. Patient is awake and responds appropriately to simple question but is disoriented to place, month and year although he knows day and night. #4 type 2 diabetes-mellitus: continue to monitor blood sugars, sliding scale insulin will use as needed #5 hyperlipidemia-patient is on atorvastatin #6 essential hypertension-patient will remain on his present medications #7 BPH-patient is on Flomax #8 DONALD on CKD stage III-patient baseline creatinine runs around 1.07-1.15. In early August 2022. His creatinine gradually went up from 1.38- 2.53- 2.08. Normal anion gap metabolic acidosis. Total time of the visit including total time spent in counseling or coordination of care, (more than 50% of the total time, spent in obtaining medical information from nurses and other ancillary care providers,explaining to the patient about labs, imaging, diagnosis and management of active complex medical conditions), medical record review, review of labs and imaging is 50 minutes. Charges/Coding Visit Charges Inpatient E&M: 40406 Subs Hosp L3
[2022-09-17] MEDS: 0.45% Normal Saline 1,000 ML 60 ML IV (09:26)
[2022-09-17] MEDS: Lidocaine 5% Patch 1 PATCH TOPICAL (09:27)
[2022-09-17] MEDS: Heparin Injection (Vial) 5,000 UNIT/ML VIAL 5000 UNIT SC ×2 (09:27→20:22)
[2022-09-17 10:50] LABS: Bedside Glucose 255 mg/dL (74-106)
--- NOTE | 2022-09-17 12:31 | PCM.CONS.GEN ---
Assessment & Plan Assessment/Plan (1) Septic shock: PLAN: Had been on vanc/ceftriaxone for empiric coverage lumbar osteo/discitis/epidural abscess. Imaging again shows worsening, now with fever and septic shock. Abx changed to vanc/guille. Ucx with 100k GPC, will change vanc to dapto, cont guille. Will consult spine surgery here for eval. Will follow, thank you, d/w Dr. Will over the weekend (2) Abscess in epidural space of lumbar spine: (3) Osteomyelitis of lumbar spine: HPI Consult Data Date of Consult: 09/17/22 HPI Narrative Reason for Consultation: septic shock HPI Narrative: CHANA WARE, is a 82 M who presented 08/21/22 to [facility] with several weeks worsened lower back pain, weakness in RLE, fever, chills, fatigue.? MRI showed L3-4 discitis/osteo/epidural abscess.? Transferred to [facility], taken to OR 08/22/22 for laminectomy.? Bcx and surg cx neg.? Seen by Dr. Heaton with ID.? Discharged to TCU on vanc/ceftriaxone via picc for planned 6 week course.? Sent to ED and briefly admitted back to [facility] 09/03/22 due to worsening imaging, then back to TCU. Now transferred to icu with septic shock, fever of 103.4, worsened back pain, confusion, DONALD. Put on pressor, abx changed to vanc/guille. Feeling a little better this AM. Full ROS performed and neg except as noted above. [facility] Medical History Abscess in epidural space of lumbar spine Coronary artery disease Depression Diabetes mellitus Hypertension Lumbar discitis Osteomyelitis of lumbar spine Home Medications acetaminophen 500 mg tablet 1,000 mg PO Q8H PRN PAIN SCORE 1-3 09/02/22 [History Last Taken 09/14/22 05:57] atorvastatin 20 mg tablet 20 mg PO QHS CHOLESTEROL 09/02/22 [History Last Taken 09/13/22 21:10] ceftriaxone 2 gram intravenous solution 2 g IV Q24H INFECTION 09/02/22 [History Last Taken 09/13/22 21:35] glimepiride 4 mg tablet 4 mg PO BREAKFAST DM 09/02/22 [History Last Taken 09/02/22 07:47] lidocaine 5 % topical patch 1 patch topical DAILY PAIN 09/02/22 [History Last Taken 09/14/22 05:57] lisinopril 5 mg tablet 5 mg PO DAILY BP 09/02/22 [History Last Taken 09/14/22 05:59] metformin 500 mg tablet 500 mg PO BIDCM DM 09/02/22 [History Last Taken 09/14/22 09:34] nut.tx.gluc.intol,lac-free,soy (Glucerna oral liquid) 120 ml PO 4X/DAY SUPPLEMENT 09/02/22 [History Last Taken 09/14/22 05:54] oxycodone 5 mg tablet 10 mg PO Q4H PRN PRN PAIN SCORE 6-10 09/02/22 [History Last Taken 09/14/22 10:41] polyethylene glycol 3350 17 gram/dose oral powder 17 g PO DAILY CONSTIPATION 09/02/22 [History Last Taken 09/14/22 05:57] propranolol 20 mg tablet 20 mg PO BID HEART 09/02/22 [History Last Taken 09/14/22 05:59] rivaroxaban 10 mg tablet (Xarelto) 10 mg PO DINNER DVT Prophylaxis 09/02/22 [History Last Taken 09/01/22 16:23] sennosides 8.6 mg-docusate sodium 50 mg tablet 2 tab PO DAILY CONSTIPATION 09/02/22 [History Last Taken 09/14/22 05:59] tamsulosin 0.4 mg capsule 0.8 mg PO DAILY@1730 PROSTATE 09/02/22 [History Last Taken 09/13/22 18:31] tramadol 50 mg tablet 100 mg PO Q6H PRN Pain (Scale Score 4-5) 09/02/22 [History Last Taken 09/13/22 23:14] baclofen 5 mg tablet 5 mg PO TID PRN MUSCLE SPASMS 09/14/22 [History Last Taken 09/14/22 09:03] gabapentin 100 mg capsule 100 mg PO TID NERVE PAIN 09/14/22 [History Last Taken 09/14/22 12:57] hydrocortisone 2.5 % topical cream 1 applic topical TID PRN Rash 09/14/22 [History Last Taken 09/14/22 10:25] menthol 0.44 %-zinc oxide 20.6 % topical ointment (Calmoseptine) 1 applic topical BID@0600,1800 09/14/22 [History Last Taken 09/14/22 05:55] mirtazapine 15 mg tablet (Remeron) 7.5 mg PO DAILY ANTIDEPRESSANTS 09/14/22 [History Last Taken 09/13/22 21:10] Allergy/AdvReac Type Severity Reaction Status Date / Time vancomycin AdvReac Red Man Verified 09/17/22 09:17 Syndrome Family History Other Arthritis Congestive heart failure Diabetes Surgical History Status post epidural steroid injection Social History household members: none Smoking Status: Never smoker alcohol intake: never substance use type: does not use Physical Exam Const alert and no apparent distress General Appearance: cooperative HEENT normocephalic and head/scalp atraumatic Eyes PERRL and EOMs intact bilaterally Neck supple and No nodes Resp normal air movement and clear to auscultation bilaterally Cardio Rate: tachycardic GI soft to palpation, non-tender and non-distended Extremity General Extremity: edema Skin no rashes or lesions noted Neuro CN's II-XII intact bilaterally Medical Records Data Medical Nutrition Assessment Dietitian: Malnutrition Criteria Met Start: 09/15/22 10:12 Freq: Status: Active Protocol: Document 09/17/22 09:45 SLA (Rec: 09/17/22 09:46 SLA Desktop) Nutrition Malnutrition Evidence of Malnutrition Exists Yes Malnutrition (severe): Acute Illness/Injury Evidenced By Suboptimal Energy Intake ( Severe),Weight Loss (Severe) Clinical Problem Altered Nutrient-Related Laboratory Values Etiology related to diabetes and recent steroid administration Signs/Symptoms as evidenced by gluc 235. 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 Will order 120 ml glucerna shake 4x/day w/ medpass Will continue appetite stimulant to help encourage increased po intake at meals. Lab / Micro Data Attestation: I reviewed the patient's lab results. Result Diagrams: 09/17/22 05:00 09/17/22 05:00 Labs: Laboratory Results - last 24 hr 09/16/22 11:33: POC Glucose 213 H 09/16/22 18:08: POC Glucose 159 H 09/16/22 23:09: Random Vancomycin 17.4 H 09/17/22 00:09: POC Glucose 216 H 09/17/22 05:00: WBC 14.6 H, RBC 3.15 L, Hgb 8.8 L, Hct 28.9 L, MCV 91.7, MCH 27.9, MCHC 30.4 L, RDW Std Deviation 48.7 H, RDW Coeff of Eliecer 14.5, Plt Count 402, MPV 8.9, Immature Gran % (Auto) 1.900 H, Neut % (Auto) 87.5 H, Lymph % (Auto) 6.6 L, [place] % (Auto) 3.0, Eos % (Auto) 0.8, Baso % (Auto) 0.2, Absolute Neuts (auto) 12.8 H, Absolute Lymphs (auto) 0.96, Nucleated RBC % 0 09/17/22 05:00: Sodium 140, Potassium 4.9, Chloride 108 H, Carbon Dioxide 19.0 L, Anion Gap 13, BUN 45 H, Creatinine 2.08 H, Estim Creat Clear Calc 27.40, Est GFR (MDRD) Af Amer 40 L, Est GFR (MDRD) Non-Af 33 L, BUN/Creatinine Ratio 21.6 H, Glucose 235 H, Calcium 7.8 L 09/17/22 05:03: POC Glucose 225 H 09/17/22 10:28: POC Glucose 255 H Micro: Microbiology 09/14/22 15:25 Urine Catheter - Catheter Urine Culture - Preliminary Gram positive organism Radiology Impression Chest X-Ray 09/16/22 13:42 IMPRESSION: There are no acute findings. Elevated right humeral head with eburnation of the acromion suggest a chronic rotator cuff tear. Electronically Signed: Emmett Keene MD at 15:10 EST ,
[2022-09-17] MEDS: Glucerna Shake 120 ML LIQUID PO ×2 (13:08→20:26)
[2022-09-17 17:15] LABS: Bedside Glucose 436 mg/dL (74-106)
[2022-09-17] MEDS: Insulin Lispro 100 UNIT/ML INSULN.PEN 20 UNIT SC (20:20)
[2022-09-17] MEDS: Mirtazapine 15 MG Tablet 7.5 MG PO (20:22)
[2022-09-17 20:26] LABS: Bedside Glucose 416 mg/dL (74-106)
[2022-09-17 22:36] LABS: Bedside Glucose 317 mg/dL (74-106)
[2022-09-18] VITALS (14 sets, daily range): BP systolic 109–150; BP diastolic 51–98; PULSE 86–115; RESP 15–21; TEMP 36.6–37.2; O2SAT 94–99; BMI 26.4
[2022-09-18] MEDS: 0.45% Normal Saline 1,000 ML 60 ML IV ×2 (02:20→19:56)
[2022-09-18 03:24] LABS: Absolute Lymphocyte Count 1.58 X10^3/uL (0.83-4.51); Absolute Neutrophil Count 10.3 X10^3/uL (2.0-7.7); Basophil# 0.03 X10^3/uL; Basophil% 0.2 % (0-1); Eosinophil# 1.25 X10^3/uL; Eosinophils% 8.8 % (0-5); Hemoglobin 8.2 g/dL (13.0-16.5); Lymphocyte # 1.58 X10^3/ul (0.83-4.51); Lymphocyte % 11.2 % (19-41); Mean Corp Hgb Conc 31.5 g/dL (32-36); Mean Corpuscular Hgb 28.2 pg (27.0-32.0); Mean Corpuscular Volume 89.3 fL (80-94); Mean Platelet Vol. 8.9 fl (6.2-12.0); Monocyte# 0.89 X10^3/uL; Monocyte% 6.3 % (0-10); NRBC Flagged by Analyzer 0 % (0-5); Neutrophil # 10.27 X10^3/uL (2.7-7.7); Neutrophil % 72.5 % (47-70); Platelet Count 355 K/mm3 (150-450); RBC Distribution Width CV 14.6 % (11.6-14.6); RBC Distribution Width SD 46.9 fl (35.1-43.9); Red Blood Count 2.91 M/mm3 (4.6-6.2); White Blood Count 14.2 K/mm3 (4.4-11.0)
[2022-09-18 03:40] LABS: Anion Gap 8 (5-15); BUN 54 mg/dL (7-18); BUN/Creat Ratio 28.6 RATIO (10-20); Calcium,Total 7.8 mg/dL (8.5-10.1); Chloride 104 mmol/L (98-107); Creatinine, Serum 1.89 mg/dL (0.70-1.30); EST Glomerular Filtration Rate 37 mL/min (>60); Est Glom Filt Rate - Afr Amer 44 mL/min (>60); Estimated Creatinine Clearance 30.16 ml/min; Glucose 203 mg/dL (74-106); Potassium 4.4 mmol/L (3.5-5.1); Sodium Level 134 mmol/L (136-145)
[2022-09-18] MEDS: 0.9% Saline Lock 10 ML Syringe IV (05:55)
[2022-09-18] MEDS: Menthol/Lanolin/Calamine/Znox 113 GM Tube 1 APPLIC TOPICAL ×2 (05:55→17:00)
--- NOTE | 2022-09-18 08:10 | PCM.PN.INT ---
Assessment & Plan Assessment/Plan (1) Septic shock: PLAN: Plan RECOMMENDATIONS: 1. Continue antimicrobials per ID recommendations. 2. Dietary advancement per speech therapy. 3. Spine surgery consultation is pending. 4. Continue appropriate DVT prophylaxis. 5. The patient is medically stable for transfer out of the intensive care unit. IMPRESSIONS: 1. Septic shock Improved. Clinical concern for worsening lumbar discitis/osteomyelitis versus urinary tract source of infection. Agree with continuing broad-spectrum antimicrobials per ID recommendations. The patient has been weaned from vasopressor support and remains hemodynamically stable. Consultation to spine surgery is pending. 2. DONALD on CKD Improving. Likely prerenal in etiology in the setting of #1. Creatinine is somewhat improved this morning. Plan to continue volume resuscitation as ordered. Continue to monitor urine output. No current indication for renal replacement therapy. 3. History of diabetes mellitus/hypertension/hyperlipidemia/BPH Complicates care, management, recovery and prognosis. Continue home medications as indicated. This note was generated with [employer] dictation software. It may contain incorrect words, spelling, and punctuation that were not noted in checking the note before signing. Subjective Subjective The patient was seen and examined at the bedside this morning. Events from the last 24 hours have been reviewed. The patient is currently afebrile, hemodynamically stable and maintaining appropriate oxygen saturations on room air. The patient was able to be weaned successfully from vasopressor support. He is documented to be overall net +6.6 L for the hospitalization. Creatinine has improved to 1.89. Objective Data Objective Data The patient's most recent lab work, culture data and imaging studies have all been personally reviewed. Vital Signs: Vital Signs Temp Pulse Resp BP Pulse Ox O2 Del Method 98.4 F 95 17 110/51 L 99 Room Air 09/18/22 06:00 09/18/22 07:00 09/18/22 07:00 09/18/22 07:00 09/18/22 07:00 09/18/22 07:00 Oxygen Delivery Method Room Air Weight: 174 lb 13.225 oz Body Mass Index (BMI) 26.4 Intake & Output: Intake and Output for Last 24 Hours 09/16/22 09/17/22 09/18/22 23:59 23:59 23:59 Intake Total 3459.21 / 3463.91 3018.69 / 3418.69 1400 / 1400 Output Total 200 / 200 875 / 1125 650 / 650 Balance 3259.21 / 3263.91 2143.69 / 2293.69 750 / 750 Medical Nutrition Assessment Dietitian: Malnutrition Criteria Met Start: 09/15/22 10:12 Freq: Status: Active Protocol: Document 09/17/22 09:45 SLA (Rec: 09/17/22 09:46 SLA Desktop) Nutrition Malnutrition Evidence of Malnutrition Exists Yes Malnutrition (severe): Acute Illness/Injury Evidenced By Suboptimal Energy Intake ( Severe),Weight Loss (Severe) Clinical Problem Altered Nutrient-Related Laboratory Values Etiology related to diabetes and recent steroid administration Signs/Symptoms as evidenced by gluc 235. 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 Will order 120 ml glucerna shake 4x/day w/ medpass Will continue appetite stimulant to help encourage increased po intake at meals. Lab / Micro Data Attestation: I reviewed the patient's lab results. Result Diagrams: 09/18/22 03:18 09/18/22 03:18 Labs: Laboratory Results - last 24 hr 09/17/22 10:28: POC Glucose 255 H 09/17/22 16:56: POC Glucose 436 H 09/17/22 20:03: POC Glucose 416 H 09/17/22 22:16: POC Glucose 317 H 09/18/22 03:18: WBC 14.2 H, RBC 2.91 L, Hgb 8.2 L, Hct 26.0 L, MCV 89.3, MCH 28.2, MCHC 31.5 L, RDW Std Deviation 46.9 H, RDW Coeff of Eliecer 14.6, Plt Count 355, MPV 8.9, Immature Gran % (Auto) 1.000 H, Neut % (Auto) 72.5 H, Lymph % (Auto) 11.2 L, [place] % (Auto) 6.3, Eos % (Auto) 8.8 H, Baso % (Auto) 0.2, Absolute Neuts (auto) 10.3 H, Absolute Lymphs (auto) 1.58, Nucleated RBC % 0 09/18/22 03:18: Sodium 134 L, Potassium 4.4, Chloride 104, Carbon Dioxide 22.0, Anion Gap 8, BUN 54 H, Creatinine 1.89 H, Estim Creat Clear Calc 30.16, Est GFR (MDRD) Af Amer 44 L, Est GFR (MDRD) Non-Af 37 L, BUN/Creatinine Ratio 28.6 H, Glucose 203 H, Calcium 7.8 L Micro: Microbiology 09/14/22 15:25 Urine Catheter - Catheter Urine Culture - Preliminary Yeast 09/14/22 14:55 Blood Culture (Wb) - Anticubital Right Blood Culture - Preliminary No growth in 48 hours. 09/14/22 14:20 Blood Culture (Wb) - Pic Blood Culture - Preliminary No growth in 48 hours. 09/14/22 17:40 Nasal Secretion SARS-CoV-2 Antigen (Rapid) - Final Physical Exam Const alert and no apparent distress General Appearance: cooperative HEENT normocephalic and head/scalp atraumatic Eyes PERRL, EOMs intact bilaterally and conjunctivae normal Neck supple General: trachea midline Chest inspection of chest normal Resp normal respiratory effort Auscultation: Negative for rales, rhonchi or wheezes Cardio regular rate and regular rhythm GI normal to inspection, nondistended, normoactive bowel sounds Extremity no clubbing, cyanosis or edema Skin no rashes or lesions noted Neuro CN's II-XII intact bilaterally and no focal motor deficits Psych Mood & Affect: flat affect Charges/Coding Visit Charges Inpatient E&M: 61966 Subs Hosp L2
[2022-09-18 08:20] LABS: Bedside Glucose 142 mg/dL (74-106)
--- NOTE | 2022-09-18 08:29 | PCM.PN.HOSP ---
Reason for Visit Reason for Visit: Follow-up for septic shock Diagnoses Sepsis, unspecified organism (09/14/22) Intraspinal abscess and granuloma (09/14/22) Osteomyelitis of vertebra, lumbar region (09/14/22) Discitis, unspecified, lumbar region (09/14/22) Severe sepsis with septic shock (09/14/22) Objective Data Objective Data Vital Signs: Vital Signs Temp Pulse Resp BP Pulse Ox O2 Del Method 98.4 F 95 17 110/51 L 99 Room Air 09/18/22 06:00 09/18/22 07:00 09/18/22 07:00 09/18/22 07:00 09/18/22 07:00 09/18/22 07:00 Oxygen Delivery Method Room Air Weight: 174 lb 13.225 oz Body Mass Index (BMI) 26.4 Intake & Output: Intake and Output for Last 24 Hours 09/16/22 09/17/22 09/18/22 23:59 23:59 23:59 Intake Total 3459.21 / 3463.91 3018.69 / 3418.69 1400 / 1400 Output Total 200 / 200 875 / 1125 650 / 650 Balance 3259.21 / 3263.91 2143.69 / 2293.69 750 / 750 Medical Nutrition Assessment Dietitian: Malnutrition Criteria Met Start: 09/15/22 10:12 Freq: Status: Active Protocol: Document 09/17/22 09:45 SLA (Rec: 09/17/22 09:46 SLA Desktop) Nutrition Malnutrition Evidence of Malnutrition Exists Yes Malnutrition (severe): Acute Illness/Injury Evidenced By Suboptimal Energy Intake ( Severe),Weight Loss (Severe) Clinical Problem Altered Nutrient-Related Laboratory Values Etiology related to diabetes and recent steroid administration Signs/Symptoms as evidenced by gluc 235. 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 Will order 120 ml glucerna shake 4x/day w/ medpass Will continue appetite stimulant to help encourage increased po intake at meals. Lab / Micro Data Result Diagrams: 09/18/22 03:18 09/18/22 03:18 Labs: Laboratory Results - last 24 hr 09/17/22 10:28: POC Glucose 255 H 09/17/22 16:56: POC Glucose 436 H 09/17/22 20:03: POC Glucose 416 H 09/17/22 22:16: POC Glucose 317 H 09/18/22 03:18: WBC 14.2 H, RBC 2.91 L, Hgb 8.2 L, Hct 26.0 L, MCV 89.3, MCH 28.2, MCHC 31.5 L, RDW Std Deviation 46.9 H, RDW Coeff of Eliecer 14.6, Plt Count 355, MPV 8.9, Immature Gran % (Auto) 1.000 H, Neut % (Auto) 72.5 H, Lymph % (Auto) 11.2 L, [place] % (Auto) 6.3, Eos % (Auto) 8.8 H, Baso % (Auto) 0.2, Absolute Neuts (auto) 10.3 H, Absolute Lymphs (auto) 1.58, Nucleated RBC % 0 09/18/22 03:18: Sodium 134 L, Potassium 4.4, Chloride 104, Carbon Dioxide 22.0, Anion Gap 8, BUN 54 H, Creatinine 1.89 H, Estim Creat Clear Calc 30.16, Est GFR (MDRD) Af Amer 44 L, Est GFR (MDRD) Non-Af 37 L, BUN/Creatinine Ratio 28.6 H, Glucose 203 H, Calcium 7.8 L 09/18/22 07:59: POC Glucose 142 H Micro: Microbiology 09/14/22 15:25 Urine Catheter - Catheter Urine Culture - Preliminary Yeast 09/14/22 14:55 Blood Culture (Wb) - Anticubital Right Blood Culture - Preliminary No growth in 48 hours. 09/14/22 14:20 Blood Culture (Wb) - Pic Blood Culture - Preliminary No growth in 48 hours. 09/14/22 17:40 Nasal Secretion SARS-CoV-2 Antigen (Rapid) - Final Physical Exam Narrative Seen and examined Patient is off Levophed drip for 24 hours. Patient denies any back pain. Physical exam General: Awake, alert, oriented x3. Knows person, place and time. HEENT: Atraumatic, PERRLA, EOMI, Normocephalic Oral: Oral mucosa moist no Gingival or Mucosal Lesions/ Ulcerations Neck: Supple, No JVD, Negative Carotid Bruits Lungs: Air entry diminished in bilateral lung bases. No crepitation/rhonchi Cardiovascular: Regular rate, Regular Rhythm, Normal S1, Normal S2, No murmurs Abdomen: Bowel Sounds Present, Soft, Non Tender, Non-Distended : No renal angle tenderness. No suprapubic tenderness. Extremities: No edema, Capillary Refill Less than 3 Seconds Skin: No rashes, No breakdown Musculoskeletal: No Tenderness to Palpation of Joints or Extremities, muscle strength 4+/5 at major joints of lower extremities. Spine: No acute tenderness present over lumbar paraspinal muscle/spinal process. Minimally invasive surgical scar Neurological: Cranial nerves II-XII grossly intact, DTR 2+/4, gross sensation equal and symmetrical in both lower extremity Psych/Mental Status: Flat affect Assessment & Plan Assessment/Plan (1) Osteomyelitis of lumbar spine: (2) Lumbar discitis: PLAN: Plan This is a 82-year-old gentleman with a history of lumbar discitis and lumbar osteomyelitis was admitted through ED from TCU for worsening MRI findings. Patient had lumbar spine surgery on August 22, 2022 at [facility]. On September 02, patient was transferred to ED and then to [place] and then he came back on September 03. In TCU, patient back pain worsened on 09/14/2022 with radiation to lower extremity. MRI showed discitis and osteomyelitis therefore admitted and ED physician discussed with [place] neurosurgeon said patient needs 6 weeks of antibiotics and after that [facility] will take it back. 1. Septic shock due to worsening lumbar osteomyelitis-discitis: The patient was admitted on the floor but on 09/16 he dropped blood pressure and sepsis protocol was started. Patient was further transferred to ICU for fluid unresponsive/resistant septic shock. Patient on IV Levophed drip. He has PICC line on left arm. On IV meropenem and vancomycin. Physical Therapist Assistant ID is consulted. 09/18: Patient was evaluated by ID.Urine culture shows 100,000 GPC although urine culture preliminary reported yeast. Vancomycin changed to daptomycin. Continue meropenem. Spine surgeon, Dr. Priest is consulted. Maintaining blood pressure off Levophed drip therefore can be transferred to PCU #2 possible GPC UTI-patient has Bello catheter therefore patient cannot answer lower urinary tract questions. Discontinue Bello catheter. #3 Acute delirium on possible early dementia: According to the notes in TCU, this appears to be ongoing for some time, it may be due to the patient's generalized medical condition. Patient is awake and responds appropriately to simple question but is disoriented to place, month and year although he knows day and night. 09/18: Patient answered appropriately, no orientation questions regarding place person, month, year and family members. Acute delirium resolved. #4 type 2 diabetes-mellitus: continue to monitor blood sugars, sliding scale insulin will use as needed #5 hyperlipidemia-patient is on atorvastatin #6 essential hypertension-patient will remain on his present medications #7 BPH-patient is on Flomax #8 DONALD on CKD stage III-patient baseline creatinine runs around 1.07-1.15. In early August 2022. His creatinine gradually went up from 1.38- 2.53- 2.08. Normal anion gap metabolic acidosis. Total time of the visit including total time spent in counseling or coordination of care, (more than 50% of the total time, spent in obtaining medical information from nurses and other ancillary care providers,explaining to the patient about labs, imaging, diagnosis and management of active complex medical conditions), medical record review, review of labs and imaging is 50 minutes. Charges/Coding Visit Charges Inpatient E&M: 55329 Subs Hosp L3
--- NOTE | 2022-09-18 09:58 | PCM.PN.ID ---
Physical Exam Narrative Feeling better, no fever, back pain slightly improved Const alert and no apparent distress Resp normal air movement and clear to auscultation bilaterally Cardio regular rate and regular rhythm GI soft to palpation, non-tender and non-distended Skin Skin Narrative: rash on trunk, extremities ID ID: Route of nutrition/ use of supplements: [] Nutritional Intake: [] IV Site: [] Bello Catheter: [] Assessment & Plan Assessment/Plan (1) Septic shock: PLAN: Had been on vanc/ceftriaxone for empiric coverage lumbar osteo/discitis/epidural abscess. Imaging again shows worsening, now with fever and septic shock. Abx changed to dapto/guille. BP improved, fever resolved, bcx neg so far. Ucx with yeast. Consulted spine surgery here. Will follow (2) Abscess in epidural space of lumbar spine: (3) Osteomyelitis of lumbar spine:
[2022-09-18] MEDS: Lidocaine 5% Patch 1 PATCH TOPICAL (10:05)
[2022-09-18] MEDS: Glucerna Shake 120 ML LIQUID PO ×4 (10:06→19:57)
[2022-09-18] MEDS: Heparin Injection (Vial) 5,000 UNIT/ML VIAL 5000 UNIT SC ×2 (10:06→19:57)
--- NOTE | 2022-09-18 11:45 | PCM.CONS.B ---
Consult Date of Consult: 09/18/[address] Clovis Priest dictating a consultation on Neptali Payan. The consult was actually done yesterday evening 17 September. I am dictating it today in 18 September. I saw Mr. Payan in ICU. Apparently he had a back surgery done on August 22 at [facility] in [place]. He was sent to the transitional care unit here on 30 August. On the he was taken to the emergency room and then sent back to [facility]. On the they sent him back to the transitional care unit here. On 14 September the back pain worsened including some leg pain. He was again seen in the emergency room and the case was discussed with apparently his neurosurgeon at [place]. He was placed on vancomycin at some point but unfortunately suffered red man syndrome because of it. Seen by Dr. Meek of course. He went through some other antibiotics but finally Dr. Meek and settled on daptomycin and meropenem he was put in the intensive care unit because of septic shock. When I saw the patient yesterday he was reasonably lucid. He related to me that the surgery of August 22 I did not help his pain at all. He has it in his head that baby it was his hips or maybe it was his knees. We do not have any imaging of those joints. The MRI scan done here at the hospital with and without contrast was straits that he does indeed have an epidural abscess around the level of L3-4. He has a relative high-grade stenosis because of it. He is a known diabetic. He states that he is reasonably comfortable sitting in the chair when I did the consult. He suggested to me that his back pain was a little better than it had been. On examination he has reasonable motor strength of his lower extremities. He is areflexic with no patella and no Achilles reflexes. But he also has no long tract signs. Clonus is absent Babinski's are downgoing. Impression: In all likelihood this is a contiguous infection probably acquired at the time of surgery on August 22. As far as we know the bacteria is a gram-positive cocci. Hematogenous discitis and osteomyelitis is less likely. If it were it would more than likely be a gram-negative organism from the urinary system via Sydnee's plexus of veins. Regarding the possibility of surgical I&D I would suggest that after the surgery that he had that it would be a very difficult surgery and his condition and his hemodynamic instability. In addition if a dural leak was made there is the possibility of introduction of the bacteria into the subdural space and possibly ending with meningitis. This is the end of consultation on Neptali Payan. This is Dr. Priest dictating.
[2022-09-18 12:40] LABS: Bedside Glucose 234 mg/dL (74-106)
[2022-09-18] MEDS: Insulin Lispro 100 UNIT/ML INSULN.PEN SC ×3 (12:49→20:01)
[2022-09-18 17:21] LABS: Bedside Glucose 275 mg/dL (74-106)
[2022-09-18] MEDS: Mirtazapine 15 MG Tablet 7.5 MG PO (19:56)
[2022-09-18 20:26] LABS: Bedside Glucose 283 mg/dL (74-106)
[2022-09-19] VITALS (8 sets, daily range): BP systolic 130–183; BP diastolic 76–92; PULSE 85–146; RESP 14–20; TEMP 36.7–37.3; O2SAT 96–99; BMI 26.8
[2022-09-19] MEDS: DiphenhydrAMINE 50 MG/ML Syringe 25 MG IV ×2 (00:05→17:21)
[2022-09-19] MEDS: 0.9% Saline Lock 10 ML Syringe IV (00:05)
[2022-09-19] MEDS: Menthol/Lanolin/Calamine/Znox 113 GM Tube 1 APPLIC TOPICAL ×2 (05:52→17:21)
[2022-09-19 06:08] LABS: Absolute Lymphocyte Count 2.79 X10^3/uL (0.83-4.51); Absolute Neutrophil Count 5.9 X10^3/uL (2.0-7.7); Basophil# 0.04 X10^3/uL; Basophil% 0.4 % (0-1); Eosinophil# 1.49 X10^3/uL; Eosinophils% 13.3 % (0-5); Hematocrit 25.9 % (40-54); Hemoglobin 8.4 g/dL (13.0-16.5); Lymphocyte # 2.79 X10^3/ul (0.83-4.51); Lymphocyte % 24.9 % (19-41); Mean Corp Hgb Conc 32.4 g/dL (32-36); Mean Corpuscular Hgb 28.2 pg (27.0-32.0); Mean Corpuscular Volume 86.9 fL (80-94); Mean Platelet Vol. 8.9 fl (6.2-12.0); Monocyte# 0.86 X10^3/uL; Monocyte% 7.7 % (0-10); NRBC Flagged by Analyzer 0.2 % (0-5); Neutrophil # 5.92 X10^3/uL (2.7-7.7); Neutrophil % 52.6 % (47-70); POSITIVE MORPHOLOGY YES; Platelet Count 321 K/mm3 (150-450); RBC Distribution Width CV 14.6 % (11.6-14.6); RBC Distribution Width SD 46.2 fl (35.1-43.9); Red Blood Count 2.98 M/mm3 (4.6-6.2); White Blood Count 11.2 K/mm3 (4.4-11.0)
--- NOTE | 2022-09-19 06:18 | PCM.PN.INT ---
Assessment & Plan Assessment/Plan (1) Septic shock: PLAN: Plan RECOMMENDATIONS: 1. Continue antimicrobials per ID recommendations. 2. Dietary advancement per speech therapy. 3. Okay to remove Bello catheter and perform self-catheterization. 4. Continue appropriate DVT prophylaxis. 5. We will sign off from a critical care perspective. Please call with any additional questions. IMPRESSIONS: 1. Septic shock Resolved. Clinical concern for worsening lumbar discitis/osteomyelitis versus urinary tract source of infection. Agree with continuing broad-spectrum antimicrobials per ID recommendations. The patient has been weaned from vasopressor support and remains hemodynamically stable. There are no plans for any form of surgical intervention per spine surgery. 2. DONALD on CKD Resolved. Likely prerenal in etiology in the setting of #1. Creatinine has normalized with volume expansion. Continuous fluids can be discontinued, accordingly. 3. History of diabetes mellitus/hypertension/hyperlipidemia/BPH Complicates care, management, recovery and prognosis. Continue home medications as indicated. This note was generated with [employer] dictation software. It may contain incorrect words, spelling, and punctuation that were not noted in checking the note before signing. Subjective Subjective The patient was seen and examined at the bedside this morning. Events from the last 24 hours have been reviewed. The patient is currently afebrile, hemodynamically stable and maintaining appropriate oxygen saturations on room air. The patient is documented to be overall net +7 L for the hospitalization. Creatinine has normalized. The patient did report discomfort with his indwelling Bello catheter. According to prior urology notes, the patient is supposed to be performing self-catheterization. Objective Data Objective Data The patient's most recent lab work, culture data and imaging studies have all been personally reviewed. Vital Signs: Vital Signs Temp Pulse Resp BP Pulse Ox O2 Del Method 99.1 F 130 H 16 142/76 H 98 Room Air 09/19/22 02:00 09/19/22 02:00 09/19/22 02:00 09/19/22 02:00 09/19/22 02:00 09/19/22 03:00 Oxygen Delivery Method Room Air Weight: 177 lb 0.499 oz Body Mass Index (BMI) 26.8 Intake & Output: Intake and Output for Last 24 Hours 09/17/22 09/18/22 09/19/22 23:59 23:59 23:59 Intake Total 3018.69 / 3418.69 3144 / 3344 200 / 200 Output Total 875 / 1125 1375 / 1875 500 / 500 Balance 2143.69 / 2293.69 1769 / 1469 -300 / -300 Medical Nutrition Assessment Dietitian: Malnutrition Criteria Met Start: 09/15/22 10:12 Freq: Status: Active Protocol: Document 09/17/22 09:45 SLA (Rec: 09/17/22 09:46 SLA Desktop) Nutrition Malnutrition Evidence of Malnutrition Exists Yes Malnutrition (severe): Acute Illness/Injury Evidenced By Suboptimal Energy Intake ( Severe),Weight Loss (Severe) Clinical Problem Altered Nutrient-Related Laboratory Values Etiology related to diabetes and recent steroid administration Signs/Symptoms as evidenced by gluc 235. 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 Will order 120 ml glucerna shake 4x/day w/ medpass Will continue appetite stimulant to help encourage increased po intake at meals. Lab / Micro Data Attestation: I reviewed the patient's lab results. Result Diagrams: 09/19/22 05:55 09/19/22 05:55 Labs: Laboratory Results - last 24 hr 09/18/22 07:59: POC Glucose 142 H 09/18/22 12:22: POC Glucose 234 H 09/18/22 16:58: POC Glucose 275 H 09/18/22 20:00: POC Glucose 283 H Micro: Microbiology 09/14/22 15:25 Urine Catheter - Catheter Urine Culture - Final Presumptive C albicans 09/16/22 09:18 Blood Culture (Wb) - Anticubital Right Bacteria Detection (PCR) - Final Staphylococcus epidermidis 09/16/22 09:18 Blood Culture (Wb) - Anticubital Right Blood Culture - Preliminary 09/16/22 09:27 Blood Culture (Wb) - Right Wrist Blood Culture - Preliminary No growth in 48 hours. 09/14/22 14:55 Blood Culture (Wb) - Anticubital Right Blood Culture - Preliminary No growth in 48 hours. 09/14/22 14:20 Blood Culture (Wb) - Pic Blood Culture - Preliminary No growth in 48 hours. 09/14/22 17:40 Nasal Secretion SARS-CoV-2 Antigen (Rapid) - Final Physical Exam Const alert and no apparent distress General Appearance: cooperative HEENT normocephalic and head/scalp atraumatic Eyes PERRL, EOMs intact bilaterally and conjunctivae normal Neck supple General: trachea midline Chest inspection of chest normal Resp normal respiratory effort Auscultation: Negative for rales, rhonchi or wheezes Cardio regular rate and regular rhythm GI normal to inspection, nondistended, normoactive bowel sounds Extremity no clubbing, cyanosis or edema Skin Skin Narrative: Diffuse erythematous rash over trunk and extremities. Neuro CN's II-XII intact bilaterally, moves all extremities and no focal motor deficits Psych cooperative and affect normal Charges/Coding Visit Charges Inpatient E&M: 08400 Subs Hosp L2
[2022-09-19 06:22] LABS: Anion Gap 9 (5-15); BUN 38 mg/dL (7-18); BUN/Creat Ratio 29.5 RATIO (10-20); Calcium,Total 8.1 mg/dL (8.5-10.1); Chloride 106 mmol/L (98-107); Creatinine, Serum 1.29 mg/dL (0.70-1.30); EST Glomerular Filtration Rate 57 mL/min (>60); Est Glom Filt Rate - Afr Amer 69 mL/min (>60); Estimated Creatinine Clearance 44.19 ml/min; Glucose 98 mg/dL (74-106); Potassium 4.3 mmol/L (3.5-5.1); Sodium Level 138 mmol/L (136-145)
[2022-09-19 06:23] LABS: Differential Indicated SCAN CRITERIA MET
[2022-09-19 06:24] LABS: Hypochromasia 1+
--- NOTE | 2022-09-19 07:59 | PCM.PN.HOSP ---
Reason for Visit Reason for Visit: Diagnoses Sepsis, unspecified organism (09/14/22) Intraspinal abscess and granuloma (09/14/22) Osteomyelitis of vertebra, lumbar region (09/14/22) Discitis, unspecified, lumbar region (09/14/22) Severe sepsis with septic shock (09/14/22) Subjective Subjective Follow-up for lumbar discitis/osteomyelitis. Septic shock is resolved. Patient was seen by orthospine surgeon yesterday. Patient BP is high Objective Data Objective Data Vital Signs: Vital Signs Temp Pulse Resp BP Pulse Ox O2 Del Method 98.8 F 108 H 16 183/87 H 99 Room Air 09/19/22 06:00 09/19/22 06:00 09/19/22 06:00 09/19/22 06:00 09/19/22 06:00 09/19/22 06:00 Oxygen Delivery Method Room Air Weight: 177 lb 0.499 oz Body Mass Index (BMI) 26.8 Intake & Output: Intake and Output for Last 24 Hours 09/17/22 09/18/22 09/19/22 23:59 23:59 23:59 Intake Total 3018.69 / 3418.69 3144 / 3344 320 / 320 Output Total 875 / 1125 1375 / 1875 1000 / 1000 Balance 2143.69 / 2293.69 1769 / 1469 -680 / -680 Medical Nutrition Assessment Dietitian: Malnutrition Criteria Met Start: 09/15/22 10:12 Freq: Status: Active Protocol: Document 09/17/22 09:45 SLA (Rec: 09/17/22 09:46 SLA Desktop) Nutrition Malnutrition Evidence of Malnutrition Exists Yes Malnutrition (severe): Acute Illness/Injury Evidenced By Suboptimal Energy Intake ( Severe),Weight Loss (Severe) Clinical Problem Altered Nutrient-Related Laboratory Values Etiology related to diabetes and recent steroid administration Signs/Symptoms as evidenced by gluc 235. 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 Will order 120 ml glucerna shake 4x/day w/ medpass Will continue appetite stimulant to help encourage increased po intake at meals. Lab / Micro Data Result Diagrams: 09/19/22 05:55 09/19/22 05:55 Labs: Laboratory Results - last 24 hr 09/18/22 07:59: POC Glucose 142 H 09/18/22 12:22: POC Glucose 234 H 09/18/22 16:58: POC Glucose 275 H 09/18/22 20:00: POC Glucose 283 H 09/19/22 05:55: WBC 11.2 H, RBC 2.98 L, Hgb 8.4 L, Hct 25.9 L, MCV 86.9, MCH 28.2, MCHC 32.4, RDW Std Deviation 46.2 H, RDW Coeff of Eliecer 14.6, Plt Count 321, MPV 8.9, Immature Gran % (Auto) 1.100 H, Neut % (Auto) 52.6, Lymph % (Auto) 24.9, Cassia % (Auto) 7.7, Eos % (Auto) 13.3 H, Baso % (Auto) 0.4, Absolute Neuts (auto) 5.9, Absolute Lymphs (auto) 2.79, Nucleated RBC % 0.2, Hypochromasia 1+ 09/19/22 05:55: Sodium 138, Potassium 4.3, Chloride 106, Carbon Dioxide 23.0, Anion Gap 9, BUN 38 H, Creatinine 1.29, Estim Creat Clear Calc 44.19, Est GFR (MDRD) Af Amer 69, Est GFR (MDRD) Non-Af 57 L, BUN/Creatinine Ratio 29.5 H, Glucose 98, Calcium 8.1 L Micro: Microbiology 09/14/22 15:25 Urine Catheter - Catheter Urine Culture - Final Presumptive C albicans 09/16/22 09:18 Blood Culture (Wb) - Anticubital Right Bacteria Detection (PCR) - Final Staphylococcus epidermidis 09/16/22 09:18 Blood Culture (Wb) - Anticubital Right Blood Culture - Preliminary 09/16/22 09:27 Blood Culture (Wb) - Right Wrist Blood Culture - Preliminary No growth in 48 hours. 09/14/22 14:55 Blood Culture (Wb) - Anticubital Right Blood Culture - Preliminary No growth in 48 hours. 09/14/22 14:20 Blood Culture (Wb) - Pic Blood Culture - Preliminary No growth in 48 hours. 09/14/22 17:40 Nasal Secretion SARS-CoV-2 Antigen (Rapid) - Final Physical Exam Narrative Seen and examined Patient sitting on the toilet seat. Having a bowel movement. Patient denies any back pain. Physical exam General: Awake, alert, oriented x3. Knows person, place and time. HEENT: Atraumatic, PERRLA, EOMI, Normocephalic Oral: Oral mucosa moist no Gingival or Mucosal Lesions/ Ulcerations Neck: Supple, No JVD, Negative Carotid Bruits Lungs: Air entry diminished in bilateral lung bases. No crepitation/rhonchi Cardiovascular: Regular rate, Regular Rhythm, Normal S1, Normal S2, No murmurs Abdomen: Bowel Sounds Present, Soft, Non Tender, Non-Distended : No renal angle tenderness. No suprapubic tenderness. Extremities: No edema, Capillary Refill Less than 3 Seconds Skin: No rashes, No breakdown Musculoskeletal: No Tenderness to Palpation of Joints or Extremities, muscle strength 4+/5 at major joints of lower extremities. Spine: No acute tenderness present over lumbar paraspinal muscle/spinal process. Minimally invasive surgical scar Neurological: Cranial nerves II-XII grossly intact, DTR 2+/4, gross sensation equal and symmetrical in both lower extremity Psych/Mental Status: Flat affect mild amnesia and dementia ; does not remember recent events. Assessment & Plan Assessment/Plan (1) Osteomyelitis of lumbar spine: (2) Lumbar discitis: PLAN: Plan This is a 82-year-old gentleman with a history of lumbar discitis and lumbar osteomyelitis was admitted through ED from TCU for worsening MRI findings. Patient had lumbar spine surgery on August 22, 2022 at [facility]. On September 02, patient was transferred to ED and then to [place] and then he came back on September 03. In TCU, patient back pain worsened on 09/14/2022 with radiation to lower extremity. MRI showed discitis and osteomyelitis therefore admitted and ED physician discussed with [facility] neurosurgeon said patient needs 6 weeks of antibiotics and after that [facility] will take it back. 1. Septic shock due to worsening lumbar osteomyelitis-discitis: The patient was admitted on the floor but on 09/16 he dropped blood pressure and sepsis protocol was started. The patient presented with sepsis due to with subjective and objective finding of low-grade fever, feeling sick, worsening back pain mostly due to lumbar discitis/osteomyelitis with acute sepsis-related organ dysfunction as evidenced by for fluid resistant septic shock requiring vasopressor support and DONALD on CKD. Patient was further transferred to ICU for fluid unresponsive/resistant septic shock. Patient on IV Levophed drip. He has PICC line on left arm. On IV meropenem and vancomycin. Casino Cashier Manager ID is consulted. 09/18: Patient was evaluated by ID.Urine culture shows 100,000 GPC although urine culture preliminary reported yeast. Vancomycin changed to daptomycin. Continue meropenem. Spine surgeon, Dr. Priest is consulted. Maintaining blood pressure off Levophed drip therefore can be transferred to PCU 09/19: Septic shock resolved. Discontinue Bello catheter. Continue IV antibiotic as per ID recommendation. Patient seen by Dr. Priest, possibility of contiguous discitis/osteomyelitis, hematogenous less likely. 1 out of 2 blood culture shows MSSE, urine culture Jannette albicans. #2 Asymptomatic candiduria: May be colonization/contamination: Urine culture shows Jannette albicans. 09/19: Bello catheter removal has been ordered yesterday. Discussed with nursing staff, removed today. #3 Acute delirium on possible early dementia: According to the notes in TCU, this appears to be ongoing for some time, it may be due to the patient's generalized medical condition. Patient is awake and responds appropriately to simple question but is disoriented to place, month and year although he knows day and night. 09/18: Patient answered appropriately, no orientation questions regarding place person, month, year and family members. Acute delirium resolved. 09/18: Patient cannot answer questions more appropriately but does not remember recent past events, mild dementia with retrograde/anterograde amnesia. Acute delirium has resolved. DONALD on CKD stage IIIa: Most likely prerenal etiology due to septic shock. Patient baseline estimated creatinine clearance around 50 mill per minute in August 2022. His creatinine went to maximum 2.53 and currently back to baseline 1.29. DONALD resolved #4 type 2 diabetes-mellitus: continue to monitor blood sugars, sliding scale insulin will use as needed #5 hyperlipidemia-patient is on atorvastatin #6 essential hypertension-patient will remain on his present medications #7 BPH-patient is on Flomax #8 DONALD on CKD stage III-patient baseline creatinine runs around 1.07-1.15. In early August 2022. His creatinine gradually went up from 1.38- 2.53- 2.08. Normal anion gap metabolic acidosis. Total time of the visit including total time spent in counseling or coordination of care, (more than 50% of the total time, spent in obtaining medical information from nurses and other ancillary care providers,explaining to the patient about labs, imaging, diagnosis and management of active complex medical conditions), medical record review, review of labs and imaging is 50 minutes. Charges/Coding Visit Charges Inpatient E&M: 99827 Subs Hosp L3
[2022-09-19] MEDS: Lidocaine 5% Patch 1 PATCH TOPICAL (08:03)
[2022-09-19] MEDS: Glucerna Shake 120 ML LIQUID PO ×4 (08:05→21:57)
[2022-09-19 08:25] LABS: Bedside Glucose 109 mg/dL (74-106)
[2022-09-19] MEDS: Heparin Injection (Vial) 5,000 UNIT/ML VIAL 5000 UNIT SC ×2 (09:46→21:50)
[2022-09-19] MEDS: Insulin Lispro 100 UNIT/ML INSULN.PEN SC ×3 (11:44→21:54)
[2022-09-19 11:46] LABS: Bedside Glucose 211 mg/dL (74-106)
--- NOTE | 2022-09-19 13:17 | PCM.PN.ID ---
Physical Exam Narrative Back pain slightly improved, no fever. Some L knee soreness/weakness with PT. Const alert and no apparent distress Resp normal air movement and clear to auscultation bilaterally Cardio regular rate and regular rhythm GI soft to palpation, non-tender and non-distended Extremity General Extremity: Negative for edema Skin Skin Narrative: fading erythema ID ID: Route of nutrition/ use of supplements: [] Nutritional Intake: [] IV Site: [] Bello Catheter: [] Assessment & Plan Assessment/Plan (1) Septic shock: PLAN: Had been on vanc/ceftriaxone for empiric coverage lumbar osteo/discitis/epidural abscess. Imaging again shows worsening, now with fever and septic shock. Abx changed to dapto/guille /. BP improved, fever resolved, bcx neg so far. Ucx with yeast. Consulted spine surgery here. Will write for 6 weeks dapto/guille, stop date 10/29/22 with weekly labs. ID followup in 2 weeks if he is not returning to TCU. Will follow (2) Abscess in epidural space of lumbar spine: (3) Osteomyelitis of lumbar spine:
[2022-09-19] MEDS: Propranolol 10 MG Tablet 20 MG PO ×2 (13:32→21:51)
[2022-09-19] MEDS: Tamsulosin HCl 0.4 MG Capsule 0.8 MG PO (13:36)
[2022-09-19 17:35] LABS: Bedside Glucose 173 mg/dL (74-106)
[2022-09-19] MEDS: 0.45% Normal Saline 1,000 ML 60 ML IV (18:10)
[2022-09-19] MEDS: Acetaminophen 500 MG Tablet 1000 MG PO (21:48)
[2022-09-19] MEDS: Mirtazapine 15 MG Tablet 7.5 MG PO (21:51)
[2022-09-19 22:25] LABS: Bedside Glucose 269 mg/dL (74-106)
[2022-09-20] MEDS: oxyCODONE 5 MG Tablet PO ×2 (01:34→07:05)
[2022-09-20 03:00] VITALS: BP 121/79; PULSE 79; RESP 16; TEMP 36.6; O2SAT 100
[2022-09-20 03:22] LABS: Absolute Lymphocyte Count 3.66 X10^3/uL (0.83-4.51); Absolute Neutrophil Count 6.1 X10^3/uL (2.0-7.7); Basophil# 0.06 X10^3/uL; Basophil% 0.5 % (0-1); Eosinophil# 1.94 X10^3/uL; Eosinophils% 14.9 % (0-5); Hematocrit 27.6 % (40-54); Hemoglobin 8.8 g/dL (13.0-16.5); Lymphocyte # 3.66 X10^3/ul (0.83-4.51); Lymphocyte % 28.1 % (19-41); Mean Corp Hgb Conc 31.9 g/dL (32-36); Mean Corpuscular Volume 87.9 fL (80-94); Mean Platelet Vol. 8.7 fl (6.2-12.0); Monocyte# 0.94 X10^3/uL; Monocyte% 7.2 % (0-10); NRBC Flagged by Analyzer 0.2 % (0-5); Neutrophil # 6.06 X10^3/uL (2.7-7.7); Neutrophil % 46.5 % (47-70); POSITIVE MORPHOLOGY YES; Platelet Count 308 K/mm3 (150-450); RBC Distribution Width CV 14.9 % (11.6-14.6); RBC Distribution Width SD 47.4 fl (35.1-43.9); Red Blood Count 3.14 M/mm3 (4.6-6.2)
[2022-09-20 03:23] VITALS: BP 121/79; PULSE 79; RESP 16; TEMP 36.6; O2SAT 100
[2022-09-20 03:26] LABS: Differential Indicated SCAN CRITERIA MET
[2022-09-20 03:33] LABS: Anion Gap 6 (5-15); BUN 30 mg/dL (7-18); Chloride 105 mmol/L (98-107); Creatinine, Serum 1.11 mg/dL (0.70-1.30); EST Glomerular Filtration Rate 68 mL/min (>60); Est Glom Filt Rate - Afr Amer 82 mL/min (>60); Estimated Creatinine Clearance 51.35 ml/min; Glucose 109 mg/dL (74-106); Potassium 4.4 mmol/L (3.5-5.1); Sodium Level 137 mmol/L (136-145)
[2022-09-20 03:37] LABS: Anisocytosis 1+
[2022-09-20] MEDS: Menthol/Lanolin/Calamine/Znox 113 GM Tube 1 APPLIC TOPICAL (05:34)
[2022-09-20 06:00] VITALS: BMI 26.6
--- NOTE | 2022-09-20 07:41 | TREXTCAR_ITS ---
Diet Diet Order/Speech Therapy: 09/17/22 09:21 Diet: Carbohydrate Controlled Food consistency:: Regular Liquid Consistency:: Regular/Thin Type of Dietary Supplement:: fortified foods as able Is pt able to select menu?: Yes Diet Comments: supervision Routine Orders/Code Status Suppository Type: Dulcolax 10mg Suppository Frequency: Daily PRN Code Status: DNRCC-A (No intubation) Wound(s) old surgical incision: Wound Type: Surgical Incision Mid lower back: Wound Type: Surgical Incision Coccyx: Wound Type: Pressure Injury Therapies Weight Bearing: Weight bearing as tolerated Extremity Affected:: Bilateral Lower Physical Therapy: Eval and Treat Occupational Therapy: Eval and Treat Speech Therapy: Eval and Treat Problem/Diagnosis (1) Septic shock: Status: Acute Code(s): A41.9 - Sepsis, unspecified organism; R65.21 - Severe sepsis with septic shock (2) Abscess in epidural space of lumbar spine: Status: Acute Code(s): G06.1 - Intraspinal abscess and granuloma (3) Osteomyelitis of lumbar spine: Status: Acute Code(s): M46.26 - Osteomyelitis of vertebra, lumbar region Plan This is a 82-year-old gentleman with a history of lumbar discitis and lumbar osteomyelitis was admitted through ED from TCU for worsening MRI findings. Patient had lumbar spine surgery on August 22, 2022 at [facility]. On September 02, patient was transferred to ED and then to [place] and then he came back on September 03. In TCU, patient back pain worsened on 09/14/2022 with radiation to lower extremity. MRI showed discitis and osteomyelitis therefore admitted and ED physician discussed with [place] neurosurgeon said patient needs 6 weeks of antibiotics and after that [facility] will take it back. 1. Septic shock due to worsening lumbar osteomyelitis-discitis: The patient was admitted on the floor but on 09/16 he dropped blood pressure and sepsis protocol was started. The patient presented with sepsis due to with subjective and objective finding of low-grade fever, feeling sick, worsening back pain mostly due to lumbar discitis/osteomyelitis with acute sepsis-related organ dysfunction as evidenced by for fluid resistant septic shock requiring vasopressor support and DONALD on CKD. Patient was further transferred to ICU for fluid unresponsive/resistant septic shock. Patient on IV Levophed drip. He has PICC line on left arm. On IV meropenem and vancomycin. Marine Pipe Welder ID is consulted. 09/18: Patient was evaluated by ID.Urine culture shows 100,000 GPC although urine culture preliminary reported yeast. Vancomycin changed to daptomycin. Continue meropenem. Spine surgeon, Dr. Priest is consulted. Maintaining blood pressure off Levophed drip therefore can be transferred to PCU 09/19: Septic shock resolved. Discontinue Bello catheter. Continue IV antibiotic as per ID recommendation. Patient seen by Dr. Priest, possibility of contiguous discitis/osteomyelitis, hematogenous less likely. 1 out of 2 blood culture shows MSSE, urine culture Jannette albicans. #2 Asymptomatic candiduria: May be colonization/contamination: Urine culture shows Jannette albicans. 09/19: Bello catheter removal has been ordered yesterday. Discussed with nursing staff, removed today. #3 Acute delirium on possible early dementia: According to the notes in TCU, this appears to be ongoing for some time, it may be due to the patient's generalized medical condition. Patient is awake and responds appropriately to simple question but is disoriented to place, month and year although he knows day and night. 09/18: Patient answered appropriately, no orientation questions regarding place person, month, year and family members. Acute delirium resolved. 09/18: Patient cannot answer questions more appropriately but does not remember recent past events, mild dementia with retrograde/anterograde amnesia. Acute delirium has resolved. DONALD on CKD stage IIIa: Most likely prerenal etiology due to septic shock. Patient baseline estimated creatinine clearance around 50 mill per minute in August 2022. His creatinine went to maximum 2.53 and currently back to baseline 1.29. DONALD resolved #4 type 2 diabetes-mellitus: continue to monitor blood sugars, sliding scale in sulin will use as needed #5 hyperlipidemia-patient is on atorvastatin #6 essential hypertension-patient will remain on his present medications #7 BPH-patient is on Flomax #8 DONALD on CKD stage III-patient baseline creatinine runs around 1.07-1.15. In early August 2022. His creatinine gradually went up from 1.38- 2.53- 2.08. Normal anion gap metabolic acidosis. Total time of the visit including total time spent in counseling or coordination of care, (more than 50% of the total time, spent in obtaining medical information from nurses and other ancillary care providers,explaining to the pa tient about labs, imaging, diagnosis and management of active complex medical conditions), medical record review, review of labs and imaging is 50 minutes. Allergies/Procedures Done in Hospital Allergies vancomycin Adverse Reaction (Verified 09/17/22 09:17) Red Man Syndrome Type of Care/Length of Stay Estimated LOS: Convalescent Care Less Than 30 days Type of Care Needed: Skilled Rehab Potential: Good Prognosis: Good Additional Orders/Day of Discharge Day of Discharge: 09/20/22 Dietary and Speech Recommendations Dietitian Recommendations/Changes: will adjust diet to carbohydrate controlled w/ fortified foods; continue glucerna 120mL 4x/day w/ medpass for additional calories/protein if consumed Discharge Plan Admission Admit Date/Time: 09/14/22 21:01 Primary Reason for Your Visit: Septic shock Attending Provider: Harris Sterling Primary Care Provider: Jorge Pepper Consulting Providers: Leonel Diaz ; Toy Will ; Michele Meek ; Jimmie Aquino ; Reji Machado ; Jeronimo Burch ; iRck Hillman ; Marisa Reese FIXTURE MAKER ; Clovis Priest Instructions Additional Instructions / Restrictions: Follow-up with [facility] spine surgery in 2-4 weeks. Discharge Orders/Prescriptions Prescriptions: New daptomycin 500 mg recon soln 500 mg IV Q24H Qty: 40 0RF Rx Instructions: administer over 30 mins dx: spine osteo stop date 10/29/22 weekly bmp, cbc, LFT, esr, and CK. Fax to [phone] meropenem 1 gram recon soln 1 g IV Q8H Qty: 40 0RF Rx Instructions: dx: spine osteo stop date 10/29/22 weekly bmp, cbc, LFT, esr, and CK. Fax to [phone] insulin lispro [Humalog KwikPen Insulin] 100 unit/mL Insulin Pen See Protocol subcut ACHS Qty: 0 0RF Protocol: 3. Sliding Scale Insulin Med Dosing Condition: 150-189 mg/dl = 1 unit Condition: 190-229 mg/dl = 2 units Condition: 230-269 mg/dl = 3 units Condition: 270-309 mg/dl = 4 units Condition: 310-349 mg/dl = 5 units Condition: 350-399 mg/dl = 6 units Condition: 400-449 mg/dl = 7 units Condition: Greater than 449 call physician Protocol Text: - Use for Total Daily Dose of Insulin 37-55 units - Obsese, infected, or steroid patients MEDIUM DOSING ALGORITHIM oxycodone 5 mg Tablet 5 mg PO Q4H PRN PRN (Reason: Pain Score 6-10) Qty: 0 0RF Continued metformin 500 mg tablet 500 mg PO BIDCM Label Comments: take 2 tablets by mouth twice a day atorvastatin 20 mg Tablet 20 mg PO QHS sennosides-docusate sodium 8.6-50 mg Tablet 2 tab PO DAILY tramadol 50 mg tablet 100 mg PO Q6H PRN (Reason: Pain (Scale Score 4-5)) Label Comments: take 1 tablet by mouth every 6 hours acetaminophen 500 mg Tablet 1,000 mg PO Q8H PRN (Reason: PAIN SCORE 1-3) tamsulosin 0.4 mg capsule 0.8 mg PO DAILY@1730 Label Comments: take 2 capsules by mouth once daily glimepiride 4 mg tablet 4 mg PO BREAKFAST lidocaine 5 % adhesive patch,medicated 1 patch topical DAILY Label Comments: apply 1 patch TO THE AFFECTED AREA DAILY. LEAVE ON FOR 12 HOURS AND THEN OFF FOR 12 HOURS. polyethylene glycol 3350 17 gram/dose Powder 17 g PO DAILY propranolol 20 mg tablet 20 mg PO BID Glucerna Liquid 120 ml PO 4X/DAY Xarelto 10 mg Tablet 10 mg PO DINNER hydrocortisone 2.5 % Cream 1 applic TOPICAL TID PRN (Reason: Rash) mirtazapine [Remeron] 15 mg Tablet 7.5 mg PO DAILY gabapentin 100 mg Capsule 100 mg PO TID menthol-zinc oxide [Calmoseptine] 0.44-20.6 % Ointment 1 applic TOPICAL BID@0600,1800 baclofen 5 mg Tablet 5 mg PO TID PRN (Reason: MUSCLE SPASMS) Changed lisinopril 5 mg tablet 2.5 mg PO DAILY Qty: 30 0RF Discontinued ceftriaxone 2 gram Recon Soln 2 g IV Q24H oxycodone 5 mg tablet 10 mg PO Q4H PRN PRN (Reason: PAIN SCORE 6-10) Referrals / Follow Up: Jorge Pepper MD [Primary Care Provider] - Jeronimo Burch MD [Med Staff - Active Staff] - Within 1 Month Michele Meek MD [Med Staff - Active Staff] - Within 1 Month (For lumbar discitis/osteomyelitis) Disposition Disposition (needs filled in before D/C Order can be placed): Alf Facility
[2022-09-20 08:30] LABS: Bedside Glucose 139 mg/dL (74-106)
[2022-09-20 09:15] VITALS: BP 119/57; PULSE 77; RESP 16; TEMP 36.8; O2SAT 97
[2022-09-20] MEDS: Propranolol 10 MG Tablet 20 MG PO (09:29)
[2022-09-20] MEDS: Glimepiride 4 MG Tablet PO (09:31)
[2022-09-20] MEDS: Polyethylene Glycol 3350 17 GM PACKET PO (09:32)
--- NOTE | 2022-09-20 09:34 | CASEMGMT ---
Patient is ready for discharge back to TCU. JAVIER notified Yanique in TCU. Med list copied. JAVIER called patient's and left her a voice mail letting her know patient is being discharged back to TCU today. Plan: d/c back to [facility] TCU under skilled level of care. Huyen Chahal MSW GIOVANY
[2022-09-20] MEDS: Glucerna Shake 120 ML LIQUID PO (09:36)
[2022-09-20] MEDS: Heparin Injection (Vial) 5,000 UNIT/ML VIAL 5000 UNIT SC (09:37)
[2022-09-20] MEDS: Lidocaine 5% Patch 1 PATCH TOPICAL (09:40)
[2022-09-20] MEDS: Insulin Lispro 100 UNIT/ML INSULN.PEN SC (11:18)
--- NOTE | 2022-09-20 11:23 | PCM.DC.SUM ---
Providers Date of Admission: 09/14/22 Date of Discharge: 09/20/22 Primary Care Physician: Dr. Jorge Pepper MD Consultations 09/16/22 09:05 Consult: Infectious Disease Routine Consulting Provider: Michele Meek Reason for Consult: osteomylitis lumbar spine EMERGENT Consult: No Notified: Yes Date Notified: 09/16/22 Time Notified: 09:05 Method of Notification: Verbal 09/16/22 16:56 Consult: Train Operations Manager / Pulmonary Medicine Routine Consulting Provider: [facility] Reason for Consult: hypotension, renal failure EMERGENT Consult: No Notified: Yes Date Notified: 09/16/22 Time Notified: 16:56 Method of Notification: Verbal 09/17/22 12:28 Consult: Orthopedics Routine Consulting Provider: Clovis Priest Reason for Consult: L3-4 discitis/osteo/epidural abscess, worsened after laminectomy 08/22/22 EMERGENT Consult: No Notified: Yes Date Notified: 09/17/22 Time Notified: 12:46 Method of Notification: Answering Service Reason For Visit: DISCITIS, OSTEOMYELITIS OF THE BACK Diagnosis Discharge Diagnosis (1) Septic shock: Status: Acute Code(s): A41.9 - Sepsis, unspecified organism; R65.21 - Severe sepsis with septic shock (2) Abscess in epidural space of lumbar spine: Status: Acute Code(s): G06.1 - Intraspinal abscess and granuloma (3) Osteomyelitis of lumbar spine: Status: Acute Code(s): M46.26 - Osteomyelitis of vertebra, lumbar region Plan This is a 82-year-old gentleman with a history of lumbar discitis and lumbar osteomyelitis was admitted through ED from TCU for worsening MRI findings. Patient had lumbar spine surgery on August 22, 2022 at [facility]. On September 02, patient was transferred to ED and then to [facility] and then he came back on September 03. In TCU, patient back pain worsened on 09/14/2022 with radiation to lower extremity. MRI showed discitis and osteomyelitis therefore admitted and ED physician discussed with [facility] neurosurgeon said patient needs 6 weeks of antibiotics and after that Rebecca will take it back. 1. Septic shock due to worsening lumbar osteomyelitis-discitis: The patient was admitted on the floor but on 09/16 he dropped blood pressure and sepsis protocol was started. The patient presented with sepsis due to with subjective and objective finding of low-grade fever, feeling sick, worsening back pain mostly due to lumbar discitis/osteomyelitis with acute sepsis-related organ dysfunction as evidenced by for fluid resistant septic shock requiring vasopressor support and DONALD on CKD. Patient was further transferred to ICU for fluid unresponsive/resistant septic shock. Patient on IV Levophed drip. He has PICC line on left arm. On IV meropenem and vancomycin. Train Operations Manager ID is consulted. 09/18: Patient was evaluated by ID.Urine culture shows 100,000 GPC although urine culture preliminary reported yeast. Vancomycin changed to daptomycin. Continue meropenem. Spine surgeon, Dr. Priest is consulted. Maintaining blood pressure off Levophed drip therefore can be transferred to PCU 09/19: Septic shock resolved. Discontinue Bello catheter. Continue IV antibiotic as per ID recommendation. Patient seen by Dr. Priest, possibility of contiguous discitis/osteomyelitis, hematogenous less likely. 1 out of 2 blood culture shows MSSE, urine culture Jannette albicans. 09/20: Patient heart rate and blood pressure is controlled after propranolol. Antibiotics prescriptions of daptomycin and meropenem written by ID. Patient is medically stable for discharge to TCU. Patient having bowel movement. Denies back pain. #2 Asymptomatic candiduria: May be colonization/contamination: Urine culture shows Jannette albicans. 09/19: Bello catheter removal has been ordered yesterday. Discussed with nursing staff, removed today. #3 Acute delirium on possible early dementia: According to the notes in TCU, this appears to be ongoing for some time, it may be due to the patient's generalized medical condition. Patient is awake and responds appropriately to simple question but is disoriented to place, month and year although he knows day and night. 09/18: Patient answered appropriately, no orientation questions regarding place person, month, year and family members. Acute delirium resolved. 09/18: Patient cannot answer questions more appropriately but does not remember recent past events, mild dementia with retrograde/anterograde amnesia. Acute delirium has resolved. DONALD on CKD stage IIIa: Most likely prerenal etiology due to septic shock. Patient baseline estimated creatinine clearance around 50 mill per minute in August 2022. His creatinine went to maximum 2.53 and currently back to baseline 1.29. DONALD resolved 09/20: BUN/creatinine 30/1.11. #4 type 2 diabetes-mellitus: continue to monitor blood sugars, sliding scale insulin will use as needed 09/20 glucose is controlled. Resume glimepiride. #5 hyperlipidemia-patient is on atorvastatin #6 essential hypertension-patient will remain on his present medications #7 BPH-patient is on Flomax Discharge medication reconciliation done. Discharge follow-up instructions completed. Discharge process discussed with the patient and all questions were answered to patient's satisfaction. Total time spent, exact 35 minutes on discharge meds reconciliation, examination, coordination of care with nurses and ancillary staff, review of imaging and blood test and discussion with the patient on follow-up instructions. Medications at Discharge Home Medications acetaminophen 500 mg tablet 1,000 mg PO Q8H PRN PAIN SCORE 1-3 09/02/22 atorvastatin 20 mg tablet 20 mg PO QHS CHOLESTEROL 09/02/22 glimepiride 4 mg tablet 4 mg PO BREAKFAST DM 09/02/22 lidocaine 5 % topical patch 1 patch topical DAILY PAIN 09/02/22 metformin 500 mg tablet 500 mg PO BIDCM DM 09/02/22 nut.tx.gluc.intol,lac-free,soy (Glucerna oral liquid) 120 ml PO 4X/DAY SUPPLEMENT 09/02/22 polyethylene glycol 3350 17 gram/dose oral powder 17 g PO DAILY CONSTIPATION 09/02/22 propranolol 20 mg tablet 20 mg PO BID HEART 09/02/22 rivaroxaban 10 mg tablet (Xarelto) 10 mg PO DINNER DVT Prophylaxis 09/02/22 sennosides 8.6 mg-docusate sodium 50 mg tablet 2 tab PO DAILY CONSTIPATION 09/02/22 tamsulosin 0.4 mg capsule 0.8 mg PO DAILY@1730 PROSTATE 09/02/22 tramadol 50 mg tablet 100 mg PO Q6H PRN Pain (Scale Score 4-5) 09/02/22 baclofen 5 mg tablet 5 mg PO TID PRN MUSCLE SPASMS 09/14/22 gabapentin 100 mg capsule 100 mg PO TID NERVE PAIN 09/14/22 hydrocortisone 2.5 % topical cream 1 applic topical TID PRN Rash 09/14/22 menthol 0.44 %-zinc oxide 20.6 % topical ointment (Calmoseptine) 1 applic topical BID@0600,1800 09/14/22 mirtazapine 15 mg tablet (Remeron) 7.5 mg PO DAILY ANTIDEPRESSANTS 09/14/22 daptomycin 500 mg intravenous solution 500 mg IV Q24H #40 ea 09/19/22 meropenem 1 gram intravenous solution 1 g IV Q8H #40 ea 09/19/22 insulin lispro 100 unit/mL subcutaneous pen (Humalog KwikPen (U-100) Insulin) See Protocol subcut ACHS #0 mL 09/20/22 lisinopril 5 mg tablet 2.5 mg PO DAILY BP #30 tabs 09/20/22 oxycodone 5 mg tablet 5 mg PO Q4H PRN PRN Pain Score 6-10 #0 tabs 09/20/22 Physical Exam Narrative Seen and examined Patient denies any acute issues. Heart rate and blood pressure is controlled. Discussed with the nursing staff Patient denies back pain. Patient has left lower extremity weakness for 3 to 4 months cannot give me a great history mostly because of dementia but seems from lumbar radiculopathy. Physical exam General: Awake, alert, oriented x3. Knows person, place and time. HEENT: Atraumatic, PERRLA, EOMI, Normocephalic Oral: Oral mucosa moist no Gingival or Mucosal Lesions/ Ulcerations Neck: Supple, No JVD, Negative Carotid Bruits Lungs: Air entry diminished in bilateral lung bases. No crepitation/rhonchi Cardiovascular: Regular rate, Regular Rhythm, Normal S1, Normal S2, No murmurs Abdomen: Bowel Sounds Present, Soft, Non Tender, Non-Distended : No renal angle tenderness. No suprapubic tenderness. Extremities: No edema, Capillary Refill Less than 3 Seconds Skin: No rashes, No breakdown Musculoskeletal: No Tenderness to Palpation of Joints or Extremities, muscle strength 3+/5 at left hip and knee joint. Rest 4+/5 at right knee and hip joints.. Spine: No acute tenderness present over lumbar paraspinal muscle/spinal process. Minimally invasive surgical scar Neurological: Cranial nerves II-XII grossly intact, DTR 2+/4, gross sensation equal and symmetrical in both lower extremity Psych/Mental Status: Flat affect mild amnesia and dementia ; does not remember recent events. Medical Records Data Medical Nutrition Assessment Dietitian: Malnutrition Criteria Met Start: 09/15/22 10:12 Freq: Status: Active Protocol: Document 09/19/22 09:45 (Rec: 09/19/22 09:46 [id number]) Nutrition Malnutrition Evidence of Malnutrition Exists No Clinical Problem Altered Nutrient-Related Laboratory Values Etiology - Signs/Symptoms - Status Resolved Problem Swallowing Difficulty Etiology - Signs/Symptoms - Status Resolved Problem Acute Disease or Injury Related Malnutrition Etiology related to inadequate energy intake and increased pain Signs/Symptoms as evidenced by PO intake meeting <75% of estimated nutritional needs and 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 Problem Recommendation Dietitian Recommendations/Changes will adjust diet to carbohydrate controlled w/ fortified foods; continue glucerna 120mL 4x/day w/ medpass for additional calories/protein if consumed Weight / BMI Weight Weight: 176 lb 2.389 oz Body Mass Index (BMI) 26.6 ABG / Lab / Microbiology Data Result Diagrams: 09/20/22 03:15 09/20/22 03:15 Laboratory: Laboratory Results - last 24 hr 09/19/22 08:01: POC Glucose 109 H 09/19/22 11:25: POC Glucose 211 H 09/19/22 17:14: POC Glucose 173 H 09/19/22 21:54: POC Glucose 269 H 09/20/22 03:15: WBC 13.0 H, RBC 3.14 L, Hgb 8.8 L, Hct 27.6 L, MCV 87.9, MCH 28.0, MCHC 31.9 L, RDW Std Deviation 47.4 H, RDW Coeff of Eliecer 14.9 H, Plt Count 308, MPV 8.7, Immature Gran % (Auto) 2.800 H, Neut % (Auto) 46.5 L, Lymph % (Auto) 28.1, Clark % (Auto) 7.2, Eos % (Auto) 14.9 H, Baso % (Auto) 0.5, Absolute Neuts (auto) 6.1, Absolute Lymphs (auto) 3.66, Nucleated RBC % 0.2, Anisocytosis 1+ 09/20/22 03:15: Sodium 137, Potassium 4.4, Chloride 105, Carbon Dioxide 26.0, Anion Gap 6, BUN 30 H, Creatinine 1.11, Estim Creat Clear Calc 51.35, Est GFR (MDRD) Af Amer 82, Est GFR (MDRD) Non-Af 68, BUN/Creatinine Ratio 27.0 H, Glucose 109 H, Calcium 8.0 L Microbiology: Microbiology 09/14/22 14:55 Blood Culture (Wb) - Anticubital Right Blood Culture - Final No growth in 5 days. 09/14/22 14:20 Blood Culture (Wb) - Pic Blood Culture - Final No growth in 5 days. 09/16/22 09:18 Blood Culture (Wb) - Anticubital Right Bacteria Detection (PCR) - Final Staphylococcus epidermidis 09/16/22 09:18 Blood Culture (Wb) - Anticubital Right Blood Culture - Preliminary Staphylococcus epidermidis 09/14/22 15:25 Urine Catheter - Catheter Urine Culture - Final Presumptive C albicans 09/16/22 09:27 Blood Culture (Wb) - Right Wrist Blood Culture - Preliminary No growth in 48 hours. 09/14/22 17:40 Nasal Secretion SARS-CoV-2 Antigen (Rapid) - Final Meaningful Use Info Meaningful Use Diagnoses (Choose all that apply): None applicable Discharge Plan Admission Admit Date/Time: 09/14/22 21:01 Primary Reason for Your Visit: Septic shock Attending Provider: Harris Sterling Primary Care Provider: Jorge Pepper Consulting Providers: Leonel Diaz ; Toy Will ; Michele Meek ; Jimmie Aquino ; Reji Machado ; Jeronimo Burch ; Rick Hillman ; Emmy Reese NP ; Clovis Priest Instructions Additional Instructions / Restrictions: Follow-up with [facility] spine surgery in 2-4 weeks. Discharge Orders/Prescriptions Prescriptions: New daptomycin 500 mg recon soln 500 mg IV Q24H Qty: 40 0RF Rx Instructions: administer over 30 mins dx: spine osteo stop date 10/29/22 weekly bmp, cbc, LFT, esr, and CK. Fax to [phone] meropenem 1 gram recon soln 1 g IV Q8H Qty: 40 0RF Rx Instructions: dx: spine osteo stop date 10/29/22 weekly bmp, cbc, LFT, esr, and CK. Fax to [phone] insulin lispro [Humalog KwikPen Insulin] 100 unit/mL Insulin Pen See Protocol subcut ACHS Qty: 0 0RF Protocol: 3. Sliding Scale Insulin Med Dosing Condition: 150-189 mg/dl = 1 unit Condition: 190-229 mg/dl = 2 units Condition: 230-269 mg/dl = 3 units Condition: 270-309 mg/dl = 4 units Condition: 310-349 mg/dl = 5 units Condition: 350-399 mg/dl = 6 units Condition: 400-449 mg/dl = 7 units Condition: Greater than 449 call physician Protocol Text: - Use for Total Daily Dose of Insulin 37-55 units - Obsese, infected, or steroid patients MEDIUM DOSING ALGORITHIM oxycodone 5 mg Tablet 5 mg PO Q4H PRN PRN (Reason: Pain Score 6-10) Qty: 0 0RF Continued metformin 500 mg tablet 500 mg PO BIDCM Label Comments: take 2 tablets by mouth twice a day atorvastatin 20 mg Tablet 20 mg PO QHS sennosides-docusate sodium 8.6-50 mg Tablet 2 tab PO DAILY tramadol 50 mg tablet 100 mg PO Q6H PRN (Reason: Pain (Scale Score 4-5)) Label Comments: take 1 tablet by mouth every 6 hours acetaminophen 500 mg Tablet 1,000 mg PO Q8H PRN (Reason: PAIN SCORE 1-3) tamsulosin 0.4 mg capsule 0.8 mg PO DAILY@1730 Label Comments: take 2 capsules by mouth once daily glimepiride 4 mg tablet 4 mg PO BREAKFAST lidocaine 5 % adhesive patch,medicated 1 patch topical DAILY Label Comments: apply 1 patch TO THE AFFECTED AREA DAILY. LEAVE ON FOR 12 HOURS AND THEN OFF FOR 12 HOURS. polyethylene glycol 3350 17 gram/dose Powder 17 g PO DAILY propranolol 20 mg tablet 20 mg PO BID Glucerna Liquid 120 ml PO 4X/DAY Xarelto 10 mg Tablet 10 mg PO DINNER hydrocortisone 2.5 % Cream 1 applic TOPICAL TID PRN (Reason: Rash) mirtazapine [Remeron] 15 mg Tablet 7.5 mg PO DAILY gabapentin 100 mg Capsule 100 mg PO TID menthol-zinc oxide [Calmoseptine] 0.44-20.6 % Ointment 1 applic TOPICAL BID@0600,1800 baclofen 5 mg Tablet 5 mg PO TID PRN (Reason: MUSCLE SPASMS) Changed lisinopril 5 mg tablet 2.5 mg PO DAILY Qty: 30 0RF Discontinued ceftriaxone 2 gram Recon Soln 2 g IV Q24H oxycodone 5 mg tablet 10 mg PO Q4H PRN PRN (Reason: PAIN SCORE 6-10) Referrals / Follow Up: Jeronimo Burch MD [Med Staff - Active Staff] - Within 1 Month Jorge Pepper MD [Primary Care Provider] - Michele Meek MD [Med Staff - Active Staff] - Within 1 Month (For lumbar discitis/osteomyelitis) Disposition Disposition (needs filled in before D/C Order can be placed): Residential Facility Charges/Coding Visit Charges Inpatient E&M: 40242 Disch Hosp >30min
[2022-09-21 03:45] LABS: Bedside Glucose 240 mg/dL (74-106)
== END 2022-09-20 12:06 | disposition skilled nursing facility (03) | DRG 871 ==
LOC: ED 18:22 → MS3 22:04 → ICU 09-16 15:15
PROVIDERS: Internal Medicine; Admitting Provider Hospitalist; Emergency Provider Emergency Medicine; PCP Internal Medicine; Visit Provider Internal Medicine
DX: A41.9 Sepsis, unspecified organism (principal); G06.1 Intraspinal abscess and granuloma; R65.21 Severe sepsis with septic shock; E43 Unspecified severe protein-calorie malnutrition; N17.9 Acute kidney failure, unspecified; G93.40 Encephalopathy, unspecified; M46.26 Osteomyelitis of vertebra, lumbar region; E11.40 Type 2 diabetes mellitus with diabetic neuropathy, unspecified; N18.31 Chronic kidney disease, stage 3a; E11.22 Type 2 diabetes mellitus with diabetic chronic kidney disease; F03.90 Unspecified dementia, unspecified severity, without behavioral disturbance, psychotic disturbance, mood disturbance, and anxiety; I25.10 Atherosclerotic heart disease of native coronary artery without angina pectoris; I12.9 Hypertensive chronic kidney disease with stage 1 through stage 4 chronic kidney disease, or unspecified chronic kidney disease; E78.5 Hyperlipidemia, unspecified; M46.46 Discitis, unspecified, lumbar region; Z66 Do not resuscitate; Z79.84 Long term (current) use of oral hypoglycemic drugs; Z79.01 Long term (current) use of anticoagulants; Z79.899 Other long term (current) drug therapy; N40.0 Benign prostatic hyperplasia without lower urinary tract symptoms; R82.81 Pyuria; Z68.25 Body mass index [BMI] 25.0-25.9, adult
CPT/HCPCS: 36415; 36600; 70450; 71045; 72158; 80048; 80053; 80202; 81001; 82140; 82803; 82962; 85025; 85610; 85730; 87040; 87077; 87086; 87088; 87149; 87426; 87811; 92526; 92610; 93005; 97110; 97163; 97166; 97530; 97535; 97802; 97803; 99283; A9575; J0878; J2185; J7030; J7040; J7050; A4216; J3490

== ENCOUNTER → 2022-09-14 | Outpatient (CLI) | payer MEDICARE, BC, SELFPAY ==
--- NOTE | 2022-09-14 09:15 | MRI_ITS ---
HISTORY: Lumbar osteomyelitis follow-up. TECHNIQUE: Multiplanar and multisequence MR images of the lumbar spine were obtained before and after the intravenous administration of 15 cc Dotarem. 171 images. COMPARISON: 09/02/2022, 08/20/2022. FINDINGS: VERTEBRAE: Extensive bone marrow edema in the L3 and L4 vertebral bodies with endplate erosions and interval mild loss of intervertebral body height. Abnormal fluid signal in the L3-4 intervertebral disc extruding into the ventral epidural soft tissues with a component measuring 9 x 13 mm on the sagittal images, previously 5 x 15 mm. Decompressive laminectomies of L2-3 through L5-S1 with susceptibility artifact at the L5-S1 level again noted from postoperative change. ALIGNMENT: Unchanged mild retrolisthesis of L3-4 and anterolisthesis of L4-5. CONUS: Normal morphology and position of the conus medullaris at L1. INTERVERTEBRAL DISCS: T12-L1: Mild posterior disc bulge osteophyte complex with facet arthropathy resulting in minimal narrowing of the thecal sac and bilateral foramina. L1-2: Mild posterior disc bulge osteophyte complex with facet arthropathy resulting in minimal narrowing of thecal sac and moderate bilateral foraminal narrowing. L2-3: Mild degenerative endplate change without significant posterior disc protrusion. Decompressive laminectomy without significant central canal stenosis. Facet arthropathy. Mild bilateral foraminal narrowing. L3-4: Severe central canal stenosis due to the left paracentral infected disc/epidural abscess and posterior postoperative change. Infected/liquefied disc now seen in the left paraspinal soft tissues. Increased size of infected disc/epidural abscess component in the left lateral recess with probable impingement of the left L4 nerve root. L4-5: Persistent severe central canal stenosis from a combination of degenerative change and posterior postoperative change. Left greater than right foraminal narrowing. L5-S1: Degenerative and postoperative change. Mild-moderate canal stenosis with right greater than left foraminal narrowing at again noted. SOFT TISSUES: Large amount of posterior subcutaneous and intramuscular edema, slightly decreased from prior. OTHER: Small left renal cyst. MRI/Spine Lumbar W/WO Contrast IMPRESSION: Persistent L3-4 osteomyelitis-discitis with infected disc material now extending into the left paraspinal soft tissues and persistent small ventral epidural abscess resulting in severe spinal canal stenosis in combination with posterior postoperative change. Electronically Signed: Anyi Fulton MD at 10:45 EST ,
== END | disposition home or self-care (01) ==
PROVIDERS: PCP Internal Medicine; Referring Provider Family Medicine Geriatric Medicine; Visit Provider Family Medicine Geriatric Medicine
DX: M46.26 Osteomyelitis of vertebra, lumbar region (principal)
CPT/HCPCS: 72158; A9575

== ENCOUNTER 2022-09-20 12:15 | Inpatient (IN) | payer MEDICARE, BC, SELFPAY ==
[2022-09-20 12:30] VITALS: RESP 16
[2022-09-20 12:56] VITALS: BP 139/70; PULSE 81; RESP 18; TEMP 36.2; O2SAT 98; BMI 26.7
[2022-09-20] MEDS: 0.9% Saline Lock 10 ML Syringe IV ×2 (15:00→21:27)
[2022-09-20] MEDS: Gabapentin 100 MG Capsule PO ×2 (15:05→21:30)
[2022-09-20 16:31] LABS: Bedside Glucose 303 mg/dL (74-106)
[2022-09-20] MEDS: Menthol/Lanolin/Calamine/Znox 113 GM Tube 1 APPLIC TOPICAL (17:38)
[2022-09-20] MEDS: Insulin Lispro 100 UNIT/ML INSULN.PEN SC (17:52)
--- NOTE | 2022-09-20 18:02 | NURSING ---
Pt Choked on Tamsulosin tablet and tablet seen in emesis. Dr. Lepe notified pt aspirated on pill. N.O. for Chest X-ray on 09/21/22 in AM.
[2022-09-20] MEDS: Propranolol 10 MG Tablet 20 MG PO (18:28)
[2022-09-20] MEDS: Tamsulosin HCl 0.4 MG Capsule 0.8 MG PO (18:28)
[2022-09-20] MEDS: metFORMIN HCl 500 MG Tablet PO (18:28)
[2022-09-20] MEDS: Rivaroxaban 10 MG Tablet PO (18:29)
--- NOTE | 2022-09-20 18:31 | NURSING ---
Pt choked during medication administration. Emesis noted unable to identify pills in emesis. Dr. Lepe updated possible aspiration and emesis of pills. N.O. for Chest X ray in am no other new orders at this time. Order read back.
--- NOTE | 2022-09-20 19:04 | HP.PCM_ITS ---
HPI - General General Date of Admission: 09/20/22 Date of Service: 09/20/22 Chief Complaint: Here for rehabilitation, strengthening, intravenous antibiotics. HPI Narrative 09/14/2022 CHANA WARE, is a 82 Male who presents with following. 09/14/2022 [facility] ED TCU resident lumbar epidural abscess status post debridement on IV antibiotics. Encephalopathy, intractable back pain, worsening lumbar infection on MRI. Original neurosurgeon declined further surgery at this time. 09/14/2022 Admit to Hospital. Zosyn IV, Vancomycin IV for lumbar infection. Levaquin IV for urinary tract infection, urine culture pending. 09/15/2022 ID recommended stopping Zosyn, continue Vancomycin, add Meropenem for lumbar infection. Urinary tract infection unlikely. 09/16/2022 More confused, Creatinine up to 2.53. Add blood cultures. 09/16/2022 Blood pressure dropped despite normal saline 2 liters IV bolus. Transfer to ICU on Levophed. ID recommended stopping Vancomycin due to acute kidney injury. 09/17/2022 Septic shock. Creatinine improved to 2.08. 09/17/2022 Dr. Meek recommended daptomycin, Meropenem. Urine culture growing > 100,000 GPC. Consult spine surgery. 09/18/2022 Urine culture growing yeast, remove sarmiento catheter. Encephalopathy resolved. 09/18/2022 Dr. Priest recommended no surgery for lumbar infection. 09/19/2022 Off Levophed. Blood cultures 1/2 MSSE. Urine culture kb albicans. Creatinine 1.29 baseline. 09/19/2022 Dr. Meek recommends 6 weeks IV Daptomycin, IV Meropenem, stop date 10/29/2022. 09/20/2022 Admit to TCU with debility, here for rehabilitation, strengthening, intravenous antibiotics, prior to discharge home with . [facility] Medical History (Updated 09/20/22 @ 19:[address] Maurice Lepe MD) Abscess in epidural space of lumbar spine Coronary artery disease Depression Diabetes mellitus Hypertension Lumbar discitis Osteomyelitis of lumbar spine Home Medications acetaminophen 500 mg tablet 1,000 mg PO Q8H PRN PAIN SCORE 1-3 09/02/22 [History Last Taken 09/14/22 05:57] atorvastatin 20 mg tablet 20 mg PO QHS CHOLESTEROL 09/02/22 [History Last Taken 09/13/22 21:10] glimepiride 4 mg tablet 4 mg PO BREAKFAST DM 09/02/22 [History Last Taken 09/02/22 07:47] lidocaine 5 % topical patch 1 patch topical DAILY PAIN 09/02/22 [History Last Taken 09/14/22 05:57] metformin 500 mg tablet 500 mg PO BIDCM DM 09/02/22 [History Last Taken 09/14/22 09:34] nut.tx.gluc.intol,lac-free,soy (Glucerna oral liquid) 120 ml PO 4X/DAY SUPPLEMENT 09/02/22 [History Last Taken 09/14/22 05:54] polyethylene glycol 3350 17 gram/dose oral powder 17 g PO DAILY CONSTIPATION 09/02/22 [History Last Taken 09/14/22 05:57] propranolol 20 mg tablet 20 mg PO BID HEART 09/02/22 [History Last Taken 09/14/22 05:59] rivaroxaban 10 mg tablet (Xarelto) 10 mg PO DINNER DVT Prophylaxis 09/02/22 [History Last Taken 09/01/22 16:23] sennosides 8.6 mg-docusate sodium 50 mg tablet 2 tab PO DAILY CONSTIPATION 09/02/22 [History Last Taken 09/14/22 05:59] tamsulosin 0.4 mg capsule 0.8 mg PO DAILY@1730 PROSTATE 09/02/22 [History Last Taken 09/13/22 18:31] tramadol 50 mg tablet 100 mg PO Q6H PRN Pain (Scale Score 4-5) 09/02/22 [History Last Taken 09/13/22 23:14] baclofen 5 mg tablet 5 mg PO TID PRN MUSCLE SPASMS 09/14/22 [History Last Taken 09/14/22 09:03] gabapentin 100 mg capsule 100 mg PO TID NERVE PAIN 09/14/22 [History Last Taken 09/14/22 12:57] hydrocortisone 2.5 % topical cream 1 applic topical TID PRN Rash 09/14/22 [History Last Taken 09/14/22 10:25] menthol 0.44 %-zinc oxide 20.6 % topical ointment (Calmoseptine) 1 applic topica l BID@0600,1800 Skin 09/14/22 [History Last Taken 09/14/22 05:55] mirtazapine 15 mg tablet (Remeron) 7.5 mg PO DAILY ANTIDEPRESSANTS 09/14/22 [History Last Taken 09/13/22 21:10] daptomycin 500 mg intravenous solution 500 mg IV Q24H Antibiotic 09/20/22 [History Last Taken Unknown] insulin lispro 100 unit/mL subcutaneous pen (Humalog KwikPen (U-100) Insulin) See Protocol subcut ACHS DM 09/20/22 [History Last Taken Unknown] lisinopril 5 mg tablet 2.5 mg PO DAILY BP #30 tabs 09/20/22 [Rx Last Taken 09/14/22 05:59] meropenem 1 gram intravenous solution 1 g IV Q8H Antibiotic 09/20/22 [History Last Taken Unknown] oxycodone 5 mg tablet 5 mg PO Q4H PRN PRN Pain Score 6-10 #0 tabs 09/20/22 [Rx Last Taken Unknown] Allergy/AdvReac Type Severity Reaction Status Date / Time vancomycin AdvReac Red Man Verified 09/17/22 09:17 Syndrome Family History Other Arthritis Congestive heart failure Diabetes Surgical History (Updated 09/20/22 @ 19:[address] Maurice Lepe MD) History of incision and drainage Status post epidural steroid injection Social History (Updated 09/20/22 @ 19:[address] Maurice Lepe MD) household members: spouse Smoking Status: Never smoker alcohol intake: never substance use type: does not use ROS Constitutional Constitutional: Denies chills, fever(s) or weight gain ENT HEENT: Denies headache(s), nasal congestion or nasal discharge Cardiovascular Cardiovascular: Denies chest pain or palpitations Respiratory/Chest Respiratory/Chest: Denies cough, excessive phlegm production or shortness of breath with exertion Gastrointestinal Gastrointestinal: Denies abdominal pain, nausea or vomiting Genitourinary Genitourinary: Denies dysuria Musculoskeletal Musculoskeletal: Denies joint pain or joint swelling Integumentary Integumentary: Denies rash or wounds Neurologic Neurologic: Denies focal weakness, numbness or tingling Psychiatric Psychiatric: Denies anxiety, auditory hallucinations, depression, homicidal ideation or suicidal ideation Vital Signs Vital Signs Vital Signs: 09/20/22 12:30 09/20/22 12:56 Temperature 97.1 F L Temperature Source Temporal Pulse Rate 81 Pulse Rhythm Regular Pulse Strength Normal (2+) Respiratory Rate 16 18 Respiratory Effort Normal Non-Labored Respiratory Depth Normal Respiratory Pattern Normal Blood Pressure 139/70 H Blood Pressure Mean 93 Blood Pressure Source Monitor Blood Pressure Position Semi-Fowlers Blood Pressure Location Right Arm Pulse Ox 98 Oxygen Delivery Method Room Air Room Air Weight Weight: 78.7 kg Body Mass Index (BMI) 26.7 Physical Exam Const alert General Appearance: cooperative HEENT normocephalic Eyes PERRL and EOMs intact bilaterally Neck supple, no JVD and no carotid bruits Resp normal respiratory effort, normal air movement and clear to auscultation bilaterally Cardio regular rate and regular rhythm GI normal to inspection, nondistended, normoactive bowel sounds, non-tender and non-distended Extremity normal capillary refill Extremity Narrative: Left upper extremity PICC line. General Extremity: Negative for edema Skin no rashes or lesions noted General Skin Exam: no breakdown Psych affect normal Appearance: appropriate Results Lab / Micro Data Labs: Laboratory Results - last 24 hr 09/20/22 16:10: POC Glucose 303 H Assessment & Plan Assessment/Plan (1) Debility: (2) Septic shock: (3) Encephalopathy: (4) Lumbar discitis: (5) Abscess in epidural space of lumbar spine: (6) Osteomyelitis of lumbar spine: (7) Acute kidney injury: (8) Coronary artery disease: (9) Depression: (10) Diabetes mellitus: (11) Hypertension: PLAN: Plan 82 year old male with below past medical history hospitalized for septic shock secondary to worsening lumbar discitis/osteomyelitis/epidural abscess, complicated by acute kidney injury, encephalopathy, admitted to TCU with debility, here for rehabilitation, strengthening, intravenous antibiotics, prior to discharge home with . * Debility - PT/OT. * Dysphagia - ST, resident aspirated pills day of admission, CXR in AM. * Pain - Tylenol 1000mg q6h prn pain (1-3), Tramadol 50mg q6h prn pain (4-5), Oxycodone 5mg q4h prn pain (6-10), Lidoderm patch 1 patch TD daily. * Bowel - Miralax 17gm daily, senna/colace 2 tablets bid, Dulcolax 10mg pr x 1 prn. * Adult immunization - Administer pneumonia vaccine, covid19 vaccine, flu vaccine as appropriate. * DVT prophylaxis - Xarelto 10mg daily thru 09/27/2022. * Hyperlipidemia - Atorvastatin 20mg qhs. * Muscle spasm - Baclofen 5mg tid prn. * Lumbar discitis/osteomyelitis/epidural abscess s/p debridement - Daptomycin 500mg IV q24 thru 10/30/2022, Meropenem 1gm IV q8 thru 10/29/2022, consult Dr. Alessandro day. * Neuropathic pain - Gabapentin 100mg tid. * Diabetes Mellitus II - Metformin 500mg bidcm, Glimepiride 4mg qam. * Rash - HC 2.5% cream topical tid prn. * Itching - Hydroxyzine 25mg 4x/day prn. * Hypertension - Propranolol 20mg bid, Lisinopril 2.5mg daily. * Skin irritation - Calmoseptine topical bid. * Appetite loss - Mirtazapine 7.5mg qhs, stable chronic fdc use, GDR not recommended. * BPH - Tamsulosin 0.8mg qpm.
[2022-09-20 19:05] VITALS: BP 144/63; PULSE 88
[2022-09-20] MEDS: hydrOXYzine PAM 25 MG Capsule PO (21:30)
[2022-09-20] MEDS: Atorvastatin Calcium 20 MG Tablet PO (21:31)
[2022-09-20 21:40] LABS: Bedside Glucose 323 mg/dL (74-106)
[2022-09-21] MEDS: 0.9% Saline Lock 10 ML Syringe IV (01:46)
--- NOTE | 2022-09-21 02:13 | NURSING ---
Pt c/o of feeling pressure in his abdomen. Abdomen slightly distended. Brief dry. Bladder scanned for 749 mL. Pt straight cathed for 625 mL. Pt tolerated well and states pressure in abdomen has been relieved.
[2022-09-21] MEDS: Lisinopril 2.5 MG Tablet PO (04:59)
[2022-09-21] MEDS: Gabapentin 100 MG Capsule PO ×3 (04:59→21:01)
[2022-09-21] MEDS: Propranolol 10 MG Tablet 20 MG PO ×2 (04:59→18:50)
[2022-09-21] MEDS: Menthol/Lanolin/Calamine/Znox 113 GM Tube 1 APPLIC TOPICAL ×2 (05:01→18:55)
[2022-09-21 05:52] LABS: Hematocrit 27.9 % (40-54); Mean Corp Hgb Conc 32.3 g/dL (32-36); Mean Corpuscular Hgb 28.7 pg (27.0-32.0); Mean Corpuscular Volume 88.9 fL (80-94); Mean Platelet Vol. 8.8 fl (6.2-12.0); POSITIVE DIFFERENTIAL YES; POSITIVE MORPHOLOGY YES; Platelet Count 328 K/mm3 (150-450); RBC Distribution Width SD 47.1 fl (35.1-43.9); Red Blood Count 3.14 M/mm3 (4.6-6.2); White Blood Count 14.9 K/mm3 (4.4-11.0)
--- NOTE | 2022-09-21 06:00 | RAD_ITS ---
STUDY: X-RAY CHEST REASON FOR EXAM: Male, 82 years old. Possible Aspiration TECHNIQUE: AP and lateral views of the chest. COMPARISON: Comparison is made with prior study of September 16, 2022. FINDINGS: The lungs are clear and expanded. There is no demonstrated pleural abnormality. Normal size heart. Normal mediastinum and ciarra. Normal visualized pulmonary arteries. There is atherosclerotic tortuosity of the aortic arch and descending thoracic aorta. There are diffuse degenerative changes of the visualized thoracic spine. Normal visualized ribs, clavicles, and shoulders. There is no demonstrated abnormality of the visualized soft tissue structures of the upper abdomen. RAD/Chest PA and Lateral IMPRESSION: No acute abnormalities. Electronically Signed: Kevin Armijo MD at 10:03 [facility] ,
[2022-09-21 06:14] LABS: Differential Indicated MANUAL DIFF
[2022-09-21 06:15] LABS: Anisocytosis 1+; Platelet Estimate ADEQUATE (ADEQ); Red Cell Morphology NORM C+C NORMAL (NORM C&C)
[2022-09-21 06:18] LABS: Absolute Neutrophil Count 8.2 X10^3/uL (2.0-7.7)
[2022-09-21 06:19] LABS: Absolute Lymphocyte Count 3.72 X10^3/uL (0.83-4.51); Eosinophil 10 % (0-5); Lymphocyte 25 % (19-41); Monocyte 5 % (0-10); Myelocyte 2 % (0-0); Neutrophil-Segmented 55 % (47-70); Promyelocyte 3 % (0-0); Total Cells Counted 100 (MANUAL DIFF)
[2022-09-21 06:26] LABS: Anion Gap 7 (5-15); BUN 28 mg/dL (7-18); BUN/Creat Ratio 21.9 RATIO (10-20); Chloride 104 mmol/L (98-107); Creatinine, Serum 1.28 mg/dL (0.70-1.30); EST Glomerular Filtration Rate 57 mL/min (>60); Est Glom Filt Rate - Afr Amer 69 mL/min (>60); Estimated Creatinine Clearance 43.03 ml/min; Glucose 260 mg/dL (74-106); Potassium 4.4 mmol/L (3.5-5.1); Sodium Level 137 mmol/L (136-145)
[2022-09-21 06:40] LABS: Bedside Glucose 222 mg/dL (74-106)
[2022-09-21] MEDS: metFORMIN HCl 500 MG Tablet PO ×2 (08:00→18:57)
[2022-09-21] MEDS: Glimepiride 4 MG Tablet PO (08:00)
[2022-09-21] MEDS: Lidocaine 5% Patch 1 PATCH TOPICAL (08:01)
--- NOTE | 2022-09-21 08:12 | NURSING ---
Pt was not hungry, had breakfast sitting bedside him on his table but not in front and not opened. Pt stated he was not hungry. This nurse offered to open tray and maybe once he saw and smelled breakfast he would want it. Pt decided he was hungry after all and began to eat. Therapy came in to room and got pt up to chair. Pt continued to eat breakfast.
[2022-09-21] MEDS: Tuberculin,Purif.prot.deriv. 50 TU/ML Vial 0.1 ML ID (09:34)
--- NOTE | 2022-09-21 11:33 | NURSING ---
At 1115 this morning, This RN bladder scanned pt and obtained 639cc. 2nd St. Cath for the day done and obtained 1000cc. PT states his will sometimes st. cath him at home.
[2022-09-21 11:55] LABS: Bedside Glucose 268 mg/dL (74-106)
[2022-09-21] MEDS: Glucerna Shake 120 ML LIQUID PO ×3 (12:01→20:56)
[2022-09-21] MEDS: Hydrocortisone 2.5% Crm 1 APPLIC TOPICAL (12:42)
--- NOTE | 2022-09-21 13:31 | NURSING ---
Senior Outside Sales Representative Note; Activity Asset: Leslie Gunderson is independent in his choice of daily activities. He prefers to Called Isaias. Isaias is not interested in group activities at this time, will continue to do social visit and encourage small group activities for social well-being. His will visit w/him daily and is aware of his wishes for activities. He will watch TV and read the paper independently.
[2022-09-21 14:00] VITALS: BP 110/54; PULSE 111; RESP 14; TEMP 36.2; O2SAT 96
--- NOTE | 2022-09-21 14:28 | PCM.PN.ID ---
Physical Exam Narrative Feeling ok, back pain improved, c/o worsening swelling in arms and legs. Const alert and no apparent distress General Appearance: cooperative Resp normal air movement and clear to auscultation bilaterally Cardio regular rate and regular rhythm GI soft to palpation, non-tender and non-distended Extremity General Extremity: edema Skin Skin Narrative: diffuse erythema on trunk and extremitities ID ID: Route of nutrition/ use of supplements: [] Nutritional Intake: [] IV Site: [] Bello Catheter: [] Assessment & Plan Assessment/Plan (1) Lumbar discitis: (2) Osteomyelitis of lumbar spine: PLAN: Had been on vanc/ceftriaxone for empiric coverage lumbar osteo/discitis/epidural abscess.? Imaging again shows worsening, associated with fever and septic shock.? Abx changed to dapto/guille 09/17.? BP improved, fever resolved, bcx neg so far.? Ucx with yeast.? Now transferred back to TCU. On 6 weeks dapto/guille, stop date 10/29/22 with weekly bmp, cbc, LFT, CK, and ESR. Will follow, thank you (3) Abscess in epidural space of lumbar spine:
--- NOTE | 2022-09-21 15:18 | CASEMGMT ---
Social Work SW met with pt and pt angélica to complete psychosocial assessment. Pt is sleepy, able to complete BIMS and then fell asleep. Assessment completed with pt . Pt will require IV ATB thru 10/29/22. SW spoke with regarding Medicare coverage of stay and encouraged her to speak to secondary regarding copay coverage. Pt is hopeful she will be able to care for pt at home at time of discharge. SW to continue to follow for d/c planning. KONRAD Thompson
[2022-09-21 17:30] LABS: Bedside Glucose 278 mg/dL (74-106)
[2022-09-21] MEDS: Tamsulosin HCl 0.4 MG Capsule 0.8 MG PO (18:51)
[2022-09-21] MEDS: Senna/Docusate Sodium 1 Tablet 2 TABLET PO (18:51)
[2022-09-21] MEDS: Rivaroxaban 10 MG Tablet PO (18:52)
[2022-09-21] MEDS: Atorvastatin Calcium 20 MG Tablet PO (21:00)
[2022-09-21] MEDS: Mirtazapine 15 MG Tablet 7.5 MG PO (21:01)
[2022-09-21 22:00] LABS: Bedside Glucose 240 mg/dL (74-106)
[2022-09-21 22:01] VITALS: PULSE 79; RESP 16; O2SAT 96
[2022-09-22] MEDS: Glucerna Shake 120 ML LIQUID PO ×4 (05:16→22:52)
[2022-09-22] MEDS: Menthol/Lanolin/Calamine/Znox 113 GM Tube 1 APPLIC TOPICAL ×2 (05:16→18:09)
[2022-09-22] MEDS: Propranolol 10 MG Tablet 20 MG PO ×2 (05:16→17:56)
[2022-09-22] MEDS: Gabapentin 100 MG Capsule PO ×3 (05:18→22:52)
[2022-09-22] MEDS: Lisinopril 2.5 MG Tablet PO (05:19)
[2022-09-22 06:36] LABS: Bedside Glucose 103 mg/dL (74-106)
[2022-09-22] MEDS: Glimepiride 4 MG Tablet PO (08:53)
[2022-09-22] MEDS: metFORMIN HCl 500 MG Tablet PO ×2 (08:53→17:55)
[2022-09-22] MEDS: Hydrocortisone 2.5% Crm 1 APPLIC TOPICAL ×2 (09:10→17:58)
[2022-09-22] MEDS: Lidocaine 5% Patch 1 PATCH TOPICAL (09:11)
--- NOTE | 2022-09-22 11:09 | NURSING ---
dr de la cruz updated on pt needing st cathed d/t retention. new order to insert sarmiento, add proscar and then consult dr Torres on Saturday.
[2022-09-22 11:35] LABS: Bedside Glucose 167 mg/dL (74-106)
--- NOTE | 2022-09-22 12:33 | NURSING ---
Bello catheter placed per Dr. Quinones order. PVR >1003. Catheter placed per sterile technique and patient tolerated well. 10ml placed in balloon and 1000ml of shantelle urine in catheter bag and continuing to flow at this time.
[2022-09-22 14:00] VITALS: BP 132/66; PULSE 96; RESP 16; TEMP 36.9; O2SAT 97
[2022-09-22 16:50] LABS: Bedside Glucose 139 mg/dL (74-106)
[2022-09-22] MEDS: hydrOXYzine PAM 25 MG Capsule PO (17:53)
[2022-09-22] MEDS: Tamsulosin HCl 0.4 MG Capsule 0.8 MG PO (17:55)
[2022-09-22] MEDS: Rivaroxaban 10 MG Tablet PO (17:55)
[2022-09-22 21:15] LABS: Bedside Glucose 157 mg/dL (74-106)
[2022-09-22] MEDS: Atorvastatin Calcium 20 MG Tablet PO (22:53)
[2022-09-22] MEDS: Mirtazapine 15 MG Tablet 7.5 MG PO (22:53)
[2022-09-23] MEDS: Gabapentin 100 MG Capsule PO ×3 (06:16→20:14)
[2022-09-23] MEDS: Glucerna Shake 120 ML LIQUID PO ×3 (06:16→20:12)
[2022-09-23] MEDS: Finasteride 5 MG Tablet PO (06:17)
[2022-09-23] MEDS: Lisinopril 2.5 MG Tablet PO (06:19)
[2022-09-23] MEDS: Propranolol 10 MG Tablet 20 MG PO ×2 (06:19→16:57)
[2022-09-23] MEDS: 0.9% Saline Lock 10 ML Syringe IV (06:19)
[2022-09-23 06:30] VITALS: BP 102/57; PULSE 75
[2022-09-23 06:31] LABS: Bedside Glucose 55 mg/dL (74-106)
[2022-09-23] MEDS: Menthol/Lanolin/Calamine/Znox 113 GM Tube 1 APPLIC TOPICAL (06:38)
[2022-09-23 07:00] LABS: Bedside Glucose 74 mg/dL (74-106)
[2022-09-23] MEDS: Glimepiride 4 MG Tablet PO (07:57)
[2022-09-23] MEDS: metFORMIN HCl 500 MG Tablet PO (07:57)
[2022-09-23] MEDS: Lidocaine 5% Patch 1 PATCH TOPICAL (10:56)
[2022-09-23 11:55] LABS: Bedside Glucose 45 mg/dL (74-106)
[2022-09-23 12:40] LABS: Bedside Glucose 86 mg/dL (74-106)
[2022-09-23 14:00] VITALS: BP 122/51; PULSE 53; RESP 16; TEMP 37; O2SAT 96
--- NOTE | 2022-09-23 16:42 | NURSING ---
Addendum entered by Eusebia Jarvis 09/23/22 16:47: chest xray in AM d/t possible aspiration of OJ. Original Note: dr de la cruz updated on pt low Blood sugars, new order to dc amaryl and chest xray in AM.
[2022-09-23 16:50] LABS: Bedside Glucose 69 mg/dL (74-106)
[2022-09-23] MEDS: Senna/Docusate Sodium 1 Tablet 2 TABLET PO (16:57)
[2022-09-23] MEDS: Rivaroxaban 10 MG Tablet PO (16:57)
[2022-09-23] MEDS: Tamsulosin HCl 0.4 MG Capsule 0.8 MG PO (16:58)
[2022-09-23 18:30] LABS: Bedside Glucose 79 mg/dL (74-106)
--- NOTE | 2022-09-23 18:43 | NURSING ---
Patient is presenting with increased confusion along with shivering which this nurse is told has been on going. Patient states that he does not have pain. Patient is afebrile and states that he feels fine. Blood pressure was rechecked 121/81 with pulse of 81. Blood glucose is currently 79.
--- NOTE | 2022-09-23 19:30 | NURSING ---
Patient yelling out help, immediately assessed, observed laying in bed, requesting bedpan. PICC observed self removed laying at side of patient, no bleeding observed to site. Patient confused per usual. Sterile dressing applied to PICC site per facility policy. PICC observed intact, 47cm in length. No distress observed or reported. Removed from bedpan per request. Repositioned for comfort. Bed in lowest position, personal items within reach. Call light in reach.
--- NOTE | 2022-09-23 20:08 | NURSING ---
Addendum entered by Sihraz Patterson 09/23/22 20:15: AccessRN contacted. nurse to call unit with ETA Original Note: Dr. Lepe contacted regarding patient self removal of PICC line, new order received to contact raw hide trimmer to replace PICC line when able
[2022-09-23] MEDS: Acetaminophen 500 MG Tablet 1000 MG PO (20:13)
[2022-09-23] MEDS: hydrOXYzine PAM 25 MG Capsule PO (20:13)
[2022-09-23] MEDS: Mirtazapine 15 MG Tablet 7.5 MG PO (20:15)
[2022-09-23] MEDS: Atorvastatin Calcium 20 MG Tablet PO (20:15)
[2022-09-23 20:45] VITALS: BP 141/64; PULSE 96; RESP 16; TEMP 38.5; O2SAT 93
--- NOTE | 2022-09-23 20:47 | NURSING ---
Paged Dr. Lepe w/ immediate return call. Updated on pt condition- refer to assessment. New orders received and read back to dc Glucophage, obtain blood cultures x2, CBC w/ diff, BMP, UA and C+S, two view CXR, rapid COVID, respiratory panel, D5 1/2 NS at 75ml/hr, and call if he becomes hypotensive.
[2022-09-23 20:56] LABS: Bedside Glucose 65 mg/dL (74-106)
[2022-09-23 21:26] LABS: Bedside Glucose 86 mg/dL (74-106)
[2022-09-23] MEDS: Dext 5%-0.45% NS 1,000 ML 75 ML IV (21:27)
--- NOTE | 2022-09-23 22:03 | RAD_ITS ---
INDICATION: Adventitious lung EXAMINATION/TECHNIQUE: X-RAY - XR Chest 2 Views COMPARISON: 09/21/2022 FINDINGS: LINES/DEVICES: None. LUNGS: Patchy bilateral airspace opacities without consolidation or pleural effusion. MEDIASTINUM AND CARDIOVASCULAR STRUCTURES: Cardiac silhouette not enlarged. Central airways and mediastinal contour are unremarkable. BONES AND SOFT TISSUES: Unremarkable. RAD/Chest PA and Lateral IMPRESSION: Patchy bilateral infiltrates suspicious for pneumonia. Recommend short-term follow-up to resolution. Electronically Signed: Yazan Conteh MD at 23:01 EDT ,
[2022-09-23 22:11] LABS: Hematocrit 23.2 % (40-54); Hemoglobin 7.1 g/dL (13.0-16.5); Mean Corp Hgb Conc 30.6 g/dL (32-36); Mean Corpuscular Hgb 28.1 pg (27.0-32.0); Mean Corpuscular Volume 91.7 fL (80-94); Mean Platelet Vol. 8.9 fl (6.2-12.0); POSITIVE COUNT YES; POSITIVE DIFFERENTIAL YES; POSITIVE MORPHOLOGY YES; Platelet Count 308 K/mm3 (150-450); RBC Distribution Width CV 15.7 % (11.6-14.6); RBC Distribution Width SD 50.2 fl (35.1-43.9); Red Blood Count 2.53 M/mm3 (4.6-6.2); White Blood Count 14.7 K/mm3 (4.4-11.0)
[2022-09-23 22:17] LABS: Differential Indicated MANUAL DIFF
[2022-09-23 22:33] LABS: Anion Gap 6 (5-15); BUN 19 mg/dL (7-18); BUN/Creat Ratio 15.7 RATIO (10-20); Calcium,Total 8.3 mg/dL (8.5-10.1); Chloride 104 mmol/L (98-107); Creatinine, Serum 1.21 mg/dL (0.70-1.30); EST Glomerular Filtration Rate 61 mL/min (>60); Est Glom Filt Rate - Afr Amer 74 mL/min (>60); Estimated Creatinine Clearance 45.52 ml/min; Glucose 77 mg/dL (74-106); Potassium 4.7 mmol/L (3.5-5.1); Sodium Level 138 mmol/L (136-145)
[2022-09-23 22:44] LABS: Eosinophil 14 % (0-5); Lymphocyte 26 % (19-41); Metamyelocyte 2 % (0-1); Monocyte 8 % (0-10); Myelocyte 1 % (0-0); Neutrophil-Band 3 % (0-5); Neutrophil-Segmented 46 % (47-70); Total Cells Counted 100 (MANUAL DIFF)
[2022-09-23 22:45] LABS: Absolute Neutrophil Count 7.2 X10^3/uL (2.0-7.7); Platelet Estimate ADEQUATE (ADEQ); Red Cell Morphology NORM C+C NORMAL (NORM C&C)
[2022-09-23 22:46] LABS: Absolute Lymphocyte Count 3.82 X10^3/uL (0.83-4.51)
[2022-09-23 22:55] LABS: Mucous, Urine 0 SEEN /hpf (<or=2+); Squamous Epithelial Cells - UA 0 SEEN /hpf (0-5)
[2022-09-23 22:57] LABS: Color, Urine Yellow (Yellow); Glucose, Dipstick Normal (Normal); Ketone-Dipstick Negative (Negative); Leukocyte Esterase-Dipstick 500 /ul (Negative); Nitrite-Dipstick Negative (Negative); Occult Blood-Urine 250 /ul (Negative); Protein-Dipstick 100 mg/dl (Negative); Specific Gravity, Urine 1.015 (1.002-1.030); Urine Bilirubin Dipstick Negative (Negative); Urine Clarity Clear (Clear); Urine Urobilinogen Normal (Normal)
[2022-09-23 23:10] LABS: Bacteria 1+ /hpf (None Seen); Red Blood Cells-Urine 10-25 SEEN /hpf (0-5); White Blood Cells >100 SEEN /hpf (0-5); Yeast-Urine 2+ /hpf (None Seen)
--- NOTE | 2022-09-24 | NURSING ---
Spouse called w/ an update after conversation earlier this shift re: change in condition. Updated on all new orders and assessment findings. Active listening and emotional support provided. Answered all questions asked. Updated pt dc'ed PICC line himself prior to shift change last night and that she will need to sign a consent to have a new PICC line inserted. Expresses appreciation for updates.
[2022-09-24 00:20] VITALS: BP 109/56; O2SAT 91
[2022-09-24 05:05] VITALS: BP 126/70; O2SAT 93
[2022-09-24] MEDS: Menthol/Lanolin/Calamine/Znox 113 GM Tube 1 APPLIC TOPICAL ×2 (05:12→18:18)
[2022-09-24] MEDS: Glucerna Shake 120 ML LIQUID PO ×4 (05:12→21:26)
[2022-09-24] MEDS: Lisinopril 2.5 MG Tablet PO (05:20)
[2022-09-24] MEDS: Finasteride 5 MG Tablet PO (05:20)
[2022-09-24] MEDS: Propranolol 10 MG Tablet 20 MG PO ×2 (05:20→18:16)
[2022-09-24] MEDS: Polyethylene Glycol 3350 17 GM PACKET PO (05:28)
[2022-09-24] MEDS: Senna/Docusate Sodium 1 Tablet 2 TABLET PO (05:29)
[2022-09-24] MEDS: Gabapentin 100 MG Capsule PO ×3 (05:29→21:21)
--- NOTE | 2022-09-24 08:23 | NURSING ---
Return phone call placed to spouse, Shwetha, this am. Given updates during the night. Updated on new order for blood transfusion x 2 units. Informed Hugo is on hold. Infectious disease to be contacted this am per dayshift nurse. She questions when to arrive to the unit to sign consent for the transfusions and PICC insertion. Encouraged her to come to unit as soon as she is able but the request is not urgent. Expresses appreciation for update.
[2022-09-24 09:02] LABS: Pathologist Review Reviewed
--- NOTE | 2022-09-24 10:48 | NURSING ---
data integrity consultant in at this time to place PICC line at this time. Obtained verbal consent from over phone. Patient more alert and was able to walk to bedside commode. Temp 98.2 temporally. Pt 98% on 1L O2. Placed on RA and SPO2 96%. Lungs clear at this time and patient denies cough.
[2022-09-24 11:45] LABS: Bedside Glucose 67 mg/dL (74-106)
--- NOTE | 2022-09-24 12:03 | NURSING ---
Pt down at blood transfusion. Pt has IV ATBs that were due at 1000 but PICC being placed and then patient going to for blood transfusion. Infusion clinic reports they will just give one unit and then send patient back up to receive IV ATBs and do second unit tomorrow morning.
[2022-09-24 14:00] VITALS: BP 137/71; PULSE 90; RESP 16; TEMP 36.6; O2SAT 97
[2022-09-24 14:05] LABS: Pathologist Review Reviewed
--- NOTE | 2022-09-24 14:08 | NURSING ---
BS 67 at lunch time. Glucerna and ensure administered before going to blood transfusion. To receive lunch when down to transfusion. Pt denies symptoms of hypoglycemia.
[2022-09-24] MEDS: 0.9% Saline Lock 10 ML Syringe IV (15:06)
[2022-09-24] MEDS: Lidocaine 5% Patch 1 PATCH TOPICAL (15:10)
[2022-09-24] MEDS: Dext 5%-0.45% NS 1,000 ML 75 ML IV ×2 (15:12→22:45)
[2022-09-24 16:41] LABS: Bedside Glucose 202 mg/dL (74-106)
[2022-09-24] MEDS: Rivaroxaban 10 MG Tablet PO (18:15)
[2022-09-24] MEDS: Tamsulosin HCl 0.4 MG Capsule 0.8 MG PO (18:16)
--- NOTE | 2022-09-24 18:45 | NURSING ---
Dr. Calderon office contacted regarding consult. They request order sent in and they will call to schedule appt. Order faxed to office.
[2022-09-24] MEDS: Atorvastatin Calcium 20 MG Tablet PO (21:22)
[2022-09-24] MEDS: Mirtazapine 15 MG Tablet 7.5 MG PO (21:22)
[2022-09-24 22:00] LABS: Bedside Glucose 298 mg/dL (74-106)
[2022-09-24] MEDS: oxyCODONE 5 MG Tablet PO (22:48)
[2022-09-25] MEDS: Glucerna Shake 120 ML LIQUID PO ×3 (05:12→20:40)
[2022-09-25] MEDS: Gabapentin 100 MG Capsule PO ×3 (05:12→20:41)
[2022-09-25] MEDS: Menthol/Lanolin/Calamine/Znox 113 GM Tube 1 APPLIC TOPICAL ×2 (05:12→17:06)
[2022-09-25] MEDS: Finasteride 5 MG Tablet PO (05:14)
[2022-09-25] MEDS: Propranolol 10 MG Tablet 20 MG PO ×2 (05:14→16:54)
[2022-09-25] MEDS: Lisinopril 2.5 MG Tablet PO (05:14)
[2022-09-25 05:15] VITALS: BP 130/65; PULSE 88
[2022-09-25 06:31] LABS: Bedside Glucose 281 mg/dL (74-106)
[2022-09-25] MEDS: Lidocaine 5% Patch 1 PATCH TOPICAL (09:42)
[2022-09-25] MEDS: Glimepiride 2 MG Tablet PO (09:49)
[2022-09-25] MEDS: metFORMIN HCl 500 MG Tablet PO ×2 (09:49→16:48)
[2022-09-25 11:20] LABS: Bedside Glucose 310 mg/dL (74-106)
--- NOTE | 2022-09-25 11:20 | PCM.PN.DRR ---
TCU RX Drug Regimen Review Subjective: TCU Admission. 82 YOM was on TCU for lumbar epidural abscess status post debridement on IV antibiotics. Started having increased back pain, worsened MRI and encephalopathy. Sent to ER and hospitalized for septic shock secondary to worsening lumbar discitis/osteomyelitis/epidural abscess, complicated by acute kidney injury, encephalopathy. Admitted to TCU with debility for strengthening, IV antibiotics and rehabilitation. Objective: Allergies vancomycin Adverse Reaction (Verified 09/24/22 12:05) Red Man Syndrome Current Medications Generic Name Dose Route Start Last Admin Trade Name Freq PRN Reason Stop Dose Admin Acetaminophen 1,000 mg 09/20/22 19:16 09/23/22 20:13 Acetaminophen 500 Mg Tablet PO 1,000 mg Q6H PRN PRN Administration Pain Score 1-3 Alteplase, Recombinant 2 mg 09/23/22 09:19 Alteplase 2 Mg/2 Ml Vial IV X1 PRN picc line patency Atorvastatin Calcium 20 mg 09/20/22 22:00 09/24/22 21:22 Atorvastatin Calcium 20 Mg Tablet PO 20 mg QHS RANDELL Administration Baclofen 5 mg 09/20/22 13:20 Baclofen 10 Mg Tablet PO TID PRN PRN MUSCLE SPASMS Bisacodyl 10 mg 09/20/22 13:24 Bisacodyl 10 Mg Suppository RC X1 PRN Constipation Calamine/Phenol 1 applic 09/20/22 18:00 09/25/22 05:12 Menthol/Lanolin/Calamine/Znox 113 Gm Tube TOPICAL 1 applic BID@0600,1800 RANDELL Administration Protocol Finasteride 5 mg 09/23/22 06:00 09/25/22 05:14 Finasteride 5 Mg Tablet PO 5 mg DAILY RANDELL Administration Gabapentin 100 mg 09/20/22 14:00 09/25/22 05:12 Gabapentin 100 Mg Capsule PO 100 mg TID RANDELL Administration Glimepiride 2 mg 09/25/22 08:00 09/25/22 09:49 Glimepiride 2 Mg Tablet PO 2 mg BREAKFAST RANDELL Administration Hydrocortisone 1 applic 09/20/22 13:05 09/22/22 17:58 Hydrocortisone 2.5% Crm TOPICAL 1 applic TID PRN PRN Administration Rash Protocol Hydroxyzine Pamoate 25 mg 09/20/22 17:22 09/23/22 20:13 Hydroxyzine Ana 25 Mg Capsule PO 25 mg 4X/DAY PRN PRN Administration ITCHING Meropenem 1 gm/ Sodium 120 mls @ 33 mls/hr 09/20/22 14:00 09/25/22 09:24 Chloride IV 10/29/22 17:39 Infused Q8 RANDELL Infusion Sodium Chloride 250 mls @ 15 mls/hr 09/20/22 14:31 09/24/22 15:05 IV 120 mls/hr .[id number] PRN Administration Saline Flush Daptomycin 500 mg/ Sodium 60 mls @ 120 mls/hr 09/21/22 10:00 09/25/22 10:11 Chloride IV 10/30/22 10:29 Infused Q24 RANDELL Infusion Dextrose/Sodium Chloride 1,000 mls @ 75 mls/hr 09/23/22 21:10 09/24/22 22:45 IV 75 mls/hr .[id number] RANDELL Administration Lactobacillus Acidophilus 1 tablet 09/23/22 18:00 09/25/22 05:14 Lactobacillus Acidophilus PO 1 tablet BID RANDELL Administration Lidocaine 1 patch 09/21/22 10:00 09/25/22 09:42 Lidocaine 5% Patch TOPICAL 1 patch 1000 RANDELL Administration Protocol Lisinopril 2.5 mg 09/21/22 06:00 09/25/22 05:14 Lisinopril 2.5 Mg Tablet PO 2.5 mg DAILY RANDELL Administration Metformin HCl 500 mg 09/25/22 08:00 09/25/22 09:49 Metformin Hcl 500 Mg Tablet PO 500 mg BIDCM RANDELL Administration Mirtazapine 7.5 mg 09/21/22 22:00 09/24/22 21:22 Mirtazapine 15 Mg Tablet PO 7.5 mg QHS RANDELL Administration Nutritional Formula (Lactose Free) 120 ml 09/21/22 12:00 09/25/22 05:12 Glucerna Shake 120 Ml Liquid PO 120 ml 4X/DAY RANDELL Administration Oxycodone HCl 5 mg 09/20/22 13:09 09/24/22 22:48 Oxycodone 5 Mg Tablet PO 5 mg Q4H PRN PRN Administration Pain Score 6-10 Polyethylene Glycol 17 gm 09/21/22 06:00 09/25/22 05:13 Polyethylene Glycol 3350 17 Gm Packet PO Not Given DAILY [facility] Propranolol HCl 20 mg 09/20/22 18:00 09/25/22 05:14 Propranolol 10 Mg Tablet PO 20 mg BID RANDELL Administration Rivaroxaban 10 mg 09/20/22 17:00 09/24/22 18:15 Rivaroxaban 10 Mg Tablet PO 09/27/22 23:59 10 mg DINNER RANDELL Administration Senna/Docusate Sodium 2 tablet 09/21/22 06:00 09/25/22 05:13 Senna/Docusate Sodium 1 Tablet PO Not Given BID [facility] Sodium Chloride 10 - 40 ml 09/20/22 14:31 09/24/22 15:06 0.9% Saline Lock 10 Ml Syringe IV 10 ml UD PRN Administration Closed End PICC Flush Tamsulosin HCl 0.8 mg 09/20/22 17:30 09/24/22 18:16 Tamsulosin Hcl 0.4 Mg Capsule PO 0.8 mg DAILY@1730 RANDELL Administration Tramadol HCl 50 mg 09/20/22 19:16 Tramadol 50 Mg Tablet PO Q6H PRN Pain (Scale Score 4-5) Tuberculin PPD 0.1 ml 09/28/22 10:00 Tuberculin,Purif.Prot.Deriv. 50 Tu/Ml Vial ID 09/28/22 10:01 X1 ONE Problem List (Last Reviewed 09/20/22 @ 19:[address] Maurice Lepe MD) Hypertension (Chronic) Diabetes mellitus (Acute) Depression (Acute) Coronary artery disease (Acute) Acute kidney injury (Acute) Encephalopathy (Acute) Debility (Acute) Septic shock (Acute) Osteomyelitis of lumbar spine (Acute) Lumbar discitis (Acute) Vital Signs Temp Pulse Resp BP Pulse Ox O2 Del Method O2 Flow Rate 97.9 F 88 16 130/65 H 97 Room Air 1 09/24/22 14:00 09/25/22 05:15 09/24/22 14:00 09/25/22 05:15 09/24/22 14:00 09/24/22 14:00 09/24/22 09:30 Oxygen Flow Rate (L/min) 1 Oxygen Delivery Method Room Air Weight: 78.7 kg Body Mass Index (BMI) 26.7 Sodium 138 mmol/L (136-145) 09/23/22 21:48 Potassium 4.7 mmol/L (3.5-5.1) 09/23/22 21:48 Chloride 104 mmol/L (98-107) 09/23/22 21:48 Carbon Dioxide 28.0 mmol/L (21.0-32.0) 09/23/22 21:48 Anion Gap 6 (5-15) 09/23/22 21:48 BUN 19 mg/dL (7-18) H 09/23/22 21:48 Creatinine 1.21 mg/dL (0.70-1.30) 09/23/22 21:48 Est GFR (MDRD) Af Amer 74 mL/min (>60) 09/23/22 21:48 Est GFR (MDRD) Non-Af 61 mL/min (>60) 09/23/22 21:48 BUN/Creatinine Ratio 15.7 RATIO (10-20) 09/23/22 21:48 Glucose 77 mg/dL (74-106) 09/23/22 21:48 Assessment/Plan: 1. Pain: acetaminophen 1000mg PO Q6H PRN pain 1-3, tramadol 50mg PO Q6H PRN pain 4-5, oxycodone 5mg PO Q4H PRN pain 6-10 and lidocaine 5% patch 1 patch topically daily. Resident has had 1 dose of acetaminophen for generalized pain of 3 and 1 dose of oxycodone for a pain score of 6 in the back. Please continue to monitor for increased pain, PRN usage, constipation, renal function, rash and respiratory depression. 2. Bowel: Miralax 17gm PO daily, senna/docusate 2T PO BID and bisacodyl 10mg RC x1 PRN constipation. Please consider changing Miralax and senna/docusate from scheduled to PRN constipation. Resident has refused 4/5 doses of Miralax and 6/9 doses of senna/docusate. Thanks. Please continue to monitor for constipation (last documented bowel movement 09/22) and PRN usage. No bisacodyl given. 3. Lumbar discitis/osteomyelitis/epidural abscess s/p debridement: daptomycin 500mg IV Q24 thru 10/30/22 and meropenem 1gm IV Q12 thru 10/29/22. Please continue to monitor for diarrhea, renal function (meropenem renally adjusted for CrCl of 45 mL/min) and muscle pain. Dr. Meek consulted, has CK ordered weekly since patient is on daptomycin and atorvastatin. 4. DVT prophylaxis: rivaroxaban 10mg PO daily thru 09/27/22. Please continue to monitor for S/S of bleeding/DVT and hemoglobin (last 7.1g/dL). 5. Hyperlipidemia: atorvastatin 20mg PO QHS. Please consider ordering a lipid panel as the resident does not have one in the chart. Thanks. Please continue to monitor LFTs (last 09/14/22) and muscle pain (also on daptomycin.) 6. Hypertension: propranolol 20mg PO BID and lisinopril 2.5mg PO daily. Please continue to monitor BP (last 130/65), HR (last 88), potassium (last 4.7mmol/L), renal function and cough. 7. Muscle spasm: baclofen 5mg PO TID PRN muscle spams. No doses given so far. Please continue to monitor for PRN usage and muscle spasms. 8. Diabetes mellitus: metformin 500mg PO BIDCM and glimepiride 2mg PO breakfast. Please consider ordering a hemoglobin A1c as this resident does not have one in the chart. Thanks. Please continue to monitor for diarrhea, GFR (>60mLs/min), S/S of hypoglycemia (glimepiride on BEERs list due to increased risk of prolonged hypoglycemia) and glucose (last 281 mg/dL). 9. BPH: tamsulosin 0.8mg PO daily and finasteride 5mg PO daily. Dr. Torres consulted. Please continue to monitor for S/S of BPH, BP and rash. Resident is also on hydroxyzine which can decrease urinary flow. 10. Itching: hydroxyzine 25mgmg PO 4x/day PRN itching. 3 doses given so far. Please continue to monitor for itching, PRN usage, anticholinergic side effects (BEERs criteria), dementia/delirium (BEERs criteria) and decreased urinary flow (BEERs criteria). Please consider stopping hydroxyzine as it should be avoided in men due to exacerbating BPH symptoms and decreasing urinary flow. Thanks. 11. Rash: hydrocortisone 2.5% cream 1 application topical TID PRN rash. 3 doses given. Please continue to monitor for improvement in rash and PRN usage. 12. Overall health/antibiotic use: lactobacillus acidophilus 1T PO BID. Please continue to monitor. Assessment/Plan for indications treated with psychotropic medications: 1. Appetite loss: mirtazapine 7.5mg PO QHS. Please see physician note regarding GDR. Per billboard installer note, appetite has improved. Please continue to monitor appetite, drowsiness and sodium (BEERs criteria medication). 2. Neuropathic pain: gabapentin 100mg PO TID. GDR not appropriate as this resident is using for neuropathic pain. Please continue to monitor for confusion, falls/fractures (BEERs medication) and renal function. Medical chart and medication regimen reviewed. The following medication irregularities or issues were identified: *1. Atorvastatin 20mg PO QHS. Please consider ordering a lipid panel as the resident does not have one in the chart. Thanks. *2. Metformin 500mg PO BIDCM and glimepiride 2mg PO breakfast. Please consider ordering a hemoglobin A1c as this resident does not have one in the chart. Thanks. *3. Hydroxyzine 25mgmg PO 4x/day PRN itching. Please consider stopping hydroxyzine (on BEERs list) as it should be avoided in men due to exacerbating BPH symptoms and decreasing urinary flow. Thanks. *4. Miralax 17gm PO daily and senna/docusate 2T PO BID. Please consider changing Miralax and senna/docusate from scheduled to PRN constipation. Resident has refused 4/5 doses of Miralax and 6/9 doses of senna/docusate. Thanks. Date of Note:: 09/25/22
[2022-09-25 14:00] VITALS: BP 129/81; PULSE 81; RESP 19; TEMP 36.8; O2SAT 96
[2022-09-25] MEDS: Dext 5%-0.45% NS 1,000 ML 75 ML IV (14:25)
[2022-09-25] MEDS: 0.9% Saline Lock 10 ML Syringe IV ×2 (14:26→16:48)
[2022-09-25] MEDS: Rivaroxaban 10 MG Tablet PO (16:49)
[2022-09-25] MEDS: Tamsulosin HCl 0.4 MG Capsule 0.8 MG PO (16:49)
[2022-09-25] MEDS: Senna/Docusate Sodium 1 Tablet 2 TABLET PO (16:54)
[2022-09-25] MEDS: Atorvastatin Calcium 20 MG Tablet PO (20:41)
[2022-09-25] MEDS: Mirtazapine 15 MG Tablet 7.5 MG PO (20:41)
[2022-09-25 21:41] LABS: Bedside Glucose 227 mg/dL (74-106)
[2022-09-26] MEDS: traMADol 50 MG Tablet PO ×2 (03:23→23:48)
[2022-09-26] MEDS: Glucerna Shake 120 ML LIQUID PO ×4 (05:44→20:26)
[2022-09-26] MEDS: Menthol/Lanolin/Calamine/Znox 113 GM Tube 1 APPLIC TOPICAL ×2 (05:44→18:24)
[2022-09-26] MEDS: Gabapentin 100 MG Capsule PO ×3 (05:45→20:26)
[2022-09-26] MEDS: Finasteride 5 MG Tablet PO (05:46)
[2022-09-26] MEDS: Propranolol 10 MG Tablet 20 MG PO ×2 (05:47→18:20)
[2022-09-26] MEDS: Senna/Docusate Sodium 1 Tablet 2 TABLET PO (05:47)
[2022-09-26] MEDS: Lisinopril 2.5 MG Tablet PO (05:47)
[2022-09-26 06:40] LABS: Bedside Glucose 108 mg/dL (74-106)
[2022-09-26] MEDS: metFORMIN HCl 500 MG Tablet PO ×2 (09:21→18:18)
[2022-09-26] MEDS: Glimepiride 2 MG Tablet PO (09:21)
[2022-09-26] MEDS: Lidocaine 5% Patch 1 PATCH TOPICAL (09:21)
--- NOTE | 2022-09-26 10:09 | NURSING ---
Dr. Plunkett at neurosurgery office contacted and given update. They would like to f/u with patient and appt made for 10/11 at 0900 and 12/06 at 1400.
[2022-09-26 11:36] LABS: Bedside Glucose 184 mg/dL (74-106)
[2022-09-26 14:00] VITALS: BP 125/68; PULSE 86; RESP 16; TEMP 37.2; O2SAT 93
--- NOTE | 2022-09-26 14:09 | CASEMGMT ---
Social Work IDT met with patient and for care plan meeting. Discussed patient's progress in PT/OT/ST/SN. Educated to Medicare benefit. Pt admitted this stay on day . is aware of copay coverage and is in communication with the secondary insurance as there is a cap in coverage for copays. Pt has IV ATB through 10/29 and the goal is for pt to return home with . is still stating she will be taking pt home. SW to coordinate needs at ID. Will continue to follow. Chelsy Gardner, SUPERVISOR METAL FURNITURE FABRICATION GENERAL FARMWORKER
--- NOTE | 2022-09-26 14:34 | CASEMGMT ---
Social Work BIMS (12/27) and PHQ-9 (05/10) complete for MDS assessment. SW attempted to explore positive responses but pt could not explain. Chelsy Gardner, HOEING ROW BOSS TARGET AIRCRAFT CONTROLLER
[2022-09-26 15:20] LABS: Hematocrit 33.8 % (40-54); Hemoglobin 10.8 g/dL (13.0-16.5)
[2022-09-26 16:41] LABS: Bedside Glucose 170 mg/dL (74-106)
[2022-09-26] MEDS: Rivaroxaban 10 MG Tablet PO (18:18)
[2022-09-26] MEDS: Tamsulosin HCl 0.4 MG Capsule 0.8 MG PO (18:19)
[2022-09-26] MEDS: 0.9% Saline Lock 10 ML Syringe IV (18:29)
[2022-09-26] MEDS: Atorvastatin Calcium 20 MG Tablet PO (20:26)
[2022-09-26] MEDS: Mirtazapine 15 MG Tablet 7.5 MG PO (20:27)
[2022-09-26 21:46] LABS: Bedside Glucose 179 mg/dL (74-106)
[2022-09-26] MEDS: hydrOXYzine PAM 25 MG Capsule PO ×2 (21:57)
[2022-09-26] MEDS: Acetaminophen 500 MG Tablet 1000 MG PO (23:49)
[2022-09-27] MEDS: Finasteride 5 MG Tablet PO (06:02)
[2022-09-27] MEDS: Menthol/Lanolin/Calamine/Znox 113 GM Tube 1 APPLIC TOPICAL ×2 (06:02→17:27)
[2022-09-27] MEDS: Gabapentin 100 MG Capsule PO (06:02)
[2022-09-27] MEDS: Lisinopril 2.5 MG Tablet PO (06:02)
[2022-09-27] MEDS: Propranolol 10 MG Tablet 20 MG PO ×2 (06:02→17:16)
[2022-09-27] MEDS: Glucerna Shake 120 ML LIQUID PO ×4 (06:06→20:31)
[2022-09-27 06:30] LABS: Bedside Glucose 62 mg/dL (74-106)
--- NOTE | 2022-09-27 07:24 | NURSING ---
patient restless and slightly confused again this shift. Able to answer orientation questions but coming out with off the wall comments. Pt ran low grad temp of 100.0, tylenol given and brought temp down to normal.
[2022-09-27] MEDS: 0.9% Saline Lock 10 ML Syringe IV (10:19)
[2022-09-27] MEDS: Lidocaine 5% Patch 1 PATCH TOPICAL (10:32)
[2022-09-27 11:26] LABS: Bedside Glucose 159 mg/dL (74-106)
[2022-09-27 14:00] VITALS: BP 96/51; PULSE 79; RESP 18; TEMP 37.4; O2SAT 94
[2022-09-27] MEDS: Tamsulosin HCl 0.4 MG Capsule 0.8 MG PO (17:16)
[2022-09-27] MEDS: Rivaroxaban 10 MG Tablet PO (17:16)
[2022-09-27 17:30] VITALS: BP 131/58; PULSE 87; TEMP 37.1
[2022-09-27] MEDS: oxyCODONE 5 MG Tablet PO (18:22)
[2022-09-27] MEDS: Mirtazapine 15 MG Tablet 7.5 MG PO (20:31)
[2022-09-27 21:20] VITALS: PULSE 94; RESP 20; O2SAT 94
[2022-09-27 21:50] LABS: Bedside Glucose 227 mg/dL (74-106)
--- NOTE | 2022-09-28 05:10 | NURSING ---
Upon entering pt's rm pt was at the foot of his bed and blood was noted on pt's gown and bed linens. PICC line catheter and drsg was seen hanging off the side rail of the bed (catheter measuring in 39cm w/ tip intact). Pt cleaned and new linens placed on bed. PICC site cleansed and DSD applied. Pt tolerated well.
--- NOTE | 2022-09-28 05:15 | NURSING ---
Dr. Lepe updated. Order to start peripheral IV for cont. IV medications. New PICC to be placed.
[2022-09-28 06:02] LABS: Absolute Lymphocyte Count 2.58 X10^3/uL (0.83-4.51); Absolute Neutrophil Count 5.8 X10^3/uL (2.0-7.7); Basophil% 0.7 % (0-1); Eosinophils% 22.4 % (0-5); Hematocrit 32.5 % (40-54); Hemoglobin 10.5 g/dL (13.0-16.5); Lymphocyte # 2.58 X10^3/ul (0.83-4.51); Lymphocyte % 19.2 % (19-41); Mean Corp Hgb Conc 32.3 g/dL (32-36); Mean Corpuscular Volume 89.8 fL (80-94); Mean Platelet Vol. 8.8 fl (6.2-12.0); Monocyte# 1.45 X10^3/uL; Monocyte% 10.8 % (0-10); NRBC Flagged by Analyzer 0 % (0-5); Neutrophil # 5.83 X10^3/uL (2.7-7.7); Neutrophil % 43.5 % (47-70); POSITIVE DIFFERENTIAL YES; Platelet Count 345 K/mm3 (150-450); RBC Distribution Width CV 15.1 % (11.6-14.6); RBC Distribution Width SD 49.6 fl (35.1-43.9); Red Blood Count 3.62 M/mm3 (4.6-6.2); White Blood Count 13.4 K/mm3 (4.4-11.0)
[2022-09-28] MEDS: oxyCODONE 5 MG Tablet PO ×3 (06:24→21:44)
[2022-09-28 06:25] VITALS: BP 107/49
[2022-09-28] MEDS: Senna/Docusate Sodium 1 Tablet 2 TABLET PO ×2 (06:26→17:44)
[2022-09-28] MEDS: Finasteride 5 MG Tablet PO (06:27)
[2022-09-28] MEDS: Menthol/Lanolin/Calamine/Znox 113 GM Tube 1 APPLIC TOPICAL ×2 (06:28→17:44)
[2022-09-28] MEDS: Glucerna Shake 120 ML LIQUID PO ×4 (06:28→21:34)
[2022-09-28 06:30] VITALS: BP 103/43; PULSE 80
[2022-09-28 06:35] LABS: AST(SGOT) 15 U/L (15-37); Alanine Aminotransfer ALT/SGPT 17 U/L (16-61); Alkaline Phosphatase 76 U/L (45-117); Anion Gap 4 (5-15); BUN 21 mg/dL (7-18); BUN/Creat Ratio 15.6 RATIO (10-20); Bilirubin, Direct 0.25 mg/dL (0.00-0.30); Calcium,Total 8.5 mg/dL (8.5-10.1); Chloride 103 mmol/L (98-107); Creatinine, Serum 1.35 mg/dL (0.70-1.30); EST Glomerular Filtration Rate 54 mL/min (>60); Est Glom Filt Rate - Afr Amer 65 mL/min (>60); Globulin 3.8 g/dL (2.2-4.2); Glucose 147 mg/dL (74-106); Potassium 4.6 mmol/L (3.5-5.1); Protein, Total 5.8 g/dL (6.4-8.2); Sodium Level 137 mmol/L (136-145)
[2022-09-28] MEDS: 0.9% Saline Lock 10 ML Syringe IV ×3 (06:36→17:45)
[2022-09-28 06:45] LABS: Bedside Glucose 133 mg/dL (74-106)
[2022-09-28 06:47] LABS: CPK Total, Creatine Kinase 41 U/L (39-308)
[2022-09-28 06:48] LABS: Differential Indicated SCAN CRITERIA MET
[2022-09-28 06:50] LABS: Erythrocyte Sedimentation Rate 34 mm/hr (0-20)
[2022-09-28] MEDS: metFORMIN HCl 500 MG Tablet PO ×2 (08:31→17:43)
[2022-09-28 08:59] VITALS: PULSE 82; RESP 16; O2SAT 93
--- NOTE | 2022-09-28 09:21 | NURSING ---
Echocardiographer Note; MDS for 09/27/2022 Complete
[2022-09-28] MEDS: Lidocaine 5% Patch 1 PATCH TOPICAL (10:17)
[2022-09-28] MEDS: Tuberculin,Purif.prot.deriv. 50 TU/ML Vial 0.1 ML ID (10:26)
--- NOTE | 2022-09-28 11:16 | NURSING ---
Kvng from stave cutter called and stated he would be here at noon to insert new PICC line
[2022-09-28 11:36] LABS: Bedside Glucose 168 mg/dL (74-106)
[2022-09-28 12:43] LABS: Pathologist Review Reviewed
--- NOTE | 2022-09-28 13:46 | ONC.PHONE ---
wound photo: chayo cleft/buttocks
[2022-09-28 14:00] VITALS: BP 134/74; PULSE 88; RESP 17; TEMP 36.8; O2SAT 92
--- NOTE | 2022-09-28 14:52 | NURSING ---
attempted to call Dr Torres regarding follow up appt needed since consulted, office closed. will try again on Saturday.
[2022-09-28] MEDS: Acetaminophen 500 MG Tablet 1000 MG PO ×2 (15:20→21:40)
[2022-09-28 16:36] LABS: Bedside Glucose 225 mg/dL (74-106)
[2022-09-28] MEDS: Tamsulosin HCl 0.4 MG Capsule 0.8 MG PO (17:43)
[2022-09-28] MEDS: Mirtazapine 15 MG Tablet 7.5 MG PO (21:34)
[2022-09-28 21:40] LABS: Bedside Glucose 194 mg/dL (74-106)
[2022-09-29 06:31] LABS: Bedside Glucose 116 mg/dL (74-106)
[2022-09-29] MEDS: 0.9% Saline Lock 10 ML Syringe IV ×3 (06:41→21:26)
[2022-09-29] MEDS: Finasteride 5 MG Tablet PO (06:42)
[2022-09-29] MEDS: Senna/Docusate Sodium 1 Tablet 2 TABLET PO ×2 (06:42→18:11)
[2022-09-29] MEDS: Polyethylene Glycol 3350 17 GM PACKET PO (06:42)
[2022-09-29] MEDS: Menthol/Lanolin/Calamine/Znox 113 GM Tube 1 APPLIC TOPICAL (06:42)
[2022-09-29] MEDS: Glucerna Shake 120 ML LIQUID PO ×3 (06:43→18:13)
[2022-09-29] MEDS: Acetaminophen 500 MG Tablet 1000 MG PO ×3 (07:00→21:15)
[2022-09-29] MEDS: metFORMIN HCl 500 MG Tablet PO ×2 (09:05→18:10)
[2022-09-29 10:00] VITALS: PULSE 103; RESP 18; O2SAT 94
[2022-09-29] MEDS: Lidocaine 5% Patch 1 PATCH TOPICAL (10:36)
[2022-09-29 11:30] LABS: Bedside Glucose 214 mg/dL (74-106)
[2022-09-29 14:00] VITALS: BP 173/89; PULSE 111; RESP 16; TEMP 36.9; O2SAT 95
[2022-09-29] MEDS: oxyCODONE 5 MG Tablet PO (17:48)
[2022-09-29 17:51] LABS: Bedside Glucose 188 mg/dL (74-106)
[2022-09-29] MEDS: Tamsulosin HCl 0.4 MG Capsule 0.8 MG PO (18:10)
--- NOTE | 2022-09-29 20:50 | NURSING ---
Spouse verbalized concerns w/ edema to left lower arm. SHAHEED wrap over PICC is tight. Removed SHAHEED wrap. Lt lower arm inferior from PICC insertion site to wrist w/ +2-3 pitting edema. B/L upper extremities elevated on soft pillows. Reassurance provided to spouse and pt. Spouse also speaks w/ this nurse outside room and verbalizes concerns w/ ST sessions and observes pt appears more depressed how the therapist conducts assessing the cognitive portion of the assessment. She is considering speaking w/ St about this. Emotional support and active listening provided.
[2022-09-29] MEDS: Mirtazapine 15 MG Tablet 7.5 MG PO (21:16)
[2022-09-29 21:51] LABS: Bedside Glucose 193 mg/dL (74-106)
[2022-09-30] MEDS: traMADol 50 MG Tablet PO ×2 (00:54→08:20)
[2022-09-30] MEDS: Glucerna Shake 120 ML LIQUID PO ×4 (06:16→20:51)
[2022-09-30] MEDS: Acetaminophen 500 MG Tablet 1000 MG PO ×3 (06:17→20:58)
[2022-09-30] MEDS: Senna/Docusate Sodium 1 Tablet 2 TABLET PO ×2 (06:18→17:39)
[2022-09-30] MEDS: Polyethylene Glycol 3350 17 GM PACKET PO (06:18)
[2022-09-30] MEDS: Finasteride 5 MG Tablet PO (06:19)
[2022-09-30] MEDS: 0.9% Saline Lock 10 ML Syringe IV (06:20)
[2022-09-30 06:31] LABS: Bedside Glucose 122 mg/dL (74-106)
[2022-09-30 06:40] VITALS: BP 137/68; PULSE 99; O2SAT 96
[2022-09-30] MEDS: metFORMIN HCl 500 MG Tablet PO ×2 (08:17→17:39)
[2022-09-30 10:03] VITALS: O2SAT 94
[2022-09-30] MEDS: Lidocaine 5% Patch 1 PATCH TOPICAL (10:26)
[2022-09-30 11:21] LABS: Bedside Glucose 145 mg/dL (74-106)
--- NOTE | 2022-09-30 12:41 | NURSING ---
Addendum entered by Jeanna Lee 09/30/22 13:16: Dr. Lepe updated on pt having Nausea/Vomiting. N.O. for Zofran 8mg PRN. Order read back. Noted PICC dressing coming off d/t pts arm being sweaty. Dressing changed to PICC and yeast was seen under dressing and around PICC site. Dr. Lepe updated N.O. for Fluconazole 150mg weekly for 4 weeks. Order read back. Will update pt and . Original Note: Pt sitting up in chair at chair side vomited after eating. Stated my stomach got upset and I vomited after eating pork. Pt given water and offered to give him cuca lee refused at this time. Pt requested some Jello. Pt tolerated jello and continues to sit in chair. Pt asking to go back to bed educated pt on importance of sitting up d/t vomiting and risk of aspiration. Pt agreed will continue to monitor pt.
[2022-09-30 14:00] VITALS: BP 153/69; PULSE 102; RESP 16; TEMP 36.5; O2SAT 92
[2022-09-30] MEDS: Ondansetron ODT 4 MG Tablet 8 MG PO (14:22)
[2022-09-30] MEDS: FLUCONAZOLE 150 MG TABLET PO (14:22)
[2022-09-30 17:06] LABS: Bedside Glucose 167 mg/dL (74-106)
[2022-09-30] MEDS: Tamsulosin HCl 0.4 MG Capsule 0.8 MG PO (17:39)
[2022-09-30] MEDS: Mirtazapine 15 MG Tablet 7.5 MG PO (20:58)
[2022-09-30 21:45] LABS: Bedside Glucose 201 mg/dL (74-106)
[2022-09-30 22:00] VITALS: PULSE 107; RESP 18; O2SAT 97
[2022-10-01] MEDS: Senna/Docusate Sodium 1 Tablet 2 TABLET PO ×2 (05:54→17:10)
[2022-10-01] MEDS: Polyethylene Glycol 3350 17 GM PACKET PO (05:55)
[2022-10-01] MEDS: Finasteride 5 MG Tablet PO (05:55)
[2022-10-01] MEDS: 0.9% Saline Lock 10 ML Syringe IV ×3 (05:59→21:14)
[2022-10-01] MEDS: Acetaminophen 500 MG Tablet 1000 MG PO ×3 (06:06→21:09)
[2022-10-01 06:34] VITALS: O2SAT 96
[2022-10-01 07:10] LABS: Bedside Glucose 118 mg/dL (74-106)
[2022-10-01] MEDS: metFORMIN HCl 500 MG Tablet PO ×2 (08:38→17:09)
[2022-10-01 10:00] VITALS: PULSE 101; RESP 16; O2SAT 95
[2022-10-01] MEDS: Lidocaine 5% Patch 1 PATCH TOPICAL (10:03)
--- NOTE | 2022-10-01 10:39 | NURSING ---
Spoke with Dr Hunter's office regarding consult order, More stated she would have him come see pt for consult.
--- NOTE | 2022-10-01 10:51 | NURSING ---
Offered Covid booster and provided education about the vaccine. Patient wanted to ask his . This RN called and spoke to , she refused at this time but wants to think about it.
[2022-10-01 11:31] LABS: Bedside Glucose 188 mg/dL (74-106)
[2022-10-01] MEDS: Glucerna Shake 120 ML LIQUID PO ×3 (11:59→21:09)
--- NOTE | 2022-10-01 12:47 | PCM.CONS.GEN ---
Assessment & Plan Assessment/Plan (1) Diabetes mellitus: (2) Chronic toe pain, left foot: (3) Chronic toe pain, right foot: (4) Tinea unguium: PLAN: Plan Patient seen and evaluated I reviewed the patient's case. The etiology of thickened toenails was briefly reviewed including fungus or microtrauma. The nails 1, 2, 3, 4, and 5 of the left and right foot were debrided with a nail nipper after verbal consent was obtained without incident. The nails 1, 2, 3, 4, and 5 of the left and right foot were debrided in length and thickness to reduce pressure, potential fungal load, and to prevent wound formation. The patient tolerated this well. The patient elects proceed with palliative care only at this time with the nails and will hold off on further work-up. To follow-up with the [facility] if needed in the future for this condition. To wear protective and supportive shoes. To check feet daily and keep webspaces clean and dry. To moisturize skin to preserve skin integrity was also recommended. Podiatry signing off. Jr. Fior RenteriaPRick. [facility] [place] [phone] HPI Consult Data Date of Consult: 10/01/22 HPI Narrative Reason for Consultation: Elongated toenails 1, 2, 3, 4, 5 of the left and right foot HPI Narrative: CHANA WARE, is a 82 M who presents to [facility] with past medical history hospitalized for septic shock secondary to worsening lumbar discitis/osteomyelitis/epidural abscess, complicated by acute kidney injury, encephalopathy, admitted to TCU with debility, here for rehabilitation, strengthening, intravenous antibiotics, prior to discharge home with . Patient is diabetic. He was consulted to podiatry for debridement of elongated, thickened nails 1, 2, 3, 4, and 5 of the left and right foot. [facility] Medical History (Updated 10/01/22 @ 12:[address] Frank Hansen, DPKamilah) Abscess in epidural space of lumbar spine Coronary artery disease Depression Diabetes mellitus Hypertension Lumbar discitis Osteomyelitis of lumbar spine Home Medications acetaminophen 500 mg tablet 1,000 mg PO Q8H PRN PAIN SCORE 1-3 09/02/22 [History Last Taken 09/14/22 05:57] atorvastatin 20 mg tablet 20 mg PO QHS CHOLESTEROL 09/02/22 [History Last Taken 09/13/22 21:10] glimepiride 4 mg tablet 4 mg PO BREAKFAST DM 09/02/22 [History Last Taken 09/02/22 07:47] lidocaine 5 % topical patch 1 patch topical DAILY PAIN 09/02/22 [History Last Taken 09/14/22 05:57] metformin 500 mg tablet 500 mg PO BIDCM DM 09/02/22 [History Last Taken 09/14/22 09:34] nut.tx.gluc.intol,lac-free,soy (Glucerna oral liquid) 120 ml PO 4X/DAY SUPPLEMENT 09/02/22 [History Last Taken 09/14/22 05:54] polyethylene glycol 3350 17 gram/dose oral powder 17 g PO DAILY CONSTIPATION 09/02/22 [History Last Taken 09/14/22 05:57] propranolol 20 mg tablet 20 mg PO BID HEART 09/02/22 [History Last Taken 09/14/22 05:59] rivaroxaban 10 mg tablet (Xarelto) 10 mg PO DINNER DVT Prophylaxis 09/02/22 [History Last Taken 09/01/22 16:23] sennosides 8.6 mg-docusate sodium 50 mg tablet 2 tab PO DAILY CONSTIPATION 09/02/22 [History Last Taken 09/14/22 05:59] tamsulosin 0.4 mg capsule 0.8 mg PO DAILY@1730 PROSTATE 09/02/22 [History Last Taken 09/13/22 18:31] tramadol 50 mg tablet 100 mg PO Q6H PRN Pain (Scale Score 4-5) 09/02/22 [History Last Taken 09/13/22 23:14] baclofen 5 mg tablet 5 mg PO TID PRN MUSCLE SPASMS 09/14/22 [History Last Taken 09/14/22 09:03] gabapentin 100 mg capsule 100 mg PO TID NERVE PAIN 09/14/22 [History Last Taken 09/14/22 12:57] hydrocortisone 2.5 % topical cream 1 applic topical TID PRN Rash 09/14/22 [History Last Taken 09/14/22 10:25] menthol 0.44 %-zinc oxide 20.6 % topical ointment (Calmoseptine) 1 applic topical BID@0600,1800 Skin 09/14/22 [History Last Taken 09/14/22 05:55] mirtazapine 15 mg tablet (Remeron) 7.5 mg PO DAILY ANTIDEPRESSANTS 09/14/22 [History Last Taken 09/13/22 21:10] daptomycin 500 mg intravenous solution 500 mg IV Q24H Antibiotic 09/20/22 [History Last Taken Unknown] insulin lispro 100 unit/mL subcutaneous pen (Humalog KwikPen (U-100) Insulin) See Protocol subcut ACHS DM 09/20/22 [History Last Taken Unknown] lisinopril 5 mg tablet 2.5 mg PO DAILY BP #30 tabs 09/20/22 [Rx Last Taken 09/14/22 05:59] meropenem 1 gram intravenous solution 1 g IV Q8H Antibiotic 09/20/22 [History Last Taken Unknown] oxycodone 5 mg tablet 5 mg PO Q4H PRN PRN Pain Score 6-10 #0 tabs 09/20/22 [Rx Last Taken Unknown] Allergy/AdvReac Type Severity Reaction Status Date / Time vancomycin AdvReac Red Man Verified 09/24/22 12:05 Syndrome Family History Other Arthritis Congestive heart failure Diabetes Surgical History (Updated 09/20/22 @ 19:[address] Maurice Lepe MD) History of incision and drainage Status post epidural steroid injection Social History (Updated 09/20/22 @ 19:[address] Maurice Lepe MD) household members: spouse Smoking Status: Never smoker alcohol intake: never substance use type: does not use ROS Constitutional Constitutional: Denies body ache(s), chills or fever(s) Eyes Eyes: Denies blindness, diplopia or eye pain ENT HEENT: Denies dizziness, dysphagia, nasal congestion or sore throat Cardiovascular Cardiovascular: Denies chest pain, claudication or palpitations Respiratory/Chest Respiratory/Chest: Denies cough, dyspnea or hemoptysis Gastrointestinal Gastrointestinal: Denies abdominal pain, constipation, diarrhea, hematochezia, nausea or vomiting Genitourinary Genitourinary: Denies dysuria, urinary frequency, urinary hesitancy, urinary incontinence or urinary urgency Musculoskeletal Musculoskeletal: Denies joint pain, joint stiffness or joint swelling Integumentary Integumentary: Denies lesions, pruritus or rash Neurologic Neurologic: Denies dizziness, numbness or seizures Psychiatric Psychiatric: Reports depression Endocrine Endocrinology: Denies cold intolerance, heat intolerance, polydipsia or polyphagia Allergic/Immunologic Allergic/Immunologic: Denies asthma Physical Exam Const alert, oriented x3 and no apparent distress General Appearance: cooperative HEENT normocephalic Eyes General Eye: normal appearance of both eyes Neck General: normal visual inspection Lymph Lymphatic: no lymphadenopathy noted and no lymphedema noted Resp normal respiratory effort Cardio regular rate and regular rhythm Extremity normal capillary refill, no joint enlargement, no calf tenderness and no pedal edema Extremity Narrative: DP and PT pulses are palpable with adequate capillary fill time. Muscle strength to the lower extremity is 5 out of 5 age-appropriate Nails 1, 2, 3, 4 and 5 of the left and right foot are noted to be thickened, discolored yellow, crumbly, elongated, incurvated with noted pain to palpation. Skin no rashes or lesions noted, skin turgor normal and no jaundice Neuro moves all extremities Neuro Narrative: Decreased sensation to the left and right foot Lab / Micro Data Result Diagrams: 09/28/22 05:52 09/28/22 05:52 Labs: Laboratory Results - last 24 hr 09/30/22 16:42: POC Glucose 167 H 09/30/22 21:23: POC Glucose 201 H 10/01/22 06:09: POC Glucose 118 H 10/01/22 11:05: POC Glucose 188 H
[2022-10-01 13:52] VITALS: BP 132/66; PULSE 104; RESP 16; TEMP 36.6; O2SAT 97
--- NOTE | 2022-10-01 14:02 | WOUNDNOTE ---
wound photo: buttocks
[2022-10-01 16:41] LABS: Bedside Glucose 246 mg/dL (74-106)
[2022-10-01] MEDS: Tamsulosin HCl 0.4 MG Capsule 0.8 MG PO (17:09)
[2022-10-01] MEDS: Menthol/Lanolin/Calamine/Znox 113 GM Tube 1 APPLIC TOPICAL (17:10)
[2022-10-01] MEDS: Mirtazapine 15 MG Tablet 7.5 MG PO (21:10)
[2022-10-01 22:01] LABS: Bedside Glucose 172 mg/dL (74-106)
[2022-10-02] MEDS: 0.9% Saline Lock 10 ML Syringe IV ×3 (04:55→17:19)
[2022-10-02] MEDS: Menthol/Lanolin/Calamine/Znox 113 GM Tube 1 APPLIC TOPICAL ×2 (04:56→17:26)
[2022-10-02] MEDS: Senna/Docusate Sodium 1 Tablet 2 TABLET PO (05:04)
[2022-10-02] MEDS: Glucerna Shake 120 ML LIQUID PO ×4 (05:04→20:38)
[2022-10-02] MEDS: Polyethylene Glycol 3350 17 GM PACKET PO (05:04)
[2022-10-02] MEDS: Finasteride 5 MG Tablet PO (05:04)
[2022-10-02] MEDS: Acetaminophen 500 MG Tablet 1000 MG PO ×3 (05:07→20:37)
[2022-10-02 06:30] LABS: Bedside Glucose 148 mg/dL (74-106)
[2022-10-02 07:18] VITALS: O2SAT 94
[2022-10-02] MEDS: Lidocaine 5% Patch 1 PATCH TOPICAL (08:39)
[2022-10-02] MEDS: metFORMIN HCl 500 MG Tablet PO ×2 (08:39→17:27)
[2022-10-02 10:00] VITALS: PULSE 92; RESP 18
[2022-10-02 11:22] VITALS: BMI 24.3
[2022-10-02 11:51] LABS: Bedside Glucose 194 mg/dL (74-106)
[2022-10-02 14:00] VITALS: BP 129/64; PULSE 102; RESP 16; TEMP 36.4; O2SAT 96
[2022-10-02 17:15] LABS: Bedside Glucose 139 mg/dL (74-106)
[2022-10-02] MEDS: Tamsulosin HCl 0.4 MG Capsule 0.8 MG PO (17:27)
[2022-10-02] MEDS: Mirtazapine 15 MG Tablet 7.5 MG PO (20:37)
[2022-10-02 21:10] LABS: Bedside Glucose 152 mg/dL (74-106)
[2022-10-03] MEDS: Acetaminophen 500 MG Tablet 1000 MG PO ×3 (05:07→21:20)
[2022-10-03] MEDS: Finasteride 5 MG Tablet PO (05:07)
[2022-10-03] MEDS: Polyethylene Glycol 3350 17 GM PACKET PO (05:07)
[2022-10-03] MEDS: Senna/Docusate Sodium 1 Tablet 2 TABLET PO ×2 (05:07→16:55)
[2022-10-03] MEDS: Menthol/Lanolin/Calamine/Znox 113 GM Tube 1 APPLIC TOPICAL ×2 (05:08→16:54)
[2022-10-03] MEDS: Glucerna Shake 120 ML LIQUID PO ×4 (05:10→21:20)
[2022-10-03 06:41] LABS: Bedside Glucose 163 mg/dL (74-106)
[2022-10-03] MEDS: metFORMIN HCl 500 MG Tablet PO ×2 (08:30→16:53)
[2022-10-03 08:35] VITALS: PULSE 112; O2SAT 97
--- NOTE | 2022-10-03 08:58 | MDS.RN ---
Information for the mds was obtained from review of the clinical records, interview of resident, staff, and direct observation of resident's care.
[2022-10-03] MEDS: 0.9% Saline Lock 10 ML Syringe IV ×2 (10:08→16:56)
[2022-10-03] MEDS: Lidocaine 5% Patch 1 PATCH TOPICAL (10:09)
[2022-10-03 11:31] LABS: Bedside Glucose 184 mg/dL (74-106)
[2022-10-03 14:00] VITALS: BP 118/70; PULSE 115; RESP 16; TEMP 37; O2SAT 96
[2022-10-03] MEDS: Tamsulosin HCl 0.4 MG Capsule 0.8 MG PO (16:53)
[2022-10-03 17:01] LABS: Bedside Glucose 211 mg/dL (74-106)
[2022-10-03] MEDS: Hydrocortisone 2.5% Crm 1 APPLIC TOPICAL (17:07)
--- NOTE | 2022-10-03 18:28 | NURSING ---
called stating that pt feeling down, like giving up. 1:1 emotional support given. pt tearful. noted that between 6-7p pt with increased restlessness and confusion. Tonight pt not confused, but really wants to go home and get better. bed in low position, reiterated that he is getting better with the change in IV ATB's. pt was able to lay supine which has not happened since admit d/t pain. denies pain. call light in reach. will continue to monitor.
[2022-10-03] MEDS: Mirtazapine 15 MG Tablet 7.5 MG PO (21:20)
[2022-10-03 21:35] LABS: Bedside Glucose 149 mg/dL (74-106)
[2022-10-04 05:12] VITALS: BP 158/70; PULSE 60; RESP 17; TEMP 36.6; O2SAT 95
[2022-10-04] MEDS: 0.9% Saline Lock 10 ML Syringe IV ×2 (05:13→09:08)
[2022-10-04] MEDS: Senna/Docusate Sodium 1 Tablet 2 TABLET PO ×2 (05:17→17:19)
[2022-10-04] MEDS: Finasteride 5 MG Tablet PO (05:18)
[2022-10-04] MEDS: Polyethylene Glycol 3350 17 GM PACKET PO (05:18)
[2022-10-04] MEDS: Menthol/Lanolin/Calamine/Znox 113 GM Tube 1 APPLIC TOPICAL ×2 (05:19→17:19)
[2022-10-04] MEDS: Glucerna Shake 120 ML LIQUID PO ×4 (05:19→21:45)
[2022-10-04] MEDS: Acetaminophen 500 MG Tablet 1000 MG PO ×3 (05:22→21:50)
[2022-10-04 06:45] LABS: Bedside Glucose 159 mg/dL (74-106)
[2022-10-04] MEDS: Lidocaine 5% Patch 1 PATCH TOPICAL (08:48)
[2022-10-04] MEDS: metFORMIN HCl 500 MG Tablet PO ×2 (08:48→17:19)
[2022-10-04 10:00] VITALS: PULSE 107; RESP 18; O2SAT 96
[2022-10-04 11:30] LABS: Bedside Glucose 261 mg/dL (74-106)
[2022-10-04 14:00] VITALS: BP 120/62; PULSE 99; RESP 20; TEMP 36.6; O2SAT 95
[2022-10-04] MEDS: traMADol 50 MG Tablet PO (14:58)
[2022-10-04 16:16] LABS: Bedside Glucose 219 mg/dL (74-106)
[2022-10-04] MEDS: Tamsulosin HCl 0.4 MG Capsule 0.8 MG PO (17:19)
[2022-10-04] MEDS: Mirtazapine 15 MG Tablet 7.5 MG PO (21:45)
[2022-10-04 21:51] LABS: Bedside Glucose 166 mg/dL (74-106)
[2022-10-05] MEDS: oxyCODONE 5 MG Tablet PO (01:39)
[2022-10-05] MEDS: Menthol/Lanolin/Calamine/Znox 113 GM Tube 1 APPLIC TOPICAL ×2 (05:25→17:07)
[2022-10-05] MEDS: Finasteride 5 MG Tablet PO (05:25)
[2022-10-05] MEDS: Glucerna Shake 120 ML LIQUID PO ×4 (05:25→21:41)
[2022-10-05] MEDS: Senna/Docusate Sodium 1 Tablet 2 TABLET PO (05:26)
[2022-10-05] MEDS: Polyethylene Glycol 3350 17 GM PACKET PO (05:26)
[2022-10-05] MEDS: 0.9% Saline Lock 10 ML Syringe IV ×3 (05:28→21:35)
[2022-10-05] MEDS: Acetaminophen 500 MG Tablet 1000 MG PO ×3 (05:31→21:42)
[2022-10-05 05:55] LABS: Absolute Lymphocyte Count 2.12 X10^3/uL (0.83-4.51); Absolute Neutrophil Count 3.5 X10^3/uL (2.0-7.7); Basophil# 0.08 X10^3/uL; Eosinophil# 1.09 X10^3/uL; Eosinophils% 14.2 % (0-5); Hematocrit 31.7 % (40-54); Lymphocyte # 2.12 X10^3/ul (0.83-4.51); Lymphocyte % 27.6 % (19-41); Mean Corp Hgb Conc 31.5 g/dL (32-36); Mean Corpuscular Hgb 28.4 pg (27.0-32.0); Mean Corpuscular Volume 90.1 fL (80-94); Mean Platelet Vol. 8.7 fl (6.2-12.0); Monocyte# 0.79 X10^3/uL; Monocyte% 10.3 % (0-10); NRBC Flagged by Analyzer 0 % (0-5); Neutrophil # 3.54 X10^3/uL (2.7-7.7); Neutrophil % 46.1 % (47-70); Platelet Count 334 K/mm3 (150-450); RBC Distribution Width SD 49.3 fl (35.1-43.9); Red Blood Count 3.52 M/mm3 (4.6-6.2); White Blood Count 7.7 K/mm3 (4.4-11.0)
[2022-10-05 06:20] LABS: Anion Gap 6 (5-15); BUN 23 mg/dL (7-18); BUN/Creat Ratio 21.5 RATIO (10-20); Calcium,Total 8.6 mg/dL (8.5-10.1); Chloride 104 mmol/L (98-107); Creatinine, Serum 1.07 mg/dL (0.70-1.30); EST Glomerular Filtration Rate 71 mL/min (>60); Est Glom Filt Rate - Afr Amer 85 mL/min (>60); Estimated Creatinine Clearance 51.48 ml/min; Glucose 144 mg/dL (74-106); Potassium 4.2 mmol/L (3.5-5.1); Sodium Level 137 mmol/L (136-145)
[2022-10-05 06:40] LABS: Bedside Glucose 172 mg/dL (74-106)
[2022-10-05] MEDS: metFORMIN HCl 500 MG Tablet PO ×2 (08:40→17:06)
[2022-10-05] MEDS: Lidocaine 5% Patch 1 PATCH TOPICAL (08:40)
[2022-10-05 11:20] LABS: Bedside Glucose 161 mg/dL (74-106)
[2022-10-05 15:44] VITALS: BP 121/63; PULSE 55; RESP 16; TEMP 36.8
[2022-10-05 16:25] LABS: Bedside Glucose 210 mg/dL (74-106)
[2022-10-05] MEDS: Tamsulosin HCl 0.4 MG Capsule 0.8 MG PO (17:05)
[2022-10-05] MEDS: Mirtazapine 15 MG Tablet 7.5 MG PO (21:36)
[2022-10-05 21:48] VITALS: PULSE 94; RESP 16; O2SAT 96
[2022-10-05 22:00] LABS: Bedside Glucose 122 mg/dL (74-106)
[2022-10-06] MEDS: Glucerna Shake 120 ML LIQUID PO ×4 (04:56→22:07)
[2022-10-06] MEDS: Finasteride 5 MG Tablet PO (04:57)
[2022-10-06] MEDS: Polyethylene Glycol 3350 17 GM PACKET PO (04:57)
[2022-10-06] MEDS: Acetaminophen 500 MG Tablet 1000 MG PO ×3 (04:58→22:11)
[2022-10-06] MEDS: Senna/Docusate Sodium 1 Tablet 2 TABLET PO (04:58)
[2022-10-06] MEDS: Menthol/Lanolin/Calamine/Znox 113 GM Tube 1 APPLIC TOPICAL (04:58)
[2022-10-06] MEDS: 0.9% Saline Lock 10 ML Syringe IV ×3 (05:01→18:21)
[2022-10-06 06:25] LABS: Bedside Glucose 155 mg/dL (74-106)
[2022-10-06] MEDS: metFORMIN HCl 500 MG Tablet PO ×2 (08:58→18:22)
[2022-10-06] MEDS: Lidocaine 5% Patch 1 PATCH TOPICAL (10:13)
[2022-10-06 11:16] LABS: Bedside Glucose 199 mg/dL (74-106)
[2022-10-06 14:00] VITALS: BP 124/62; PULSE 64; RESP 16; TEMP 36.7; O2SAT 96
[2022-10-06 16:30] LABS: Bedside Glucose 183 mg/dL (74-106)
[2022-10-06] MEDS: Tamsulosin HCl 0.4 MG Capsule 0.8 MG PO (18:22)
[2022-10-06 21:36] LABS: Bedside Glucose 187 mg/dL (74-106)
[2022-10-06] MEDS: Mirtazapine 15 MG Tablet 7.5 MG PO (22:07)
--- NOTE | 2022-10-06 23:45 | NURSING ---
This nurse was questioned about the order for the daily PICC dressing change as insertion site is covered by a dressing. Removed opsite, folded 4x4 over insertion site, and statlock removed w/ alcohol swab. Small amount of dried dark green/brown drainage x 2 sites that are pink and moist- one to each site of insertion site. Insertion site without redness, warmth, swelling, or drainage. Using sterile technique, insertion site and surrounding tissues cleansed w/ chloraprep and allowed to dry, skin prep applied to skin and allowed to dry prior to applying statlock, one folded sterile 2x2 drain sponge applied to each wound noted above, and secured w/ tegaderm CHG. Pt tolerated well. Will continue to monitor.
[2022-10-07] MEDS: Glucerna Shake 120 ML LIQUID PO ×4 (05:12→19:52)
[2022-10-07] MEDS: Menthol/Lanolin/Calamine/Znox 113 GM Tube 1 APPLIC TOPICAL ×2 (05:13→17:28)
[2022-10-07] MEDS: Finasteride 5 MG Tablet PO (05:13)
[2022-10-07] MEDS: Polyethylene Glycol 3350 17 GM PACKET PO (05:13)
[2022-10-07] MEDS: Senna/Docusate Sodium 1 Tablet 2 TABLET PO ×2 (05:14→17:27)
[2022-10-07] MEDS: Acetaminophen 500 MG Tablet 1000 MG PO ×3 (05:25→19:55)
[2022-10-07 06:36] LABS: Bedside Glucose 195 mg/dL (74-106)
[2022-10-07] MEDS: metFORMIN HCl 500 MG Tablet PO ×2 (08:14→17:27)
[2022-10-07] MEDS: 0.9% Saline Lock 10 ML Syringe IV (10:36)
--- NOTE | 2022-10-07 11:03 | PCM.CONS.U ---
Assessment & Plan Assessment/Plan (1) BPH loc w urin obs/LUTS: PLAN: has sarmiento, I would recommend we do another voiding trial if can't void or if PVR > 400cc then replace sarmiento at this point can follow up as an outpatient. call with questions. HPI Consult Data Date of Consult: 10/07/22 HPI Narrative Reason for Consultation: urinary retention HPI Narrative: CHANA WARE, is a 82 M who presents to rehab, h/o complicated hospital course in retetion of urine, has not been able to void, on flomax. Strength improving. has not had sarmiento removed for a while, we could not another voiding trial to see if he can void on his own. [facility] Medical History Abscess in epidural space of lumbar spine Coronary artery disease Depression Diabetes mellitus Hypertension Lumbar discitis Osteomyelitis of lumbar spine Home Medications acetaminophen 500 mg tablet 1,000 mg PO Q8H PRN PAIN SCORE 1-3 09/02/22 [History Last Taken 09/14/22 05:57] atorvastatin 20 mg tablet 20 mg PO QHS CHOLESTEROL 09/02/22 [History Last Taken 09/13/22 21:10] glimepiride 4 mg tablet 4 mg PO BREAKFAST DM 09/02/22 [History Last Taken 09/02/22 07:47] lidocaine 5 % topical patch 1 patch topical DAILY PAIN 09/02/22 [History Last Taken 09/14/22 05:57] metformin 500 mg tablet 500 mg PO BIDCM DM 09/02/22 [History Last Taken 09/14/22 09:34] nut.tx.gluc.intol,lac-free,soy (Glucerna oral liquid) 120 ml PO 4X/DAY SUPPLEMENT 09/02/22 [History Last Taken 09/14/22 05:54] polyethylene glycol 3350 17 gram/dose oral powder 17 g PO DAILY CONSTIPATION 09/02/22 [History Last Taken 09/14/22 05:57] propranolol 20 mg tablet 20 mg PO BID HEART 09/02/22 [History Last Taken 09/14/22 05:59] rivaroxaban 10 mg tablet (Xarelto) 10 mg PO DINNER DVT Prophylaxis 09/02/22 [History Last Taken 09/01/22 16:23] sennosides 8.6 mg-docusate sodium 50 mg tablet 2 tab PO DAILY CONSTIPATION 09/02/22 [History Last Taken 09/14/22 05:59] tamsulosin 0.4 mg capsule 0.8 mg PO DAILY@1730 PROSTATE 09/02/22 [History Last Taken 09/13/22 18:31] tramadol 50 mg tablet 100 mg PO Q6H PRN Pain (Scale Score 4-5) 09/02/22 [History Last Taken 09/13/22 23:14] baclofen 5 mg tablet 5 mg PO TID PRN MUSCLE SPASMS 09/14/22 [History Last Taken 09/14/22 09:03] gabapentin 100 mg capsule 100 mg PO TID NERVE PAIN 09/14/22 [History Last Taken 09/14/22 12:57] hydrocortisone 2.5 % topical cream 1 applic topical TID PRN Rash 09/14/22 [History Last Taken 09/14/22 10:25] menthol 0.44 %-zinc oxide 20.6 % topical ointment (Calmoseptine) 1 applic topical BID@0600,1800 Skin 09/14/22 [History Last Taken 09/14/22 05:55] mirtazapine 15 mg tablet (Remeron) 7.5 mg PO DAILY ANTIDEPRESSANTS 09/14/22 [History Last Taken 09/13/22 21:10] daptomycin 500 mg intravenous solution 500 mg IV Q24H Antibiotic 09/20/22 [History Last Taken Unknown] insulin lispro 100 unit/mL subcutaneous pen (Humalog KwikPen (U-100) Insulin) See Protocol subcut ACHS DM 09/20/22 [History Last Taken Unknown] lisinopril 5 mg tablet 2.5 mg PO DAILY BP #30 tabs 09/20/22 [Rx Last Taken 09/14/22 05:59] meropenem 1 gram intravenous solution 1 g IV Q8H Antibiotic 09/20/22 [History Last Taken Unknown] oxycodone 5 mg tablet 5 mg PO Q4H PRN PRN Pain Score 6-10 #0 tabs 09/20/22 [Rx Last Taken Unknown] Allergy/AdvReac Type Severity Reaction Status Date / Time vancomycin AdvReac Red Man Verified 09/24/22 12:05 Syndrome Family History Other Arthritis Congestive heart failure Diabetes Surgical History History of incision and drainage Status post epidural steroid injection Social History household members: spouse Smoking Status: Never smoker alcohol intake: never substance use type: does not use Physical Exam Const alert and oriented x3 General Appearance: cooperative HEENT normocephalic, head/scalp atraumatic, EAC's normal and TM's normal bilaterally Eyes PERRL and EOMs intact bilaterally Pupil: sluggish Neck no lymphadenopathy, supple and no JVD General: trachea midline Lymph Lymphatic: no lymphadenopathy noted, lymphedema and lymphadenopathy Resp normal respiratory effort, normal air movement and clear to auscultation bilaterally Cardio regular rate, regular rhythm and peripheral pulses 2+ throughout GI soft to palpation, non-tender and non-distended Extremity normal capillary refill and no clubbing, cyanosis or edema General Extremity: no tenderness to palpation of joints or extremities Skin no rashes or lesions noted General Skin Exam: turgor normal Lesions: no lesions Rashes: no rashes Neuro CN's II-XII intact bilaterally Speech: speech normal Motor Exam: strength 5/5 throughout; Negative for general weakness Psych thought process normal, cooperative and affect normal Appearance: appropriate Lab / Micro Data Result Diagrams: 10/05/22 05:15 10/05/22 05:15 Labs: Laboratory Results - last 24 hr 10/06/22 10:54: POC Glucose 199 H 10/06/22 16:09: POC Glucose 183 H 10/06/22 21:17: POC Glucose 187 H 10/07/22 06:02: POC Glucose 195 H
[2022-10-07 11:21] LABS: Bedside Glucose 207 mg/dL (74-106)
[2022-10-07] MEDS: Lidocaine 5% Patch 1 PATCH TOPICAL (11:57)
[2022-10-07 13:45] VITALS: BP 157/89; PULSE 112; RESP 18; TEMP 37.1; O2SAT 95
[2022-10-07] MEDS: FLUCONAZOLE 150 MG TABLET PO (14:32)
[2022-10-07 16:35] LABS: Bedside Glucose 263 mg/dL (74-106)
[2022-10-07] MEDS: Tamsulosin HCl 0.4 MG Capsule 0.8 MG PO (17:27)
[2022-10-07] MEDS: Mirtazapine 15 MG Tablet 7.5 MG PO (19:52)
[2022-10-07 20:05] VITALS: PULSE 98; RESP 16; O2SAT 96
[2022-10-07 21:35] LABS: Bedside Glucose 232 mg/dL (74-106)
[2022-10-08] MEDS: Finasteride 5 MG Tablet PO (04:51)
[2022-10-08] MEDS: Menthol/Lanolin/Calamine/Znox 113 GM Tube 1 APPLIC TOPICAL ×2 (04:51→18:29)
[2022-10-08] MEDS: Senna/Docusate Sodium 1 Tablet 2 TABLET PO ×2 (04:51→18:28)
[2022-10-08] MEDS: Acetaminophen 500 MG Tablet 1000 MG PO ×3 (04:51→21:54)
[2022-10-08] MEDS: Polyethylene Glycol 3350 17 GM PACKET PO (04:51)
[2022-10-08] MEDS: Glucerna Shake 120 ML LIQUID PO ×4 (04:53→21:54)
[2022-10-08 06:31] LABS: Bedside Glucose 192 mg/dL (74-106)
[2022-10-08] MEDS: metFORMIN HCl 500 MG Tablet PO ×2 (07:55→18:27)
[2022-10-08 09:25] VITALS: PULSE 106; O2SAT 93
[2022-10-08] MEDS: Lidocaine 5% Patch 1 PATCH TOPICAL (10:50)
[2022-10-08] MEDS: 0.9% Saline Lock 10 ML Syringe IV (10:50)
[2022-10-08 11:50] LABS: Bedside Glucose 254 mg/dL (74-106)
[2022-10-08 14:00] VITALS: BP 118/68; PULSE 104; RESP 18; TEMP 37; O2SAT 97
[2022-10-08 14:49] LABS: AST(SGOT) 11 U/L (15-37); Alanine Aminotransfer ALT/SGPT 18 U/L (16-61); Albumin, Serum 2.4 g/dL (3.2-5.0); Alkaline Phosphatase 84 U/L (45-117); Bilirubin, Direct 0.14 mg/dL (0.00-0.30); CPK Total, Creatine Kinase 32 U/L (39-308); Globulin 4.5 g/dL (2.2-4.2); Protein, Total 6.9 g/dL (6.4-8.2)
--- NOTE | 2022-10-08 15:18 | NURSING ---
Pt and pt's update of employee testing positive for Covid 19.
--- NOTE | 2022-10-08 15:33 | PCM.PN.ID ---
Physical Exam Narrative Feeling better, back pain improved, no fever Const alert and no apparent distress General Appearance: cooperative Resp normal air movement and clear to auscultation bilaterally Cardio regular rate and regular rhythm GI soft to palpation, non-tender and non-distended Skin no rashes or lesions noted ID ID: Route of nutrition/ use of supplements: [] Nutritional Intake: [] IV Site: [] Ebllo Catheter: [] Assessment & Plan Assessment/Plan (1) Lumbar discitis: (2) Osteomyelitis of lumbar spine: PLAN: Had been on vanc/ceftriaxone for empiric coverage lumbar osteo/discitis/epidural abscess.? Imaging again shows worsening, associated with fever and septic shock.? Abx changed to dapto/guille /.? BP improved, fever resolved, bcx neg so far.? Ucx with yeast.? Now transferred back to TCU. On 6 weeks dapto/guille, stop date 10/29/22 with weekly bmp, cbc, LFT, CK, and ESR. Feeling much better. Will follow, thank you (3) Abscess in epidural space of lumbar spine:
[2022-10-08 16:46] LABS: Bedside Glucose 225 mg/dL (74-106)
[2022-10-08] MEDS: Tamsulosin HCl 0.4 MG Capsule 0.8 MG PO (18:27)
[2022-10-08] MEDS: Mirtazapine 15 MG Tablet 7.5 MG PO (21:51)
[2022-10-08 22:20] LABS: Bedside Glucose 207 mg/dL (74-106)
[2022-10-09] MEDS: Glucerna Shake 120 ML LIQUID PO ×4 (05:01→22:24)
[2022-10-09] MEDS: Acetaminophen 500 MG Tablet 1000 MG PO ×3 (05:02→22:25)
[2022-10-09] MEDS: Senna/Docusate Sodium 1 Tablet 2 TABLET PO ×2 (05:02→17:31)
[2022-10-09] MEDS: Finasteride 5 MG Tablet PO (05:02)
[2022-10-09] MEDS: Polyethylene Glycol 3350 17 GM PACKET PO (05:02)
[2022-10-09] MEDS: Menthol/Lanolin/Calamine/Znox 113 GM Tube 1 APPLIC TOPICAL ×2 (05:02→17:31)
[2022-10-09 06:36] LABS: Bedside Glucose 192 mg/dL (74-106)
[2022-10-09] MEDS: metFORMIN HCl 500 MG Tablet PO ×2 (09:14→17:31)
[2022-10-09] MEDS: Lidocaine 5% Patch 1 PATCH TOPICAL (10:20)
[2022-10-09 11:16] LABS: Bedside Glucose 278 mg/dL (74-106)
[2022-10-09 14:00] VITALS: BP 124/77; PULSE 113; RESP 18; TEMP 36.8; O2SAT 97
[2022-10-09 16:20] LABS: Bedside Glucose 223 mg/dL (74-106)
--- NOTE | 2022-10-09 16:25 | CHAPLAIN ---
Type of Pastoral Visit _x__ Initial Visit ___ Follow-up Visit ___ On-call Visit ___ General Patient Visit ___ Spiritual Assessment ___ Family Conference ___ Bereavement ___ Rapid Response ___ Code Blue ___ Other (describe below) Pastoral Care Referral From ___ Patient _x__ Family ___ Nurse ___ Physician ___ Batteryman ___ Ethologist ___ Other (describe below) Sacrament/Intervention _x__ Active listening ___ Anointing ___ Yarsanism ___ Bereavement ___ Communion _x__ Bettina exploration ___ ___ Life review ___ Prayer ___ Reconciliation ___ Sacrament of Sick _x__ Supportive presence ___ Wedding ___ Other (describe below) Pastoral Comments of this patient approached this whale fisherman in the hallway by room of pt; had questions about churches in the area; acknowledges desire to connect to a new religion and find spiritual care support there; also gives information about patient for future offers of support to him; pt is currently being assisted by staff; states that pt is a new Anabaptist and would benefit from spiritual care support; this whale fisherman will make a follow up call on another day
[2022-10-09] MEDS: Tamsulosin HCl 0.4 MG Capsule 0.8 MG PO (17:31)
[2022-10-09 21:46] LABS: Bedside Glucose 189 mg/dL (74-106)
[2022-10-09] MEDS: Mirtazapine 15 MG Tablet 7.5 MG PO (22:25)
[2022-10-10] MEDS: Senna/Docusate Sodium 1 Tablet 2 TABLET PO (06:28)
[2022-10-10] MEDS: Finasteride 5 MG Tablet PO (06:29)
[2022-10-10] MEDS: Polyethylene Glycol 3350 17 GM PACKET PO (06:29)
[2022-10-10] MEDS: Glucerna Shake 120 ML LIQUID PO ×4 (06:29→22:11)
[2022-10-10 06:31] LABS: Bedside Glucose 169 mg/dL (74-106)
[2022-10-10] MEDS: Acetaminophen 500 MG Tablet 1000 MG PO ×3 (06:31→22:11)
[2022-10-10] MEDS: Menthol/Lanolin/Calamine/Znox 113 GM Tube 1 APPLIC TOPICAL (06:46)
[2022-10-10] MEDS: metFORMIN HCl 500 MG Tablet PO ×2 (08:33→17:49)
[2022-10-10 08:35] VITALS: PULSE 102; O2SAT 93
[2022-10-10 09:49] VITALS: BMI 22.6
--- NOTE | 2022-10-10 10:20 | RAD_ITS ---
HISTORY: PICC status. TECHNIQUE: XR Chest 1 View. COMPARISON: 09/23/2022. FINDINGS: CARDIOMEDIASTINAL BORDERS: Cardiac silhouette within normal limits in size. Calcification of the aorta. Left PICC tip followed to the distal superior vena cava. LUNGS: Mild linear left basilar opacity again seen, likely scarring. PLEURA: No pleural effusion or pneumothorax seen. OSSEOUS STRUCTURES: Degenerative change. RAD/Chest 1 View (Portable) IMPRESSION: No acute cardiopulmonary process identified. Satisfactory left PICC position. Electronically Signed: Anyi Fulton MD at 11:44 EDT ,
[2022-10-10] MEDS: Lidocaine 5% Patch 1 PATCH TOPICAL (11:08)
[2022-10-10 11:36] LABS: Bedside Glucose 247 mg/dL (74-106)
[2022-10-10] MEDS: 0.9% Saline Lock 10 ML Syringe IV ×2 (11:49→17:53)
[2022-10-10 14:00] VITALS: BP 121/71; PULSE 101; RESP 16; TEMP 36.6; O2SAT 96
--- NOTE | 2022-10-10 15:23 | NURSING ---
Patient having nausea/vomiting/GI upset this shift. Offered Zofran as stated on SEP. Patient declines. Will continue to monitor.
--- NOTE | 2022-10-10 15:33 | WOUNDNOTE ---
wound photo: buttocks
[2022-10-10] MEDS: Ondansetron ODT 4 MG Tablet 8 MG PO (17:49)
[2022-10-10] MEDS: Tamsulosin HCl 0.4 MG Capsule 0.8 MG PO (17:50)
--- NOTE | 2022-10-10 19:26 | NURSING ---
spoke with pharmacy ok to administer merrem at 3am since pt has appt in [place] and will be leaving at 7am.
[2022-10-10] MEDS: Mirtazapine 15 MG Tablet 7.5 MG PO (22:11)
[2022-10-11] MEDS: 0.9% Saline Lock 10 ML Syringe IV ×2 (02:57→16:53)
[2022-10-11] MEDS: Acetaminophen 500 MG Tablet 1000 MG PO ×3 (05:13→21:42)
[2022-10-11] MEDS: Glucerna Shake 120 ML LIQUID PO ×4 (05:13→21:32)
[2022-10-11] MEDS: Polyethylene Glycol 3350 17 GM PACKET PO (05:14)
[2022-10-11] MEDS: Menthol/Lanolin/Calamine/Znox 113 GM Tube 1 APPLIC TOPICAL ×2 (05:14→16:54)
[2022-10-11] MEDS: Senna/Docusate Sodium 1 Tablet 2 TABLET PO (05:14)
[2022-10-11] MEDS: Finasteride 5 MG Tablet PO (05:14)
--- NOTE | 2022-10-11 05:19 | NURSING ---
Early breakfast offered to patient x3 attempts due to plan to pick-up patient for appt at 0700, patient declines x3 attempts. IV ATB infusing per order. Denies requests. No distress observed or reported. Call light in reach.
[2022-10-11 06:26] LABS: Bedside Glucose 217 mg/dL (74-106)
--- NOTE | 2022-10-11 12:10 | NURSING ---
Return from spine doctor at this time. NNO sent with patient. F/U in six weeks. to make us aware when appt is set up for.
[2022-10-11] MEDS: Lidocaine 5% Patch 1 PATCH TOPICAL (12:25)
[2022-10-11] MEDS: metFORMIN HCl 500 MG Tablet PO ×2 (12:25→16:51)
[2022-10-11 13:46] VITALS: BP 149/78; PULSE 96; RESP 16; TEMP 36.4
[2022-10-11] MEDS: Hydrocortisone 2.5% Crm 1 APPLIC TOPICAL (14:48)
[2022-10-11] MEDS: Tamsulosin HCl 0.4 MG Capsule 0.8 MG PO (16:51)
[2022-10-11] MEDS: Mirtazapine 15 MG Tablet 7.5 MG PO (21:33)
[2022-10-12] MEDS: 0.9% Saline Lock 10 ML Syringe IV ×2 (05:24→17:00)
[2022-10-12] MEDS: Glucerna Shake 120 ML LIQUID PO ×4 (05:24→20:14)
[2022-10-12] MEDS: Finasteride 5 MG Tablet PO (05:25)
[2022-10-12] MEDS: Menthol/Lanolin/Calamine/Znox 113 GM Tube 1 APPLIC TOPICAL ×2 (05:25→17:04)
[2022-10-12] MEDS: Acetaminophen 500 MG Tablet 1000 MG PO ×3 (05:31→20:16)
[2022-10-12 05:55] LABS: Absolute Lymphocyte Count 1.95 X10^3/uL (0.83-4.51); Absolute Neutrophil Count 4.1 X10^3/uL (2.0-7.7); Basophil# 0.06 X10^3/uL; Basophil% 0.7 % (0-1); Eosinophil# 1.45 X10^3/uL; Eosinophils% 17.3 % (0-5); Hematocrit 31.9 % (40-54); Hemoglobin 10.3 g/dL (13.0-16.5); Lymphocyte # 1.95 X10^3/ul (0.83-4.51); Lymphocyte % 23.2 % (19-41); Mean Corp Hgb Conc 32.3 g/dL (32-36); Mean Corpuscular Hgb 28.7 pg (27.0-32.0); Mean Corpuscular Volume 88.9 fL (80-94); Mean Platelet Vol. 8.7 fl (6.2-12.0); Monocyte# 0.76 X10^3/uL; NRBC Flagged by Analyzer 0 % (0-5); Neutrophil # 4.13 X10^3/uL (2.7-7.7); Neutrophil % 49.2 % (47-70); Platelet Count 442 K/mm3 (150-450); RBC Distribution Width CV 14.8 % (11.6-14.6); RBC Distribution Width SD 48.1 fl (35.1-43.9); Red Blood Count 3.59 M/mm3 (4.6-6.2); White Blood Count 8.4 K/mm3 (4.4-11.0)
[2022-10-12 06:30] LABS: Bedside Glucose 203 mg/dL (74-106)
[2022-10-12 06:32] LABS: Anion Gap 6 (5-15); BUN 27 mg/dL (7-18); BUN/Creat Ratio 22.5 RATIO (10-20); Calcium,Total 9.1 mg/dL (8.5-10.1); Chloride 103 mmol/L (98-107); EST Glomerular Filtration Rate 62 mL/min (>60); Est Glom Filt Rate - Afr Amer 75 mL/min (>60); Estimated Creatinine Clearance 45.45 ml/min; Glucose 186 mg/dL (74-106); Potassium 4.4 mmol/L (3.5-5.1); Sodium Level 135 mmol/L (136-145)
[2022-10-12] MEDS: metFORMIN HCl 500 MG Tablet PO ×2 (09:33→16:58)
[2022-10-12] MEDS: Lidocaine 5% Patch 1 PATCH TOPICAL (09:37)
[2022-10-12 14:00] VITALS: BP 139/76; PULSE 94; RESP 18; TEMP 36.8; O2SAT 98
[2022-10-12] MEDS: Tamsulosin HCl 0.4 MG Capsule 0.8 MG PO (16:59)
[2022-10-12] MEDS: Senna/Docusate Sodium 1 Tablet 2 TABLET PO (17:01)
[2022-10-12] MEDS: Mirtazapine 15 MG Tablet 7.5 MG PO (20:16)
[2022-10-13] MEDS: Menthol/Lanolin/Calamine/Znox 113 GM Tube 1 APPLIC TOPICAL ×2 (04:43→17:58)
[2022-10-13] MEDS: Finasteride 5 MG Tablet PO (04:44)
[2022-10-13] MEDS: Senna/Docusate Sodium 1 Tablet 2 TABLET PO (04:44)
[2022-10-13] MEDS: Acetaminophen 500 MG Tablet 1000 MG PO ×3 (04:48→22:31)
[2022-10-13] MEDS: 0.9% Saline Lock 10 ML Syringe IV ×3 (04:49→17:59)
[2022-10-13] MEDS: Glucerna Shake 120 ML LIQUID PO ×4 (04:49→22:24)
[2022-10-13 06:20] LABS: Bedside Glucose 177 mg/dL (74-106)
[2022-10-13] MEDS: metFORMIN HCl 500 MG Tablet PO ×2 (08:49→17:58)
[2022-10-13] MEDS: Lidocaine 5% Patch 1 PATCH TOPICAL (09:16)
--- NOTE | 2022-10-13 11:07 | NURSING ---
Dr de la cruz updated on night shift manager reporting pt not sleeping well at night, tossing n turning frequently. new order for melatonin
[2022-10-13 14:08] VITALS: BP 136/76; PULSE 101; RESP 16; O2SAT 96
[2022-10-13 15:02] VITALS: TEMP 36.9
--- NOTE | 2022-10-13 17:52 | NURSING ---
pt encouraged to sit up on edge of bed or sit in chair to eat supper and pt refused. States I am lazy explained to pt that he needs to get up for meals. Daughter and agree. Daughter attempted to encourage pt and he continued to refuse. pt stated he sat at dining room table at home and did not lay in bed to eat.
[2022-10-13] MEDS: Tamsulosin HCl 0.4 MG Capsule 0.8 MG PO (17:58)
[2022-10-13] MEDS: Mirtazapine 15 MG Tablet 7.5 MG PO (22:30)
[2022-10-13] MEDS: MELATONIN 10 MG TABLET PO (22:30)
[2022-10-14] MEDS: Glucerna Shake 120 ML LIQUID PO ×4 (05:52→21:15)
[2022-10-14] MEDS: Menthol/Lanolin/Calamine/Znox 113 GM Tube 1 APPLIC TOPICAL ×2 (05:53→17:37)
[2022-10-14] MEDS: Finasteride 5 MG Tablet PO (05:54)
[2022-10-14] MEDS: Acetaminophen 500 MG Tablet 1000 MG PO ×3 (05:54→21:15)
[2022-10-14] MEDS: 0.9% Saline Lock 10 ML Syringe IV ×5 (05:54→22:12)
[2022-10-14 06:20] LABS: Bedside Glucose 176 mg/dL (74-106)
[2022-10-14 08:19] VITALS: PULSE 104; RESP 16; O2SAT 97
[2022-10-14] MEDS: metFORMIN HCl 500 MG Tablet PO ×2 (08:30→17:36)
[2022-10-14] MEDS: Lidocaine 5% Patch 1 PATCH TOPICAL (09:28)
[2022-10-14] MEDS: FLUCONAZOLE 150 MG TABLET PO (13:23)
[2022-10-14 14:00] VITALS: BP 104/55; PULSE 99; RESP 16; TEMP 36.4; O2SAT 97
[2022-10-14] MEDS: Tamsulosin HCl 0.4 MG Capsule 0.8 MG PO (17:36)
[2022-10-14] MEDS: MELATONIN 10 MG TABLET PO (21:16)
[2022-10-14] MEDS: Mirtazapine 15 MG Tablet 7.5 MG PO (21:16)
[2022-10-15 05:42] LABS: Absolute Lymphocyte Count 2.75 X10^3/uL (0.83-4.51); Absolute Neutrophil Count 4.6 X10^3/uL (2.0-7.7); Basophil# 0.06 X10^3/uL; Basophil% 0.6 % (0-1); Eosinophil# 1.56 X10^3/uL; Eosinophils% 15.5 % (0-5); Hematocrit 32.6 % (40-54); Hemoglobin 10.4 g/dL (13.0-16.5); Lymphocyte # 2.75 X10^3/ul (0.83-4.51); Lymphocyte % 27.3 % (19-41); Mean Corp Hgb Conc 31.9 g/dL (32-36); Mean Corpuscular Hgb 28.3 pg (27.0-32.0); Mean Corpuscular Volume 88.8 fL (80-94); Mean Platelet Vol. 8.7 fl (6.2-12.0); Monocyte# 0.96 X10^3/uL; Monocyte% 9.5 % (0-10); NRBC Flagged by Analyzer 0 % (0-5); Neutrophil # 4.64 X10^3/uL (2.7-7.7); Neutrophil % 45.9 % (47-70); Platelet Count 477 K/mm3 (150-450); RBC Distribution Width CV 14.8 % (11.6-14.6); Red Blood Count 3.67 M/mm3 (4.6-6.2); White Blood Count 10.1 K/mm3 (4.4-11.0)
[2022-10-15] MEDS: Glucerna Shake 120 ML LIQUID PO ×4 (06:14→20:11)
[2022-10-15] MEDS: Menthol/Lanolin/Calamine/Znox 113 GM Tube 1 APPLIC TOPICAL ×2 (06:15→17:23)
[2022-10-15] MEDS: Acetaminophen 500 MG Tablet 1000 MG PO ×3 (06:16→20:11)
[2022-10-15] MEDS: Finasteride 5 MG Tablet PO (06:16)
[2022-10-15] MEDS: 0.9% Saline Lock 10 ML Syringe IV ×2 (06:19→17:37)
[2022-10-15 06:21] LABS: Bedside Glucose 164 mg/dL (74-106)
[2022-10-15 06:35] LABS: AST(SGOT) 20 U/L (15-37); Alanine Aminotransfer ALT/SGPT 57 U/L (16-61); Albumin, Serum 2.5 g/dL (3.2-5.0); Alkaline Phosphatase 171 U/L (45-117); Anion Gap 5 (5-15); BUN 26 mg/dL (7-18); BUN/Creat Ratio 21.7 RATIO (10-20); Bilirubin, Direct 0.15 mg/dL (0.00-0.30); Chloride 103 mmol/L (98-107); EST Glomerular Filtration Rate 62 mL/min (>60); Est Glom Filt Rate - Afr Amer 75 mL/min (>60); Estimated Creatinine Clearance 45.45 ml/min; Globulin 4.3 g/dL (2.2-4.2); Glucose 160 mg/dL (74-106); Potassium 4.3 mmol/L (3.5-5.1); Protein, Total 6.8 g/dL (6.4-8.2); Sodium Level 135 mmol/L (136-145)
[2022-10-15 06:46] LABS: CPK Total, Creatine Kinase 35 U/L (39-308)
[2022-10-15] MEDS: metFORMIN HCl 500 MG Tablet PO ×2 (08:24→17:22)
[2022-10-15] MEDS: Lidocaine 5% Patch 1 PATCH TOPICAL (08:25)
[2022-10-15 14:00] VITALS: BP 126/70; PULSE 92; RESP 19; TEMP 36.4; O2SAT 97
[2022-10-15 14:20] LABS: Erythrocyte Sedimentation Rate 74 mm/hr (0-20)
[2022-10-15] MEDS: Tamsulosin HCl 0.4 MG Capsule 0.8 MG PO (17:22)
--- NOTE | 2022-10-15 19:10 | PN.TCU_ITS ---
Subjective Subjective Resident seen, examined for regulatory visit. Resident , daughter present. He is doing much better, appreciate help from Dr. Meek, Dr. Torres. Resident no longer confused, he has been progressing in therapy. Objective Data Objective Data Vital Signs: Vital Signs Temp Pulse Resp BP Pulse Ox O2 Del Method O2 Flow Rate 97.5 F L 92 19 H 126/70 H 97 Room Air 96 10/15/22 14:00 10/15/22 14:00 10/15/22 14:00 10/15/22 14:00 10/15/22 14:00 10/15/22 14:00 10/02/22 10:00 Oxygen Flow Rate (L/min) 96 Oxygen Delivery Method Room Air Weight: 65.453 kg Body Mass Index (BMI) 22.6 Intake & Output: Intake and Output for Last 24 Hours 10/13/22 10/14/22 10/15/22 23:59 23:59 23:59 Intake Total 1060.25 / 1060.25 668.25 / 668.25 660 / 660 Output Total 1350 / 1350 1325 / 1325 1425 / 1425 Balance -289.75 / -289.75 -656.75 / -656.75 -765 / -765 Medical Nutrition Assessment Dietitian: Malnutrition Criteria Met Start: 10/10/22 15:11 Freq: Status: Active Protocol: Document 10/10/22 15:11 FERNANDO (Rec: 10/10/22 15:11 FERNANDO [id number]) Nutrition Malnutrition Evidence of Malnutrition Exists Yes Malnutrition (severe): Acute Illness/Injury Evidenced By Suboptimal Energy Intake ( Severe),Weight Loss (Severe), Physical Changes (Moderate) Clinical Problem Acute Disease or Injury Related Malnutrition Etiology moderate malnutrition related to inadequate energy intake Signs/Symptoms as evidenced by R-74% po intake and unintended wt loss of 10.6% x ~2 wks when admitted and additional 7.1% in past one week. Status Active Problem Altered Nutrient-Related Laboratory Values Etiology related to diabetes Signs/Symptoms as evidenced by gluc 169-247 Status Active Problem Recommendation Dietitian Recommendations/Changes Continue CHO control diet / fortified foods as ordered Will continue Glucerna Shake 4x/day w/ medpass Change to 4 oz ensure clear tid w/ meals, fortified oatmeal w/ breakfast, fortified/ensure pudding w/ lunch, van magic cup ice cream w/ dinner Continue appetite stimulant. Lab / Micro Data Result Diagrams: 10/15/22 05:19 10/15/22 05:19 Labs: Laboratory Results - last 24 hr 10/15/22 05:19: WBC 10.1, RBC 3.67 L, Hgb 10.4 L, Hct 32.6 L, MCV 88.8, MCH 28.3, MCHC 31.9 L, RDW Std Deviation 48.0 H, RDW Coeff of Eliecer 14.8 H, Plt Count 477 H, MPV 8.7, Immature Gran % (Auto) 1.200 H, Neut % (Auto) 45.9 L, Lymph % (Auto) 27.3, [place] % (Auto) 9.5, Eos % (Auto) 15.5 H, Baso % (Auto) 0.6, Absolute Neuts (auto) 4.6, Absolute Lymphs (auto) 2.75, Nucleated RBC % 0, ESR 74 H 10/15/22 05:19: Sodium 135 L, Potassium 4.3, Chloride 103, Carbon Dioxide 27.0, Anion Gap 5, BUN 26 H, Creatinine 1.20, Estim Creat Clear Calc 45.45, Est GFR (MDRD) Af Amer 75, Est GFR (MDRD) Non-Af 62, BUN/Creatinine Ratio 21.7 H, Glucose 160 H, Calcium 9.0, Total Bilirubin 0.40, Direct Bilirubin 0.15, AST 20, ALT 57, Alkaline Phosphatase 171 H, Total Protein 6.8, Albumin 2.5 L, Globulin 4.3 H 10/15/22 05:19: Total Creatine Kinase 35 L 10/15/22 05:56: POC Glucose 164 H Micro: Microbiology 10/09/22 06:48 Nasal Secretion SARS-CoV-2 Antigen (Rapid) - Final 09/23/22 21:48 Blood Culture (Wb) - Anticubital Left Blood Culture - Final No growth in 5 days. 09/23/22 21:54 Blood Culture (Wb) - Left Hand Blood Culture - Final No growth in 5 days. 09/23/22 22:45 Urine Catheter - Catheter Urine Culture - Final Presumptive C albicans 09/24/22 09:55 Stool Stool Occult Blood (AMPARO) - Final 09/24/22 09:55 Nasal Secretion SARS-CoV-2 Antigen (Rapid) - Final 09/23/22 21:25 Mucosa - Nasopharyngeal Respiratory Panel (PCR) - Final 09/23/22 21:11 Nasal Secretion SARS-CoV-2 Antigen (Rapid) - Final 09/22/22 05:30 Nasal Secretion SARS-CoV-2 Antigen (Rapid) - Final Physical Exam Const alert General Appearance: cooperative HEENT normocephalic Eyes PERRL and EOMs intact bilaterally Neck supple, no JVD and no carotid bruits Resp normal respiratory effort, normal air movement and clear to auscultation bilaterally Cardio regular rate and regular rhythm GI normal to inspection, nondistended, normoactive bowel sounds, non-tender and non-distended Bladder / Kidney Exam: catheter in place urethral Extremity normal capillary refill Extremity Narrative: Left upper extremity PICC line. 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 * Debility - PT/OT. * Dysphagia - ST. * Pain - Tylenol 1000mg TID, Tramadol 50mg q6h prn pain (4-5), Oxycodone 5mg q4h prn pain (6-10), Lidoderm patch 1 patch TD daily. * Bowel - Miralax 17gm daily, senna/colace 2 tablets bid. * Adult immunization - Administer pneumonia vaccine, covid19 vaccine, flu vaccine as appropriate. * DVT prophylaxis - Done. * Lumbar discitis/osteomyelitis/epidural abscess s/p debridement - Daptomycin 500mg IV q24 thru 10/30/2022, Meropenem 1gm IV q8 thru 10/29/2022, appreciate Dr. Meek. * Diabetes Mellitus II - Metformin 500mg bidcm. * Rash - HC 2.5% cream topical tid prn. * Skin irritation - Calmoseptine topical bid. * Appetite loss - Mirtazapine 7.5mg qhs, stable chronic extermination inspector use, GDR not recommended. * BPH - Tamsulosin 0.8mg qpm, Finasteride 5mg daily, indwelling Bello catheter, appreciate Dr. Torres. * Tinea Corporis - Fluconazole 150mg qweek thru 10/21/2022. * Nutrition - Glucerna 120ml 4x/day. * GI prophylaxis - Lactobacillus 1 tablet bid. * Insomnia - Melatonin 10mg qhs. * Nausea - Zofran 8mg q8h prn. Capacity Capacity Assessment Tool Can the patient make a choice & communicate that choice?: Yes Can the patient understand benefits, risks and alternatives?: Yes Can the patient make a logical, rational choice?: Yes Is the choice the patient makes consistent w/ their values?: Yes Does the patient have an Advance Directive?: No Is there a Surrogate Available?: Yes i.e. HCPOA: Yes i.e. close relative (spouse, child, parent, sibling)?: Yes
[2022-10-15] MEDS: MELATONIN 10 MG TABLET PO (20:12)
[2022-10-15] MEDS: Mirtazapine 15 MG Tablet 7.5 MG PO (20:12)
[2022-10-15 20:17] VITALS: PULSE 96; RESP 16; O2SAT 95
--- NOTE | 2022-10-16 00:50 | NURSING ---
Patient continues to have difficulty sleeping at night. Recently started on Melatonin 10mg at HS, does not appear to be helping. Will continue to monitor.
[2022-10-16] MEDS: Acetaminophen 500 MG Tablet 1000 MG PO ×3 (05:46→19:57)
[2022-10-16] MEDS: Finasteride 5 MG Tablet PO (05:46)
[2022-10-16] MEDS: Glucerna Shake 120 ML LIQUID PO ×4 (05:46→19:55)
[2022-10-16] MEDS: Menthol/Lanolin/Calamine/Znox 113 GM Tube 1 APPLIC TOPICAL ×2 (05:57→17:05)
[2022-10-16 06:41] LABS: Bedside Glucose 218 mg/dL (74-106)
[2022-10-16] MEDS: metFORMIN HCl 500 MG Tablet PO ×2 (07:41→17:05)
[2022-10-16] MEDS: Lidocaine 5% Patch 1 PATCH TOPICAL (09:36)
[2022-10-16 10:00] VITALS: PULSE 104; RESP 18; O2SAT 96
[2022-10-16 10:01] VITALS: BMI 22.8
[2022-10-16 13:37] VITALS: BP 127/75; PULSE 97; RESP 20; TEMP 36.1; O2SAT 98
[2022-10-16] MEDS: Tamsulosin HCl 0.4 MG Capsule 0.8 MG PO (17:05)
[2022-10-16] MEDS: Mirtazapine 15 MG Tablet 7.5 MG PO (19:58)
[2022-10-16] MEDS: Doxepin Hydrochloride 10 MG Capsule PO (20:02)
[2022-10-17] MEDS: Glucerna Shake 120 ML LIQUID PO ×4 (05:17→19:47)
[2022-10-17] MEDS: Menthol/Lanolin/Calamine/Znox 113 GM Tube 1 APPLIC TOPICAL ×2 (05:17→16:50)
[2022-10-17] MEDS: Acetaminophen 500 MG Tablet 1000 MG PO ×3 (05:17→19:51)
[2022-10-17] MEDS: Finasteride 5 MG Tablet PO (05:17)
[2022-10-17 06:25] LABS: Bedside Glucose 192 mg/dL (74-106)
--- NOTE | 2022-10-17 07:09 | NURSING ---
Picc dressing changed this AM. Patient tolerated well. New end cap placed, line flushed with 10mL NS, good blood return noted. IV ATB started. Will continue to monitor.
[2022-10-17] MEDS: metFORMIN HCl 500 MG Tablet PO ×2 (07:47→16:50)
--- NOTE | 2022-10-17 07:48 | NURSING ---
patient c/o pain in back this morning, denies need for intervention at this time. will cont. to monitor.
[2022-10-17] MEDS: Lidocaine 5% Patch 1 PATCH TOPICAL (09:33)
[2022-10-17] MEDS: 0.9% Saline Lock 10 ML Syringe IV ×2 (09:37→16:49)
[2022-10-17 13:59] VITALS: BP 121/73; PULSE 94; RESP 16; TEMP 36.5; O2SAT 99
[2022-10-17] MEDS: Tamsulosin HCl 0.4 MG Capsule 0.8 MG PO (16:49)
[2022-10-17 18:40] VITALS: PULSE 100; RESP 16; O2SAT 95
[2022-10-17] MEDS: Doxepin Hydrochloride 10 MG Capsule PO (19:47)
[2022-10-17] MEDS: Mirtazapine 15 MG Tablet 7.5 MG PO (19:47)
[2022-10-18] MEDS: Acetaminophen 500 MG Tablet 1000 MG PO ×3 (05:17→22:02)
[2022-10-18] MEDS: Finasteride 5 MG Tablet PO (05:17)
[2022-10-18] MEDS: Menthol/Lanolin/Calamine/Znox 113 GM Tube 1 APPLIC TOPICAL (05:17)
[2022-10-18] MEDS: 0.9% Saline Lock 10 ML Syringe IV ×4 (05:17→22:02)
[2022-10-18 06:31] LABS: Bedside Glucose 199 mg/dL (74-106)
[2022-10-18] MEDS: metFORMIN HCl 500 MG Tablet PO ×2 (08:33→17:58)
[2022-10-18] MEDS: Lidocaine 5% Patch 1 PATCH TOPICAL (09:48)
[2022-10-18 10:00] VITALS: PULSE 97; RESP 16; O2SAT 94
[2022-10-18] MEDS: Glucerna Shake 120 ML LIQUID PO ×3 (12:15→22:02)
[2022-10-18 13:39] VITALS: BP 130/73; PULSE 95; RESP 16; TEMP 36.2; O2SAT 96
[2022-10-18] MEDS: Tamsulosin HCl 0.4 MG Capsule 0.8 MG PO (17:58)
[2022-10-18] MEDS: Doxepin Hydrochloride 10 MG Capsule PO (22:03)
[2022-10-18] MEDS: Mirtazapine 15 MG Tablet 7.5 MG PO (22:03)
[2022-10-19] MEDS: Menthol/Lanolin/Calamine/Znox 113 GM Tube 1 APPLIC TOPICAL (04:51)
[2022-10-19] MEDS: 0.9% Saline Lock 10 ML Syringe IV ×2 (04:52→18:52)
[2022-10-19] MEDS: Senna/Docusate Sodium 1 Tablet 2 TABLET PO (04:56)
[2022-10-19] MEDS: Polyethylene Glycol 3350 17 GM PACKET PO (04:56)
[2022-10-19] MEDS: Finasteride 5 MG Tablet PO (04:57)
[2022-10-19] MEDS: Acetaminophen 500 MG Tablet 1000 MG PO ×3 (05:01→22:02)
[2022-10-19] MEDS: Glucerna Shake 120 ML LIQUID PO ×3 (05:01→21:59)
[2022-10-19 06:40] LABS: Bedside Glucose 162 mg/dL (74-106)
[2022-10-19] MEDS: Lidocaine 5% Patch 1 PATCH TOPICAL (08:13)
[2022-10-19] MEDS: metFORMIN HCl 500 MG Tablet PO ×2 (08:13→18:41)
[2022-10-19 14:00] VITALS: BP 140/83; PULSE 100; RESP 16; TEMP 36.5; O2SAT 94
[2022-10-19] MEDS: Tamsulosin HCl 0.4 MG Capsule 0.8 MG PO (18:40)
[2022-10-19] MEDS: Mirtazapine 15 MG Tablet 7.5 MG PO (22:00)
[2022-10-19] MEDS: Doxepin Hcl 25 MG Capsule PO (22:00)
[2022-10-20] MEDS: Menthol/Lanolin/Calamine/Znox 113 GM Tube 1 APPLIC TOPICAL ×2 (05:03→17:31)
[2022-10-20] MEDS: Glucerna Shake 120 ML LIQUID PO ×4 (05:03→20:46)
[2022-10-20] MEDS: Finasteride 5 MG Tablet PO (05:04)
[2022-10-20] MEDS: Senna/Docusate Sodium 1 Tablet 2 TABLET PO (05:05)
[2022-10-20] MEDS: Acetaminophen 500 MG Tablet 1000 MG PO ×3 (05:05→20:46)
[2022-10-20 06:31] LABS: Bedside Glucose 161 mg/dL (74-106)
[2022-10-20] MEDS: metFORMIN HCl 500 MG Tablet PO ×2 (08:28→17:31)
[2022-10-20] MEDS: 0.9% Saline Lock 10 ML Syringe IV ×2 (11:47→17:35)
[2022-10-20] MEDS: Lidocaine 5% Patch 1 PATCH TOPICAL (11:51)
[2022-10-20 13:43] VITALS: BP 118/72; PULSE 99; RESP 16; TEMP 36.3; O2SAT 97
[2022-10-20] MEDS: Tamsulosin HCl 0.4 MG Capsule 0.8 MG PO (17:31)
[2022-10-20 20:30] VITALS: PULSE 95; RESP 16; O2SAT 96
[2022-10-20] MEDS: Mirtazapine 15 MG Tablet 7.5 MG PO (20:46)
[2022-10-20] MEDS: Doxepin Hcl 25 MG Capsule PO (20:46)
[2022-10-21] MEDS: Acetaminophen 500 MG Tablet 1000 MG PO ×3 (06:04→20:26)
[2022-10-21] MEDS: Glucerna Shake 120 ML LIQUID PO ×4 (06:04→20:29)
[2022-10-21] MEDS: Finasteride 5 MG Tablet PO (06:05)
[2022-10-21] MEDS: Menthol/Lanolin/Calamine/Znox 113 GM Tube 1 APPLIC TOPICAL ×2 (06:14→17:20)
[2022-10-21 06:21] LABS: Bedside Glucose 133 mg/dL (74-106)
[2022-10-21] MEDS: metFORMIN HCl 500 MG Tablet PO ×2 (07:52→17:11)
[2022-10-21] MEDS: Lidocaine 5% Patch 1 PATCH TOPICAL (10:27)
[2022-10-21 14:00] VITALS: BP 128/76; PULSE 106; RESP 16; TEMP 36.3; O2SAT 93
[2022-10-21] MEDS: FLUCONAZOLE 150 MG TABLET PO (14:13)
[2022-10-21] MEDS: Tamsulosin HCl 0.4 MG Capsule 0.8 MG PO (17:10)
[2022-10-21] MEDS: Senna/Docusate Sodium 1 Tablet 2 TABLET PO (17:12)
[2022-10-21] MEDS: Doxepin Hcl 25 MG Capsule 50 MG PO (20:27)
[2022-10-21] MEDS: Mirtazapine 15 MG Tablet 7.5 MG PO (20:27)
[2022-10-21 20:32] VITALS: PULSE 94; RESP 16; O2SAT 94
[2022-10-22 05:34] LABS: Absolute Lymphocyte Count 2.41 X10^3/uL (0.83-4.51); Absolute Neutrophil Count 4.9 X10^3/uL (2.0-7.7); Basophil# 0.06 X10^3/uL; Basophil% 0.7 % (0-1); Eosinophil# 0.74 X10^3/uL; Eosinophils% 8.3 % (0-5); Hematocrit 33.6 % (40-54); Hemoglobin 10.7 g/dL (13.0-16.5); Lymphocyte # 2.41 X10^3/ul (0.83-4.51); Mean Corp Hgb Conc 31.8 g/dL (32-36); Mean Corpuscular Hgb 28.2 pg (27.0-32.0); Mean Corpuscular Volume 88.4 fL (80-94); Mean Platelet Vol. 8.7 fl (6.2-12.0); Monocyte# 0.73 X10^3/uL; Monocyte% 8.2 % (0-10); NRBC Flagged by Analyzer 0 % (0-5); Neutrophil # 4.93 X10^3/uL (2.7-7.7); Neutrophil % 55.1 % (47-70); Platelet Count 390 K/mm3 (150-450); RBC Distribution Width CV 14.6 % (11.6-14.6); RBC Distribution Width SD 47.3 fl (35.1-43.9); White Blood Count 8.9 K/mm3 (4.4-11.0)
[2022-10-22 05:59] LABS: AST(SGOT) 19 U/L (15-37); Alanine Aminotransfer ALT/SGPT 31 U/L (16-61); Albumin, Serum 2.6 g/dL (3.2-5.0); Alkaline Phosphatase 134 U/L (45-117); Anion Gap 6 (5-15); BUN 31 mg/dL (7-18); BUN/Creat Ratio 25.6 RATIO (10-20); Bilirubin, Direct 0.18 mg/dL (0.00-0.30); Calcium,Total 8.9 mg/dL (8.5-10.1); Chloride 102 mmol/L (98-107); Creatinine, Serum 1.21 mg/dL (0.70-1.30); EST Glomerular Filtration Rate 61 mL/min (>60); Est Glom Filt Rate - Afr Amer 74 mL/min (>60); Estimated Creatinine Clearance 45.45 ml/min; Globulin 4.3 g/dL (2.2-4.2); Glucose 142 mg/dL (74-106); Potassium 4.4 mmol/L (3.5-5.1); Protein, Total 6.9 g/dL (6.4-8.2); Sodium Level 134 mmol/L (136-145)
[2022-10-22 06:04] LABS: CPK Total, Creatine Kinase 34 U/L (39-308)
[2022-10-22 06:10] LABS: Erythrocyte Sedimentation Rate 34 mm/hr (0-20)
[2022-10-22] MEDS: Acetaminophen 500 MG Tablet 1000 MG PO ×3 (06:19→21:54)
[2022-10-22] MEDS: Glucerna Shake 120 ML LIQUID PO ×4 (06:19→21:54)
[2022-10-22] MEDS: Finasteride 5 MG Tablet PO (06:20)
[2022-10-22] MEDS: Menthol/Lanolin/Calamine/Znox 113 GM Tube 1 APPLIC TOPICAL ×2 (06:22→17:39)
[2022-10-22 06:41] LABS: Bedside Glucose 152 mg/dL (74-106)
[2022-10-22 06:44] VITALS: BP 111/69; PULSE 99
[2022-10-22] MEDS: metFORMIN HCl 500 MG Tablet PO ×2 (07:50→17:39)
[2022-10-22 09:17] VITALS: PULSE 100; O2SAT 98
[2022-10-22] MEDS: Lidocaine 5% Patch 1 PATCH TOPICAL (09:21)
[2022-10-22] MEDS: 0.9% Saline Lock 10 ML Syringe IV ×3 (10:25→21:50)
--- NOTE | 2022-10-22 11:29 | NURSING ---
Addendum entered by Robyn Lantigua 10/23/22 10:23: Call back from office, appointment made for November 26, 11am. Original Note: faxed records to Dr Barron Ramos per their request to review before seeing as a new pt. is not happy with previous neurosurgeon and wanted a referral to Dr Ramos after discharge from TCU. awaiting on return call with new appt date and time.
[2022-10-22 14:00] VITALS: BP 116/62; PULSE 98; RESP 16; TEMP 36.4; O2SAT 96
[2022-10-22] MEDS: Tamsulosin HCl 0.4 MG Capsule 0.8 MG PO (17:39)
[2022-10-22] MEDS: Mirtazapine 15 MG Tablet 7.5 MG PO (21:49)
[2022-10-22] MEDS: Doxepin Hcl 25 MG Capsule 50 MG PO (21:50)
[2022-10-23] MEDS: 0.9% Saline Lock 10 ML Syringe IV ×2 (06:20→22:09)
[2022-10-23] MEDS: Glucerna Shake 120 ML LIQUID PO ×4 (06:20→22:02)
[2022-10-23] MEDS: Finasteride 5 MG Tablet PO (06:27)
[2022-10-23] MEDS: Acetaminophen 500 MG Tablet 1000 MG PO ×3 (06:27→22:07)
[2022-10-23] MEDS: Senna/Docusate Sodium 1 Tablet 2 TABLET PO ×2 (06:27→17:05)
[2022-10-23] MEDS: Polyethylene Glycol 3350 17 GM PACKET PO (06:27)
[2022-10-23] MEDS: Menthol/Lanolin/Calamine/Znox 113 GM Tube 1 APPLIC TOPICAL ×2 (06:28→17:05)
[2022-10-23 06:51] LABS: Bedside Glucose 131 mg/dL (74-106)
[2022-10-23] MEDS: metFORMIN HCl 500 MG Tablet PO ×2 (08:23→17:04)
[2022-10-23] MEDS: Lidocaine 5% Patch 1 PATCH TOPICAL (08:23)
[2022-10-23 09:34] VITALS: BMI 22.8
--- NOTE | 2022-10-23 13:21 | NURSING ---
Addendum entered by Amber Mae 10/24/22 13:02: Dr. Rankin office called and stated patient was not a candidate due to infection and to following up provider that did Lumbar puncture in past. Charge nurse notified Original Note: Called and spoke with staff at Dr. James Rankin's office, they requested referral info and other medical history be faxed to them. Info faxed. updated on date/time for Neuro appt and that info faxed to Dr. Rankin for review.
--- NOTE | 2022-10-23 13:34 | WOUNDNOTE ---
the shear wounds remain healed to bilateral buttocks. will continue moisture barrier cream as needed. no further need for wound care at this time.
[2022-10-23 14:00] VITALS: BP 114/73; PULSE 103; RESP 19; TEMP 36.1; O2SAT 95
[2022-10-23] MEDS: Tamsulosin HCl 0.4 MG Capsule 0.8 MG PO (17:04)
[2022-10-23] MEDS: Mirtazapine 15 MG Tablet 7.5 MG PO (22:02)
[2022-10-23] MEDS: Doxepin Hcl 25 MG Capsule 50 MG PO (22:03)
[2022-10-24] MEDS: Glucerna Shake 120 ML LIQUID PO ×3 (05:21→21:15)
[2022-10-24] MEDS: Acetaminophen 500 MG Tablet 1000 MG PO ×3 (05:23→21:19)
[2022-10-24] MEDS: Finasteride 5 MG Tablet PO (05:23)
[2022-10-24] MEDS: Menthol/Lanolin/Calamine/Znox 113 GM Tube 1 APPLIC TOPICAL ×2 (05:23→17:53)
[2022-10-24 06:50] LABS: Bedside Glucose 160 mg/dL (74-106)
[2022-10-24] MEDS: Lidocaine 5% Patch 1 PATCH TOPICAL (08:05)
[2022-10-24] MEDS: metFORMIN HCl 500 MG Tablet PO ×2 (08:05→17:53)
[2022-10-24 10:31] VITALS: BP 134/70; PULSE 98; RESP 16; TEMP 36.6; O2SAT 95
[2022-10-24] MEDS: Tamsulosin HCl 0.4 MG Capsule 0.8 MG PO (17:53)
[2022-10-24] MEDS: Senna/Docusate Sodium 1 Tablet 2 TABLET PO (17:53)
[2022-10-24] MEDS: 0.9% Saline Lock 10 ML Syringe IV (18:15)
[2022-10-24] MEDS: Doxepin Hcl 25 MG Capsule 50 MG PO (21:16)
[2022-10-24] MEDS: Mirtazapine 15 MG Tablet 7.5 MG PO (21:16)
[2022-10-25] MEDS: 0.9% Saline Lock 10 ML Syringe IV ×2 (04:51→12:05)
[2022-10-25] MEDS: Menthol/Lanolin/Calamine/Znox 113 GM Tube 1 APPLIC TOPICAL ×2 (04:53→18:33)
[2022-10-25] MEDS: Glucerna Shake 120 ML LIQUID PO ×4 (04:55→20:17)
[2022-10-25] MEDS: Finasteride 5 MG Tablet PO (04:55)
[2022-10-25] MEDS: Acetaminophen 500 MG Tablet 1000 MG PO ×3 (04:56→20:20)
[2022-10-25 06:55] LABS: Bedside Glucose 143 mg/dL (74-106)
[2022-10-25] MEDS: metFORMIN HCl 500 MG Tablet PO ×2 (09:35→18:28)
[2022-10-25] MEDS: Lidocaine 5% Patch 1 PATCH TOPICAL (09:35)
[2022-10-25 14:00] VITALS: BP 97/60; PULSE 117; RESP 16; TEMP 36.4; O2SAT 95
[2022-10-25] MEDS: Tamsulosin HCl 0.4 MG Capsule 0.8 MG PO (18:28)
[2022-10-25] MEDS: Doxepin Hcl 25 MG Capsule 50 MG PO (20:20)
[2022-10-25] MEDS: Mirtazapine 15 MG Tablet 7.5 MG PO (20:20)
[2022-10-26] MEDS: Finasteride 5 MG Tablet PO (05:04)
[2022-10-26] MEDS: 0.9% Saline Lock 10 ML Syringe IV ×3 (05:04→17:02)
[2022-10-26] MEDS: Acetaminophen 500 MG Tablet 1000 MG PO ×3 (05:04→21:25)
[2022-10-26] MEDS: Glucerna Shake 120 ML LIQUID PO ×4 (05:04→21:21)
[2022-10-26] MEDS: Menthol/Lanolin/Calamine/Znox 113 GM Tube 1 APPLIC TOPICAL ×2 (05:16→17:03)
[2022-10-26 06:35] LABS: Bedside Glucose 166 mg/dL (74-106)
[2022-10-26] MEDS: metFORMIN HCl 500 MG Tablet PO ×2 (08:21→17:02)
[2022-10-26] MEDS: Lidocaine 5% Patch 1 PATCH TOPICAL (10:01)
--- NOTE | 2022-10-26 10:08 | CASEMGMT ---
Social Work Spoke with via phone to discuss DC plans. prefers to speak in person. Once she knows a time she will be in to visit pt, she will contact this worker to schedule. PATRICE PradoW
[2022-10-26 14:00] VITALS: BP 140/85; PULSE 103; RESP 16; TEMP 36.3; O2SAT 98
[2022-10-26 16:17] VITALS: PULSE 108; O2SAT 95
[2022-10-26] MEDS: Tamsulosin HCl 0.4 MG Capsule 0.8 MG PO (17:03)
--- NOTE | 2022-10-26 19:59 | NURSING ---
started teaching of sarmiento cath care to and daughter, teaching material given as well. will continue to reinforce sarmiento care with /pt and daughter
[2022-10-26] MEDS: Doxepin Hcl 25 MG Capsule 50 MG PO (21:22)
[2022-10-26] MEDS: Mirtazapine 15 MG Tablet 7.5 MG PO (21:23)
[2022-10-27 06:05] VITALS: BP 119/60; PULSE 99
[2022-10-27] MEDS: Finasteride 5 MG Tablet PO (06:06)
[2022-10-27] MEDS: Acetaminophen 500 MG Tablet 1000 MG PO ×3 (06:09→23:02)
[2022-10-27] MEDS: Menthol/Lanolin/Calamine/Znox 113 GM Tube 1 APPLIC TOPICAL ×2 (06:11→16:58)
[2022-10-27] MEDS: 0.9% Saline Lock 10 ML Syringe IV ×2 (06:12→17:58)
[2022-10-27 06:31] LABS: Bedside Glucose 137 mg/dL (74-106)
[2022-10-27] MEDS: metFORMIN HCl 500 MG Tablet PO ×2 (08:34→16:57)
[2022-10-27] MEDS: Lidocaine 5% Patch 1 PATCH TOPICAL (10:50)
[2022-10-27] MEDS: Glucerna Shake 120 ML LIQUID PO ×3 (10:51→23:02)
[2022-10-27 13:48] VITALS: BP 132/81; PULSE 100; RESP 16; TEMP 36.4; O2SAT 97
[2022-10-27] MEDS: Tamsulosin HCl 0.4 MG Capsule 0.8 MG PO (16:58)
[2022-10-27] MEDS: Senna/Docusate Sodium 1 Tablet 2 TABLET PO (16:58)
[2022-10-27] MEDS: Mirtazapine 15 MG Tablet 7.5 MG PO (23:03)
[2022-10-27] MEDS: Doxepin Hcl 25 MG Capsule 50 MG PO (23:05)
[2022-10-28 06:15] LABS: Bedside Glucose 126 mg/dL (74-106)
[2022-10-28] MEDS: Glucerna Shake 120 ML LIQUID PO ×3 (06:28→17:42)
[2022-10-28] MEDS: Acetaminophen 500 MG Tablet 1000 MG PO ×3 (06:29→21:47)
[2022-10-28] MEDS: Finasteride 5 MG Tablet PO (06:30)
[2022-10-28] MEDS: Menthol/Lanolin/Calamine/Znox 113 GM Tube 1 APPLIC TOPICAL ×2 (06:33→17:48)
[2022-10-28] MEDS: metFORMIN HCl 500 MG Tablet PO ×2 (07:47→17:42)
[2022-10-28] MEDS: Lidocaine 5% Patch 1 PATCH TOPICAL (10:52)
[2022-10-28 14:00] VITALS: BP 118/68; PULSE 92; RESP 17; TEMP 36.5; O2SAT 96
[2022-10-28] MEDS: 0.9% Saline Lock 10 ML Syringe IV (17:42)
[2022-10-28] MEDS: Tamsulosin HCl 0.4 MG Capsule 0.8 MG PO (17:43)
[2022-10-28] MEDS: Mirtazapine 15 MG Tablet 7.5 MG PO (21:46)
[2022-10-28] MEDS: Doxepin Hcl 25 MG Capsule 50 MG PO (21:47)
[2022-10-28 22:15] VITALS: PULSE 90; RESP 14; O2SAT 95
[2022-10-29 05:39] LABS: Absolute Lymphocyte Count 2.54 X10^3/uL (0.83-4.51); Absolute Neutrophil Count 3.9 X10^3/uL (2.0-7.7); Basophil# 0.04 X10^3/uL; Basophil% 0.5 % (0-1); Eosinophil# 0.75 X10^3/uL; Eosinophils% 9.4 % (0-5); Hematocrit 31.7 % (40-54); Hemoglobin 10.2 g/dL (13.0-16.5); Lymphocyte # 2.54 X10^3/ul (0.83-4.51); Lymphocyte % 31.7 % (19-41); Mean Corp Hgb Conc 32.2 g/dL (32-36); Mean Corpuscular Hgb 28.2 pg (27.0-32.0); Mean Corpuscular Volume 87.6 fL (80-94); Mean Platelet Vol. 8.8 fl (6.2-12.0); Monocyte# 0.75 X10^3/uL; Monocyte% 9.4 % (0-10); NRBC Flagged by Analyzer 0 % (0-5); Neutrophil # 3.89 X10^3/uL (2.7-7.7); Neutrophil % 48.5 % (47-70); Platelet Count 319 K/mm3 (150-450); RBC Distribution Width CV 14.7 % (11.6-14.6); RBC Distribution Width SD 47.2 fl (35.1-43.9); Red Blood Count 3.62 M/mm3 (4.6-6.2)
[2022-10-29] MEDS: Finasteride 5 MG Tablet PO (05:46)
[2022-10-29] MEDS: Acetaminophen 500 MG Tablet 1000 MG PO ×3 (05:46→20:47)
[2022-10-29] MEDS: Menthol/Lanolin/Calamine/Znox 113 GM Tube 1 APPLIC TOPICAL ×2 (05:48→17:50)
[2022-10-29] MEDS: 0.9% Saline Lock 10 ML Syringe IV ×4 (05:52→22:30)
[2022-10-29 06:16] LABS: Bedside Glucose 115 mg/dL (74-106)
[2022-10-29 06:35] LABS: Erythrocyte Sedimentation Rate 48 mm/hr (0-20)
[2022-10-29 07:07] LABS: AST(SGOT) 18 U/L (15-37); Alanine Aminotransfer ALT/SGPT 29 U/L (16-61); Albumin, Serum 2.7 g/dL (3.2-5.0); Alkaline Phosphatase 112 U/L (45-117); Anion Gap 6 (5-15); BUN 28 mg/dL (7-18); Bilirubin, Direct 0.18 mg/dL (0.00-0.30); Calcium,Total 8.9 mg/dL (8.5-10.1); Chloride 104 mmol/L (98-107); Creatinine, Serum 1.12 mg/dL (0.70-1.30); EST Glomerular Filtration Rate 67 mL/min (>60); Est Glom Filt Rate - Afr Amer 81 mL/min (>60); Estimated Creatinine Clearance 49.11 ml/min; Globulin 4.1 g/dL (2.2-4.2); Glucose 119 mg/dL (74-106); Protein, Total 6.8 g/dL (6.4-8.2); Sodium Level 135 mmol/L (136-145)
[2022-10-29 07:09] LABS: CPK Total, Creatine Kinase 34 U/L (39-308)
[2022-10-29] MEDS: metFORMIN HCl 500 MG Tablet PO ×2 (07:47→17:49)
--- NOTE | 2022-10-29 09:17 | CASEMGMT ---
Social Work SW called to inquire about setting time to discuss DC plans for 10/31. requesting today at 1430. Chelsy Gardner, LOGGING ASSISTANT SUB ARC OPERATOR
[2022-10-29 09:18] VITALS: PULSE 98; O2SAT 95
[2022-10-29] MEDS: Lidocaine 5% Patch 1 PATCH TOPICAL (10:09)
[2022-10-29] MEDS: Glucerna Shake 120 ML LIQUID PO ×2 (11:52→20:46)
[2022-10-29 14:00] VITALS: BP 130/63; PULSE 103; RESP 16; TEMP 36.4; O2SAT 96
--- NOTE | 2022-10-29 14:10 | NURSING ---
reinforced sarmiento catheter teaching with spouse. demonstrated how use leg bag.
--- NOTE | 2022-10-29 15:20 | CASEMGMT ---
Addendum entered by Chelsy Gardner 10/31/22 08:36: Error: DC 10/31 Addendum entered by Chelsy Gardner 10/30/22 16:21: [facility] [place] [facility] is able to accept pt. SW updated and [facility] has a slightly higher star rating, which is her preference. SW updated both agencies. SW confirmed with IDT, pt will DC home 11/10 as planned. SW added SN to the [facility] order to monitor. Addendum entered by Chelsy Gardner 10/30/22 10:55: SW contacted to inquire about [facility] agency. stated she forgot and doesn't have a preference. SW offered to refer to facilities from list. agreed to have referrals to agencies 3 stars and above. SW placed referrals via [employer]. Will continue to follow. Addendum entered by Chelsy Gardner 10/29/22 15:53: Both [facility] companies cannot service pt's area. SW called to request additional options. to review list and notify this worker. Original Note: Social Work SW met with pt and in room. Discussed DC plans and answered questions. SW provided printed list of skilled [facility] agencies with quality and resource data via [employer] Guide. requesting [facility] and [facility]. SW sent referral via [employer] [facility] and if denied, will phone referral to [facility]. requesting transport w/c for DC. No other needs noted. to transport. Plan: DC home with 10/31, [facility] PT/OT/ST, transport w/c PATRICE Prado
--- NOTE | 2022-10-29 16:00 | CASEMGMT ---
Social Work BIMS (04/28) and PHQ-9 (01/08) completed for MDS assessment. Chelsy Gardner MSW DREDGE MECHANIC
[2022-10-29] MEDS: Tamsulosin HCl 0.4 MG Capsule 0.8 MG PO (17:49)
--- NOTE | 2022-10-29 19:47 | DS.PCM_ITS ---
Providers Date of Admission: 09/20/22 Primary Care Physician: Dr. Jorge Pepper MD Consultations 09/20/22 19:28 Consult: Infectious Disease Routine Consulting Provider: Michele Meek Reason for Consult: Lumbar discitis/osteomyelitis/epidural abscess s/p debridement. EMERGENT Consult: No MD Notified: Yes Date Notified: 09/20/22 Time Notified: 19:28 Method of Notification: Text 09/22/22 11:05 Consult: Urology Routine Consulting Provider: James Torres Reason for Consult: urinary retention EMERGENT Consult: No Notified: Yes Date Notified: 09/22/22 Time Notified: 11:05 Method of Notification: Verbal Method of Consult:: In-Person 09/28/22 08:41 Consult: Onc/Wound/direct of real estate Routine Comment: Reason for Consult:: cleft kissing/shearing? 09/28/22 15:16 Consult: Podiatry Routine Consulting Provider: Leighton Raymundo Reason for Consult: toe nails need trimmed EMERGENT Consult: No Notified: Yes Date Notified: 10/01/22 Time Notified: 10:35 Method of Notification: Verbal Reason For Visit: SPINE OSTEO MYLETITIS Diagnosis Discharge Diagnosis (1) Debility: Status: Acute Code(s): R53.81 - Other malaise (2) Septic shock: Status: Acute Code(s): A41.9 - Sepsis, unspecified organism; R65.21 - Severe sepsis with septic shock (3) Encephalopathy: Status: Acute Code(s): G93.40 - Encephalopathy, unspecified (4) Lumbar discitis: Status: Acute Code(s): M46.46 - Discitis, unspecified, lumbar region (5) Abscess in epidural space of lumbar spine: Status: Resolved Code(s): G06.1 - Intraspinal abscess and granuloma (6) Osteomyelitis of lumbar spine: Status: Acute Code(s): M46.26 - Osteomyelitis of vertebra, lumbar region (7) Acute kidney injury: Status: Acute Code(s): N17.9 - Acute kidney failure, unspecified (8) Coronary artery disease: Status: Acute Code(s): I25.10 - Atherosclerotic heart disease of [place] coronary artery without angina pectoris (9) Depression: Status: Acute Code(s): F32.A - Depression, unspecified (10) Diabetes mellitus: Status: Acute Code(s): E11.9 - Type 2 diabetes mellitus without complications (11) Hypertension: Status: Chronic Code(s): I10 - Essential (primary) hypertension Plan 82 year old male with below past medical history hospitalized for septic shock secondary to worsening lumbar discitis/osteomyelitis/epidural abscess, complicated by acute kidney injury, encephalopathy, admitted to TCU with debility, here for rehabilitation, strengthening, intravenous antibiotics, prior to discharge home with . * Debility - PT/OT. * Dysphagia - ST. * Pain - Tylenol 1000mg TID, Tramadol 50mg q6h prn pain (4-5), Oxycodone 5mg q4h prn pain (6-10), Lidoderm patch 1 patch TD daily. * Bowel - Miralax 17gm daily, senna/colace 2 tablets bid. * Adult immunization - Administer pneumonia vaccine, covid19 vaccine, flu vaccine as appropriate. * DVT prophylaxis - Done. * Lumbar discitis/osteomyelitis/epidural abscess s/p debridement - Daptomycin 500mg IV q24 thru 10/30/2022, Meropenem 1gm IV q8 thru 10/29/2022, appreciate Dr. Meek. * Diabetes Mellitus II - Metformin 500mg bidcm. * Rash - HC 2.5% cream topical tid prn. * Skin irritation - Calmoseptine topical bid. * Appetite loss - Mirtazapine 7.5mg qhs, stable chronic medical terminologist use, GDR not recommended. * BPH - Tamsulosin 0.8mg qpm, Finasteride 5mg daily, indwelling Sarmiento catheter, appreciate Dr. Torres. * Tinea Corporis - Fluconazole 150mg qweek thru 10/21/2022. * Nutrition - Glucerna 120ml 4x/day. * GI prophylaxis - Lactobacillus 1 tablet bid. * Insomnia - Melatonin 10mg qhs. * Nausea - Zofran 8mg q8h prn. Medications at Discharge Home Medications acetaminophen 500 mg tablet 1,000 mg PO TID #0 tabs 10/29/22 doxepin 25 mg capsule 50 mg PO QHS 30 days #60 caps 10/29/22 finasteride 5 mg tablet 5 mg PO DAILY 30 days #30 tabs 10/29/22 lidocaine 5 % topical patch 1 patch topical 1000 30 days #30 ea 10/29/22 metformin 500 mg tablet 500 mg PO BIDCM #0 tabs 10/29/22 mirtazapine 15 mg tablet 7.5 mg PO QHS 30 days #15 tabs 10/29/22 tamsulosin 0.4 mg capsule 0.8 mg PO DAILY@1730 30 days #60 caps 10/29/22 Hospital Course Operations None Procedures None Summary of Care Provided Minutes Spent on Discharge: 35 Hospital Course: 82 year old male with below past medical history hospitalized for septic shock secondary to worsening lumbar discitis/osteomyelitis/epidural abscess, complicated by acute kidney injury, encephalopathy, admitted to TCU with debility, here for rehabilitation, strengthening, intravenous antibiotics, prior to discharge home with . Unable to void after removal of Sarmiento catheter, discharge with indwelling sarmiento catheter, follow up with Urology. Discharge home with 10/31/2022, Home Health Care PT/OT/ST, transport wheelchair. Physical Exam Const alert General Appearance: cooperative HEENT normocephalic Eyes PERRL and EOMs intact bilaterally Neck supple, no JVD and no carotid bruits Resp normal respiratory effort, normal air movement and clear to auscultation bilaterally Cardio regular rate and regular rhythm GI normal to inspection, nondistended, normoactive bowel sounds, non-tender and non-distended Bladder / Kidney Exam: catheter in place urethral Extremity normal capillary refill General Extremity: Negative for edema Skin no rashes or lesions noted General Skin Exam: no breakdown Psych affect normal Appearance: appropriate Medical Records Data Medical Nutrition Assessment Dietitian: Malnutrition Criteria Met Start: 10/10/22 15:11 Freq: Status: Active Protocol: Document 10/24/22 13:45 FERNANDO (Rec: 10/24/22 13:46 [facility] [id number]) Nutrition Malnutrition Evidence of Malnutrition Exists Yes Malnutrition (severe): Acute Illness/Injury Evidenced By Weight Loss (Severe),Physical Changes (Moderate) Clinical Problem Acute Disease or Injury Related Malnutrition Etiology moderate malnutrition related to inadequate energy intake Signs/Symptoms as evidenced by 16.2% unintended wt loss since adm and fat/muscle wasting noted. Status Active Problem Altered Nutrient-Related Laboratory Values Status Inactive Problem Recommendation Dietitian Recommendations/Changes Continue CHO control diet / fortified foods as ordered Will continue Glucerna Shake 4x/day w/ medpass Will continue 4 oz ensure clear tid w/ meals, fortified oatmeal w/ breakfast, fortified/ensure pudding w/ lunch, van magic cup ice cream w/ dinner Continue appetite stimulant. Weight / BMI Weight Weight: 65.998 kg Body Mass Index (BMI) 22.8 ABG / Lab / Microbiology Data Result Diagrams: 10/29/22 05:24 10/29/22 05:24 Laboratory: Laboratory Results - last 24 hr 10/29/22 05:24: WBC 8.0, RBC 3.62 L, Hgb 10.2 L, Hct 31.7 L, MCV 87.6, MCH 28.2, MCHC 32.2, RDW Std Deviation 47.2 H, RDW Coeff of Eliecer 14.7 H, Plt Count 319, MPV 8.8, Immature Gran % (Auto) 0.500, Neut % (Auto) 48.5, Lymph % (Auto) 31.7, [place] % (Auto) 9.4, Eos % (Auto) 9.4 H, Baso % (Auto) 0.5, Absolute Neuts (auto) 3.9, Absolute Lymphs (auto) 2.54, Nucleated RBC % 0, ESR 48 H 10/29/22 05:24: Sodium 135 L, Potassium 4.0, Chloride 104, Carbon Dioxide 25.0, Anion Gap 6, BUN 28 H, Creatinine 1.12, Estim Creat Clear Calc 49.11, Est GFR (MDRD) Af Amer 81, Est GFR (MDRD) Non-Af 67, BUN/Creatinine Ratio 25.0 H, Glucose 119 H, Calcium 8.9, Total Bilirubin 0.60, Direct Bilirubin 0.18, AST 18, ALT 29, Alkaline Phosphatase 112, Total Protein 6.8, Albumin 2.7 L, Globulin 4.1 10/29/22 05:24: Total Creatine Kinase 34 L 10/29/22 05:48: POC Glucose 115 H Microbiology: Microbiology 10/23/22 06:30 Nasal Secretion SARS-CoV-2 Antigen (Rapid) - Final 10/16/22 06:49 Nasal Secretion SARS-CoV-2 Antigen (Rapid) - Final 10/09/22 06:48 Nasal Secretion SARS-CoV-2 Antigen (Rapid) - Final 09/23/22 21:48 Blood Culture (Wb) - Anticubital Left Blood Culture - Final No growth in 5 days. 09/23/22 21:54 Blood Culture (Wb) - Left Hand Blood Culture - Final No growth in 5 days. 09/23/22 22:45 Urine Catheter - Catheter Urine Culture - Final Presumptive C albicans 09/24/22 09:55 Stool Stool Occult Blood (AMPARO) - Final 09/24/22 09:55 Nasal Secretion SARS-CoV-2 Antigen (Rapid) - Final 09/23/22 21:25 Mucosa - Nasopharyngeal Respiratory Panel (PCR) - Final 09/23/22 21:11 Nasal Secretion SARS-CoV-2 Antigen (Rapid) - Final 09/22/22 05:30 Nasal Secretion SARS-CoV-2 Antigen (Rapid) - Final D/C Instructions Discharge Diet: No restrictions Discharge Activity: Return to Normal Activity, May Shower and Use Walker Weight Bearing Status: Weight bearing as tolerated Call your doctor if you observe: Fever of 101 or Higher, Inability to urinate, Inability to have a bowel movement, Shortness of breath, Dizziness, Fainting spells, Swelling in the ankles, Chest pain and Uncontrolled pain Additional Instructions: Discharge home with 10/31/2022, Home Health Care PT/OT/ST, transport wheelchair. [facility]: As scheduled. Meaningful Use Info Meaningful Use Diagnoses (Choose all that apply): None applicable Discharge Plan Admission Admit Date/Time: 09/20/22 12:15 Primary Reason for Your Visit: Debility. Attending Provider: Maurice Lepe Chi Primary Care Provider: Jorge Pepper Consulting Providers: Michele Meek ; James Torres ; Leighton Raymundo Instructions Additional Instructions / Restrictions: Discharge home with 10/31/2022, Home Health Care PT/OT/ST, transport wheelchair. Discharge Orders/Prescriptions Prescriptions: New acetaminophen 500 mg Tablet 1,000 mg PO TID Qty: 0 0RF lidocaine 5 % Adhesive Patch,Medicated 1 patch topical 1000 30 Days Qty: 30 0RF Protocol: *Topical Application Instructions APPLICATION INSTRUCTIONS: Apply to Affected area leave on for 12 hours then remove doxepin 25 mg Capsule 50 mg PO QHS 30 Days Qty: 60 0RF tamsulosin 0.4 mg Capsule 0.8 mg PO DAILY@1730 30 Days Qty: 60 0RF mirtazapine 15 mg Tablet 7.5 mg PO QHS 30 Days Qty: 15 0RF metformin 500 mg Tablet 500 mg PO BIDCM Qty: 0 0RF finasteride 5 mg Tablet 5 mg PO DAILY 30 Days Qty: 30 0RF Discontinued metformin 500 mg tablet 500 mg PO BIDCM Label Comments: take 2 tablets by mouth twice a day atorvastatin 20 mg Tablet 20 mg PO QHS sennosides-docusate sodium 8.6-50 mg Tablet 2 tab PO DAILY tramadol 50 mg tablet 100 mg PO Q6H PRN (Reason: Pain (Scale Score 4-5)) Label Comments: take 1 tablet by mouth every 6 hours acetaminophen 500 mg Tablet 1,000 mg PO Q8H PRN (Reason: PAIN SCORE 1-3) tamsulosin 0.4 mg capsule 0.8 mg PO DAILY@1730 Label Comments: take 2 capsules by mouth once daily glimepiride 4 mg tablet 4 mg PO BREAKFAST lidocaine 5 % adhesive patch,medicated 1 patch topical DAILY Label Comments: apply 1 patch TO THE AFFECTED AREA DAILY. LEAVE ON FOR 12 HOURS AND THEN OFF FOR 12 HOURS. polyethylene glycol 3350 17 gram/dose Powder 17 g PO DAILY propranolol 20 mg tablet 20 mg PO BID Glucerna Liquid 120 ml PO 4X/DAY Xarelto 10 mg Tablet 10 mg PO DINNER hydrocortisone 2.5 % Cream 1 applic TOPICAL TID PRN (Reason: Rash) mirtazapine [Remeron] 15 mg Tablet 7.5 mg PO DAILY gabapentin 100 mg Capsule 100 mg PO TID menthol-zinc oxide [Calmoseptine] 0.44-20.6 % Ointment 1 applic TOPICAL BID@0600,1800 baclofen 5 mg Tablet 5 mg PO TID PRN (Reason: MUSCLE SPASMS) oxycodone 5 mg Tablet 5 mg PO Q4H PRN PRN (Reason: Pain Score 6-10) Qty: 0 0RF lisinopril 5 mg tablet 2.5 mg PO DAILY Qty: 30 0RF meropenem 1 gram recon soln 1 g IV Q8H Rx Instructions: dx: spine osteo stop date 10/29/22 weekly bmp, cbc, LFT, esr, and CK. Fax to [phone] insulin lispro [Humalog KwikPen Insulin] 100 unit/mL insulin pen See Protocol subcut [facility] Protocol: 3. Sliding Scale Insulin Med Dosing Condition: 150-189 mg/dl = 1 unit Condition: 190-229 mg/dl = 2 units Condition: 230-269 mg/dl = 3 units Condition: 270-309 mg/dl = 4 units Condition: 310-349 mg/dl = 5 units Condition: 350-399 mg/dl = 6 units Condition: 400-449 mg/dl = 7 units Condition: Greater than 449 call physician Protocol Text: - Use for Total Daily Dose of Insulin 37-55 units - Obsese, infected, or steroid patients MEDIUM DOSING ALGORITHIM daptomycin 500 mg recon soln 500 mg IV Q24H Rx Instructions: administer over 30 mins dx: spine osteo stop date 10/29/22 weekly bmp, cbc, LFT, esr, and CK. Fax to [phone] Referrals / Follow Up: James Torres MD [Med Staff - Active Staff] - Jorge Pepper MD [Primary Care Provider] - 11/05/22 9:00 am Barron Ramos MD [Non-Staff] - 11/26/22 11:00 am (Neurosurgery ) Michele Meek MD [Med Staff - Active Staff] - 11/14/22 2:45 pm ( will see you at the wound center at [facility]) Disposition Disposition (needs filled in before D/C Order can be placed): Home Health Service
[2022-10-29] MEDS: Mirtazapine 15 MG Tablet 7.5 MG PO (20:48)
[2022-10-29] MEDS: Doxepin Hcl 25 MG Capsule 50 MG PO (20:49)
[2022-10-30] MEDS: Acetaminophen 500 MG Tablet 1000 MG PO ×3 (05:54→19:56)
[2022-10-30] MEDS: Finasteride 5 MG Tablet PO (05:54)
[2022-10-30] MEDS: Menthol/Lanolin/Calamine/Znox 113 GM Tube 1 APPLIC TOPICAL ×2 (05:56→17:22)
[2022-10-30 07:01] LABS: Bedside Glucose 124 mg/dL (74-106)
[2022-10-30] MEDS: Lidocaine 5% Patch 1 PATCH TOPICAL (09:47)
[2022-10-30] MEDS: metFORMIN HCl 500 MG Tablet PO ×2 (09:47→17:21)
[2022-10-30 10:00] VITALS: BMI 23.3
[2022-10-30 14:00] VITALS: BP 115/64; PULSE 101; RESP 16; TEMP 36.6; O2SAT 94
--- NOTE | 2022-10-30 15:07 | PN.ID_ITS ---
Physical Exam Narrative Feeling well, no back pain, no fever, no n/v/d. Const alert and no apparent distress General Appearance: cooperative Resp normal air movement and clear to auscultation bilaterally Cardio regular rate and regular rhythm GI soft to palpation, non-tender and non-distended Extremity General Extremity: Negative for edema Skin no rashes or lesions noted ID ID: Route of nutrition/ use of supplements: [] Nutritional Intake: [] IV Site: [] Bello Catheter: [] Assessment & Plan Assessment/Plan (1) Lumbar discitis: (2) Osteomyelitis of lumbar spine: PLAN: Had been on vanc/ceftriaxone for empiric coverage lumbar osteo/discitis/epidural abscess.? Imaging again 09/14/22 showed worsening, associ ated with fever and septic shock.? Abx changed to dapto/guille 09/17.? BP improved, fever resolved, bcx neg so far.? Ucx with yeast.? Transferred back to TCU. On 6 weeks dapto/guille, stop date 10/29/22 with weekly bmp, cbc, LFT, CK, and ESR. Feeling much better. Ordered repeat MRI which shows persistent osteo/discitis but epidural abscess and stenosis is much improved. Ok to stop iv abx. Will send home on po doxy, recommend he followup with his spine surgery as soon as possible. ID followup in 1 month. Will follow, d/w nursing. (3) Abscess in epidural space of lumbar spine:
[2022-10-30] MEDS: Glucerna Shake 120 ML LIQUID PO ×2 (17:21→19:53)
[2022-10-30] MEDS: Tamsulosin HCl 0.4 MG Capsule 0.8 MG PO (17:21)
[2022-10-30] MEDS: Mirtazapine 15 MG Tablet 7.5 MG PO (19:54)
[2022-10-30] MEDS: Doxepin Hcl 25 MG Capsule 50 MG PO (19:56)
[2022-10-30 22:00] VITALS: PULSE 104; RESP 16; O2SAT 94
[2022-10-31] MEDS: Acetaminophen 500 MG Tablet 1000 MG PO (05:02)
[2022-10-31] MEDS: Menthol/Lanolin/Calamine/Znox 113 GM Tube 1 APPLIC TOPICAL (05:03)
[2022-10-31] MEDS: Glucerna Shake 120 ML LIQUID PO (05:03)
[2022-10-31] MEDS: Finasteride 5 MG Tablet PO (05:03)
[2022-10-31 06:51] LABS: Bedside Glucose 137 mg/dL (74-106)
[2022-10-31] MEDS: metFORMIN HCl 500 MG Tablet PO (07:49)
[2022-10-31] MEDS: Lidocaine 5% Patch 1 PATCH TOPICAL (08:53)
--- NOTE | 2022-10-31 08:53 | NURSING ---
new order to change sarmiento cath d/t leaking during night before pt is discharged today home with .
--- NOTE | 2022-10-31 09:05 | NURSING ---
Addendum entered by Eusebia Jarvis 10/31/22 09:09: [facility] returned call and will send his ABX order to [facility]. will update and pt Original Note: Dr Meek paged regarding needing script for pt to DC home on PO Doxy. awaiting return call.
--- NOTE | 2022-10-31 11:33 | CASEMGMT ---
Social Work Nursing notified this worker as pt was leaving, the pt is discharging to the dtr's house. SW unaware. Spoke with in room to obtain dtr's address to ensure [facility] can service [facility] area. [facility]tr[facility] name, address and phone number. Received confirmation [facility] can service area. SW also received email from [employer] that has not returned their calls to get the information on delivery for transport w/c. SW returned to room and updated on [facility], and [employer]. Provided with [facility] phone number to contact. PATRICE PradoW
[2022-10-31 12:35] VITALS: BP 139/74; PULSE 101; RESP 18; TEMP 36.4; O2SAT 98
== END 2022-10-31 12:25 | disposition home health service (06) | DRG 95 ==
PROVIDERS: Internal Medicine Infectious Disease; Admitting Provider Family Medicine Geriatric Medicine; PCP Internal Medicine; Visit Provider Family Medicine Geriatric Medicine
DX: G06.1 Intraspinal abscess and granuloma (principal); G93.40 Encephalopathy, unspecified; M46.26 Osteomyelitis of vertebra, lumbar region; N13.8 Other obstructive and reflux uropathy; B35.1 Tinea unguium; E11.40 Type 2 diabetes mellitus with diabetic neuropathy, unspecified; Z79.4 Long term (current) use of insulin; E78.5 Hyperlipidemia, unspecified; I10 Essential (primary) hypertension; M46.46 Discitis, unspecified, lumbar region; I25.10 Atherosclerotic heart disease of native coronary artery without angina pectoris; B35.4 Tinea corporis; Z79.01 Long term (current) use of anticoagulants; Z79.899 Other long term (current) drug therapy; N40.0 Benign prostatic hyperplasia without lower urinary tract symptoms; F32.A Depression, unspecified; Z79.891 Long term (current) use of opiate analgesic; N40.1 Benign prostatic hyperplasia with lower urinary tract symptoms; R33.8 Other retention of urine; G47.00 Insomnia, unspecified
CPT/HCPCS: 36415; 36430; 36569; 71045; 71046; 80048; 80076; 81001; 82274; 82550; 82962; 85014; 85018; 85025; 85652; 86850; 86900; 86901; 86920; 86922; 87040; 87086; 87088; 87633; 87811; 92507; 92523; 97110; 97116; 97162; 97166; 97530; 97535; 97802; J0878; J2185; J7040; J7050; P9016; A4216; J1940; J3490; J7799

== ENCOUNTER → 2022-09-24 | Outpatient (CLI) | payer MEDICARE, BC, SELFPAY ==
[2022-09-24] MEDS: 0.9% NaCl Peripheral Flush Adult/Peds IV ×2 (11:57→14:44)
[2022-09-24 11:59] VITALS: BP 127/64; PULSE 87; RESP 16; TEMP 36.4; O2SAT 97; BMI 26.6
[2022-09-24 12:41] VITALS: BP 122/49; PULSE 95; RESP 16; TEMP 36.6; O2SAT 98
[2022-09-24 13:41] VITALS: BP 137/70; PULSE 95; RESP 16; TEMP 37; O2SAT 98
[2022-09-24] MEDS: Furosemide 20 MG/2 ML VIAL IV (14:40)
[2022-09-24 14:41] VITALS: BP 129/58; PULSE 89; RESP 16; TEMP 36.7; O2SAT 97
== END | disposition home or self-care (01) ==
LOC: MEDOUTP 12:02
PROVIDERS: PCP Internal Medicine; Referring Provider Family Medicine Geriatric Medicine; Visit Provider Family Medicine Geriatric Medicine
DX: D62 Acute posthemorrhagic anemia (principal)
CPT/HCPCS: 96372; 36430; 86850; 86900; 86901; 86920; 86922; J7040; P9016; A4216; J1940

== ENCOUNTER → 2022-09-25 | Outpatient (CLI) | payer MEDICARE, BC, SELFPAY ==
[2022-09-25 11:31] VITALS: BP 139/69; PULSE 79; RESP 16; TEMP 37.6; O2SAT 98; BMI 26.6
[2022-09-25 11:57] VITALS: BP 115/59; PULSE 77; RESP 16; TEMP 37.1
[2022-09-25 12:48] VITALS: BP 122/58; PULSE 77; RESP 14; TEMP 36.8; O2SAT 98
[2022-09-25 12:57] VITALS: BP 125/63; PULSE 76; RESP 16; TEMP 36.7; O2SAT 97
[2022-09-25 17:05] LABS: Bedside Glucose 286 mg/dL (74-106)
[2022-09-27 16:26] LABS: Bedside Glucose 208 mg/dL (74-106)
== END | disposition home or self-care (01) ==
LOC: MEDOUTP 11:24
PROVIDERS: PCP Internal Medicine; Referring Provider Family Medicine Geriatric Medicine; Visit Provider Family Medicine Geriatric Medicine
DX: D62 Acute posthemorrhagic anemia (principal)
CPT/HCPCS: 36430; 82962; 86850; 86900; 86901; 86920; 86922; J7040; P9016; A4216

== ENCOUNTER → 2022-10-30 | Outpatient (CLI) | payer MEDICARE, BC, SELFPAY ==
--- NOTE | 2022-10-30 12:00 | MRI_ITS ---
EXAM: MR LUMBAR SPINE WITHOUT AND WITH INTRAVENOUS CONTRAST CLINICAL INDICATION: LUMBAR OSTEOMYELITIS- FOLLOW UP, COMPARE TO PREVIOUS TECHNIQUE: Multiplanar and multisequence MR images of the lumbar spine without and with intravenous contrast. This report was created using [employer] [address] report [employer] technology. CONTRAST: IV 13ml Clariscan COMPARISON: MR Lumbar Spine dated 09/14/2022 FINDINGS: VERTEBRAE: No change in the loss of the lumbar lordosis. Mild anterior listhesis of L4 on L5 is unchanged. SPINAL CORD: Normal. Normal position and signal intensity of the conus medullaris. DISCS/SPINAL CANAL/NEURAL FORAMINA: T12-L1: Stable endplate deformities. No disc herniation. Posterior ligamentous hypertrophy and facet arthropathy results in minor impression on the posterior portion of the thecal sac. No significant narrowing of the neural foramina. L1-L2: Stable prominent disc space loss. No disc herniation. Posterior ligamentous hypertrophy and facet arthropathy results in mild compression of the thecal sac. Mild left and moderate right neural foraminal narrowing related to vertebral body osteophytosis and facet arthropathy. L2-L3: Stable moderate disc space loss. Anterior inferior defect of the L2 vertebral body unchanged. No disc herniation. Mild narrowing of the left neural foramen related to facet arthropathy. Posterior laminectomy. Intact right neural foramen and spinal canal. L3-L4: The extensive changes of discitis and L3 and L4 vertebral body osteomyelitis again seen eroding the endplates. More prominent contrast enhancement along the endplates suggestive of increasing granulation tissue. Previously noted epidural extension of the paraspinal reactive tissue/abscess formation has improved with decrease in the compression of the thecal sac. Residual contrast enhancement within the posterior soft tissues along the laminectomy defect. Moderate neural foraminal narrowing related to bony hypertrophy. L4-L5: Prominent disc space narrowing. Posterior laminectomy. [id number]-[id number] spinal stenosis related to posterior ligamentous redundancy and facet arthropathy. Severe left and moderate right neural foraminal narrowing related to vertebral body hypertrophy and facet arthropathy. L5-S1: Narrowing of the posterior portion of the disc. Resolution of the disc protrusion. L5 laminectomy. No spinal stenosis. Mild left and moderate to severe right neural foraminal narrowing related to bony hypertrophy. MRI/Spine Lumbar W/WO Contrast IMPRESSION: 1. Persistent changes of L3-4 discitis with L3 and L4 vertebral body osteomyelitis. Evidence of enhancing granulation tissue along the margins of the L3-4 discitis. Resolving epidural abscess formation and spinal stenosis at L3-4. 2. Multilevel neural foraminal narrowing as described, unchanged from prior exam. Electronically Signed: Sharath Dexter MD at 14:06 EDT ,
== END | disposition home or self-care (01) ==
LOC: MRI 10:46
PROVIDERS: PCP Internal Medicine; Referring Provider Internal Medicine Infectious Disease; Visit Provider Internal Medicine Infectious Disease
DX: M86.9 Osteomyelitis, unspecified (principal)
CPT/HCPCS: 72158; A9575; A4216

== ENCOUNTER → 2022-12-11 | Outpatient (CLI) | payer MEDICARE, BC, SELFPAY ==
--- NOTE | 2022-12-11 06:35 | MRI_ITS ---
STUDY: MRI LUMBAR SPINE WITHOUT CONTRAST REASON FOR EXAM: Male, 82 years old. Lumbar discitis. Follow-up. TECHNIQUE: Standardized fat and water weighted pulse sequences were obtained in the sagittal and axial planes. COMPARISON: MRI lumbar spine with and without contrast 10/30/2022. FINDINGS: T10-T11: (Sagittal only). Normal endplates. Mild disc space height narrowing. Tiny ventral extradural defect is posterior bulging annulus. Normal central canal and bilateral intervertebral neural foramina. T11-T12: (Sagittal only). Normal endplates. Normal disc height, hydration and morphology. Normal central canal and bilateral intervertebral neural foramina. T12-L1: (Sagittal only). Normal T12 inferior endplate. Mild old central compression fracture of the L1 superior endplate is unchanged. This accounts for the increased central disc space height. Normal central canal and bilateral intervertebral neural foramina. Normal lumbar lordosis. There is no substantial scoliosis. Normal conus medullaris that terminates at the T12-L1 disc space level. L1-2: Old central compression fracture of the L1 inferior endplate is unchanged. Minimal anterior wedging of the L2 superior endplate is also unchanged. Pronounced disc space height narrowing. No significant facet arthropathy. Mild central canal stenosis with an AP canal diameter of 10 mm is unchanged. Normal bilateral lateral recesses. Moderate stenosis of the right intervertebral neural foramen is unchanged. Normal left intervertebral neural foramen. Left posterior renal parenchymal cyst is visible at this level and unchanged. L2-3: Schmorl''s node in the anterior L2 inferior endplate is unchanged. Normal L3 superior endplate but abnormal edema of the vertebral marrow underneath. This was present previously. Postsurgical absence of the spinous processes and lamina. Normal central canal and bilateral lateral recesses. Normal bilateral intervertebral neural foramina.. L3-4: Abnormal endplates which are poorly visualized but extensive edema of the vertebral marrow of the L3 and L4 vertebral bodies. Collapse of the L3-L4 disc space. Mild retrolisthesis of L3 on L4 is unchanged. Postsurgical absence of the spinous processes and lamina. Moderate central canal stenosis with an AP canal diameter 7.3 mm is unchanged. Stenosis of the bilateral lateral recesses are unchanged. Moderately pronounced stenosis of the left intervertebral neural foramen and moderate stenosis of the right intervertebral neural foramen are unchanged. L4-5: Normal endplates. Abnormal edema of the vertebral marrow underneath the L4 inferior endplate is unchanged. Normal vertebral marrow underneath the L5 superior endplate. Pronounced disc space height narrowing and grade 1 anterolisthesis of L4 on L5 are unchanged. Moderately pronounced central canal stenosis with an AP canal diameter of 6 mm is unchanged. Mild stenosis of the left lateral recess is unchanged. Normal right lateral recess. Bilateral degenerative facet arthropathy are unchanged. Moderately pronounced stenosis of the left intervertebral neural foramen is unchanged. Moderate stenosis of the right intervertebral neural foramen is unchanged. L5-S1: Mild Modic type II degenerative vertebral marrow fat infiltration underneath the right side of the vertebral endplates. Pronounced right-sided disc space height narrowing. Mild narrowing of the tapering thecal sac at the mid S1 body level when compared to the prior study. Bilateral degenerative facet arthropathy are unchanged. Moderate stenosis of right intervertebral neural foramen is unchanged. Normal left intervertebral neural foramen. Normal visualized sacral ala. Increased dilatation of the urinary bladder with prominent posterior bladder diverticulum. Normal visualized paraspinous soft tissue structures. MRI/Spine Lumbar (Routine) IMPRESSION: 1. Limited study for lumbar discitis evaluation without IV contrast. 2. Collapse of the L3-L4 disc space, loss of the L3 and L4 vertebral body heights, extensive vertebral marrow edema of the L3 and L4 vertebral bodies, grade 1 degenerative retrolisthesis of L3 on L4, moderate central canal stenosis with an AP canal diameter 7.3 mm, bilateral lateral recess stenosis, moderately pronounced stenosis of the left intervertebral neural foramen and moderate stenosis of the right intervertebral neural foramen. These are unchanged. The presence of enhancing disc abscess wasn''t visible only after IV contrast administration. Any residual or improvement of disc abscess is difficult to assess without IV contrast. 3. Moderately pronounced central canal stenosis at L4-L5 disc space level with an AP canal diameter of 6 mm, grade 1 anterolisthesis of L4 on L5, moderately pronounced stenosis of the left intervertebral neural foramen and moderate stenosis of the right intervertebral neural foramen. This level is unchanged. 4. Mild narrowing of the tapering thecal sac at the mid S1 body level when compared to 10/30/2022. Moderate stenosis of the right L5-S1 intervertebral neural foramen is unchanged. 5. Increased urinary bladder dilatation with more obvious prominent posterior bladder diverticulum. The possibility of a neurogenic bladder is difficult to exclude. Electronically Signed: Braden Chaney MD at 16:26 EDT ,
[2022-12-11 07:11] LABS: CREATININE FINGERSTICK 2.8 mg/dL (0.70-1.30)
== END | disposition home or self-care (01) ==
LOC: MRI 06:29
PROVIDERS: PCP Internal Medicine; Referring Provider Internal Medicine Infectious Disease; Visit Provider Internal Medicine Infectious Disease
DX: M46.46 Discitis, unspecified, lumbar region (principal)
CPT/HCPCS: 72148

== ENCOUNTER 2022-12-26 13:02 | Observation (INO) | payer MEDICARE, BC, SELFPAY ==
[2022-12-26] VITALS (12 sets, daily range): BP systolic 85–158; BP diastolic 56–113; PULSE 66–86; RESP 16; TEMP 36.2–36.9; O2SAT 94–100; BMI 23.4
[2022-12-26 12:53] LABS: Bedside Glucose 241 mg/dL (74-106)
[2022-12-26] MEDS: Lactated Ringers 1,000 ML 15 ML IV (12:54)
--- NOTE | 2022-12-26 13:01 | PCM.HP.STD ---
HPI - General HPI Narrative CHANA WARE, is a 82 M who presents for a transurethral resection of the prostate he has a retention of urine after complicated hospital stay. [facility] Medical History (Updated 12/25/22 @ 13:44 by Rola Valles) Abscess in epidural space of lumbar spine Back pain Cancer Chronic kidney disease (CKD) Coronary artery disease Depression Diabetes mellitus History of pain when walking Hypertension Insulin dependent diabetes mellitus Lumbar discitis Osteomyelitis of lumbar spine Pressure ulcer Shortness of breath on exertion Walker as ambulation aid Home Medications finasteride 5 mg tablet 5 mg PO DAILY 30 days #30 tabs 10/29/22 [Rx Last Taken Unknown] tamsulosin 0.4 mg capsule 0.8 mg PO DAILY@1730 30 days #60 caps 10/29/22 [Rx Last Taken Unknown] atorvastatin 10 mg tablet 10 mg PO QHS 12/19/22 [History Last Taken Unknown] metoprolol succinate 25 mg tablet,extended release 24 hr 25 mg PO DAILY 12/19/22 [History Last Taken 12/26/22] ciprofloxacin HCl 500 mg tablet 500 mg PO BID 12/25/22 [History Last Taken Unknown] insulin glargine 100 unit/mL subcutaneous solution (Lantus U-100 Insulin) 10 unit subcut QPM 12/25/22 [History Last Taken 12/25/22] Allergy/AdvReac Type Severity Reaction Status Date / Time doxycycline AdvReac Mild Hives Verified 12/26/22 12:31 vancomycin AdvReac Red Man Verified 12/26/22 12:31 Syndrome Family History Other Arthritis Congestive heart failure Diabetes Surgical History History of incision and drainage Hx of inguinal hernia surgery Status post epidural steroid injection Social History household members: spouse Smoking Status: Never smoker alcohol intake: never substance use type: does not use Vital Signs Vital Signs Vital Signs: 12/26/22 12:31 12/26/22 12:31 Temperature 98.2 F Temperature Source Temporal Pulse Rate 86 Respiratory Rate 16 Respiratory Pattern Normal Blood Pressure 125/71 H Blood Pressure Mean 89 Blood Pressure Source Monitor Blood Pressure Position Semi-Fowlers Blood Pressure Location Left Arm Pulse Ox 100 Oxygen Delivery Method Room Air Weight Weight: 69.853 kg Body Mass Index (BMI) 23.4 Results Lab / Micro Data Labs: Laboratory Results - last 24 hr 12/26/22 12:27: POC Glucose 241 H
--- NOTE | 2022-12-26 13:01 | DCINST_ITS ---
Discharge Instructions Diet Discharge Diet: No restrictions, Light diet - advance as tolerated and Soft diet Activity Discharge Activity: Return to Normal Activity Dressing / Incision Call your doctor if you observe: Fainting spells Follow Up Care Please Follow Up With: James Torres MD When: call for appt Test Results: Test results from this visit will be discussed in further detail at your follow- up appointment, if applicable. Discharge Plan Admission Attending Provider: James Torres Primary Care Provider: Jorge Pepper Discharge Orders/Prescriptions Prescriptions: No Action tamsulosin 0.4 mg Capsule 0.8 mg PO DAILY@1730 30 Days Qty: 60 0RF finasteride 5 mg Tablet 5 mg PO DAILY 30 Days Qty: 30 0RF atorvastatin 10 mg tablet 10 mg PO QHS metoprolol succinate 25 mg tablet extended release 24 hr 25 mg PO DAILY Label Comments: take 1 tablet by mouth once daily . DO NOT CRUSH OR CHEW insulin glargine [Lantus U-100 Insulin] 100 unit/mL Solution 10 unit SUBCUT QPM Rx Instructions: 5units night before surgery ciprofloxacin HCl 500 mg Tablet 500 mg PO BID Referrals / Follow Up: Jorge Pepper MD [Primary Care Provider] - Disposition Disposition (needs filled in before D/C Order can be placed): Home, Self Care
[2022-12-26] MEDS: Cefazolin 2 GM in 0.9% Normal Saline 100 ML IV (13:25)
--- NOTE | 2022-12-26 14:54 | OP.PCM_ITS ---
Report of Operation Date of Procedure: 12/26/22 Pre-Operative Diagnosis: BPH with retention of urine Post-Operative Diagnosis: The same Surgery/Procedure Performed:: Transurethral section of prostate Description of Surgical Findings:: In the preoperative setting I discussed with the patient how the surgery would be done with expect afterwards. We discussed how a prostate resection is done and we discussed the risk of the surgery including, bleeding, infection, retrograde ejaculation, changes with ejaculation or intercourse,. We discussed the possibility that the resection of the prostate may not alleviate his urinary symptoms. We discussed the small risk of developing scar tissue along the urethral channel and strictures. We also discussed the chance of the prostate could grow back and he may need further surgery or treatment in the future for prostate problems. Patient was taken back to the operating room, timeout procedure was performed, he was identified and marked and placed on the operating room table. He underwent general anesthesia. He was placed in dorsolithotomy position. Penis and testicles were prepped and draped in usual sterile fashion. Went into the bladder using the visual obturator with a resectoscope. Once inside the bladder identified the right and left ureteral orifice. I then identified the prostate and the anatomy of the prostate. I marked out the area of the sphincter and the verumontanum was identified. Prostate was very distended had a tremendous amount of trabeculations and diverticuli and saccules throughout the prostate and bladder. Very weak looking bladder and stretched out bladder with heavy trabeculations and saccules and diverticuli. No tumors. I then proceeded with the prostate resection first resected the median lobe. And then resected the right lobe of the prostate. Then to resect the left lobe of the prostate. I then resected the apical tissue of the prostate. This was a complete resection of all obstructive tissue to improve voiding and relieve obstruction. I then made sure that there was no injury to the sphincter or the verumontanum was still intact. At the end of the resection all the chips were Ellik out of the bladder. I then identified the left and right ureteral orifice and these were confirmed to be in good position and effluxing and not injured. The resectoscope was removed, a 22 Ecuadorean catheter was placed into the bladder on continuous irrigation. And the urine was fairly light pink color and draining normally. He was taken back to the PACU in good condition.
--- NOTE | 2022-12-26 15:00 | PROS_PTH ---
PATIENT: CHANA WARE LOC: MS3 U#:[id number] AGE/SX: 82/M [place]OM: [facility] [place]26/[address]: Dr. James Torres MD : 1940 BED: 1 DIS: 12/27/2022 SPEC #: [id number] RECD: 12/26/22 15:56 STATUS: TINA SILVEIRA #: [id number] NELL: 12/26/22 15:[address]: James Torres DEPT: SURGICAL PATHOLOGY RECD BY: Andrea Ram ENTERED: 12/27/22 08:58 SP TYPE: TURP OTHR DR: Dr. Jorge Pepper MD Tissues: Prostate, NOS Procedures: Surgery Specimen Level IV HEADER OPERATION: Cysto, TUR prostate, Olympus PRE-OP DIAGNOSIS: Urinary retention TISSUE SUBMITTED: Prostate chips MICROSCOPIC DIAGNOSIS Prostate chips, transurethral resection: Benign prostatic hyperplasia, glandular and stromal type. Acute and chronic inflammation, basal cell hyperplasia and squamous metaplasia. CANDIDO:rohit 12/28/2022 MICROSCOPIC DESCRIPTION Slides are reviewed. GROSS DESCRIPTION Received is one container labeled with the patient's name and designated prostate chips. The specimen consists of multiple irregular fragments of pink-tejada, rubbery, soft tissue that in aggregate weigh 30.5 gm and measure in aggregate 7.0 x 7.0 x 3.0 cm. Chief Human Resources Officer tissue is submitted in ten cassettes. / CANDIDO:rohit 12/27/2022 TC:5 CPT: 63501
[2022-12-26 15:21] LABS: Bedside Glucose 216 mg/dL (74-106)
[2022-12-26] MEDS: 0.9% Normal Saline 1,000 ML 125 ML IV (19:02)
[2022-12-26] MEDS: Glucerna Shake 120 ML LIQUID PO (20:09)
[2022-12-26] MEDS: Atorvastatin Calcium 10 MG Tablet PO (20:09)
[2022-12-26] MEDS: 0.9% Saline Lock 10 ML Syringe IV (20:09)
[2022-12-26] MEDS: Ciprofloxacin 400 MG/200 ML BAG 200 MG IV (20:09)
[2022-12-26] MEDS: Docusate Sodium 100 MG Capsule 200 MG PO (20:09)
[2022-12-26] MEDS: Insulin Glargine-YFGN 100 UNIT/ML Pen 10 UNIT SC (20:16)
[2022-12-26 20:37] LABS: Bedside Glucose 248 mg/dL (74-106)
[2022-12-27] MEDS: 0.9% Normal Saline 1,000 ML 125 ML IV (02:36)
[2022-12-27 02:41] VITALS: BP 102/57; PULSE 74; RESP 16; TEMP 36.6; O2SAT 98
[2022-12-27 05:55] VITALS: BP 119/67; PULSE 75; RESP 16; TEMP 36.6; O2SAT 99
--- NOTE | 2022-12-27 06:10 | PCM.PN.GU ---
Subjective Subjective Status post transurethral resection of the prostate for BPH with obstruction and urinary Randy retention. Urine looks clear we can remove the three-way catheter and after he is able to urinate he should be able to go home today Objective Data Objective Data Vital Signs: Vital Signs Temp Pulse Resp BP Pulse Ox O2 Del Method 98 F 75 16 119/67 99 Room Air 12/27/22 05:55 12/27/22 05:55 12/27/22 05:55 12/27/22 05:55 12/27/22 05:55 12/27/22 05:55 Oxygen Delivery Method Room Air Weight: 69.853 kg Body Mass Index (BMI) 23.4 Intake & Output: Intake and Output for Last 24 Hours 12/25/22 12/26/22 12/27/22 23:59 23:59 23:59 Intake Total 546.83 / 546.83 681.25 / 681.25 Output Total 1450 / 1450 900 / 900 Balance -903.17 / -903.17 -218.75 / -218.75 Lab / Micro Data Labs: Laboratory Results - last 24 hr 12/26/22 12:27: POC Glucose 241 H 12/26/22 15:03: POC Glucose 216 H 12/26/22 20:13: POC Glucose 248 H
[2022-12-27 09:01] VITALS: BP 122/75; PULSE 75; RESP 16; TEMP 36.7; O2SAT 98
[2022-12-27 10:54] VITALS: PULSE 75
[2022-12-27] MEDS: Docusate Sodium 100 MG Capsule 200 MG PO (10:54)
[2022-12-27] MEDS: Metoprolol(XL)Succ 25 MG Tablet PO (10:54)
[2022-12-27] MEDS: Finasteride 5 MG Tablet PO (10:54)
--- NOTE | 2022-12-27 11:23 | CASEMGMT ---
[facility]IDE SPRING NOTE: Pt being discharged home. FIDE SPRING to room. Introduced self and role to pt and , who is at bedside. They state pt is active w/HHC and wish for pt to resume w/HHC and deny having any further d/c planning needs or concerns. Call to [facility] and spoke w/Polina. Pt is active w/them for SN, PT/OT, and an aide. Polina states they were aware pt was admitted to [facility]. She was made aware pt admitted under OBS status and plan is for d/c today after he voids. Ras HERNANDEZN FIDE SPRING
--- NOTE | 2022-12-27 11:55 | CASEMGMT ---
Discharge Planning Resumption of services and discharge date sent to [facility] via [facility]. Janette Gage, Discharge Planning Asst.
== END 2022-12-27 12:35 | disposition home health service (06) ==
LOC: SDC 17:47 → MS3 17:47
PROVIDERS: Admitting Provider Urology; PCP Internal Medicine; Referring Provider Urology; Visit Provider Urology
PROC: (CPT 52601; principal; 2022-12-26 14:50)
DX: N40.1 Benign prostatic hyperplasia with lower urinary tract symptoms (principal); E11.22 Type 2 diabetes mellitus with diabetic chronic kidney disease; Z79.4 Long term (current) use of insulin; I25.10 Atherosclerotic heart disease of native coronary artery without angina pectoris; I12.9 Hypertensive chronic kidney disease with stage 1 through stage 4 chronic kidney disease, or unspecified chronic kidney disease; N18.9 Chronic kidney disease, unspecified; R33.8 Other retention of urine; Z79.899 Other long term (current) drug therapy; N13.8 Other obstructive and reflux uropathy
CPT/HCPCS: 52601; 00914; 82962; 88305; 96361; 96365; 99221; J7030; J7120; A4216; G0378; J0744; J2405

== ENCOUNTER → 2023-05-13 | Outpatient (CLI) | payer MEDICARE, BC, SELFPAY | END | disposition home or self-care (01) | LOC: LABSPEC 16:21 | PROVIDERS: PCP Internal Medicine; Referring Provider Urology; Visit Provider Urology | DX: N40.1 Benign prostatic hyperplasia with lower urinary tract symptoms (principal) | CPT/HCPCS: 87086; 87088 ==

== ENCOUNTER 2023-05-29 13:59 | Outpatient (RCR) | payer MEDICARE, BC, SELFPAY | END 2023-06-13 23:59 | LOC: NS 13:59 | PROVIDERS: PCP Internal Medicine; Referring Provider Internal Medicine; Visit Provider Internal Medicine | DX: Z71.3 Dietary counseling and surveillance (principal); E11.9 Type 2 diabetes mellitus without complications | CPT/HCPCS: 97802 ==

== ENCOUNTER 2023-07-24 14:00 | Outpatient (RCR) | payer MEDICARE, BC, SELFPAY | END 2023-08-14 23:59 | LOC: NS 14:00 | PROVIDERS: PCP Internal Medicine; Referring Provider Internal Medicine; Visit Provider Internal Medicine | DX: Z71.3 Dietary counseling and surveillance (principal); E11.22 Type 2 diabetes mellitus with diabetic chronic kidney disease; N18.32 Chronic kidney disease, stage 3b | CPT/HCPCS: 97803 ==

== ENCOUNTER 2023-10-29 10:53 | Outpatient (RCR) | payer MEDICARE, BC, SELFPAY | END 2023-11-12 23:59 | LOC: NS 10:53 | PROVIDERS: PCP Internal Medicine; Referring Provider Internal Medicine; Visit Provider Internal Medicine | DX: Z71.3 Dietary counseling and surveillance (principal); E11.22 Type 2 diabetes mellitus with diabetic chronic kidney disease; N18.32 Chronic kidney disease, stage 3b | CPT/HCPCS: 97803 ==

== ENCOUNTER 2024-02-24 11:08 | Outpatient (RCR) | payer MEDICARE, BC, SELFPAY | END 2024-03-14 23:59 | LOC: NS 11:08 | PROVIDERS: PCP Internal Medicine; Referring Provider Internal Medicine; Visit Provider Internal Medicine | DX: Z71.3 Dietary counseling and surveillance (principal); E11.22 Type 2 diabetes mellitus with diabetic chronic kidney disease; N18.32 Chronic kidney disease, stage 3b | CPT/HCPCS: 97803 ==

== ENCOUNTER 2024-11-18 14:01 | Outpatient (RCR) | payer MEDICARE, BC, SELFPAY | END 2024-12-12 23:59 | LOC: NS 14:01 | PROVIDERS: PCP Internal Medicine; Referring Provider Internal Medicine; Visit Provider Internal Medicine | DX: Z71.3 Dietary counseling and surveillance (principal); E11.9 Type 2 diabetes mellitus without complications | CPT/HCPCS: 97803 ==

== ENCOUNTER 2025-03-02 14:08 | Outpatient (RCR) | payer MEDICARE, BC, SELFPAY | END 2025-03-14 23:59 | LOC: NS 14:08 | PROVIDERS: PCP Internal Medicine; Referring Provider Internal Medicine; Visit Provider Internal Medicine | DX: Z71.3 Dietary counseling and surveillance (principal); E11.9 Type 2 diabetes mellitus without complications | CPT/HCPCS: 97803 ==